=== PATIENT | female | born 1945 | race Caucasian/White ===

== ENCOUNTER 2017-01-09 23:42 | Inpatient (IN) | payer MEDICARE ==
[~2017-01-09] VITALS: Ht 162.6 cm; Wt 54.6 kg
[2017-01-10] MEDS ORDERED: RALO60TA PO (00:06)
[2017-01-10] MEDS ORDERED: ASPI-630 PO (00:06)
[2017-01-10] MEDS ORDERED: PYRI100T PO (00:06)
[2017-01-10] MEDS ORDERED: PSYL0.5215 PO (00:06)
[2017-01-10] MEDS ORDERED: COLE1TAB2 PO (00:06)
[2017-01-10] MEDS ORDERED: ALBU8.5H8 INH (00:06)
[2017-01-10] MEDS ORDERED: CHOL10003 PO (00:06)
[2017-01-10] MEDS ORDERED: MULT1TAB52 PO (00:06)
[2017-01-10] MEDS ORDERED: ALPR1TAB6 PO (00:06)
[2017-01-10] MEDS ORDERED: BUSP30TA PO (00:06)
[2017-01-10] MEDS ORDERED: MOME110A IH (00:06)
[2017-01-10] MEDS ORDERED: MIRT45TA3 PO (00:06)
[2017-01-10] MEDS ORDERED: FOLI0.8T2 PO (00:06)
[2017-01-10] MEDS ORDERED: DICY20TA3 PO (00:06)
[2017-01-10] MEDS ORDERED: DONE10TA7 PO (00:06)
[2017-01-10] MEDS ORDERED: CALC1TAB PO (00:06)
[2017-01-10] MEDS ORDERED: MEMA10TA PO (00:06)
[2017-01-10] MEDS ORDERED: FOLI1TAB16 PO (01:39)
[2017-01-10] MEDS ORDERED: ESCITALOPRAM OX10 MG PO (01:39)
[2017-01-10] MEDS ORDERED: MAGNESIUM HYDROXIDE 2,400 MG/30 ML ORAL.SUSP. PO PRN (01:45)
[2017-01-10] MEDS ORDERED: METHYL SALICYLATE/MENTHOL TOPICAL OINTMENT 29GM TUBE. TP PRN (01:45)
[2017-01-10] MEDS ORDERED: ACETAMINOPHEN 325 MG TABLET PO PRN (01:45)
[2017-01-10] MEDS ORDERED: MAG HYDROX/AL HYDROX/SIMETH 30 ML ORAL.SUSP PO PRN (01:45)
[2017-01-10 01:51] VITALS: BP 139/83
[2017-01-10] MEDS: ALPRAZolam 0.5 MG TABLET PO PRN ×2 (02:40→20:04)
--- NOTE | 2017-01-10 03:00 | NUR ---
Admission Note: Pt arrived to unit @0110 accompanied by EMS. Admitted to Dr. Renteria w/ Dx: MDD, OCD. Pt cooperative w/assessment, A/O x4 but forgetful. Slow to answer questions but answers appropriately. Assessment as charted. Pt anxious and agitated, attempting to grab at staff. PRN Xanax administered as ordered.
[2017-01-10] MEDS ORDERED: ALBUTEROL SULFATE 8GM INHALER. INH PRN (07:15)
[2017-01-10 07:23] LABS: BASO # 0.1 x10^3/uL (0.0-0.2); BASO % 1 % (0-3); EOS # 0.3 x10^3/uL (0.0-0.7); EOS % 4 % (0-3); HEMATOCRIT 36.6 % (36.0-47.0); HEMOGLOBIN 12.2 g/dL (12.0-15.5); LYMPH # 2.3 x10^3/uL (1.0-4.8); LYMPH % 28 % (24-48); MEAN CORPUSCULAR HEMOGLOBIN 31 pg (25-35); MEAN CORPUSCULAR HGB CONC 33 g/dL (31-37); MEAN CORPUSCULAR VOLUME 94 fL (79-100); MONO # 0.9 x10^3/uL (0.0-1.1); MONO % 10 % (0-9); NEUT # 4.7 x10^3uL (1.8-7.7); NEUT % 56 % (31-73); PLATELET COUNT 176 x10^3/uL (140-400); RED BLOOD COUNT 3.89 x10^6/uL (3.50-5.40); RED CELL DISTRIBUTION WIDTH 13.9 % (11.5-14.5); WHITE BLOOD COUNT 8.2 x10^3/uL (4.0-11.0)
[2017-01-10] MEDS ORDERED: ALBUTEROL SULFATE 2.5 MG/3 ML NEBU. NEB PRN (07:30)
[2017-01-10 07:32] LABS: ALBUMIN 3.4 g/dL (3.4-5.0); ALBUMIN/GLOBULIN RATIO 1.3 (1.0-1.7); CALCIUM 8.7 mg/dL (8.5-10.1); CREATININE 1.1 mg/dL (0.6-1.0); GFR 48.8; MAGNESIUM 1.8 mg/dL (1.8-2.4); POTASSIUM 3.5 mmol/L (3.5-5.1); TOTAL BILIRUBIN 0.5 mg/dL (0.2-1.0)
[2017-01-10] MEDS: CALCIUM CARB/VIT D3 500/200 TABLET PO SCH ×2 (08:00→16:50)
[2017-01-10] MEDS: NICOTINE 14MG PATCH. TD SCH (08:41)
[2017-01-10] MEDS: PSYLLIUM SEED (WITH SUGAR) PACKET. PO SCH ×2 (08:41→16:50)
[2017-01-10] MEDS: MULTIVITAMIN with MINERAL TABLET. PO SCH (08:42)
[2017-01-10] MEDS: FOLIC ACID 1 MG TABLET PO SCH (08:42)
[2017-01-10] MEDS: RALOXIFENE 60 MG TABLET. PO SCH (08:42)
[2017-01-10] MEDS: DONEPEZIL HCL 10 MG TABLET PO SCH (08:42)
[2017-01-10] MEDS: CHOLECALCIFEROL (VITAMIN D3) 1,000 UNIT TABLET PO SCH (08:45)
[2017-01-10] MEDS: busPIRone 15 MG TABLET. PO SCH ×2 (08:45→19:33)
[2017-01-10] MEDS: MEMANTINE 10 MG TABLET. PO SCH ×2 (08:45→19:33)
[2017-01-10] MEDS: CITALOPRAM 20 MG TABLET. PO SCH (08:45)
[2017-01-10] MEDS: ASPIRIN 81 MG TAB.CHEW PO SCH (08:45)
[2017-01-10] MEDS: PYRIDOXINE 100 MG TABLET. PO SCH (08:48)
[2017-01-10] MEDS: DICYCLOMINE HCL 20 MG TABLET PO SCH ×4 (08:48→19:33)
[2017-01-10] MEDS ORDERED: NON FORMULARY ITEM (Mometasone Furoate (Asmanex) 2 PUFF) IH SCH (09:00)
--- NOTE | 2017-01-10 09:30 | NUR ---
Behavior Intervention Response and Plan: BIRP Note: Behavior: Assumed Care of patient, patient located in Day Room at shift change. Patient exhibited the following behavior Disorganized, Withdrawn, Interactive. Brief assessment on rounds of vital signs, medication needs, lab studies, and pain. Treatment plan problems 1 & 2. Intervention: Patient assessed and the following interventions initiated safety checks 15 Minute Checks Cognitive Assessment , Head to toe Assessment , Medications. Response: After interactions and interventions patient responded in the following manner, Calm , Appropriate ,Compliant. Continue to assess behaviors and condition will continue to monitor throughout the shift as needed. Patient educated on ADL's, and hand hygiene. Plan: Continue to monitor Master Treatment Plan for patient's progress toward short term goals of Decreased Agitation, No harm To self/ others, [facility] goals to return to previous living setting vs placement. Continue to assess patient for changes in above assessment. Monitor for medication needs, pain, and safety concerns. Hourly rounding performed to ensure safe environment.
--- NOTE | 2017-01-10 10:53 | NUR ---
reported that patient has had recent AMS and increased confusion. CT of head W/O contrast and neuro consult with Dr. Bolivar ordered per Dr. Renteria treatment team instructions. Paged Dr. Bolivar and informed patients nurse of orders.
[2017-01-10] MEDS: BUDESONIDE 0.5 MG/2 ML NEBU NEB SCH ×2 (11:20→20:26)
--- NOTE | 2017-01-10 11:28 | NUR ---
Patient has been provided with Practical Counseling for tobacco cessation. It included a face to face interaction and the following was discussed: Recognizing danger situations, Developing coping skills,Basic cessation information. Will follow for discharge needs and discharge planning.
--- NOTE | 2017-01-10 11:30 | NUR ---
THERAPEUTIC RECREATION GROUP NOTE TITLE :Movement to Music: Strength ACTIVITY : Movement/ Exercise GOAL : Increase morale, attention, flexibility. Decrease stress/anxiety. DURATION : 30 Minutes RESPONSE : Full participation. Pt. joined the group about half way through. She acted confused at first but picked up the noodle and followed along with most of the rest of the moves. She made dramatic moves at times but was quiet and pleasant.
--- NOTE | 2017-01-10 12:03 | EKG ---
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
--- NOTE | 2017-01-10 14:15 | NUR ---
THERAPEUTIC RECREATION GROUP NOTE TITLE :Music Bingo ACTIVITY : Music, Cognitive Stimulation GOAL : Increase socialization, elevate mood, stimulate memory, Maintain or improve cognitive functioning DURATION : 60 minutes RESPONSE : Moderate participation. Pt. joined the group towards the end and needed was disorganized. She had difficulty understanding the concept and was stuck wondering how to keep the chips from moving. She needed one on one assistance.
[2017-01-10 14:53] LABS: THYROID STIM HORMONE (TSH) 0.986 uIU/mL (0.358-3.740)
--- NOTE | 2017-01-10 15:00 | NUR ---
Patient's left a duffel bag with clothes and denture cups in it. Clothes added to patient's inventory by [employer]ER[employer], denture cups were empty. As she still does not have dentures, will keep her on a mechanical soft diet. Will inform when he next visisits that the dentures were not in the bag.
--- NOTE | 2017-01-10 15:02 | RAD ---
Indication change in mental status. Noncontrast images of the head were obtained. No prior imaging is available. The calvarium appears unremarkable. The visualized paranasal sinuses appear normal. There is no subdural or epidural hematoma. There is no mass or midline shift. No hemorrhage is seen. IMPRESSION: No acute finding seen in the head PQRS Compliance Statement: One or more of the following individualized dose reduction techniques were utilized for this examination: 1. Automated exposure control 2. Adjustment of the mA and/or kV according to patient size 3. Use of iterative reconstruction technique
[2017-01-10 16:03] VITALS: BP 124/65
[2017-01-10 18:11] LABS: T3 TOTAL 83 ng/dL (71-180); THYROXINE 6.8 ug/dL (4.5-12.0)
--- NOTE | 2017-01-10 19:43 | PDOC ---
Exam Lencho Demential Exam: Lencho Note: Please also refer to the separate dictated note~for this date of service dictated separately.~Patient seen individually. Discussed the patient with Nursing staff reviewed the chart.~Reviewed interim history and current functioning. Reviewed vital signs,~Labs/ Radiology~and current medications noted below. Continue current treatment with the changes noted in the dictated addendum note Assessment: Vital Signs: Vital Signs Date Time Temp Pulse Resp B/P (MAP) Pulse Ox O2 Delivery O2 Flow Rate FiO2 01/10/17 16:03 97.7 77 18 124/65 (84) 95 01/10/17 11:21 Room Air I&O Intake and Output 01/11/17 07:00 Intake Total 660 ml Balance 660 ml Intake Oral 660 ml Labs: Laboratory Tests Test 01/10/17 07:08 White Blood Count 8.2 x10^3/uL (4.0-11.0) Red Blood Count 3.89 x10^6/uL (3.50-5.40) Hemoglobin 12.2 g/dL (12.0-15.5) Hematocrit 36.6 % (36.0-47.0) Mean Corpuscular Volume 94 fL (79-100) Mean Corpuscular Hemoglobin 31 pg (25-35) Mean Corpuscular Hemoglobin Concent 33 g/dL (31-37) Red Cell Distribution Width 13.9 % (11.5-14.5) Platelet Count 176 x10^3/uL (140-400) Neutrophils (%) (Auto) 56 % (31-73) Lymphocytes (%) (Auto) 28 % (24-48) Monocytes (%) (Auto) 10 % (0-9) H Eosinophils (%) (Auto) 4 % (0-3) H Basophils (%) (Auto) 1 % (0-3) Neutrophils # (Auto) 4.7 x10^3uL (1.8-7.7) Lymphocytes # (Auto) 2.3 x10^3/uL (1.0-4.8) Monocytes # (Auto) 0.9 x10^3/uL (0.0-1.1) Eosinophils # (Auto) 0.3 x10^3/uL (0.0-0.7) Basophils # (Auto) 0.1 x10^3/uL (0.0-0.2) Sodium Level 143 mmol/L (136-145) Potassium Level 3.5 mmol/L (3.5-5.1) Chloride Level 107 mmol/L (98-107) Carbon Dioxide Level 29 mmol/L (21-32) Anion Gap 7 (6-14) Blood Urea Nitrogen 15 mg/dL (7-20) Creatinine 1.1 mg/dL (0.6-1.0) H Estimated GFR (Cockcroft-Gault) 48.8 BUN/Creatinine Ratio 14 (6-20) Glucose Level 85 mg/dL (70-99) Calcium Level 8.7 mg/dL (8.5-10.1) Magnesium Level 1.8 mg/dL (1.8-2.4) Iron Level 75 ug/dL (50-170) Total Iron Binding Capacity 263 ug/dL (250-450) Iron Saturation 29 % (15-34) Total Bilirubin 0.5 mg/dL (0.2-1.0) Aspartate Amino Transferase (AST) 44 U/L (15-37) H Alanine Aminotransferase (ALT) 39 U/L (14-59) Alkaline Phosphatase 58 U/L (46-116) Total Protein 6.0 g/dL (6.4-8.2) L Albumin 3.4 g/dL (3.4-5.0) Albumin/Globulin Ratio 1.3 (1.0-1.7) Triglycerides Level 78 mg/dL (0-150) Cholesterol Level 156 mg/dL (0-200) LDL Cholesterol, Calculated 73 mg/dL (0-100) VLDL Cholesterol, Calculated 15 mg/dL (0-40) Non-HDL Cholesterol Calculated 88 mg/dL (0-129) HDL Cholesterol 68 mg/dL (40-60) H Cholesterol/HDL Ratio 2.0 Vitamin B12 Level 316 pg/mL (247-911) 25-Hydroxy Vitamin D Total Pending Thyroid Stimulating Hormone (TSH) 0.986 uIU/mL (0.358-3.740) Thyroxine (T4) 6.8 ug/dL (4.5-12.0) Total Triiodothyronine (TT3) 83 ng/dL (71-180) RPR Titer Additional Testing Pending Current Medications: Meds: Current Medications Donepezil HCl (Aricept) 10 mg DAILY PO Last administered on 01/10/17 08:42; Start 01/10/17 at 09:00 Memantine (Namenda) 10 mg BID PO Last administered on 01/10/17 19:33; Start 01/10/17 at 09:00 Alprazolam (Xanax) 1 mg PRN QID PRN PO ANXIETY / AGITATION Last administered on 01/10/17 02:40; Start 01/10/17 at 01:30 Buspirone HCl (Buspar) 30 mg BID PO Last administered on 01/10/17 19:33; Start 01/10/17 at 09:00 Citalopram Hydrobromide (CeleXA) 20 mg DAILY PO Last administered on 01/10/17 08:45; Start 01/10/17 at 09:00 Mirtazapine (Remeron) 45 mg HS PO Last administered on 01/10/17 19:36; Start at 21:00 Acetaminophen (Tylenol) 650 mg PRN Q6HRS PRN PO PAIN / TEMP Last administered on 01/10/17 02:40; Start 01/10/17 at 01:45 Multi-Ingredient Ointment (Analgesic Galien) 1 [place] PRN QID PRN TP MUSCLE PAIN; Start 01/10/17 at 01:45 Al Hydroxide/Mg Hydroxide (Mylanta Plus Xs) 15 ml PRN AFTMEALHC PRN PO DYSPEPSIA; Start 01/10/17 at 01:45 Magnesium Hydroxide (Milk Of Magnesia) 2,400 mg PRN QHS PRN PO CONSTIPATION; Start 01/10/17 at 01:45 Nicotine (Nicoderm Cq 14mg) 1 patch DAILY TD Last administered on 01/10/17 08: 41; Start 01/10/17 at 09:00 Albuterol Sulfate (Ventolin Hfa) 1 puff PRN Q6HRS PRN INH SHORTNESS OF BREATH; Start 01/10/17 at 07:15; Stop 01/10/17 at 07:23; Status DC Aspirin (Children'S Aspirin) 81 mg DAILY PO Last administered on 01/10/17 08:45 ; Start 01/10/17 at 09:00 Vitamin D (Vitamin D3) 2,000 unit DAILY PO Last administered on 01/10/17 08:45 ; Start 01/10/17 at 09:00 Colestipol HCl (Colestid) 1 gm HS PO ; Start 01/10/17 at 21:00 Dicyclomine HCl (Bentyl) 20 mg QID PO Last administered on 01/10/17 19:33; Start 01/10/17 at 09:00 Folic Acid (Folic Acid) 1 mg DAILY PO Last administered on 01/10/17 08:42; Start 01/10/17 at 09:00 Pyridoxine HCl (Vitamin B-6) 100 mg DAILY PO ; Start 01/10/17 at 09:00 Raloxifene HCl (Evista) 60 mg DAILY PO Last administered on 01/10/17 08:42; Start 01/10/17 at 09:00 Calcium/Vitamin D (Oscal D 500mg/ 200uts) 1 tab BIDWMEALS PO Last administered on 01/10/17 16:50; Start 01/10/17 at 08:00 Non-Formulary Medication 2 puff DAILY IH ; Start 01/10/17 at 09:00; Stop 01/10/17 at 09:00; Status DC Multivitamins/ Calcium (Thera-M Plus) 1 tab DAILY PO Last administered on 08:42; Start 01/10/17 at 09:00 Psyllium Hydrophilic Mucilloid (Metamucil) 1 pkt BID94 PO Last administered on 01/10/17 16:50; Start 01/10/17 at 09:00 Albuterol Sulfate (Ventolin) 2.5 mg PRN Q6HRS PRN NEB SHORTNESS OF BREATH; Start 01/10/17 at 07:30 Budesonide (Pulmicort) 0.25 mg RTBID NEB Last administered on 01/10/17 11:20; Start 01/10/17 at 08:00 Active Scripts Active Reported Escitalopram Oxalate 10 Mg Tablet 10 Mg PO DAILY Folic Acid 1 Mg Tablet 1 Mg PO DAILY Proair Hfa Inhaler (Albuterol Sulfate) 8.5 Gm Hfa.aer.ad 1 Puff INH PRN Q6HRS PRN Asmanex (Mometasone Furoate) 110 Mcg Aer.pow.ba 2 Puff IH DAILY Colestipol Hcl 1 Gm Tablet 1 Gm PO HS Metamucil (Psyllium Husk) 0.52 Gm Capsule 2 Cap PO BID94 Multivitamins (Multivitamin) 1 Each Tablet 1 Tab PO DAILY Aspirin 81 Mg Tab.chew 81 Mg PO DAILY Vitamin D3 (Cholecalciferol (Vitamin D3)) 1,000 Unit Tablet 2,000 Unit PO DAILY Vitamin B-6 (Pyridoxine Hcl) 100 Mg Tablet 100 Mg PO DAILY Caltrate 600 + D Tablet (Calcium Carbonate/Vitamin D3) 1 Each Tablet 1 Tab PO BID Evista (Raloxifene Hcl) 60 Mg Tablet 60 Mg PO DAILY Donepezil Hcl 10 Mg Tablet 10 Mg PO DAILY Namenda (Memantine Hcl) 10 Mg Tablet 10 Mg PO BID Alprazolam 1 Mg Tablet 1 Mg PO QID PRN Dicyclomine Hcl 20 Mg Tablet 20 Mg PO QID Buspirone Hcl 30 Mg Tablet 30 Mg PO BID Mirtazapine 45 Mg Tablet 45 Mg PO KAYLAN RAGLAND MD Jan 10, 2017 19:43
--- NOTE | 2017-01-10 19:45 | NUR ---
Behavior Intervention Response and Plan: BIRP Note: Behavior: Assumed Care of patient, patient located in Hallway at shift change. Patient exhibited the following behavior Disorganized, Anxious, Agitated, Intrusive. Brief assessment on rounds of vital signs, medication needs, lab studies, and pain. Treatment plan problems 1 & 2. Intervention: Patient assessed and the following interventions initiated safety checks 15 Minute Checks Cognitive Assessment , Head to toe Assessment , Medications. Response: After interactions and interventions patient responded in the following manner, Calm , Appropriate ,Compliant. Continue to assess behaviors and condition will continue to monitor throughout the shift as needed. Patient educated on ADL's, and hand hygiene. Plan: Continue to monitor Master Treatment Plan for patient's progress toward short term goals of Decreased Agitation, No harm To self/ others, [facility] goals to return to previous living setting vs placement. Continue to assess patient for changes in above assessment. Monitor for medication needs, pain, and safety concerns. Hourly rounding performed to ensure safe environment.
[2017-01-10] MEDS ORDERED: COLESTIPOL HCL 1 GM TABLET PO SCH (21:00)
[2017-01-10] MEDS ORDERED: MIRTAZAPINE 15 MG TABLET PO SCH (21:00)
--- NOTE | 2017-01-10 22:12 | HP ---
ADMIT DATE: 01/10/2017 This note covers element not covered in my initial note of 01/10/2017. IDENTIFYING DATA: The patient is a 71-year-old female referred to us from the Emergency Room [facility] on [facility] after she presented there from home with her on account of increased confusion, acute mental status changes, marked obsessive, and thought processes appearing almost "catatonic" and she would "zone out." Reportedly, she has mild memory deficits and increasingly agitated. She was recently taken off Prozac and started on Lexapro by Dr. Leblanc, her psychiatrist. was unable to manage her at home. She was unable to take care of her ADLs. She was taking markedly extended periods of time to complete simple tasks. Appeared psychotic and obsessive and presented to the ER. I was called around midnight or so to determine whether the patient could be hospitalized for psychiatric stabilization. In the meantime, decided he wanted her in a psychiatric facility closer to him in the [place] area. I called back an hour or so later to check with the nursing staff and had not been able to find any other facility and we did agree to bring her in to us for psychiatric stabilization. CHIEF COMPLAINT: "I don't know." The patient responded after I asked her when she came here. In fact, she knew very well when she came and was trying to assess her memory. She was evasive and looking away. Appeared paranoid, psychotic, and quite confused, but nursing staff state she has been cognitively reasonably intact at times in between her marked confusion. HISTORY OF PRESENT ILLNESS: ____, but it appears the patient has a history of obsessive-compulsive disorder, mild cognitive impairment, major depressive disorder and has been treated outpatient by Dr. Leblanc. More recently, Prozac was changed to Lexapro and she has had a change in her mental status significantly as noted above. No clear history of suicidal or homicidal ideation. No clear history of bipolar disorder, but past records will be requested to reevaluate this. Following admission, the patient has been anxious, agitated, and grabbing at [facility]. She is quite forgetful, confused, and attempts to grab tube of blood from the lab aid. Unable to formulate sentences since the morning of 01/10/2017. PAST PSYCHIATRIC HISTORY: As above. MEDICAL HISTORY: Mitral valve prolapse and irritable bowel syndrome. ALLERGIES: MINOCYCLINE, SULFA, PENICILLIN, AND AMELIA. ACCU-CHEKS: None. DIET: Regular. MEDICATIONS: Takes at home. REVIEW OF SYSTEMS: No CV, , pulmonary, eye, or ENT system symptoms on review. Reliability is poor. UA was negative in [facility]. CT head of the not completed. We will have it done here in our unit. Code status is full code. CURRENT PSYCHOTROPICS: Lexapro 10 mg a day, Remeron 45 mg at bedtime, Xanax 1 mg 4 times a day p.r.n., BuSpar 30 mg b.i.d., Namenda 10 b.i.d., and Aricept 10 mg a day. REACTION TO HOSPITALIZATION: The patient oblivious of this asset. The patient has supportive . MENTAL STATUS EXAM: The patient was seen individually evening of 01/10/2017. She is oriented to herself, quite paranoid, evasive, and not answering questions. However, nursing staff report she has been better oriented other times during the day. Speech moderate latency of that, abstraction fair, computation impaired, attention span short, and language function intact. Mood and affect remains somewhat withdrawn and labile. No active suicidal or homicidal ideation. This note covers elements not covered in my initial note. Readers refer to that note for details of vital signs. IMPRESSION: Major depressive disorder with psychotic features, psychotic disorder, unspecified; mild cognitive impairment versus major neurocognitive disorder, Alzheimer, vascular with delusion, depression; and anxiety disorder, unspecified. Rest as above. PLAN: Admit to the geropsychiatry unit at [facility]. I will see the patient daily individually from a psychiatric standpoint and medical follow up with Dr. Langford/Dr. Schwarz. Check CT head. Neurology consult with Dr. Bolivar to assess any neurological causes for acute mental status changes. Continue current psychotropics and observe baseline. The patient probably needs the addition of an atypical antipsychotic, but I would not like to wait day or so before deciding those baseline assessments. Reaction to hospitalization, the patient oblivious of this. KAYLAN RAGLAND MD DR: NABIL/sasha JOB#: [id number] / [id number]
[2017-01-11 06:03] VITALS: BP 130/82
[2017-01-11] MEDS: DICYCLOMINE HCL 20 MG TABLET PO SCH (07:55)
[2017-01-11] MEDS: busPIRone 15 MG TABLET. PO SCH (07:55)
[2017-01-11] MEDS: CALCIUM CARB/VIT D3 500/200 TABLET PO SCH (07:55)
[2017-01-11] MEDS: FOLIC ACID 1 MG TABLET PO SCH (07:55)
[2017-01-11] MEDS: CHOLECALCIFEROL (VITAMIN D3) 1,000 UNIT TABLET PO SCH (07:55)
[2017-01-11] MEDS: DONEPEZIL HCL 10 MG TABLET PO SCH (07:56)
[2017-01-11] MEDS: ASPIRIN 81 MG TAB.CHEW PO SCH (07:56)
[2017-01-11] MEDS: RALOXIFENE 60 MG TABLET. PO SCH (07:56)
[2017-01-11] MEDS: MULTIVITAMIN with MINERAL TABLET. PO SCH (07:56)
[2017-01-11] MEDS: PSYLLIUM SEED (WITH SUGAR) PACKET. PO SCH (07:56)
[2017-01-11] MEDS: MEMANTINE 10 MG TABLET. PO SCH (07:56)
[2017-01-11] MEDS: CITALOPRAM 20 MG TABLET. PO SCH (07:56)
[2017-01-11] MEDS: PYRIDOXINE 100 MG TABLET. PO SCH (07:56)
[2017-01-11] MEDS: NICOTINE 14MG PATCH. TD SCH (07:56)
--- NOTE | 2017-01-11 08:50 | NUR ---
Behavior Intervention Response and Plan: BIRP Note: Behavior: Assumed Care of patient, patient located in Dining Room at shift change. Patient exhibited the following behavior Withdrawn, Disorganized, Interactive. Brief assessment on rounds of vital signs, medication needs, lab studies, and pain. Treatment plan problems 1 & 2. Intervention: Patient assessed and the following interventions initiated safety checks 15 Minute Checks Cognitive Assessment , Head to toe Assessment , Medications. Response: After interactions and interventions patient responded in the following manner, Calm , Appropriate ,Compliant. Continue to assess behaviors and condition will continue to monitor throughout the shift as needed. Patient educated on ADL's, and hand hygiene. Plan: Continue to monitor Master Treatment Plan for patient's progress toward short term goals of Decreased Agitation, Decreased Aggression, [facility] goals to return to previous living setting vs placement. Continue to assess patient for changes in above assessment. Monitor for medication needs, pain, and safety concerns. Hourly rounding performed to ensure safe environment.
--- NOTE | 2017-01-11 09:00 | NUR ---
THERAPEUTIC RECREATION GROUP NOTE TITLE :Group Counting ACTIVITY : Activities and Games GOAL : Increase social interaction, communication. Maintain or improve mental functioning. Decrease restlessness DURATION : 60 minutes RESPONSE : Full participation. Pt. was alert and engaged the entire time. She needed prompting, explanations to stay on task and understand the rules. At times, she raised her arms and stared at her hands, needing redirection back on task. She was calm and sat with the group the entire time.
[2017-01-11] MEDS: BUDESONIDE 0.5 MG/2 ML NEBU NEB SCH (10:14)
--- NOTE | 2017-01-11 11:20 | NUR ---
Patient had a seizure while sitting on a bench on the patio. Patient was carried inside to the day room and rapid response called. She was unresponsive and drooling afterwards. VS obtained, EKG obtained, PIV initiated in left hand, labs obtained. MD was on scene, assessed patient, new orders received. Will continue to monitor patient.
--- NOTE | 2017-01-11 11:30 | NUR ---
THERAPEUTIC RECREATION GROUP NOTE TITLE :Movement to Music: Flexibility- In the Dining Room! ACTIVITY : Movement/ Exercise GOAL : Increase morale, attention, flexibility. Decrease stress/anxiety. DURATION : 30 Minutes RESPONSE : Full participation. Pt. joined the group late but followed along with all of the moves. She used her arms instead of her legs to copy a few stretches but others times followed along as desired.
--- NOTE | 2017-01-11 12:54 | NUR ---
Patient had second seizure activity. VS obtained, patient remained free from injury. MD notified, patient to be transferred to ICU.
[2017-01-11] MEDS ORDERED: ALPRAZolam 0.5 MG TABLET PO SCH (13:00)
--- NOTE | 2017-01-11 13:09 | EKG ---
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
--- NOTE | 2017-01-11 13:18 | NUR ---
Tobacco Discharge Note [facility] Tobacco Hotline called with patient prior to discharge, NO, patient transferred to ICU, will continue tobacco cessation on unit Tobacco cessation medication listed with current medications for discharge. YES Transition Record was faxed to follow-up provider with the following elements: Reason for admission, procedures, tests, principal diagnosis, pending studies, patient instructions, 26/11 contact information for unit, phone number to obtain pending test results, plan for follow-up care, physician follow-up, advanced directive information, and medication list with dose, duration and instructions. This information was included in the following documents: History and physical, lab results, study results, progress notes, social work planning form, DC instruction form, patient visit summary, and medication reconciliation form. Date & time record faxed: Record faxed to: ICU Record discussed with/ report given to: Nica Addendum: 01/15/17 at 0916 by IDA BHATIA RN Date & time record faxed: 01-11-2017 @ 1913
[2017-01-11] MEDS ORDERED: ALPR0.5T PO (13:25)
[2017-01-11] MEDS ORDERED: NICO1PAT25 TP (14:17)
[2017-01-11] MEDS ORDERED: BUDE0.25 NEB (14:17)
[2017-01-11] MEDS ORDERED: METH29OI TP (14:17)
[2017-01-11] MEDS ORDERED: CITA20TA9 PO (14:17)
[2017-01-11] MEDS ORDERED: ACET325T9 PO (14:17)
--- NOTE | 2017-01-11 20:23 | PDOC ---
Exam Lencho Demential Exam: Lencho Note: Please also refer to the separate dictated note~for this date of service dictated separately.~Patient seen individually. Discussed the patient with Nursing staff reviewed the chart.~Reviewed interim history and current functioning. Reviewed vital signs,~Labs/ Radiology~and current medications noted below. Continue current treatment with the changes noted in the dictated addendum note Assessment: Vital Signs: Vital Signs Date Time Temp Pulse Resp B/P (MAP) Pulse Ox O2 Delivery O2 Flow Rate FiO2 01/11/17 10:16 97 Room Air 01/11/17 06:03 97.9 73 18 130/82 (98) I&O Intake and Output 01/12/17 07:00 Intake Total 240 ml Balance 240 ml Intake Oral 240 ml Labs: Laboratory Tests Test 01/11/17 11:32 Glucose (Fingerstick) 112 mg/dL (70-99) H Current Medications: Meds: Current Medications Donepezil HCl (Aricept) 10 mg DAILY PO Last administered on 01/11/17 07:56; Start 01/10/17 at 09:00; Stop 01/11/17 at 13:18; Status DC Memantine (Namenda) 10 mg BID PO Last administered on 01/11/17 07:56; Start 01/10/17 at 09:00; Stop 01/11/17 at 13:18; Status DC Alprazolam (Xanax) 1 mg PRN QID PRN PO ANXIETY / AGITATION Last administered on 01/10/17 20:04; Start 01/10/17 at 01:30; Stop 01/11/17 at 13:18; Status DC Buspirone HCl (Buspar) 30 mg BID PO Last administered on 01/11/17 07:55; Start 01/10/17 at 09:00; Stop 01/11/17 at 13:18; Status DC Citalopram Hydrobromide (CeleXA) 20 mg DAILY PO Last administered on 01/11/17 07:56; Start 01/10/17 at 09:00; Stop 01/11/17 at 13:18; Status DC Mirtazapine (Remeron) 45 mg HS PO Last administered on 01/10/17 19:36; Start at 21:00; Stop 01/11/17 at 13:18; Status DC Acetaminophen (Tylenol) 650 mg PRN Q6HRS PRN PO PAIN / TEMP Last administered on 01/10/17 02:40; Start 01/10/17 at 01:45; Stop 01/11/17 at 13:18; Status DC Multi-Ingredient Ointment (Analgesic Austin) 1 winston PRN QID PRN TP MUSCLE PAIN; Start 01/10/17 at 01:45; Stop 01/11/17 at 13:18; Status DC Al Hydroxide/Mg Hydroxide (Mylanta Plus Xs) 15 ml PRN AFTMEALHC PRN PO DYSPEPSIA; Start 01/10/17 at 01:45; Stop 01/11/17 at 13:18; Status DC Magnesium Hydroxide (Milk Of Magnesia) 2,400 mg PRN QHS PRN PO CONSTIPATION; Start 01/10/17 at 01:45; Stop 01/11/17 at 13:18; Status DC Nicotine (Nicoderm Cq 14mg) 1 patch DAILY TD Last administered on 01/11/17 07: 56; Start 01/10/17 at 09:00; Stop 01/11/17 at 13:18; Status DC Albuterol Sulfate (Ventolin Hfa) 1 puff PRN Q6HRS PRN INH SHORTNESS OF BREATH; Start 01/10/17 at 07:15; Stop 01/10/17 at 07:23; Status DC Aspirin (Children'S Aspirin) 81 mg DAILY PO Last administered on 01/11/17 07:56 ; Start 01/10/17 at 09:00; Stop 01/11/17 at 13:18; Status DC Vitamin D (Vitamin D3) 2,000 unit DAILY PO Last administered on 01/11/17 07:55 ; Start 01/10/17 at 09:00; Stop 01/11/17 at 13:18; Status DC Colestipol HCl (Colestid) 1 gm HS PO ; Start 01/10/17 at 21:00; Stop 01/11/17 at 13:18; Status DC Dicyclomine HCl (Bentyl) 20 mg QID PO Last administered on 01/11/17 07:55; Start 01/10/17 at 09:00; Stop 01/11/17 at 13:18; Status DC Folic Acid (Folic Acid) 1 mg DAILY PO Last administered on 01/11/17 07:55; Start 01/10/17 at 09:00; Stop 01/11/17 at 13:18; Status DC Pyridoxine HCl (Vitamin B-6) 100 mg DAILY PO Last administered on 01/11/17 07: 56; Start 01/10/17 at 09:00; Stop 01/11/17 at 13:18; Status DC Raloxifene HCl (Evista) 60 mg DAILY PO Last administered on 01/11/17 07:56; Start 01/10/17 at 09:00; Stop 01/11/17 at 13:18; Status DC Calcium/Vitamin D (Oscal D 500mg/ 200uts) 1 tab BIDWMEALS PO Last administered on 01/11/17 07:55; Start 01/10/17 at 08:00; Stop 01/11/17 at 13:18; Status DC Non-Formulary Medication 2 puff DAILY IH ; Start 01/10/17 at 09:00; Stop 01/10/17 at 09:00; Status DC Multivitamins/ Calcium (Thera-M Plus) 1 tab DAILY PO Last administered on 07:56; Start 01/10/17 at 09:00; Stop 01/11/17 at 13:18; Status DC Psyllium Hydrophilic Mucilloid (Metamucil) 1 pkt BID94 PO Last administered on 01/11/17 07:56; Start 01/10/17 at 09:00; Stop 01/11/17 at 13:18; Status DC Albuterol Sulfate (Ventolin) 2.5 mg PRN Q6HRS PRN NEB SHORTNESS OF BREATH; Start 01/10/17 at 07:30; Stop 01/11/17 at 13:18; Status DC Budesonide (Pulmicort) 0.25 mg RTBID NEB Last administered on 01/11/17 10:14; Start 01/10/17 at 08:00; Stop 01/11/17 at 13:18; Status DC Alprazolam (Xanax) 0.5 mg QID PO Last administered on 01/11/17 11:51; Start 01/11/17 at 13:00; Stop 01/11/17 at 13:18; Status DC Active Scripts Active Reported NICODERM CQ 14mg (Nicotine) 1 Each Patch.td24 0.5 Patch TP DAILY Analgesic Austin (Methyl Salicylate/Menthol) 28 Gm Oint...g. 1 Gm TP PRN QID Celexa (Citalopram Hydrobromide) 20 Mg Tablet 1 Tab PO DAILY Budesonide 0.25 Mg/2 Ml Ampul.neb 1 Vial NEB BID Tylenol (Acetaminophen) 325 Mg Tablet 650 Mg PO PRN Q6HRS PRN Xanax (Alprazolam) 0.5 Mg Tablet 0.5 Mg PO QID Folic Acid 1 Mg Tablet 1 Mg PO DAILY Proair Hfa Inhaler (Albuterol Sulfate) 8.5 Gm Hfa.aer.ad 1 Puff INH PRN Q6HRS PRN Colestipol Hcl 1 Gm Tablet 1 Gm PO HS Metamucil (Psyllium Husk) 0.52 Gm Capsule 2 Cap PO BID94 Multivitamins (Multivitamin) 1 Each Tablet 1 Tab PO DAILY Aspirin 81 Mg Tab.chew 81 Mg PO DAILY Vitamin D3 (Cholecalciferol (Vitamin D3)) 1,000 Unit Tablet 2,000 Unit PO DAILY Vitamin B-6 (Pyridoxine Hcl) 100 Mg Tablet 100 Mg PO DAILY Caltrate 600 + D Tablet (Calcium Carbonate/Vitamin D3) 1 Each Tablet 1 Tab PO BID Evista (Raloxifene Hcl) 60 Mg Tablet 60 Mg PO DAILY Donepezil Hcl 10 Mg Tablet 10 Mg PO DAILY Namenda (Memantine Hcl) 10 Mg Tablet 10 Mg PO BID Alprazolam 1 Mg Tablet 1 Mg PO QID Dicyclomine Hcl 20 Mg Tablet 20 Mg PO QID Buspirone Hcl 30 Mg Tablet 30 Mg PO BID Mirtazapine 45 Mg Tablet 45 Mg PO HS KAYLAN RAGLAND MD Jan 11, 2017 20:22
--- NOTE | 2017-01-12 00:45 | EEG ---
DATE OF SERVICE: 01/10/2017 HISTORY: This is a 71-year-old female who was referred for an EEG to rule central nervous system pathology or seizure. The patient has had two new seizure-like activities today, described as generalized tonic-clonic seizure EEG DESCRIPTION: A digital 18-channel EEG was performed using the standard international 10-20 electrode placement system. Photic stimulation was used as an activation procedure and hyperventilation was not performed. The patient was not sleep deprived and the patient was not sedated. The EEG obtained with the patient in the drowsy state characterized by slowing of the posterior dominant rhythm at 6-7 cycles per second with amplitude of 35-50 microvolts. It was bilaterally symmetric and attenuated with eye opening. The background prolonged drowsy records presented with stage 2 sleep characterized by slowing of the posterior dominant rhythm and attenuation of the amplitudes. Vertex sharp waves, K-complexes, and symmetric sleep spindles at frequency of 13-15 cycles per second were also seen during the . Photic stimulation produced no driving responses and hyperventilation indicated no changes in the background. Hypoventilation was not performed. IMPRESSION: Normal prolonged drowsy and brief waking record presented with slowing of the posterior dominant rhythm due to drowsiness; however, no epileptiform activities were seen. The lack of epileptiform discharges does not always rule out seizure. Therefore, clinical correlation is advised. M Marko GASCA MD DR: STEPHANIE/sasha JOB#: [id number] / [id number]
--- NOTE | 2017-01-12 05:27 | CONS ---
DATE OF CONSULTATION: 01/10/2017 NEURO CONSULT REFERRING PHYSICIAN: Dr. Renteria. REASON FOR CONSULTATION: Acute mental status changes. HISTORY OF PRESENT ILLNESS: This is a 71-year-old female who was [facility] the [facility] on account of symptoms of increased confusion, agitations and behavior disturbances. On occasions, the patient would have "catatonic spells" according to her son who is a physician. She has been having marked symptoms of obsessive compulsive disorder and she was seen by a psychiatrist, Dr. Leblanc, who started her on Prozac; however, she was recently taken off Prozac and started her on Lexapro. According to the , her behavior has been worsened recently and he is unable to manage her situation and take care of her. Currently, the patient denies headaches, visual disturbances, nausea, vomiting, chest pain, shortness of breath or palpitation. She has had intermittent memory loss. She denies any recent fall or head injuries. The patient has been taking alprazolam 1 mg 4 times daily; however, it was reduced on admission to 1 mg daily; therefore, she did receive 2 mg over the last 2 days only. PAST MEDICAL HISTORY: Significant for confusion, anxiety, depressions, behavior disturbances, progressive memory loss, history of mitral valve prolapse and irritable bowel syndrome. FAMILY HISTORY: Noncontributory. SOCIAL HISTORY: The patient lives with her at home. She denies smoking, alcohol drinking, or illicit drug use. CURRENT MEDICATIONS: Alprazolam 1 mg was taken yesterday, multivitamins, folic acid, vitamin B6, dicyclomine, vitamin D, aspirin, Celexa, buspirone, Namenda, Aricept, and calcium. ALLERGIES: PENICILLIN, SULFA DRUGS, FEXOFENADINE, and MINOCYCLINE. REVIEW OF SYSTEMS: A 10-point review of system was performed as mentioned above in history of present illness. PHYSICAL EXAMINATION GENERAL: Well-developed, well-nourished white female, not in acute distress. She weighs 120 pounds, height 64 inches. VITAL SIGNS: Blood pressure 124/65, respiratory rate 18, pulse 77, temperature 97.7, oxygen saturation 95% on room air. HEENT: Normocephalic, atraumatic; otherwise, unremarkable. NECK: Supple. Negative for carotid bruit, lymphadenopathy or thyromegaly. LUNGS: Clear to A and P. CARDIOVASCULAR: Regular rate and rhythm, normal S1, S2. There is no S3, S4 or murmur. ABDOMEN: Soft. Bowel sounds are positive. EXTREMITIES: Negative for cyanosis, clubbing or pitting edema. NEUROLOGICAL EXAM: 1. Mental Status: The patient is alert and oriented to herself. The speech is fluent. There is no language dysfunction. The patient recalls 1/3 immediately and after 1 and 3 minutes. Judgment and abstract thinking are fair. The patient denies hallucination or delusion. 2. CRANIAL NERVES: Visual dwyer are full. The pupils are reactive to light and accommodation. Extraocular movements are intact. There is no nystagmus. There is no facial motor or sensory deficit. Hearing is intact bilaterally. The palate is elevated symmetrically. Sternocleidomastoid muscles are powerful bilaterally. The patient shrugs her shoulders symmetrically and protrudes her tongue in the midline without fasciculation or atrophy. 3. MOTOR EXAMINATION: No focal muscle bulk was seen. The tone is normal. The strength is 4/5 throughout. 4. SENSORY EXAMINATION: Normal pinprick, light touch, vibratory and position senses. 5. Deep tendon reflexes are symmetric and hypoactive with absent Achilles responses. 6. Gait and coordination are normal. LABORATORY DATA: CBC revealed white blood cells of 8.2 thousand, hemoglobin 12.2, hematocrit 36.6, and platelet count 176,000. Her chemistry revealed normal lipid profile with HDL of 68. Vitamin B12 is 316, vitamin D is normal at 57.4 with normal thyroid profile and RPR nonreactive. IMPRESSION: 1. Acute mental status changes more prominent in the last few weeks with long history of depression, anxiety, obsessive compulsive disorder with psychotic features. 2. Mitral valve prolapse. RECOMMENDATIONS: Continue with current psychiatric care and medical management and resume her Xanax to previous daily doses. M Marko GASCA MD DR: STEPHANIE/sasha JOB#: [id number] / [id number]
--- NOTE | 2017-01-12 05:30 | PN ---
DATE: 01/11/2017 SUBJECTIVE: The patient was transferred from [facility] ICU bed 5 because she did have a seizure-like activities 2 times this morning. According to the nursing staff, the patient was sitting outside, all of a sudden she stiffened up and she has chronic with loss of consciousness lasted few minutes. The patient was postictally disoriented and unresponsive for a few minutes. She had similar seizure-like activities later on. The patient did not recall the event. She did not have any tongue biting, bowel or bladder incontinence. Non-enhanced head CT scan revealed no evidence of acute intracranial process. Electroencephalogram was performed today and revealed no evidence of seizure activities. OBJECTIVE: GENERAL: Well-developed, well-nourished white female, not in acute distress. VITAL SIGNS: Blood pressure 130/82, respiratory rate 18, pulse 73, temperature 97.7, oxygen saturation 96% on room air. HEENT: Normocephalic, atraumatic, otherwise, unremarkable. NECK: Supple. Negative for carotid bruit, lymphadenopathy or thyromegaly. LUNGS: Clear to A and P. CARDIOVASCULAR: Regular rate and rhythm, normal S1, S2. There is no S3, S4 or murmur. ABDOMEN: Soft. Bowel sounds positive. EXTREMITIES: Negative for cyanosis, clubbing or pitting edema. NEUROLOGIC: The patient is alert, but disoriented to time and place. Speech is fluent. No language dysfunction. Memory, judgment, and abstract thinking are impaired. The patient denies hallucination or delusion. Cranial nerves are grossly intact. Motor Examination: No focal muscle bulk was seen. The tone is normal. The strength is 4/5 throughout. Sensory examination revealed normal pinprick and light touch senses throughout. Deep tendon reflexes were hypoactive with absent Achilles responses. Gait not tested. LABORATORY DATA: CBC revealed white blood cells of 11.9 thousand, hemoglobin 13.6, hematocrit 41.2, platelet count 245,000. Chemistry revealed sodium of 142, potassium 3.9, chloride 107, CO2 of 20, BUN 12, creatinine 1.3, glucose 116, calcium 9.5 and magnesium 2.2. Iron is normal. Liver enzymes with increased AST of 38. IMPRESSION: 1. New onset of a seizure, etiology uncertain, probably due to benzodiazepine withdrawal - alprazolam. 2. Multiple psychiatric problems including depressions, obsessive compulsive disorder, anxiety disorder with psychotic disorders. 3. Possible early dementia. 4. Early dementia. 5. Negative electroencephalogram for active seizure. RECOMMENDATIONS: 1. Resume the previous dose of alprazolam. 2. Continue with current medical and psychiatric care. M Marko GASCA MD DR: STEPHANIE/sasha JOB#: [id number] / [id number]
--- NOTE | 2017-01-12 07:42 | PDOC1 ---
History and Physicial KEI FOR ADMISSION: This is a 71-year-old female who was admitted to the Senior Behavioral Unit on yesterday in the early hours of 01/10/2017. There appears to have been a mixed up in her medication and that she was taking Xanax 1 mg 4 times a day scheduled, and she had been taken to the Emergency Room at [facility], and when she was discharged to the Senior Behavioral Unit, she was discharged on Xanax 1 mg q.i.d. p.r.n. So yesterday, she received 2 mg, but then had not received anything for over 12 hours and was called to the unit to see her because of tonic-clonic seizure activity. I did go up and see her, and she did seem to be postictal and did give her 0.5 mg of Ativan, and then about an hour later about 1:00 p.m.-1:30, she had another tonic-clonic seizure, which was witnessed by several individuals including her son. So she was transferred down to the ICU for further evaluation. PAST MEDICAL HISTORY: She has obsessive compulsive disorder, early cognitive impairment, anxiety and evidently history of psychosis. She actually was again on the senior behavior unit for at confusion, agitation and a change in her mental status. She had also recently started on Lexapro at the insistence of her family because of persistent depression. Other medical history includes 7 days a psychiatric admission at [facility]. On Saturday evening, she was almost in a catatonic state and so was taken to the hospital that time. ALLERGIES: PENICILLIN, SULFA, FEXOFENADINE AND MINOCYCLINE. MEDICATIONS: Handwritten list by her , is supposed to be mirtazapine 45 mg at night, which she has been on for a long time, BuSpar 30 mg twice a day in the morning and in the evening, ___ 20 mg q.i.d., alprazolam 1 mg noon, midday, evening and bedtime scheduled, memantine 10 mg twice a day, benazepril 10 mg daily, Evista 60 mg a day, Caltrate 600 with vitamin D twice a day, vitamin B6 100 mg a day, folic acid 800 mcg a day, vitamin D3 2000 mg a day, baby aspirin 81 mg a day, multivitamin, Metamucil, colestipol 1 g at bedtime, Asmanex inhaler 2 puffs 100 mcg daily. Other past medical history, she has a vitamin B6 deficiency and folic acid deficiency. SOCIAL HISTORY: She smokes 3 cigarettes a day. She lives at home with her . She has a son who is nurse, another son is physician. No alcohol to speak out. IMMUNIZATIONS: She had a pneumococcal vaccine and DTap vaccine on 01/02/2017. REVIEW OF SYSTEMS: Unable to obtain due to the patient's postictal state. PHYSICAL EXAMINATION: VITAL SIGNS: Blood pressure 140/57, temperature 97.8, pulse 78, respirations 17, O2 sat 94% on room air. GENERAL: Reviewed the video; she did appear to have some tonic clonic stiffness, but the video was very short in duration only 3-4 seconds. HEENT: Her pupils are equal, round, react to light. Extraocular muscles are intact. Her nose is patent. Her throat was clear. Her tongue was midline. NECK: Supple. LUNGS: Clear to auscultation. CARDIOVASCULAR: Regular rhythm and rate. ABDOMEN: Soft, nontender. EXTREMITIES: Without edema. NEUROLOGIC: She is postictal and is not able to follow directions to do cranial nerves. LABORATORY DATA: CBC is normal. Chemistry: Creatinine is 1.1. TSH is normal. Vitamin D 57.4. B12 was 316. ASSESSMENT: 1. Apparent seizure activity, questionable etiology, possibly withdrawal from Xanax, which was supposed to be scheduled, but actually was sent from the hospital as p.r.n. 2. Early neurocognitive impairment 3. Tobacco use disorder. 4. Folic acid deficiency. 5. B6 deficiency by history. 6. Chronic diarrhea according to her . 7. Mitral valve prolapse, per her . 8. Anxiety. 9. Obsessive compulsive disorder. PLAN: Transfer to the ICU. Dr. Bolivar has been consulted and Dr. Renteria will be consulted. Family very involvedand informed of transfer. GENO AYALA DO Problems: GENO AYALA DO Jan 12, 2017 07:42
--- NOTE | 2017-01-12 12:25 | DS ---
DATE OF DISCHARGE: 01/11/2017 DISCHARGE SUMMARY AND PSYCHIATRIC PROGRESS NOTE This is a late entry for date of service 01/11/2017 and covers elements not covered in my initial note of 01/11/2017. REASON FOR ADMISSION: Please refer to the admission history for details. Briefly, the patient is a 71-year-old female, referred to us from [facility] Emergency Room where she presented from home on account of increased confusion, acute mental status changes, symptoms of OCD, catatonia," zones out." Reportedly, she has mild dementia, increased agitation. She was recently taken off Prozac and started on Lexapro per her outpatient psychiatrist, Dr. Leblanc. Symptoms have worsened to a point she is unmanageable, unsafe in the home, not able to take care of her. She was felt to need inpatient psychiatric stabilization. SIGNIFICANT FINDINGS AND CLINICAL COURSE: Following admission, the patient was seen daily individually by myself, followed medically per Dr. Langford/Dr. Schwarz. She appeared extremely confused, but per nursing report at times, she would be reasonably well oriented. She was very obsessive, ruminative, psychotic, paranoid, forgetful, agitated at times. She was being observed baseline, continued on the psychotropics and rest of her medication regimen list that we received from [facility] Emergency Room. On 01/11/2017, the patient had 2 episodes of seizure-like presentation and was transferred to the ICU per Dr. Langford for further medical management after consultation with Dr. Bolivar, Neurology who had previously seen her at the prior evening as well. No further changes were made in her psychotropics, but we will be happy to reassess her and readmit her on the Psychiatry Service if clinically indicated once she is medically stable in the ICU. MENTAL STATUS EXAM: Prior to discharge on 01/11/2017, she was oriented to herself. Insight, judgment, recent and remote memory, attention, concentration, fund of knowledge poor, consistent with her diagnosis. FINAL DIAGNOSES: Major depressive disorder, recurrent with psychotic features; major neurocognitive disorder, Alzheimer, vascular with depression, delusions, seizure like episode. Rest diagnoses unchanged. Irritable bowel syndrome, mitral valve prolapse, history of OCD. DISCHARGE MEDICATIONS: Please refer to the MRAD. Further psychiatric followup at the ICU if requested for me to see her; otherwise, we will reassess her for admission back on our unit if clinically indicated once she is medically stable. MAN Dane RAGLAND MD DR: NABIL/sasha JOB#: [id number] / [id number]
== END 2017-01-11 13:17 | disposition short-term general hospital (02) | DRG 57 ==
LOC: EEVIPCON → GEROPSY 01-10 01:09
PROVIDERS: ADMIT Psychiatry & Neurology Psychiatry; ATTEND Psychiatry & Neurology Psychiatry
DX: G30.9 Alzheimer's disease, unspecified (principal); F33.3 Major depressive disorder, recurrent, severe with psychotic symptoms; F01.51 Vascular dementia, unspecified severity, with behavioral disturbance; G40.89 Other seizures; F02.81 Dementia in other diseases classified elsewhere, unspecified severity, with behavioral disturbance; I34.1 Nonrheumatic mitral (valve) prolapse; E53.8 Deficiency of other specified B group vitamins; F17.210 Nicotine dependence, cigarettes, uncomplicated; F41.9 Anxiety disorder, unspecified; F42.9 Obsessive-compulsive disorder, unspecified; K58.9 Irritable bowel syndrome, unspecified; Z88.8 Allergy status to other drugs, medicaments and biological substances; Z88.0 Allergy status to penicillin; Z88.2 Allergy status to sulfonamides
CPT/HCPCS: 36415; 70450; 80053; 80061; 82306; 82607; 82947; 83036; 83540; 83550; 83735; 84436; 84443; 84480; 85025; 86592; 86593; 93005; 94640; 99407; J7626; 97110; 97530; 97535

== ENCOUNTER 2017-01-11 13:25 | Inpatient (IN) | payer MEDICARE ==
[2017-01-11] VITALS (8 sets, daily range): BP systolic 140–162; BP diastolic 57–76
[~2017-01-11] VITALS: Ht 157.5 cm; Wt 59.0 kg
[~2017-01-11 13:25] MED LIST: ALBU8.5H8 INH; ALPR0.5T PO; ALPR1TAB6 PO; ASPI-630 PO; BUSP30TA PO; CALC1TAB PO; CHOL10003 PO; COLE1TAB2 PO; DICY20TA3 PO; DONE10TA7 PO; ESCITALOPRAM OX10 MG PO; FOLI0.8T2 PO; FOLI1TAB16 PO; MEMA10TA PO; MIRT45TA3 PO; MOME110A IH; MULT1TAB52 PO; PSYL0.5215 PO; PYRI100T PO; RALO60TA PO
[2017-01-11] MEDS ORDERED: ACETAMINOPHEN 325 MG TABLET PO PRN (14:15)
[2017-01-11] MEDS ORDERED: METHYL SALICYLATE/MENTHOL TOPICAL OINTMENT 29GM TUBE. TP PRN (14:15)
[2017-01-11] MEDS ORDERED: ALBUTEROL SULFATE 8GM INHALER. INH PRN (14:15)
[2017-01-11] MEDS ORDERED: BUDE0.25 NEB (14:17)
[2017-01-11] MEDS ORDERED: NICO1PAT25 TP (14:17)
[2017-01-11] MEDS ORDERED: METH29OI TP (14:17)
[2017-01-11] MEDS ORDERED: ACET325T9 PO (14:17)
[2017-01-11] MEDS ORDERED: CITA20TA9 PO (14:17)
[2017-01-11] MEDS ORDERED: ALBUTEROL SULFATE 2.5 MG/3 ML NEBU. NEB PRN (15:00)
--- NOTE | 2017-01-11 15:00 | NUR ---
The patient, MAOS CASTRO, 71 y/o, F admitted by GENO AYALA DO, was given written information regarding hospital policies, unit procedures and contact persons. Valuables were checked and left in room. Dr. Bolivar and Dexter consulted for r/o seizure activity. EEG to be completed. Labs obtained. Pt in bed at this time in ICU 5, alert to self and to family; confused. States she feels a little achy and does appear out of her norm. Pt able to follow commands and transfer to bedside with minimal assist. Will continue to monitor and follow seizure precautions.
[2017-01-11 16:56] LABS: BASO # 0.1 x10^3/uL (0.0-0.2); BASO % 1 % (0-3); EOS # 0.3 x10^3/uL (0.0-0.7); EOS % 3 % (0-3); HEMATOCRIT 41.2 % (36.0-47.0); HEMOGLOBIN 13.6 g/dL (12.0-15.5); LYMPH # 2.9 x10^3/uL (1.0-4.8); LYMPH % 25 % (24-48); MEAN CORPUSCULAR HEMOGLOBIN 32 pg (25-35); MEAN CORPUSCULAR HGB CONC 33 g/dL (31-37); MEAN CORPUSCULAR VOLUME 97 fL (79-100); MONO # 1.2 x10^3/uL (0.0-1.1); MONO % 11 % (0-9); NEUT # 7.3 x10^3uL (1.8-7.7); NEUT % 61 % (31-73); PLATELET COUNT 245 x10^3/uL (140-400); RED BLOOD COUNT 4.26 x10^6/uL (3.50-5.40); RED CELL DISTRIBUTION WIDTH 14.1 % (11.5-14.5); WHITE BLOOD COUNT 11.9 x10^3/uL (4.0-11.0)
[2017-01-11 17:04] LABS: ALBUMIN 3.8 g/dL (3.4-5.0); ALBUMIN/GLOBULIN RATIO 1.2 (1.0-1.7); CALCIUM 9.5 mg/dL (8.5-10.1); CREATININE 1.3 mg/dL (0.6-1.0); GFR 40.3; MAGNESIUM 2.2 mg/dL (1.8-2.4); POTASSIUM 3.9 mmol/L (3.5-5.1); TOTAL BILIRUBIN 0.3 mg/dL (0.2-1.0); TOTAL PROTEIN 6.9 g/dL (6.4-8.2)
--- NOTE | 2017-01-11 17:37 | NUR ---
EEG completed, awaiting results. Dr. Bolivar will be here tonight to see patient. Pt calm and cooperative, resting in bed at this time.
[2017-01-11] MEDS: CALCIUM CARB/VIT D3 500/200 TABLET PO SCH (17:53)
[2017-01-11] MEDS: IV NORMAL SALINE 1,000ML 1,000 ML IV SCH (17:54)
[2017-01-11] MEDS: DICYCLOMINE HCL 20 MG TABLET PO SCH ×2 (18:34→20:28)
[2017-01-11] MEDS: BUDESONIDE 0.25 MG/2 ML NEBU NEB SCH (20:00)
--- NOTE | 2017-01-11 20:19 | HP ---
ADMIT DATE: 01/11/2017 REASON FOR ADMISSION: This is a 71-year-old female who was admitted to the [facility] on yesterday in the early hours of 01/10/2017. There appears to have been a mixed up in her medication and that she was taking Xanax 1 mg 4 times a day scheduled, and [facility], and when she was discharged to the [facility], she was discharged on Xanax 1 mg q.i.d. p.r.n. So yesterday, she received 2 mg, but then had not received anything for over 12 hours and was called to the unit to see her because of tonic-clonic seizure activity. I did go up and see her, and she did seem to be postictal and did give her 0.5 mg of Ativan, and then about an hour later about 1:00 p.m.-1:30, she had another tonic-clonic seizure, which was witnessed by several individuals including her son. So she was transferred down to the ICU for further evaluation. PAST MEDICAL HISTORY: She has obsessive compulsive disorder, early cognitive impairment, anxiety and evidently history of psychosis. She actually was again on the senior behavior unit for at confusion, agitation and a change in her mental status. She had also recently started on Lexapro at the insistence of her family because of persistent depression. Other medical history includes 7 days a psychiatric admission at [facility]. On Saturday evening, she was almost in a catatonic state and so was taken to the hospital that time. ALLERGIES: PENICILLIN, SULFA, FEXOFENADINE AND MINOCYCLINE. MEDICATIONS: Handwritten list by her , is supposed to be mirtazapine 45 mg at night, which she has been on for a long time, BuSpar 30 mg twice a day in the morning and in the evening, ___ 20 mg q.i.d., alprazolam 1 mg noon, midday, evening and bedtime scheduled, memantine 10 mg twice a day, benazepril 10 mg daily, Evista 60 mg a day, Caltrate 600 with vitamin D twice a day, vitamin B6 100 mg a day, folic acid 800 mcg a day, vitamin D3 2000 mg a day, baby aspirin 81 mg a day, multivitamin, Metamucil, colestipol 1 g at bedtime, Asmanex inhaler 2 puffs 100 mcg daily. Other past medical history, she has a vitamin B6 deficiency and folic acid deficiency. SOCIAL HISTORY: She smokes 3 cigarettes a day. She lives at home with her . She has a son who is nurse, another son is physician. No alcohol to speak out. IMMUNIZATIONS: She had a pneumococcal vaccine and DTap vaccine on 01/02/2017. REVIEW OF SYSTEMS: Unable to obtain due to the patient's postictal state. PHYSICAL EXAMINATION: VITAL SIGNS: Blood pressure 140/57, temperature 97.8, pulse 78, respirations 17, O2 sat 94% on room air. GENERAL: Reviewed the video; she did appear to have some tonic clonic stiffness, but the video was very short in duration only 3-4 seconds. HEENT: Her pupils are equal, round, react to light. Extraocular muscles are intact. Her nose is patent. Her throat was clear. Her tongue was midline. NECK: Supple. LUNGS: Clear to auscultation. CARDIOVASCULAR: Regular rhythm and rate. ABDOMEN: Soft, nontender. EXTREMITIES: Without edema. NEUROLOGIC: She is postictal and is not able to follow directions to do cranial nerves. LABORATORY DATA: CBC is normal. Chemistry: Creatinine is 1.1. TSH is normal. Vitamin D 57.4. B12 was 316. ASSESSMENT: 1. Apparent seizure activity, questionable etiology, possibly withdrawal from Xanax, which was supposed to be scheduled, but actually was sent from the hospital as p.r.n. 2. Early neurocognitive impairment 3. Tobacco use disorder. 4. Folic acid deficiency. 5. B6 deficiency by history. 6. Chronic diarrhea according to her . 7. Mitral valve prolapse, per her . 8. Anxiety. 9. Obsessive compulsive disorder. PLAN: Admit to the ICU. Dr. Bolivar has been consulted and Dr. Renteria will be consulted. Family very involved. GENO AYALA DO DR: ANT/sasha JOB#: [id number] / [id number]
--- NOTE | 2017-01-11 20:27 | PDOC ---
Exam Lencho Demential Exam: Lencho Note: Please also refer to the separate dictated note~for this date of service dictated separately.~Patient seen individually. Discussed the patient with Nursing staff reviewed the chart.~Reviewed interim history and current functioning. Reviewed vital signs,~Labs/ Radiology~and current medications noted below. Continue current treatment with the changes noted in the dictated addendum note Assessment: Vital Signs: Vital Signs Date Time Temp Pulse Resp B/P (MAP) Pulse Ox O2 Delivery O2 Flow Rate FiO2 01/11/17 20:10 97 Room Air 01/11/17 19:33 66 20 161/67 (98) 01/11/17 18:30 97.9 I&O Intake and Output 01/12/17 07:00 Intake Total 240 ml Balance 240 ml Intake Oral 240 ml # Bowel Movements 1 Labs: Laboratory Tests Test 01/11/17 11:34 White Blood Count 11.9 x10^3/uL (4.0-11.0) H Red Blood Count 4.26 x10^6/uL (3.50-5.40) Hemoglobin 13.6 g/dL (12.0-15.5) Hematocrit 41.2 % (36.0-47.0) Mean Corpuscular Volume 97 fL (79-100) Mean Corpuscular Hemoglobin 32 pg (25-35) Mean Corpuscular Hemoglobin Concent 33 g/dL (31-37) Red Cell Distribution Width 14.1 % (11.5-14.5) Platelet Count 245 x10^3/uL (140-400) Neutrophils (%) (Auto) 61 % (31-73) Lymphocytes (%) (Auto) 25 % (24-48) Monocytes (%) (Auto) 11 % (0-9) H Eosinophils (%) (Auto) 3 % (0-3) Basophils (%) (Auto) 1 % (0-3) Neutrophils # (Auto) 7.3 x10^3uL (1.8-7.7) Lymphocytes # (Auto) 2.9 x10^3/uL (1.0-4.8) Monocytes # (Auto) 1.2 x10^3/uL (0.0-1.1) H Eosinophils # (Auto) 0.3 x10^3/uL (0.0-0.7) Basophils # (Auto) 0.1 x10^3/uL (0.0-0.2) Sodium Level 142 mmol/L (136-145) Potassium Level 3.9 mmol/L (3.5-5.1) Chloride Level 107 mmol/L (98-107) Carbon Dioxide Level 20 mmol/L (21-32) L Anion Gap 15 (6-14) H Blood Urea Nitrogen 12 mg/dL (7-20) Creatinine 1.3 mg/dL (0.6-1.0) H Estimated GFR (Cockcroft-Gault) 40.3 BUN/Creatinine Ratio 9 (6-20) Glucose Level 116 mg/dL (70-99) H Calcium Level 9.5 mg/dL (8.5-10.1) Magnesium Level 2.2 mg/dL (1.8-2.4) Total Bilirubin 0.3 mg/dL (0.2-1.0) Aspartate Amino Transferase (AST) 38 U/L (15-37) H Alanine Aminotransferase (ALT) 45 U/L (14-59) Alkaline Phosphatase 64 U/L (46-116) Total Protein 6.9 g/dL (6.4-8.2) Albumin 3.8 g/dL (3.4-5.0) Albumin/Globulin Ratio 1.2 (1.0-1.7) Current Medications: Meds: Current Medications Albuterol Sulfate (Ventolin Hfa) 1 puff PRN Q6HRS PRN INH SHORTNESS OF BREATH; Start 01/11/17 at 14:15; Stop 01/11/17 at 15:06; Status DC Aspirin (Children'S Aspirin) 81 mg DAILY PO ; Start 01/12/17 at 09:00 Vitamin D (Vitamin D3) 2,000 unit DAILY PO ; Start 01/12/17 at 09:00 Colestipol HCl (Colestid) 1 gm HS PO ; Start 01/11/17 at 21:00 Dicyclomine HCl (Bentyl) 20 mg QID PO Last administered on 01/11/17t 18:34; Start 01/11/17 at 17:00 Donepezil HCl (Aricept) 10 mg DAILY PO ; Start 01/12/17 at 09:00 Folic Acid (Folic Acid) 1 mg DAILY PO ; Start 01/12/17 at 09:00 Memantine (Namenda) 10 mg BID PO ; Start 01/11/17 at 21:00 Pyridoxine HCl (Vitamin B-6) 100 mg DAILY PO ; Start 01/12/17 at 09:00 Raloxifene HCl (Evista) 60 mg DAILY PO ; Start 01/12/17 at 09:00 Buspirone HCl (Buspar) 30 mg BID PO ; Start 01/11/17 at 21:00 Calcium/Vitamin D (Oscal D 500mg/ 200uts) 1 tab BIDWMEALS PO Last administered on 01/11/17 17:53; Start 01/11/17 at 17:00 Mirtazapine (Remeron) 45 mg QHS PO ; Start 01/11/17 at 21:00 Multivitamins/ Calcium (Thera-M Plus) 1 tab DAILY PO ; Start 01/12/17 at 09:00 Psyllium Hydrophilic Mucilloid (Metamucil) 1 pkt BID94 PO ; Start 01/12/17 at 09: 00 Acetaminophen (Tylenol) 650 mg PRN Q6HRS PRN PO PAIN; Start 01/11/17 at 14:15 Budesonide (Pulmicort) 2.5 mg BID NEB ; Start 01/11/17 at 21:00; Stop 01/11/17 at 21:00; Status DC Citalopram Hydrobromide (CeleXA) 20 mg DAILY PO ; Start 01/12/17 at 09:00 Multi-Ingredient Ointment (Analgesic Fletcher) 1 winston PRN QID PRN TP PAIN; Start 01/11/17 at 14:15 Nicotine (Nicoderm Cq 7mg) 1 patch DAILY TD ; Start 01/12/17 at 09:00 Budesonide (Pulmicort) 0.25 mg RTBID NEB Last administered on 01/11/17 20:00; Start 01/11/17 at 20:00 Albuterol Sulfate (Ventolin) 2.5 mg PRN Q6HRS PRN NEB SHORTNESS OF BREATH; Start 01/11/17 at 15:00 Cyanocobalamin (Vitamin B-12) 1,000 mcg DAILY PO ; Start 01/12/17 at 09:00 Sodium Chloride 1,000 ml @ 100 mls/hr Q10H IV Last administered on 01/11/17 17 :54; Start 01/11/17 at 17:20 Alprazolam (Xanax) 1 mg QID PO ; Start 01/11/17 at 21:00 Active Scripts Active Reported NICODERM CQ 14mg (Nicotine) 1 Each Patch.td24 0.5 Patch TP DAILY Analgesic Fletcher (Methyl Salicylate/Menthol) 28 Gm Oint...g. 1 Gm TP PRN QID Celexa (Citalopram Hydrobromide) 20 Mg Tablet 1 Tab PO DAILY Budesonide 0.25 Mg/2 Ml Ampul.neb 1 Vial NEB BID Tylenol (Acetaminophen) 325 Mg Tablet 650 Mg PO PRN Q6HRS PRN Xanax (Alprazolam) 0.5 Mg Tablet 0.5 Mg PO QID Folic Acid 1 Mg Tablet 1 Mg PO DAILY Proair Hfa Inhaler (Albuterol Sulfate) 8.5 Gm Hfa.aer.ad 1 Puff INH PRN Q6HRS PRN Colestipol Hcl 1 Gm Tablet 1 Gm PO HS Metamucil (Psyllium Husk) 0.52 Gm Capsule 2 Cap PO BID94 Multivitamins (Multivitamin) 1 Each Tablet 1 Tab PO DAILY Aspirin 81 Mg Tab.chew 81 Mg PO DAILY Vitamin D3 (Cholecalciferol (Vitamin D3)) 1,000 Unit Tablet 2,000 Unit PO DAILY Vitamin B-6 (Pyridoxine Hcl) 100 Mg Tablet 100 Mg PO DAILY Caltrate 600 + D Tablet (Calcium Carbonate/Vitamin D3) 1 Each Tablet 1 Tab PO BID Evista (Raloxifene Hcl) 60 Mg Tablet 60 Mg PO DAILY Donepezil Hcl 10 Mg Tablet 10 Mg PO DAILY Namenda (Memantine Hcl) 10 Mg Tablet 10 Mg PO BID Alprazolam 1 Mg Tablet 1 Mg PO QID Dicyclomine Hcl 20 Mg Tablet 20 Mg PO QID Buspirone Hcl 30 Mg Tablet 30 Mg PO BID Mirtazapine 45 Mg Tablet 45 Mg PO HS KAYLAN RAGLAND MD Jan 11, 2017 20:27
[2017-01-11] MEDS: MEMANTINE 10 MG TABLET. PO SCH (20:28)
[2017-01-11] MEDS: COLESTIPOL HCL 1 GM TABLET PO SCH (20:28)
[2017-01-11] MEDS: busPIRone 15 MG TABLET. PO SCH (20:28)
[2017-01-11] MEDS: MIRTAZAPINE 15 MG TABLET PO SCH (20:28)
[2017-01-11] MEDS: ALPRAZolam 0.5 MG TABLET PO SCH (20:28)
[2017-01-11] MEDS ORDERED: BUDESONIDE 0.25 MG/2 ML NEBU NEB SCH (21:00)
[2017-01-12] VITALS (21 sets, daily range): BP systolic 106–162; BP diastolic 47–85
[2017-01-12] MEDS: IV NORMAL SALINE 1,000ML 1,000 ML IV SCH (03:20)
--- NOTE | 2017-01-12 05:22 | NUR ---
Nursing Pt up throughout the entire shift sitting in bed. Restless and incontinent x2 of bowel and bladder. Pt incoherent and unable to voice wants/needs. Pt making incomplete statements, very choppy. Will CTM.
[2017-01-12 06:10] LABS: BASO # 0.1 x10^3/uL (0.0-0.2); BASO % 1 % (0-3); EOS # 0.3 x10^3/uL (0.0-0.7); EOS % 3 % (0-3); HEMATOCRIT 31.9 % (36.0-47.0); LYMPH # 1.5 x10^3/uL (1.0-4.8); LYMPH % 17 % (24-48); MEAN CORPUSCULAR HEMOGLOBIN 32 pg (25-35); MEAN CORPUSCULAR HGB CONC 34 g/dL (31-37); MEAN CORPUSCULAR VOLUME 94 fL (79-100); MONO # 0.8 x10^3/uL (0.0-1.1); MONO % 9 % (0-9); NEUT % 70 % (31-73); PLATELET COUNT 153 x10^3/uL (140-400); RED CELL DISTRIBUTION WIDTH 13.8 % (11.5-14.5); WHITE BLOOD COUNT 8.6 x10^3/uL (4.0-11.0)
[2017-01-12 06:17] LABS: ALBUMIN 2.7 g/dL (3.4-5.0); ALBUMIN/GLOBULIN RATIO 1.2 (1.0-1.7); CALCIUM 6.8 mg/dL (8.5-10.1); CREATININE 0.7 mg/dL (0.6-1.0); GFR 82.3; MAGNESIUM 1.5 mg/dL (1.8-2.4); TOTAL BILIRUBIN 0.3 mg/dL (0.2-1.0); TOTAL PROTEIN 4.9 g/dL (6.4-8.2)
[2017-01-12 06:22] LABS: POTASSIUM 2.5 mmol/L (3.5-5.1)
[2017-01-12] MEDS ORDERED: POTASSIUM CHLORIDE 20 MEQ TABLET.ER. PO ONE (06:45)
[2017-01-12] MEDS ORDERED: MAGNESIUM SULFATE 2GM 50 ML IV ONE (06:45)
[2017-01-12] MEDS: POTASSIUM CHLORIDE 10MEQ 100 ML IV SCH ×8 (06:46→14:00)
--- NOTE | 2017-01-12 06:59 | NUR ---
Critical Result Received critical result of potassium 2.5. Called Dr. Langford at 0630, orders received to give PO Potassium 20meq now, start potassium protocol which is 12 bags of potassium 10meq IV over 12 hours. Also orders to give 2gm of Magnesium IV now for magnesium level of 1.5. Will recheck potassium levels in four hours. No complaints from pt at this time. Pt continues to be restless and awake. Will CTM.
[2017-01-12] MEDS: BUDESONIDE 0.25 MG/2 ML NEBU NEB SCH ×2 (08:00→20:11)
[2017-01-12] MEDS: IV RINGERS SOLUTION,LACTATED 1,000 ML IV SCH ×2 (08:37→21:50)
[2017-01-12] MEDS: PSYLLIUM SEED (WITH SUGAR) PACKET. PO SCH ×2 (09:00→16:00)
[2017-01-12] MEDS: DONEPEZIL HCL 10 MG TABLET PO SCH (10:09)
[2017-01-12] MEDS: MEMANTINE 10 MG TABLET. PO SCH ×2 (10:09→20:26)
[2017-01-12] MEDS: ASPIRIN 81 MG TAB.CHEW PO SCH (10:09)
[2017-01-12] MEDS: busPIRone 15 MG TABLET. PO SCH ×2 (10:09→20:22)
[2017-01-12] MEDS: CITALOPRAM 20 MG TABLET. PO SCH (10:09)
[2017-01-12] MEDS: DICYCLOMINE HCL 20 MG TABLET PO SCH ×4 (10:10→20:21)
[2017-01-12] MEDS: ALPRAZolam 0.5 MG TABLET PO SCH ×4 (10:10→20:21)
[2017-01-12] MEDS: NICOTINE 7MG PATCH. TD SCH (13:19)
[2017-01-12] MEDS: CYANOCOBALAMIN (VITAMIN B-12) 1,000 MCG TABLET. PO SCH (13:20)
[2017-01-12] MEDS: FOLIC ACID 1 MG TABLET PO SCH (13:20)
[2017-01-12] MEDS: CHOLECALCIFEROL (VITAMIN D3) 1,000 UNIT TABLET PO SCH (13:20)
[2017-01-12 14:08] LABS: HEMOGLOBIN ISTAT 12.6 gm/dL; POTASSIUM ISTAT 4.3 mmol/L (3.5-5.0)
[2017-01-12] MEDS: CALCIUM CARB/VIT D3 500/200 TABLET PO SCH ×2 (17:00→17:48)
[2017-01-12] MEDS: PYRIDOXINE 100 MG TABLET. PO SCH (17:48)
[2017-01-12] MEDS: MULTIVITAMIN with MINERAL TABLET. PO SCH (17:48)
[2017-01-12] MEDS: RALOXIFENE 60 MG TABLET. PO SCH (17:48)
[2017-01-12] MEDS: COLESTIPOL HCL 1 GM TABLET PO SCH (20:25)
[2017-01-12] MEDS: MIRTAZAPINE 15 MG TABLET PO SCH (20:26)
--- NOTE | 2017-01-12 21:18 | PDOC ---
Exam Lencho Demential Exam: Lencho Note: Please also refer to the separate dictated note~for this date of service dictated separately.~Patient seen individually. Discussed the patient with Nursing staff reviewed the chart.~Reviewed interim history and current functioning. Reviewed vital signs,~Labs/ Radiology~and current medications noted below. Continue current treatment with the changes noted in the dictated addendum note Assessment: Vital Signs: Vital Signs Date Time Temp Pulse Resp B/P (MAP) Pulse Ox O2 Delivery O2 Flow Rate FiO2 01/12/17 20:10 97 Room Air 01/12/17 18:00 98.1 65 20 106/56 (73) I&O Intake and Output 01/13/17 07:00 Output Total 225 ml Balance -225 ml Output Urine Total 225 ml # Voids 1 # Bowel Movements 1 Labs: Laboratory Tests Test 01/12/17 05:30 01/12/17 05:35 01/12/17 06:35 01/12/17 13:54 Creatine Kinase 120 U/L (26-192) White Blood Count 8.6 x10^3/uL (4.0-11.0) Red Blood Count 3.40 x10^6/uL (3.50-5.40) L Hemoglobin 11.0 g/dL (12.0-15.5) L Hematocrit 31.9 % (36.0-47.0) L Mean Corpuscular Volume 94 fL (79-100) Mean Corpuscular Hemoglobin 32 pg (25-35) Mean Corpuscular Hemoglobin Concent 34 g/dL (31-37) Red Cell Distribution Width 13.8 % (11.5-14.5) Platelet Count 153 x10^3/uL (140-400) Neutrophils (%) (Auto) 70 % (31-73) Lymphocytes (%) (Auto) 17 % (24-48) L Monocytes (%) (Auto) 9 % (0-9) Eosinophils (%) (Auto) 3 % (0-3) Basophils (%) (Auto) 1 % (0-3) Neutrophils # (Auto) 6.0 x10^3uL (1.8-7.7) Lymphocytes # (Auto) 1.5 x10^3/uL (1.0-4.8) Monocytes # (Auto) 0.8 x10^3/uL (0.0-1.1) Eosinophils # (Auto) 0.3 x10^3/uL (0.0-0.7) Basophils # (Auto) 0.1 x10^3/uL (0.0-0.2) Sodium Level 146 mmol/L (136-145) H Potassium Level 2.5 mmol/L (3.5-5.1) *L Chloride Level 116 mmol/L (98-107) H Carbon Dioxide Level 22 mmol/L (21-32) Anion Gap 8 (6-14) 16 mmol/L (6-14) H Blood Urea Nitrogen 5 mg/dL (7-20) #L Creatinine 0.7 mg/dL (0.6-1.0) Estimated GFR (Cockcroft-Gault) 82.3 BUN/Creatinine Ratio 7 (6-20) Glucose Level 76 mg/dL (70-99) 96 mg/dL (60-99) Calcium Level 6.8 mg/dL (8.5-10.1) #L Magnesium Level 1.5 mg/dL (1.8-2.4) L 2.4 mg/dL (1.8-2.4) Total Bilirubin 0.3 mg/dL (0.2-1.0) Aspartate Amino Transferase (AST) 26 U/L (15-37) Alanine Aminotransferase (ALT) 26 U/L (14-59) Alkaline Phosphatase 45 U/L (46-116) L Total Protein 4.9 g/dL (6.4-8.2) L Albumin 2.7 g/dL (3.4-5.0) L Albumin/Globulin Ratio 1.2 (1.0-1.7) Nasal Screen MRSA (PCR) Negative (Negative) POC Hemoglobin 12.6 gm/dL POC Hematocrit 37 % POC Sodium 141 mmol/L (135-145) POC Potassium 4.3 mmol/L (3.5-5.0) POC Chloride 108 mmol/L (98-110) POC Total CO2 22 mmol/L (23-32) L POC Blood Urea Nitrogen 6 mg/dL (8-26) L POC Creatinine 0.8 mg/dL (0.5-1.4) POC Ionized Calcium (Penelope) 1.20 mmol/L (1.13-1.32) Current Medications: Meds: Current Medications Albuterol Sulfate (Ventolin Hfa) 1 puff PRN Q6HRS PRN INH SHORTNESS OF BREATH; Start 01/11/17 at 14:15; Stop 01/11/17 at 15:06; Status DC Aspirin (Children'S Aspirin) 81 mg DAILY PO Last administered on 01/12/17 10:09 ; Start 01/12/17 at 09:00 Vitamin D (Vitamin D3) 2,000 unit DAILY PO Last administered on 01/12/17 13:20 ; Start 01/12/17 at 09:00 Colestipol HCl (Colestid) 1 gm HS PO Last administered on 01/12/17 20:25; Start 01/11/17 at 21:00 Dicyclomine HCl (Bentyl) 20 mg QID PO Last administered on 01/12/17 20:21; Start 01/11/17 at 17:00 Donepezil HCl (Aricept) 10 mg DAILY PO Last administered on 01/12/17 10:09; Start 01/12/17 at 09:00 Folic Acid (Folic Acid) 1 mg DAILY PO Last administered on 01/12/17 13:20; Start 01/12/17 at 09:00 Memantine (Namenda) 10 mg BID PO Last administered on 01/12/17 20:26; Start 01/11/17 at 21:00 Pyridoxine HCl (Vitamin B-6) 100 mg DAILY PO Last administered on 01/12/17 17: 48; Start 01/12/17 at 09:00 Raloxifene HCl (Evista) 60 mg DAILY PO Last administered on 01/12/17 17:48; Start 01/12/17 at 09:00 Buspirone HCl (Buspar) 30 mg BID PO Last administered on 01/12/17 20:22; Start 01/11/17 at 21:00 Calcium/Vitamin D (Oscal D 500mg/ 200uts) 1 tab BIDWMEALS PO Last administered on 01/12/17 17:48; Start 01/11/17 at 17:00 Mirtazapine (Remeron) 45 mg QHS PO Last administered on 01/12/17 20:26; Start 01/11/17 at 21:00 Multivitamins/ Calcium (Thera-M Plus) 1 tab DAILY PO Last administered on 17:48; Start 01/12/17 at 09:00 Psyllium Hydrophilic Mucilloid (Metamucil) 1 pkt BID94 PO ; Start 01/12/17 at 09: 00 Acetaminophen (Tylenol) 650 mg PRN Q6HRS PRN PO PAIN; Start 01/11/17 at 14:15 Budesonide (Pulmicort) 2.5 mg BID NEB ; Start 01/11/17 at 21:00; Stop 01/11/17 at 21:00; Status DC Citalopram Hydrobromide (CeleXA) 20 mg DAILY PO Last administered on 01/12/17 10:09; Start 01/12/17 at 09:00 Multi-Ingredient Ointment (Analgesic [place]) 1 winston PRN QID PRN TP PAIN; Start 01/11/17 at 14:15 Nicotine (Nicoderm Cq 7mg) 1 patch DAILY TD Last administered on 01/12/17 13:19 ; Start 01/12/17 at 09:00 Budesonide (Pulmicort) 0.25 mg RTBID NEB Last administered on 01/12/17 20:11; Start 01/11/17 at 20:00 Albuterol Sulfate (Ventolin) 2.5 mg PRN Q6HRS PRN NEB SHORTNESS OF BREATH; Start 01/11/17 at 15:00 Cyanocobalamin (Vitamin B-12) 1,000 mcg DAILY PO Last administered on 01/12/17 13:20; Start 01/12/17 at 09:00 Sodium Chloride 1,000 ml @ 100 mls/hr Q10H IV Last administered on 01/12/17 03 :20; Start 01/11/17 at 17:20; Stop 01/12/17 at 07:59; Status DC Alprazolam (Xanax) 1 mg QID PO Last administered on 01/12/17 20:21; Start at 21:00 Potassium Chloride 100 ml @ 100 mls/hr Q1H IV Last administered on 01/12/17 12 :16; Start 01/12/17 at 07:00; Stop 01/12/17 at 14:15; Status DC Potassium Chloride (Klor-Con) 20 meq 1X ONCE PO Last administered on 9/9/17at 06:46; Start 01/12/17 at 06:45; Stop 01/12/17 at 06:46; Status DC Magnesium Sulfate 50 ml @ 25 mls/hr 1X ONCE IV Last administered on 01/12/17 10:43; Start 01/12/17 at 06:45; Stop 01/12/17 at 08:44; Status DC Lactated Ringer's 1,000 ml @ 75 mls/hr [id number] IV Last administered on 08:37; Start 01/12/17 at 08:30 Active Scripts Active Reported NICODERM CQ 14mg (Nicotine) 1 Each Patch.td24 0.5 Patch TP DAILY Analgesic [place] (Methyl Salicylate/Menthol) 28 Gm Oint...g. 1 Gm TP PRN QID Celexa (Citalopram Hydrobromide) 20 Mg Tablet 1 Tab PO DAILY Budesonide 0.25 Mg/2 Ml Ampul.neb 1 Vial NEB BID Tylenol (Acetaminophen) 325 Mg Tablet 650 Mg PO PRN Q6HRS PRN Xanax (Alprazolam) 0.5 Mg Tablet 0.5 Mg PO QID Folic Acid 1 Mg Tablet 1 Mg PO DAILY Proair Hfa Inhaler (Albuterol Sulfate) 8.5 Gm Hfa.aer.ad 1 Puff INH PRN Q6HRS PRN Colestipol Hcl 1 Gm Tablet 1 Gm PO HS Metamucil (Psyllium Husk) 0.52 Gm Capsule 2 Cap PO BID94 Multivitamins (Multivitamin) 1 Each Tablet 1 Tab PO DAILY Aspirin 81 Mg Tab.chew 81 Mg PO DAILY Vitamin D3 (Cholecalciferol (Vitamin D3)) 1,000 Unit Tablet 2,000 Unit PO DAILY Vitamin B-6 (Pyridoxine Hcl) 100 Mg Tablet 100 Mg PO DAILY Caltrate 600 + D Tablet (Calcium Carbonate/Vitamin D3) 1 Each Tablet 1 Tab PO BID Evista (Raloxifene Hcl) 60 Mg Tablet 60 Mg PO DAILY Donepezil Hcl 10 Mg Tablet 10 Mg PO DAILY Namenda (Memantine Hcl) 10 Mg Tablet 10 Mg PO BID Alprazolam 1 Mg Tablet 1 Mg PO QID Dicyclomine Hcl 20 Mg Tablet 20 Mg PO QID Buspirone Hcl 30 Mg Tablet 30 Mg PO BID Mirtazapine 45 Mg Tablet 45 Mg PO HS Diagnosis: Problems: (1) Anxiety disorder (2) Major depressive disorder, recurrent episode (3) Obsessive compulsive disorder (4) Psychosis, atypical KAYLAN RAGLAND MD Jan 12, 2017 21:18
--- NOTE | 2017-01-12 22:47 | PN ---
DATE: 01/12/2017 PROBLEMS: 1. Benzodiazepine withdrawal seizures. 2. Early neurocognitive impairment. 3. Tobacco use disorder. 4. Folic acid deficiency. 5. B6 deficiency. 6. History of chronic diarrhea. 7. Anxiety. 8. OCD. 9. Hypokalemia. 10. Hypomagnesemia. SUBJECTIVE: This is a 71-year-old female who was transferred down from [facility] where she had been only for a day. Her Xanax, which she took 1 mg 4 times a day scheduled was sent back from the Emergency Room at [facility] as 1 mg q.i.d. p.r.n. and she did not receive that and she had a withdrawal seizure from not getting the doses she used to. Seen by Dr. Bolivar as well as ___ and an EEG was done, although she was not terribly cooperative. Results are not listed. She was up all night and was very restless, but not combative. OBJECTIVE: VITAL SIGNS: Blood pressure 134/85, pulse ox 97% on room air, temperature 98, pulse 86, respirations 17. GENERAL: The patient was seen twice that she was sleeping first, then she has been awake. She is alert and calm. Her pupils were equal, round, and reactive to light. Extraocular muscles were intact. Her nose is patent. Her throat was clear. NECK: Supple. LUNGS: Clear. CARDIOVASCULAR: Regular rhythm and rate. ABDOMEN: Soft, nontender. EXTREMITIES: Without edema. She is able to feed herself this morning. She is moving all extremities. LABORATORY DATA: Potassium, however, is 2.5 and her magnesium was 1.5. Calcium is 6.8 and her sodium is 146, likely due to normal saline. PLAN: Replace potassium, replace magnesium, replace calcium, this is most possibly due to seizure activity. I would order a CPK. I do not see the results. Appreciate help from Dr. Bolivar and will replace her electrolytes and see how she does. She is now on Xanax 1 mg b.i.d. GENO AYALA DO DR: ANT/sasha JOB#: [id number] / [id number]
--- NOTE | 2017-01-12 23:00 | NUR ---
Patient assessed, care plan reviewed, continue to monitor.
[2017-01-13] VITALS (8 sets, daily range): BP systolic 111–162; BP diastolic 53–81
--- NOTE | 2017-01-13 04:46 | PN ---
DATE: 01/12/2017 PSYCHIATRIC PROGRESS NOTE This note covers elements not covered in my initial note of 01/12/2017. SUBJECTIVE: The patient is a 71-year-old female seen for psychiatric consult/psychiatric followup in ICU bed 5, requested by Dr. Langford. The patient was transferred to the ICU from [facility] . She had a seizure-like episode while being stabilized for her psychotic disorder/OCD. Per nursing report, the patient is doing better today. Cognitively clear, her potassium has corrected. She is less obsessive. Obtained further historical information from the patient. 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 No alcohol or drug abuse history is noted. She remembers she was being treated outpatient by her psychiatrist, Dr. Leblanc, for OCD and depression, Prozac had been changed to Lexapro recently and she deteriorated significantly. MENTAL STATUS EXAM: The patient knew it was January 2017, knew she was at [facility], but stated she did not know what kind of a place [facility] was till I corrected her that it was a hospital. Speech has some latency. She has some thought blocking, somewhat obsessive and ruminative, no history of alcohol, drug abuse. Abstraction fair, computation impaired, attention span short, language function intact. Mood and affect somewhat withdrawn. LABORATORY DATA: Reviewed. IMPRESSION: Major depressive disorder with psychotic features, obsessive compulsive disorder, psychotic disorder, unspecified, mild cognitive impairment. PLAN: From a psychiatric standpoint, we will not make any changes for now. Maintain her current psychotropics mentioned in my initial note. When she is medically stable, we may have her back on the [facility] and then make further adjustments in her psychotropics. KAYLAN RAGLAND MD DR: NABIL/sasha JOB#: [id number] / [id number]
--- NOTE | 2017-01-13 07:41 | PN ---
DATE: SUBJECTIVE: The patient denies any recurrent seizure or any recurrent medical or neurological complaints. She sleeps, drinks and eats well. OBJECTIVE: GENERAL: Well-developed, well-nourished white female, not in acute distress. VITAL SIGNS: Blood pressure 126/56, respiratory rate is 20, pulse is 74 and regular, temperature 98.1, oxygen saturation 96% on room air. HEENT: Normocephalic, atraumatic, otherwise unremarkable. NECK: Supple. Negative for carotid bruit, lymphadenopathy or thyromegaly. LUNGS: Clear to A and P. CARDIOVASCULAR: Regular rate and rhythm, normal S1, S2. ABDOMEN: Soft. Bowel sounds positive. EXTREMITIES: Negative for cyanosis, clubbing or pitting edema. NEUROLOGICAL EXAM: Mental Status: The patient is alert and oriented x 2. Speech is fluent. There is no language dysfunction. Memory, judgment, and abstract thinking are fair. The patient denies hallucination or delusion. Cranial nerves are intact. Motor: No focal muscle bulk was seen. The tone is normal. The strength is 4/5 throughout. Sensory examination revealed normal pinprick and light touch senses throughout. Deep tendon reflexes are symmetric and hypoactive with absent Achilles responses. Gait not tested. LABORATORY DATA: CBC revealed white blood cells of 8.6 thousand, hemoglobin 11, hematocrit 31.9, platelet count 153,000. Chemistry revealed sodium is 148, potassium 4.3, chloride 108, CO2 of 22, Glucose is 96, BUN 5, creatinine 0.7. Liver enzymes are normal. IMPRESSION: 1. New onset of a seizure, likely due to benzodiazepine withdrawal or changed doses. 2. Mitral valve prolapse. 3. Multiple psychiatric disorders include OCD, anxiety, depressions, and mild dementia. RECOMMENDATIONS: Continue with current medical and psychiatric care. The patient is neurologically intact. M Marko GASCA MD DR: STEPHANIE/sasha JOB#: [id number] / [id number]
[2017-01-13 08:10] LABS: ALBUMIN 2.9 g/dL (3.4-5.0); ALBUMIN/GLOBULIN RATIO 1.1 (1.0-1.7); CALCIUM 8.5 mg/dL (8.5-10.1); CREATININE 0.9 mg/dL (0.6-1.0); GFR 61.5; POTASSIUM 4.2 mmol/L (3.5-5.1); TOTAL BILIRUBIN 0.2 mg/dL (0.2-1.0); TOTAL PROTEIN 5.5 g/dL (6.4-8.2)
[2017-01-13] MEDS: DICYCLOMINE HCL 20 MG TABLET PO SCH ×3 (08:34→16:15)
[2017-01-13] MEDS: NICOTINE 7MG PATCH. TD SCH (08:34)
[2017-01-13] MEDS: busPIRone 15 MG TABLET. PO SCH (08:34)
[2017-01-13] MEDS: ALPRAZolam 0.5 MG TABLET PO SCH ×3 (08:34→16:14)
[2017-01-13] MEDS: CHOLECALCIFEROL (VITAMIN D3) 1,000 UNIT TABLET PO SCH (08:34)
[2017-01-13] MEDS: PSYLLIUM SEED (WITH SUGAR) PACKET. PO SCH ×2 (08:34→16:17)
[2017-01-13] MEDS: DONEPEZIL HCL 10 MG TABLET PO SCH (08:35)
[2017-01-13] MEDS: PYRIDOXINE 100 MG TABLET. PO SCH (08:35)
[2017-01-13] MEDS: CITALOPRAM 20 MG TABLET. PO SCH (08:35)
[2017-01-13] MEDS: CYANOCOBALAMIN (VITAMIN B-12) 1,000 MCG TABLET. PO SCH (08:35)
[2017-01-13] MEDS: MULTIVITAMIN with MINERAL TABLET. PO SCH (08:35)
[2017-01-13] MEDS: FOLIC ACID 1 MG TABLET PO SCH (08:35)
[2017-01-13] MEDS: CALCIUM CARB/VIT D3 500/200 TABLET PO SCH ×2 (08:35→16:17)
[2017-01-13] MEDS: RALOXIFENE 60 MG TABLET. PO SCH (08:35)
[2017-01-13] MEDS: ASPIRIN 81 MG TAB.CHEW PO SCH (08:35)
[2017-01-13] MEDS: MEMANTINE 10 MG TABLET. PO SCH (08:35)
[2017-01-13] MEDS: BUDESONIDE 0.25 MG/2 ML NEBU NEB SCH (10:40)
[2017-01-13] MEDS: IV RINGERS SOLUTION,LACTATED 1,000 ML IV SCH (16:10)
--- NOTE | 2017-01-13 16:33 | NUR ---
1700 med administration of xanax and dicyclomine non-administered d/t late administration of xanax and dicyclomine 1300 med time.
--- NOTE | 2017-01-13 16:37 | NUR ---
Patient discharged to senior behavioral unit. IV discontinued and pressure dressing applied. All patient belongings sent with patient. Patient left unit via wheelchair accompanied by gatito
[2017-01-13] MEDS ORDERED: CYAN10005 PO (17:49)
[2017-01-13] MEDS ORDERED: PSYL1PAC7 PO (17:49)
[2017-01-13] MEDS ORDERED: NICO1PAT27 TD (17:49)
[2017-01-13] MEDS ORDERED: FLUV25TA PO (17:52)
[2017-01-13] MEDS ORDERED: ALBU2.5V5 NEB (18:17)
--- NOTE | 2017-01-13 22:22 | DS ---
DATE OF DISCHARGE: 01/13/2017 DISPOSITION: Readmit to [facility]. DISCHARGE DIAGNOSES: 1. Benzodiazepines withdrawal seizures, now resolved. 2. Early neurocognitive impairment. 3. Tobacco use disorder. 4. Folic acid deficiency. 5. B6 deficiency. 6. History of chronic diarrhea. 7. Anxiety. 8. Obsessive compulsive disorder . 9. Hypokalemia, resolved. 10. Hypomagnesemia. HOSPITAL COURSE: This is a 71-year-old female who was transferred from the [facility] where she has only been for 1 day. Her Xanax prescription was sent from the hospital as p.r.n. rather than scheduled and she normally took 1 mg 4 times a day. Off 12 hours without Xanax, she had a withdrawal seizure and then had another an hour later and was transferred down to the medical floor. She had EEG, but I do not see the results, but it is felt that from benzos. She was seen also by doctor, non-psychiatrist. Her hypokalemia and hypomagnesemia, which were not present at the time of her seizures was treated and she improved significantly, particularly on 01/13/2017, was sitting up in bed having her breakfast, visiting with her and joking around with him. OBJECTIVE: VITAL SIGNS: Blood pressure 142/81, temperature 95, pulse 82, pulse ox 96% on room air. GENERAL: She is alert, mildly confused. HEENT: Eyes are also clear LUNGS: Clear. CARDIOVASCULAR: Regular rhythm and rate. EXTREMITIES: Without edema. NEUROLOGIC: Moving all extremities, mild tremor in the left hand. PLAN: Discussed with her , going home versus going back upstairs and he feels that since she only spent a day on the [facility], that she has not been evaluated adequately. I did give him Dr. Sanders from [facility] who will do extensive cognitive testing should he decide to do that. Her medications have been reconciled for the [facility]. GENO AYALA DO DR: ANT/sasha JOB#: [id number] / [id number]
--- NOTE | 2017-01-14 00:37 | PN ---
DATE: 01/13/2017 SUBJECTIVE: The patient denies any new medical or neurological complaints. She has not had any seizures. She drinks, eats and sleeps well. OBJECTIVE: GENERAL: A well-developed, well-nourished white female, not in acute distress. VITAL SIGNS: Blood pressure 145/63, respiratory rate is 16, pulse is 66 and regular, temperature is 98.5, oxygen saturation is 97% on room air. HEENT: Normocephalic, atraumatic, otherwise unremarkable. NECK: Supple. Negative for carotid bruit, lymphadenopathy or thyromegaly. LUNGS: Clear to A and P. CARDIOVASCULAR: Regular rate and rhythm, normal S1, S2. ABDOMEN: Soft. Bowel sounds positive. EXTREMITIES: Negative for cyanosis, clubbing or pitting edema. NEUROLOGICAL EXAM: Mental Status: The patient is alert, oriented to time and place. Speech is fluid with some latency. Memory abstraction thinking and judgment are fair. The patient denies hallucination or delusion. Cranial nerves are intact. Motor Examination: No focal muscle bulk was seen. The tone is normal. The strength is 4/5 throughout. Sensory examination revealed normal pinprick and light touch senses throughout. Deep tendon reflexes were symmetric and hypoactive with absent Achilles responses. Gait not tested. IMPRESSION: 1. Possible new onset of seizure. Etiology likely due to benzodiazepine withdrawal. 2. Mitral valve prolapse, stable. 3. Multiple psychiatric disorders include obsessive compulsive disorder, anxiety, depressions, and mild dementia. RECOMMENDATIONS: Continue with current medical management initiated by Dr. Langford and psychiatric care initiated by Dr. Renteria. The patient is neurologically stable. M Marko GASCA MD DR: STEPHANIE/sasha JOB#: [id number] / [id number]
== END 2017-01-13 16:28 | disposition home or self-care (01) | DRG 897 ==
LOC: ICU 13:25
PROVIDERS: ADMIT Family Medicine; ATTEND Family Medicine
DX: F13.239 Sedative, hypnotic or anxiolytic dependence with withdrawal, unspecified (principal); F32.3 Major depressive disorder, single episode, severe with psychotic features; F03.90 Unspecified dementia, unspecified severity, without behavioral disturbance, psychotic disturbance, mood disturbance, and anxiety; I34.1 Nonrheumatic mitral (valve) prolapse; T42.4X5A Adverse effect of benzodiazepines, initial encounter; E53.8 Deficiency of other specified B group vitamins; E83.42 Hypomagnesemia; E87.6 Hypokalemia; F17.210 Nicotine dependence, cigarettes, uncomplicated; F41.9 Anxiety disorder, unspecified; F42.9 Obsessive-compulsive disorder, unspecified; E53.1 Pyridoxine deficiency; Z88.0 Allergy status to penicillin; Z88.2 Allergy status to sulfonamides; Z88.8 Allergy status to other drugs, medicaments and biological substances
CPT/HCPCS: 36415; 80047; 80053; 82550; 83735; 85025; 87641; 94640; 95816; J3475; J3480; J7120; J7626; J7030

== ENCOUNTER 2017-01-13 16:00 | Inpatient (IN) | payer MEDICARE ==
[~2017-01-13] VITALS: Ht 162.6 cm; Wt 59.6 kg
[~2017-01-13 16:00] MED LIST changes: +ACET325T9 PO; +BUDE0.25 NEB; +CITA20TA9 PO; +METH29OI TP; +NICO1PAT25 TP
[2017-01-13 16:40] VITALS: BP 137/56
[2017-01-13] MEDS ORDERED: PSYL1PAC7 PO (17:49)
[2017-01-13] MEDS ORDERED: CYAN10005 PO (17:49)
[2017-01-13] MEDS ORDERED: NICO1PAT27 TD (17:49)
[2017-01-13] MEDS ORDERED: FLUV25TA PO (17:52)
[2017-01-13] MEDS ORDERED: METHYL SALICYLATE/MENTHOL TOPICAL OINTMENT 29GM TUBE. TP SCH (18:15)
[2017-01-13] MEDS ORDERED: ACETAMINOPHEN 325 MG TABLET PO PRN (18:15)
[2017-01-13] MEDS ORDERED: ALBU2.5V5 NEB (18:17)
[2017-01-13] MEDS: DICYCLOMINE HCL 20 MG TABLET PO SCH (19:56)
[2017-01-13] MEDS: ALBUTEROL SULFATE 2.5 MG/3 ML NEBU. NEB SCH (19:56)
[2017-01-13] MEDS: MIRTAZAPINE 15 MG TABLET PO SCH (19:56)
[2017-01-13] MEDS: busPIRone 15 MG TABLET. PO SCH (19:56)
[2017-01-13] MEDS: MEMANTINE 10 MG TABLET. PO SCH (19:56)
[2017-01-13] MEDS: BUDESONIDE 0.5 MG/2 ML NEBU NEB SCH (19:56)
[2017-01-13] MEDS: COLESTIPOL HCL 1 GM TABLET PO SCH (19:56)
[2017-01-13] MEDS: ALPRAZolam 0.5 MG TABLET PO SCH (19:57)
--- NOTE | 2017-01-13 19:57 | PDOC ---
Exam Lencho Demential Exam: [place] Note: Please also refer to the separate dictated note~for this date of service dictated separately.~Patient seen individually. Discussed the patient with Nursing staff reviewed the chart.~Reviewed interim history and current functioning. Reviewed vital signs,~Labs/ Radiology~and current medications noted below. Continue current treatment with the changes noted in the dictated addendum note Assessment: Vital Signs: Vital Signs Date Time Temp Pulse Resp B/P (MAP) Pulse Ox O2 Delivery O2 Flow Rate FiO2 01/13/17 16:40 97.8 68 20 137/56 (83) 98 I&O Intake and Output 01/14/17 07:00 Intake Total 360 ml Balance 360 ml Intake Oral 360 ml Current Medications: Meds: Current Medications Acetaminophen (Tylenol) 650 mg PRN Q6HRS PRN PO PAIN; Start 01/13/17 at 18:15 Albuterol Sulfate (Ventolin) 2.5 mg QID NEB Last administered on 01/13/17t 19: 56; Start 01/13/17 at 21:00 Aspirin (Children'S Aspirin) 81 mg DAILY PO ; Start 01/14/17 at 09:00 Budesonide (Pulmicort) 0.25 mg BID NEB Last administered on 01/13/17 19:56; Start 01/13/17 at 21:00 Vitamin D (Vitamin D3) 2,000 unit DAILY PO ; Start 01/14/17 at 09:00 Colestipol HCl (Colestid) 1 gm HS PO ; Start 01/13/17 at 21:00 Cyanocobalamin (Vitamin B-12) 1,000 mcg DAILY PO ; Start 01/14/17 at 09:00 Dicyclomine HCl (Bentyl) 20 mg QID PO ; Start 01/13/17 at 21:00 Donepezil HCl (Aricept) 10 mg DAILY PO ; Start 01/14/17 at 09:00 Fluvoxamine Maleate (Luvox) 25 mg HS PO ; Start 01/13/17 at 21:00 Folic Acid (Folic Acid) 1 mg DAILY PO ; Start 01/14/17 at 09:00 Memantine (Namenda) 10 mg BID PO ; Start 01/13/17 at 21:00 Multi-Ingredient Ointment (Analgesic Walling) 1 winston PRN QID TP ; Start 01/13/17 at 18:15 Nicotine (Nicoderm Cq 7mg) 1 patch DAILY TD ; Start 01/14/17 at 09:00 Psyllium Hydrophilic Mucilloid (Metamucil) 1 pkt BID94 PO ; Start 01/14/17 at 09 :00 Pyridoxine HCl (Vitamin B-6) 100 mg DAILY PO ; Start 01/14/17 at 09:00 Raloxifene HCl (Evista) 60 mg DAILY PO ; Start 01/14/17 at 09:00 Alprazolam (Xanax) 1 mg QID PO ; Start 01/13/17 at 21:00 Buspirone HCl (Buspar) 30 mg BID PO ; Start 01/13/17 at 21:00 Calcium/Vitamin D (Oscal D 500mg/ 200uts) 1 tab BIDWMEALS PO ; Start 01/14/17 at 08:00 Mirtazapine (Remeron) 45 mg HS PO ; Start 01/13/17 at 21:00 Multivitamins/ Calcium (Thera-M Plus) 1 tab DAILY PO ; Start 01/14/17 at 09:00 Active Scripts Active Reported Albuterol Sulfate Neb Soln (Albuterol Sulfate) 2.5 Mg/3 Ml Vial.neb 2.5 Mg NEB QID Fluvoxamine Maleate 25 Mg Tablet 25 Mg PO HS Metamucil Packet (Psyllium Husk (with Sugar)) 3.4 Gm Powd.pack 1 Packet PO BID94 NICODERM CQ 7mg (Nicotine) 1 Each Patch.td24 1 Patch TD DAILY Vitamin B-12 (Cyanocobalamin (Vitamin B-12)) 1,000 Mcg Tablet 1 Tab PO DAILY Analgesic Walling (Methyl Salicylate/Menthol) 28 Gm Oint...g. 1 Gm TP PRN QID Budesonide 0.25 Mg/2 Ml Ampul.neb 1 Vial NEB BID Tylenol (Acetaminophen) 325 Mg Tablet 650 Mg PO PRN Q6HRS PRN Folic Acid 1 Mg Tablet 1 Mg PO DAILY Colestipol Hcl 1 Gm Tablet 1 Gm PO HS Multivitamins (Multivitamin) 1 Each Tablet 1 Tab PO DAILY Aspirin 81 Mg Tab.chew 81 Mg PO DAILY Vitamin D3 (Cholecalciferol (Vitamin D3)) 1,000 Unit Tablet 2,000 Unit PO DAILY Vitamin B-6 (Pyridoxine Hcl) 100 Mg Tablet 100 Mg PO DAILY Caltrate 600 + D Tablet (Calcium Carbonate/Vitamin D3) 1 Each Tablet 1 Tab PO BIDWMEALS Evista (Raloxifene Hcl) 60 Mg Tablet 60 Mg PO DAILY Donepezil Hcl 10 Mg Tablet 10 Mg PO DAILY Namenda (Memantine Hcl) 10 Mg Tablet 10 Mg PO BID Alprazolam 1 Mg Tablet 1 Mg PO QID Dicyclomine Hcl 20 Mg Tablet 20 Mg PO QID Buspirone Hcl 30 Mg Tablet 30 Mg PO BID Mirtazapine 45 Mg Tablet 45 Mg PO HS Diagnosis: Problems: (1) Anxiety disorder (2) Obsessive compulsive disorder (3) Psychosis, atypical (4) Major depressive disorder, recurrent episode KAYLAN RAGLAND MD Jan 13, 2017 19:57
[2017-01-13] MEDS ORDERED: busPIRone 15 MG TABLET. ONE (21:00)
--- NOTE | 2017-01-13 21:35 | HP ---
ADMIT DATE: 01/13/2017 This note covers elements not covered in my initial note of 01/13/217. IDENTIFYING DATA: The patient is a 71-year-old female who returns back to us from ICU bed 5, [facility] after she was stabilized there for her hypokalemia and a seizure-like episode. The patient remains extremely obsessive, almost psychotic, intermittently catatonic, depressed and needs readmission for psychiatric stabilization. She was transferred to the ICU while she was being stabilized from a psychiatric standpoint on the [facility]. CHIEF COMPLAINT: "Yes, I have obsessive-compulsive disorder. I was on Prozac. It was stopped and was changed to Lexapro, but things got worse. I do get forgetful." HISTORY OF PRESENT ILLNESS: The patient has a long history of obsessive-compulsive disorder, depression, anxiety. She has been treated by Dr. Leblanc as an outpatient in [place]. Recently, she had failed treatment on Prozac and was changed to Lexapro, but the symptoms of obsessive-compulsive disorder, psychosis only got worse. She presented to the Emergency Room at [facility], was screened by the psychiatric screeners, felt to need inpatient psychiatric hospitalization and then transferred to us. She was having episodes of catatonia, "zoning out." She also has some mild cognitive impairment, was increasingly agitated and said he was unable to take care of her since she was unable to do her ADLs due to the marked OCD/psychosis. He is the one brought her to the ER. No clear suicidal or homicidal ideation. PAST PSYCHIATRIC HISTORY: As above. MEDICAL HISTORY: Status post hypokalemia, stabilized; seizure episode, stabilized; mitral valve prolapse, and irritable bowel syndrome. CODE STATUS: Full. ALLERGIES: MINOCYCLINE, SULFA, PENICILLIN, AMELIA. CURRENT PSYCHOTROPICS: Lexapro 10 mg a day, Remeron 45 mg at bedtime, Xanax 1 mg q.i.d. p.r.n., BuSpar 30 mg b.i.d., Namenda 10 b.i.d., Aricept 10 mg a day. FAMILY HISTORY: Noncontributory. 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 No alcohol or drug abuse history is noted. No physical, sexual or elder abuse history is noted. She lives at home with her . MENTAL STATUS EXAM: The patient was seen individually evening of 01/13/2017. She is oriented to herself, situations, does know she came here today from the ICU. Speech is coherent, has some latency, often responses monosyllabic. Abstraction fair, computation impaired, language function intact. Attention span short. Short term memory is impaired. She appears somewhat paranoid at times, still has some thought blocking. No suicidal or homicidal ideation. LABORATORY DATA: Reviewed. This note covers elements not covered in my initial note of 01/13/2017. IMPRESSION: Obsessive-compulsive disorder, major depressive disorder with psychotic features; anxiety disorder, unspecified; mild cognitive impairment. Rest diagnoses as above. PLAN: Admit to the geropsychiatry unit at [facility]. I will see the patient daily individually from a psychiatric standpoint, medical followup per Dr. Langford/Dr. Schwarz. Continue current psychotropics, change the Lexapro to Luvox 25 mg p.o. at bedtime. Consider adding Abilify and/or Risperdal depending on her progress and we will adjust the Luvox. KAYLAN RAGLAND MD DR: NABIL/sasha JOB#: [id number] / [id number]
[2017-01-14] MEDS: ALBUTEROL SULFATE 2.5 MG/3 ML NEBU. NEB SCH ×4 (05:43→21:00)
[2017-01-14 06:06] VITALS: BP 108/68
[2017-01-14] MEDS: CALCIUM CARB/VIT D3 500/200 TABLET PO SCH ×2 (08:49→17:04)
[2017-01-14] MEDS: DONEPEZIL HCL 10 MG TABLET PO SCH (08:50)
[2017-01-14] MEDS: DICYCLOMINE HCL 20 MG TABLET PO SCH ×4 (08:51→20:11)
[2017-01-14] MEDS: ASPIRIN 81 MG TAB.CHEW PO SCH (08:51)
[2017-01-14] MEDS: busPIRone 15 MG TABLET. PO SCH ×2 (08:51→20:11)
[2017-01-14] MEDS: PSYLLIUM SEED (WITH SUGAR) PACKET. PO SCH ×2 (08:52→17:04)
[2017-01-14] MEDS: PYRIDOXINE 100 MG TABLET. PO SCH (08:52)
[2017-01-14] MEDS: MEMANTINE 10 MG TABLET. PO SCH ×2 (08:52→20:10)
[2017-01-14] MEDS: MULTIVITAMIN with MINERAL TABLET. PO SCH (08:52)
[2017-01-14] MEDS: RALOXIFENE 60 MG TABLET. PO SCH (08:52)
[2017-01-14] MEDS: CYANOCOBALAMIN (VITAMIN B-12) 1,000 MCG TABLET. PO SCH (08:52)
[2017-01-14] MEDS: FOLIC ACID 1 MG TABLET PO SCH (08:52)
[2017-01-14] MEDS: ALPRAZolam 0.5 MG TABLET PO SCH ×4 (08:53→20:20)
[2017-01-14] MEDS: NICOTINE 7MG PATCH. TD SCH (08:53)
[2017-01-14] MEDS: CHOLECALCIFEROL (VITAMIN D3) 1,000 UNIT TABLET PO SCH (08:53)
[2017-01-14] MEDS: BUDESONIDE 0.5 MG/2 ML NEBU NEB SCH ×2 (08:54→21:00)
[2017-01-14] MEDS ORDERED: busPIRone 15 MG TABLET. ONE (09:00)
[2017-01-14 15:58] VITALS: BP 109/64
--- NOTE | 2017-01-14 19:40 | PDOC ---
Exam Lencho Demential Exam: Lencho Note: Please also refer to the separate dictated note~for this date of service dictated separately.~Patient seen individually. Discussed the patient with Nursing staff reviewed the chart.~Reviewed interim history and current functioning. Reviewed vital signs,~Labs/ Radiology~and current medications noted below. Continue current treatment with the changes noted in the dictated addendum note Assessment: Vital Signs: Vital Signs Date Time Temp Pulse Resp B/P (MAP) Pulse Ox O2 Delivery O2 Flow Rate FiO2 01/14/17 15:58 98.9 100 16 109/64 (79) 96 01/14/17 15:42 Room Air I&O Intake and Output 01/15/17 07:00 Intake Total 1560 ml Balance 1560 ml Intake Oral 1560 ml # Bowel Movements 1 Current Medications: Meds: Current Medications Acetaminophen (Tylenol) 650 mg PRN Q6HRS PRN PO PAIN; Start 01/13/17 at 18:15 Albuterol Sulfate (Ventolin) 2.5 mg QID NEB Last administered on 01/14/17 15: 42; Start 01/13/17 at 21:00 Aspirin (Children'S Aspirin) 81 mg DAILY PO Last administered on 01/14/17 08: 51; Start 01/14/17 at 09:00 Budesonide (Pulmicort) 0.25 mg BID NEB Last administered on 01/14/17 08:54; Start 01/13/17 at 21:00 Vitamin D (Vitamin D3) 2,000 unit DAILY PO Last administered on 01/14/17 08:53 ; Start 01/14/17 at 09:00 Colestipol HCl (Colestid) 1 gm HS PO ; Start 01/13/17 at 21:00 Cyanocobalamin (Vitamin B-12) 1,000 mcg DAILY PO Last administered on 08:52; Start 01/14/17 at 09:00 Dicyclomine HCl (Bentyl) 20 mg QID PO Last administered on 01/14/17 17:04; Start 01/13/17 at 21:00 Donepezil HCl (Aricept) 10 mg DAILY PO Last administered on 01/14/17 08:50; Start 01/14/17 at 09:00 Fluvoxamine Maleate (Luvox) 25 mg HS PO Last administered on 01/13/17 19:56; Start 01/13/17 at 21:00 Folic Acid (Folic Acid) 1 mg DAILY PO Last administered on 01/14/17 08:52; Start 01/14/17 at 09:00 Memantine (Namenda) 10 mg BID PO Last administered on 01/14/17 08:52; Start at 21:00 Multi-Ingredient Ointment (Analgesic [place]) 1 winston PRN QID TP ; Start 01/13/17 at 18:15 Nicotine (Nicoderm Cq 7mg) 1 patch DAILY TD Last administered on 01/14/17 08: 53; Start 01/14/17 at 09:00 Psyllium Hydrophilic Mucilloid (Metamucil) 1 pkt BID94 PO Last administered on 01/14/17 17:04; Start 01/14/17 at 09:00 Pyridoxine HCl (Vitamin B-6) 100 mg DAILY PO Last administered on 01/14/17 08: 52; Start 01/14/17 at 09:00 Raloxifene HCl (Evista) 60 mg DAILY PO Last administered on 01/14/17 08:52; Start 01/14/17 at 09:00 Alprazolam (Xanax) 1 mg QID PO Last administered on 01/14/17 17:04; Start 02/19 at 21:00 Buspirone HCl (Buspar) 30 mg BID PO Last administered on 01/14/17 08:51; Start 01/13/17 at 21:00 Calcium/Vitamin D (Oscal D 500mg/ 200uts) 1 tab BIDWMEALS PO Last administered on 01/14/17 17:04; Start 01/14/17 at 08:00 Mirtazapine (Remeron) 45 mg HS PO Last administered on 01/13/17 19:56; Start 01/13/17 at 21:00 Multivitamins/ Calcium (Thera-M Plus) 1 tab DAILY PO Last administered on 08:52; Start 01/14/17 at 09:00 Buspirone HCl (Buspar) 30 mg STK-MED ONCE .ROUTE ; Start 01/13/17 at 21:00; Stop 01/14/17 at 15:55; Status DC Buspirone HCl (Buspar) 30 mg STK-MED ONCE .ROUTE ; Start 01/14/17 at 09:00; Stop 01/14/17 at 15:55; Status DC Active Scripts Active Reported Albuterol Sulfate Neb Soln (Albuterol Sulfate) 2.5 Mg/3 Ml Vial.neb 2.5 Mg NEB QID Fluvoxamine Maleate 25 Mg Tablet 25 Mg PO HS Metamucil Packet (Psyllium Husk (with Sugar)) 3.4 Gm Powd.pack 1 Packet PO BID94 NICODERM CQ 7mg (Nicotine) 1 Each Patch.td24 1 Patch TD DAILY Vitamin B-12 (Cyanocobalamin (Vitamin B-12)) 1,000 Mcg Tablet 1 Tab PO DAILY Analgesic [place] (Methyl Salicylate/Menthol) 28 Gm Oint...g. 1 Gm TP PRN QID Budesonide 0.25 Mg/2 Ml Ampul.neb 1 Vial NEB BID Tylenol (Acetaminophen) 325 Mg Tablet 650 Mg PO PRN Q6HRS PRN Folic Acid 1 Mg Tablet 1 Mg PO DAILY Colestipol Hcl 1 Gm Tablet 1 Gm PO HS Multivitamins (Multivitamin) 1 Each Tablet 1 Tab PO DAILY Aspirin 81 Mg Tab.chew 81 Mg PO DAILY Vitamin D3 (Cholecalciferol (Vitamin D3)) 1,000 Unit Tablet 2,000 Unit PO DAILY Vitamin B-6 (Pyridoxine Hcl) 100 Mg Tablet 100 Mg PO DAILY Caltrate 600 + D Tablet (Calcium Carbonate/Vitamin D3) 1 Each Tablet 1 Tab PO BIDWMEALS Evista (Raloxifene Hcl) 60 Mg Tablet 60 Mg PO DAILY Donepezil Hcl 10 Mg Tablet 10 Mg PO DAILY Namenda (Memantine Hcl) 10 Mg Tablet 10 Mg PO BID Alprazolam 1 Mg Tablet 1 Mg PO QID Dicyclomine Hcl 20 Mg Tablet 20 Mg PO QID Buspirone Hcl 30 Mg Tablet 30 Mg PO BID Mirtazapine 45 Mg Tablet 45 Mg PO HS Diagnosis: Problems: (1) Seizure (2) Anxiety disorder (3) Obsessive compulsive disorder (4) Psychosis, atypical (5) Major depressive disorder, recurrent episode KAYLAN RAGLAND MD Jan 14, 2017 19:40
[2017-01-14] MEDS: MIRTAZAPINE 15 MG TABLET PO SCH (20:10)
[2017-01-14] MEDS: COLESTIPOL HCL 1 GM TABLET PO SCH (20:20)
--- NOTE | 2017-01-15 03:33 | CONS ---
DATE OF CONSULTATION: 01/14/2017 CONSULT FOR MEDICAL MANAGEMENT HISTORY OF PRESENT ILLNESS: The patient is a 71-year-old female patient, who was transferred from [facility] ICU, where she was admitted with hypokalemia and seizure-like episode. She was seen in consultation there by Dr. Bolivar and apparently she was on alprazolam scheduled and was switched to p.r.n., and that might have caused breakthrough seizure. However, the patient remained extremely obsessive, almost psychotic, intermittently catatonic, depressed and needs readmission for psychiatric stabilization. When I saw her this afternoon, she was very calm, quiet and answered all my questions and did not really offer any complaints. PAST MEDICAL HISTORY: Significant for hypokalemia, seizure disorder, mitral valve prolapse, and irritable bowel syndrome. PAST SURGICAL HISTORY: Unremarkable. CODE STATUS: Full. ALLERGIES: She is allergic to PENICILLIN, SULFA DRUGS, FEXOFENADINE and MINOCYCLINE. MEDICATIONS: She is currently on the following medications: She is on acetaminophen 650 mg every 4 hours, albuterol sulfate by nebulizer 4 times a day, alprazolam 1 mg 4 times a day, aspirin 81 mg once a day, Pulmicort by nebulizer twice a day, buspirone 30 mg twice a day, calcium carbonate with vitamin D3 one tablet twice a day with meals, cholecalciferol, vitamin D3 2000 international units once a day, colestipol 1 g at bedtime, cyanocobalamin 1000 mcg tablet once a day, dicyclomine 20 mg 4 times a day, Aricept 10 mg once a day, fluvoxamine 25 mg at bedtime, folic acid 1 mg once a day, Namenda 10 mg twice a day, mirtazapine 45 mg at bedtime, and multivitamin 1 tablet once a day. She is on Nicoderm patch 7 mg daily, psyllium husk for Metamucil 1 packet twice a day and pyridoxine 100 mg once a day, raloxifene for Evista 60 mg once a day. FAMILY HISTORY: Noncontributory. SOCIAL HISTORY: She is a jail resident. 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 She used to smoke about a pack a day recently, stated that she smokes only 3-4 cigarettes, she does not use any drugs. She lives with her . She has 2 sons. REVIEW OF SYSTEMS: As per history of present illness. PHYSICAL EXAMINATION GENERAL: When I examined her, she was sitting comfortably in her chair, in no apparent respiratory distress, slightly pale, but no jaundice or cyanosis. No lymphadenopathy, no thyromegaly. No jugular venous distension. No limb edema. VITAL SIGNS: Her heart rate was 78, blood pressure was 108/68, temperature was 98.4, respiratory rate was 18 and oxygen saturation was 96% on room air. HEAD, EYES, EARS, NOSE AND THROAT: Showed normocephalic, atraumatic. NECK: Supple. HEART: Showed normal first and second heart sounds with no gallop, rub or murmur. CHEST: Clear to auscultation. No crepitation or rhonchi. ABDOMEN: Scaphoid, soft, and nontender. NEUROLOGIC: She was awake, alert, responding appropriately. Her cranial nerves are intact. EXTREMITIES: She moves extremities without difficulty. LABORATORY DATA: Showed a serum sodium 141, potassium 4.3, chloride 108, bicarbonate 30, anion gap of 3, BUN 6, creatinine 0.9. Her glucose was 86. Hemoglobin A1c was 5%. Calcium was 8.5, magnesium 2. Her serum iron 75, TIBC was 263, percent saturation of 29%. Total bilirubin, AST, ALT, alkaline phosphatase were normal. Total protein was 5.5, albumin 2.9, triglycerides 78, cholesterol 156, LDL cholesterol was 73, and HDL cholesterol was 68, the ratio was 2. Her vitamin B12 was 316 picogram per mL. A 25-hydroxy vitamin D was 57. TSH was 0.998, total T4 was 6.8 and total T3 was 83. IMPRESSION: In summary, this is a 71-year-old female patient, who basically remains extremely obsessive, almost psychotic, intermittently catatonic, depressed and needs admission for psychiatric stabilization. She has multiple medical problems including irritable bowel syndrome, mitral valve prolapse, hypokalemia, seizure like disorder. She has also osteoarthritis and osteoporosis. From the medical point of view, she seemed to be stable. Her serum potassium is 4.3. I reviewed her vital signs, which is stable. All her lab works are within acceptable range. I will definitely continue with all her current medication. I will review all her lab works, which are pending and make a necessary recommendation. Thank you, Dr. Renteria for allowing me to participate in the care of this patient. BRANDI HARDIN MD DR: IMELDA/sasha JOB#: [id number] / [id number]
[2017-01-15 05:42] VITALS: BP 105/55
[2017-01-15] MEDS: ALBUTEROL SULFATE 2.5 MG/3 ML NEBU. NEB SCH ×4 (06:03→21:00)
[2017-01-15] MEDS: CALCIUM CARB/VIT D3 500/200 TABLET PO SCH ×2 (09:46→17:04)
[2017-01-15] MEDS: FOLIC ACID 1 MG TABLET PO SCH (09:46)
[2017-01-15] MEDS: DICYCLOMINE HCL 20 MG TABLET PO SCH ×4 (09:47→20:17)
[2017-01-15] MEDS: DONEPEZIL HCL 10 MG TABLET PO SCH (09:47)
[2017-01-15] MEDS: busPIRone 15 MG TABLET. PO SCH (09:47)
[2017-01-15] MEDS: ASPIRIN 81 MG TAB.CHEW PO SCH (09:47)
[2017-01-15] MEDS: MEMANTINE 10 MG TABLET. PO SCH ×2 (09:47→20:16)
[2017-01-15] MEDS: CYANOCOBALAMIN (VITAMIN B-12) 1,000 MCG TABLET. PO SCH (09:47)
[2017-01-15] MEDS: CHOLECALCIFEROL (VITAMIN D3) 1,000 UNIT TABLET PO SCH (09:47)
[2017-01-15] MEDS: MULTIVITAMIN with MINERAL TABLET. PO SCH (09:47)
[2017-01-15] MEDS: ALPRAZolam 0.5 MG TABLET PO SCH ×4 (09:51→20:21)
[2017-01-15] MEDS: RALOXIFENE 60 MG TABLET. PO SCH (09:51)
[2017-01-15] MEDS: PSYLLIUM SEED (WITH SUGAR) PACKET. PO SCH ×2 (09:52→16:00)
[2017-01-15] MEDS: NICOTINE 7MG PATCH. TD SCH (09:52)
[2017-01-15] MEDS: PYRIDOXINE 100 MG TABLET. PO SCH (09:53)
[2017-01-15] MEDS: BUDESONIDE 0.5 MG/2 ML NEBU NEB SCH ×2 (10:14→21:00)
[2017-01-15 15:59] VITALS: BP 116/50
--- NOTE | 2017-01-15 19:37 | PDOC ---
Exam Lencho Demential Exam: Lencho Note: Please also refer to the separate dictated note~for this date of service dictated separately.~Patient seen individually. Discussed the patient with Nursing staff reviewed the chart.~Reviewed interim history and current functioning. Reviewed vital signs,~Labs/ Radiology~and current medications noted below. Continue current treatment with the changes noted in the dictated addendum note Assessment: Vital Signs: Vital Signs Date Time Temp Pulse Resp B/P (MAP) Pulse Ox O2 Delivery O2 Flow Rate FiO2 01/15/17 18:01 100 Room Air 01/15/17 15:59 98.1 82 18 116/50 (72) I&O Intake and Output 01/16/17 06:59 Intake Total 1200 ml Balance 1200 ml Intake Oral 1200 ml # Bowel Movements 2 Current Medications: Meds: Current Medications Acetaminophen (Tylenol) 650 mg PRN Q6HRS PRN PO PAIN; Start 01/13/17 at 18:15 Albuterol Sulfate (Ventolin) 2.5 mg QID NEB Last administered on 01/15/17 18: 00; Start 01/13/17 at 21:00 Aspirin (Children'S Aspirin) 81 mg DAILY PO Last administered on 01/15/17 09: 47; Start 01/14/17 at 09:00 Budesonide (Pulmicort) 0.25 mg BID NEB Last administered on 01/15/17 10:14; Start 01/13/17 at 21:00 Vitamin D (Vitamin D3) 2,000 unit DAILY PO Last administered on 01/15/17 09:47 ; Start 01/14/17 at 09:00 Colestipol HCl (Colestid) 1 gm HS PO Last administered on 01/14/17 20:20; Start 01/13/17 at 21:00 Cyanocobalamin (Vitamin B-12) 1,000 mcg DAILY PO Last administered on 09:47; Start 01/14/17 at 09:00 Dicyclomine HCl (Bentyl) 20 mg QID PO Last administered on 01/15/17 17:04; Start 01/13/17 at 21:00 Donepezil HCl (Aricept) 10 mg DAILY PO Last administered on 01/15/17 09:47; Start 01/14/17 at 09:00 Fluvoxamine Maleate (Luvox) 25 mg HS PO Last administered on 01/14/17 20:11; Start 01/13/17 at 21:00 Folic Acid (Folic Acid) 1 mg DAILY PO Last administered on 01/15/17 09:46; Start 01/14/17 at 09:00 Memantine (Namenda) 10 mg BID PO Last administered on 01/15/17 09:47; Start at 21:00 Multi-Ingredient Ointment (Analgesic [place]) 1 winston PRN QID TP ; Start 01/13/17 at 18:15 Nicotine (Nicoderm Cq 7mg) 1 patch DAILY TD Last administered on 01/15/17 09: 52; Start 01/14/17 at 09:00 Psyllium Hydrophilic Mucilloid (Metamucil) 1 pkt BID94 PO Last administered on 01/15/17 09:52; Start 01/14/17 at 09:00 Pyridoxine HCl (Vitamin B-6) 100 mg DAILY PO Last administered on 01/15/17 09: 53; Start 01/14/17 at 09:00 Raloxifene HCl (Evista) 60 mg DAILY PO Last administered on 01/15/17 09:51; Start 01/14/17 at 09:00 Alprazolam (Xanax) 1 mg QID PO Last administered on 01/15/17 17:03; Start 02/19 at 21:00 Buspirone HCl (Buspar) 30 mg BID PO Last administered on 01/15/17 09:47; Start 01/13/17 at 21:00; Stop 01/15/17 at 17:02; Status DC Calcium/Vitamin D (Oscal D 500mg/ 200uts) 1 tab BIDWMEALS PO Last administered on 01/15/17 17:04; Start 01/14/17 at 08:00 Mirtazapine (Remeron) 45 mg HS PO Last administered on 01/14/17 20:10; Start 01/13/17 at 21:00 Multivitamins/ Calcium (Thera-M Plus) 1 tab DAILY PO Last administered on 09:47; Start 01/14/17 at 09:00 Buspirone HCl (Buspar) 30 mg STK-MED ONCE .ROUTE ; Start 01/13/17 at 21:00; Stop 01/14/17 at 15:55; Status DC Buspirone HCl (Buspar) 30 mg STK-MED ONCE .ROUTE ; Start 01/14/17 at 09:00; Stop 01/14/17 at 15:55; Status DC Buspirone HCl (Buspar) 20 mg BID PO ; Start 01/15/17 at 21:00 Active Scripts Active Reported Albuterol Sulfate Neb Soln (Albuterol Sulfate) 2.5 Mg/3 Ml Vial.neb 2.5 Mg NEB QID Fluvoxamine Maleate 25 Mg Tablet 25 Mg PO HS Metamucil Packet (Psyllium Husk (with Sugar)) 3.4 Gm Powd.pack 1 Packet PO BID94 NICODERM CQ 7mg (Nicotine) 1 Each Patch.td24 1 Patch TD DAILY Vitamin B-12 (Cyanocobalamin (Vitamin B-12)) 1,000 Mcg Tablet 1 Tab PO DAILY Analgesic [place] (Methyl Salicylate/Menthol) 28 Gm Oint...g. 1 Gm TP PRN QID Budesonide 0.25 Mg/2 Ml Ampul.neb 1 Vial NEB BID Tylenol (Acetaminophen) 325 Mg Tablet 650 Mg PO PRN Q6HRS PRN Folic Acid 1 Mg Tablet 1 Mg PO DAILY Colestipol Hcl 1 Gm Tablet 1 Gm PO HS Multivitamins (Multivitamin) 1 Each Tablet 1 Tab PO DAILY Aspirin 81 Mg Tab.chew 81 Mg PO DAILY Vitamin D3 (Cholecalciferol (Vitamin D3)) 1,000 Unit Tablet 2,000 Unit PO DAILY Vitamin B-6 (Pyridoxine Hcl) 100 Mg Tablet 100 Mg PO DAILY Caltrate 600 + D Tablet (Calcium Carbonate/Vitamin D3) 1 Each Tablet 1 Tab PO BIDWMEALS Evista (Raloxifene Hcl) 60 Mg Tablet 60 Mg PO DAILY Donepezil Hcl 10 Mg Tablet 10 Mg PO DAILY Namenda (Memantine Hcl) 10 Mg Tablet 10 Mg PO BID Alprazolam 1 Mg Tablet 1 Mg PO QID Dicyclomine Hcl 20 Mg Tablet 20 Mg PO QID Buspirone Hcl 30 Mg Tablet 30 Mg PO BID Mirtazapine 45 Mg Tablet 45 Mg PO HS Diagnosis: Problems: (1) Anxiety disorder (2) Obsessive compulsive disorder (3) Psychosis, atypical (4) Major depressive disorder, recurrent episode OBIE,MAN M MD Jan 15, 2017 19:37
[2017-01-15] MEDS: MIRTAZAPINE 15 MG TABLET PO SCH (20:17)
[2017-01-15] MEDS: COLESTIPOL HCL 1 GM TABLET PO SCH (20:18)
[2017-01-15] MEDS: busPIRone 10 MG TABLET. PO SCH (20:20)
--- NOTE | 2017-01-16 01:48 | PN ---
DATE: 01/14/2017 This late entry 01/14/2017 covers elements not covered in my initial note of 01/14/2017, met with the patient evening of 01/14/2017. Overall, the patient is reasonably oriented. She has done better during the day, still anxious, obsessive and met with her at some length individually. REVIEW OF SYSTEMS: No CV, , pulmonary, eye, ENT system symptoms on review. Reliability poor. MENTAL STATUS EXAM: Oriented to herself and situation. Speech is coherent, has some latency, repetitive at times. Abstraction fair, computation impaired, language function intact. Attention span short. She has difficulty chewing meat and requested to be ground. Nursing staff will address this. LABORATORY DATA: Reviewed. IMPRESSION: Obsessive-compulsive disorder; anxiety disorder, unspecified; psychotic disorder, unspecified; cognitive disorder, unspecified. PLAN: From the psychiatric standpoint, continue Xanax 1 mg 4 times a day and we will gradually attempt to taper it once the Luvox is therapeutic. Luvox is 25 mg at bedtime, we will increase gradually, maintain Namenda, Aricept, Remeron at current dosage. Starting 01/15/2017, we will reduce the BuSpar down from 30 mg twice a day to 20 mg twice a day. Make further adjustments as clinically indicated. May use low dose Abilify to augment the Luvox at some point if needed, but for now I would like to focus on gradually adjusting the Luvox to reach a therapeutic dosage. KAYLAN RAGLAND MD DR: NABIL/sasha JOB#: [id number] / [id number]
[2017-01-16] MEDS: ALBUTEROL SULFATE 2.5 MG/3 ML NEBU. NEB SCH ×4 (05:18→21:00)
[2017-01-16 06:03] VITALS: BP 125/64
[2017-01-16 07:40] LABS: BASO # 0.1 x10^3/uL (0.0-0.2); BASO % 1 % (0-3); EOS # 0.2 x10^3/uL (0.0-0.7); EOS % 3 % (0-3); HEMATOCRIT 38.2 % (36.0-47.0); LYMPH # 1.9 x10^3/uL (1.0-4.8); LYMPH % 20 % (24-48); MEAN CORPUSCULAR HEMOGLOBIN 32 pg (25-35); MEAN CORPUSCULAR HGB CONC 34 g/dL (31-37); MEAN CORPUSCULAR VOLUME 94 fL (79-100); MONO % 10 % (0-9); NEUT # 6.5 x10^3uL (1.8-7.7); NEUT % 66 % (31-73); PLATELET COUNT 197 x10^3/uL (140-400); RED BLOOD COUNT 4.06 x10^6/uL (3.50-5.40); RED CELL DISTRIBUTION WIDTH 14.3 % (11.5-14.5); WHITE BLOOD COUNT 9.8 x10^3/uL (4.0-11.0)
[2017-01-16 08:10] LABS: ALBUMIN 3.6 g/dL (3.4-5.0); ALBUMIN/GLOBULIN RATIO 1.2 (1.0-1.7); CALCIUM 9.3 mg/dL (8.5-10.1); CREATININE 1.2 mg/dL (0.6-1.0); GFR 44.2; POTASSIUM 4.6 mmol/L (3.5-5.1); TOTAL BILIRUBIN 0.3 mg/dL (0.2-1.0); TOTAL PROTEIN 6.7 g/dL (6.4-8.2)
[2017-01-16] MEDS: CHOLECALCIFEROL (VITAMIN D3) 1,000 UNIT TABLET PO SCH (09:09)
[2017-01-16] MEDS: DICYCLOMINE HCL 20 MG TABLET PO SCH ×4 (09:09→19:54)
[2017-01-16] MEDS: RALOXIFENE 60 MG TABLET. PO SCH (09:09)
[2017-01-16] MEDS: NICOTINE 7MG PATCH. TD SCH (09:09)
[2017-01-16] MEDS: PSYLLIUM SEED (WITH SUGAR) PACKET. PO SCH ×2 (09:10→16:45)
[2017-01-16] MEDS: CALCIUM CARB/VIT D3 500/200 TABLET PO SCH ×2 (09:10→16:45)
[2017-01-16] MEDS: CYANOCOBALAMIN (VITAMIN B-12) 1,000 MCG TABLET. PO SCH (09:10)
[2017-01-16] MEDS: ASPIRIN 81 MG TAB.CHEW PO SCH (09:10)
[2017-01-16] MEDS: MEMANTINE 10 MG TABLET. PO SCH ×2 (09:10→19:54)
[2017-01-16] MEDS: busPIRone 10 MG TABLET. PO SCH ×2 (09:10→19:54)
[2017-01-16] MEDS: MULTIVITAMIN with MINERAL TABLET. PO SCH (09:10)
[2017-01-16] MEDS: DONEPEZIL HCL 10 MG TABLET PO SCH (09:10)
[2017-01-16] MEDS: FOLIC ACID 1 MG TABLET PO SCH (09:10)
[2017-01-16] MEDS: ALPRAZolam 0.5 MG TABLET PO SCH ×4 (09:10→19:53)
[2017-01-16] MEDS: PYRIDOXINE 100 MG TABLET. PO SCH (09:11)
[2017-01-16 11:12] LABS: BILIRUBIN,URINE NEG (NEG); CLARITY,URINE HAZY; COLOR,URINE YELLOW; GLUCOSE,URINE NEG (NEG); NITRITE,URINE NEG (NEG); RBC,URINE RARE /HPF (0-2); UROBILINOGEN,URINE 0.2 mg/dL (0.2 mg/dL)
[2017-01-16 11:13] LABS: BACTERIA,URINE MOD /HPF (0-FEW); SQUAMOUS EPITHELIAL CELL,UR FEW /LPF
[2017-01-16] MEDS: BUDESONIDE 0.5 MG/2 ML NEBU NEB SCH ×2 (11:22→22:00)
[2017-01-16 16:11] VITALS: BP 116/74
--- NOTE | 2017-01-16 19:46 | PDOC ---
Exam Lencho Demential Exam: Lencho Note: Please also refer to the separate dictated note~for this date of service dictated separately.~Patient seen individually. Discussed the patient with Nursing staff reviewed the chart.~Reviewed interim history and current functioning. Reviewed vital signs,~Labs/ Radiology~and current medications noted below. Continue current treatment with the changes noted in the dictated addendum note Assessment: Vital Signs: Vital Signs Date Time Temp Pulse Resp B/P (MAP) Pulse Ox O2 Delivery O2 Flow Rate FiO2 01/16/17 16:47 97 Room Air 01/16/17 16:11 98.3 80 16 116/74 (88) I&O Intake and Output 01/17/17 07:00 Intake Total 1080 ml Balance 1080 ml Intake Oral 1080 ml Labs: Laboratory Tests Test 01/16/17 07:26 01/16/17 10:45 White Blood Count 9.8 x10^3/uL (4.0-11.0) Red Blood Count 4.06 x10^6/uL (3.50-5.40) Hemoglobin 13.0 g/dL (12.0-15.5) Hematocrit 38.2 % (36.0-47.0) Mean Corpuscular Volume 94 fL (79-100) Mean Corpuscular Hemoglobin 32 pg (25-35) Mean Corpuscular Hemoglobin Concent 34 g/dL (31-37) Red Cell Distribution Width 14.3 % (11.5-14.5) Platelet Count 197 x10^3/uL (140-400) Neutrophils (%) (Auto) 66 % (31-73) Lymphocytes (%) (Auto) 20 % (24-48) L Monocytes (%) (Auto) 10 % (0-9) H Eosinophils (%) (Auto) 3 % (0-3) Basophils (%) (Auto) 1 % (0-3) Neutrophils # (Auto) 6.5 x10^3uL (1.8-7.7) Lymphocytes # (Auto) 1.9 x10^3/uL (1.0-4.8) Monocytes # (Auto) 1.0 x10^3/uL (0.0-1.1) Eosinophils # (Auto) 0.2 x10^3/uL (0.0-0.7) Basophils # (Auto) 0.1 x10^3/uL (0.0-0.2) Sodium Level 140 mmol/L (136-145) Potassium Level 4.6 mmol/L (3.5-5.1) Chloride Level 106 mmol/L (98-107) Carbon Dioxide Level 27 mmol/L (21-32) Anion Gap 7 (6-14) Blood Urea Nitrogen 12 mg/dL (7-20) Creatinine 1.2 mg/dL (0.6-1.0) H Estimated GFR (Cockcroft-Gault) 44.2 BUN/Creatinine Ratio 10 (6-20) Glucose Level 99 mg/dL (70-99) Calcium Level 9.3 mg/dL (8.5-10.1) Magnesium Level 1.9 mg/dL (1.8-2.4) Total Bilirubin 0.3 mg/dL (0.2-1.0) Aspartate Amino Transferase (AST) 25 U/L (15-37) Alanine Aminotransferase (ALT) 33 U/L (14-59) Alkaline Phosphatase 57 U/L (46-116) Total Protein 6.7 g/dL (6.4-8.2) Albumin 3.6 g/dL (3.4-5.0) Albumin/Globulin Ratio 1.2 (1.0-1.7) Urine Collection Type Unknown Urine Color Yellow Urine Clarity Hazy Urine pH 6.5 Urine Specific [place] 1.010 Urine Protein Neg (NEG-TRACE) Urine Glucose (UA) Neg mg/dL (NEG) Urine Ketones (Stick) Neg mg/dL (NEG) Urine Blood Neg (NEG) Urine Nitrite Neg (NEG) Urine Bilirubin Neg (NEG) Urine Urobilinogen Dipstick 0.2 mg/dL (0.2 mg/dL) Urine Leukocyte Esterase Small (NEG) Urine RBC Rare /HPF (0-2) Urine WBC 1-4 /HPF (0-4) Urine Squamous Epithelial Cells Few /LPF Urine Bacteria Mod /HPF (0-FEW) Current Medications: Meds: Current Medications Acetaminophen (Tylenol) 650 mg PRN Q6HRS PRN PO PAIN; Start 01/13/17 at 18:15 Albuterol Sulfate (Ventolin) 2.5 mg QID NEB Last administered on 01/16/17t 16: 47; Start 01/13/17 at 21:00 Aspirin (Children'S Aspirin) 81 mg DAILY PO Last administered on 01/16/17 09: 10; Start 01/14/17 at 09:00 Budesonide (Pulmicort) 0.25 mg BID NEB Last administered on 01/16/17 11:22; Start 01/13/17 at 21:00 Vitamin D (Vitamin D3) 2,000 unit DAILY PO Last administered on 01/16/17 09:09 ; Start 01/14/17 at 09:00 Colestipol HCl (Colestid) 1 gm HS PO Last administered on 01/15/17 20:18; Start 01/13/17 at 21:00 Cyanocobalamin (Vitamin B-12) 1,000 mcg DAILY PO Last administered on 09:10; Start 01/14/17 at 09:00 Dicyclomine HCl (Bentyl) 20 mg QID PO Last administered on 01/16/17 16:45; Start 01/13/17 at 21:00 Donepezil HCl (Aricept) 10 mg DAILY PO Last administered on 01/16/17 09:10; Start 01/14/17 at 09:00 Fluvoxamine Maleate (Luvox) 25 mg HS PO Last administered on 01/15/17 20:16; Start 01/13/17 at 21:00; Stop 01/16/17 at 18:04; Status DC Folic Acid (Folic Acid) 1 mg DAILY PO Last administered on 01/16/17 09:10; Start 01/14/17 at 09:00 Memantine (Namenda) 10 mg BID PO Last administered on 01/16/17 09:10; Start at 21:00 Multi-Ingredient Ointment (Analgesic [place]) 1 [place] PRN QID TP ; Start 01/13/17 at 18:15 Nicotine (Nicoderm Cq 7mg) 1 patch DAILY TD Last administered on 01/16/17 09: 09; Start 01/14/17 at 09:00 Psyllium Hydrophilic Mucilloid (Metamucil) 1 pkt BID94 PO Last administered on 01/16/17 16:45; Start 01/14/17 at 09:00 Pyridoxine HCl (Vitamin B-6) 100 mg DAILY PO Last administered on 01/16/17 09: 11; Start 01/14/17 at 09:00 Raloxifene HCl (Evista) 60 mg DAILY PO Last administered on 01/16/17 09:09; Start 01/14/17 at 09:00 Alprazolam (Xanax) 1 mg QID PO Last administered on 01/16/17 16:45; Start 02/19 at 21:00 Buspirone HCl (Buspar) 30 mg BID PO Last administered on 01/15/17 09:47; Start 01/13/17 at 21:00; Stop 01/15/17 at 17:02; Status DC Calcium/Vitamin D (Oscal D 500mg/ 200uts) 1 tab BIDWMEALS PO Last administered on 01/16/17 16:45; Start 01/14/17 at 08:00 Mirtazapine (Remeron) 45 mg HS PO Last administered on 01/15/17 20:17; Start 01/13/17 at 21:00 Multivitamins/ Calcium (Thera-M Plus) 1 tab DAILY PO Last administered on 09:10; Start 01/14/17 at 09:00 Buspirone HCl (Buspar) 30 mg STK-MED ONCE .ROUTE ; Start 01/13/17 at 21:00; Stop 01/14/17 at 15:55; Status DC Buspirone HCl (Buspar) 30 mg STK-MED ONCE .ROUTE ; Start 01/14/17 at 09:00; Stop 01/14/17 at 15:55; Status DC Buspirone HCl (Buspar) 20 mg BID PO Last administered on 01/16/17 09:10; Start 01/15/17 at 21:00 Fluvoxamine Maleate (Luvox) 50 mg HS PO ; Start 01/16/17 at 21:00 Active Scripts Active Reported Albuterol Sulfate Neb Soln (Albuterol Sulfate) 2.5 Mg/3 Ml Vial.neb 2.5 Mg NEB QID Fluvoxamine Maleate 25 Mg Tablet 25 Mg PO HS Metamucil Packet (Psyllium Husk (with Sugar)) 3.4 Gm Powd.pack 1 Packet PO BID94 NICODERM CQ 7mg (Nicotine) 1 Each Patch.td24 1 Patch TD DAILY Vitamin B-12 (Cyanocobalamin (Vitamin B-12)) 1,000 Mcg Tablet 1 Tab PO DAILY Analgesic [place] (Methyl Salicylate/Menthol) 28 Gm Oint...g. 1 Gm TP PRN QID Budesonide 0.25 Mg/2 Ml Ampul.neb 1 Vial NEB BID Tylenol (Acetaminophen) 325 Mg Tablet 650 Mg PO PRN Q6HRS PRN Folic Acid 1 Mg Tablet 1 Mg PO DAILY Colestipol Hcl 1 Gm Tablet 1 Gm PO HS Multivitamins (Multivitamin) 1 Each Tablet 1 Tab PO DAILY Aspirin 81 Mg Tab.chew 81 Mg PO DAILY Vitamin D3 (Cholecalciferol (Vitamin D3)) 1,000 Unit Tablet 2,000 Unit PO DAILY Vitamin B-6 (Pyridoxine Hcl) 100 Mg Tablet 100 Mg PO DAILY Caltrate 600 + D Tablet (Calcium Carbonate/Vitamin D3) 1 Each Tablet 1 Tab PO BIDWMEALS Evista (Raloxifene Hcl) 60 Mg Tablet 60 Mg PO DAILY Donepezil Hcl 10 Mg Tablet 10 Mg PO DAILY Namenda (Memantine Hcl) 10 Mg Tablet 10 Mg PO BID Alprazolam 1 Mg Tablet 1 Mg PO QID Dicyclomine Hcl 20 Mg Tablet 20 Mg PO QID Buspirone Hcl 30 Mg Tablet 30 Mg PO BID Mirtazapine 45 Mg Tablet 45 Mg PO HS Diagnosis: Problems: (1) Anxiety disorder (2) Obsessive compulsive disorder (3) Psychosis, atypical (4) Major depressive disorder, recurrent episode KAYLAN RAGLAND MD Jan 16, 2017 19:46
[2017-01-16] MEDS: COLESTIPOL HCL 1 GM TABLET PO SCH (19:51)
[2017-01-16] MEDS: MIRTAZAPINE 15 MG TABLET PO SCH (19:54)
--- NOTE | 2017-01-17 03:23 | PN ---
DATE: 01/15/2017 PSYCHIATRIC PROGRESS NOTE This is a late entry for 01/15/2017, covers elements not covered in my initial note of 01/15/2017. SUBJECTIVE: I met with the patient the evening of 01/15/2017 at some length. Per nursing report, the patient has been somewhat obsessive, fixated on having dropped water on her jeans, want to put in the dryer and I processed this with her. Otherwise, she is compliant with her medications and assessments. REVIEW OF SYSTEMS: No CV, , pulmonary, eye, ENT system symptoms on review. Has some difficulty with chewing hard food and we are giving her chopped meat. MENTAL STATUS EXAM: Reasonably oriented. Speech is coherent, abstraction fair, computation impaired, language function intact, attention span short. Mood and affect showing improvement. LABORATORY DATA: Reviewed. IMPRESSION: Unchanged from initial note. PLAN: Continue current psychotropics mentioned in my initial note. We will continue to gradually increase the Luvox perhaps and reduce the Remeron. We have reduced the BuSpar from 30 mg b.i.d. to 20 mg b.i.d., and we will gradually try and reduce the Xanax at some point as well. Maintain Aricept and Namenda. Reviewed drug interactions. Risk/benefit ratio favors no further change. KAYLAN RAGLAND MD DR: NABIL/sasha JOB#: [id number] / [id number]
[2017-01-17] MEDS: ALBUTEROL SULFATE 2.5 MG/3 ML NEBU. NEB SCH ×4 (05:03→21:00)
[2017-01-17 05:45] VITALS: BP 127/83
[2017-01-17] MEDS: CALCIUM CARB/VIT D3 500/200 TABLET PO SCH ×2 (07:48→17:08)
[2017-01-17] MEDS: ASPIRIN 81 MG TAB.CHEW PO SCH (07:49)
[2017-01-17] MEDS: RALOXIFENE 60 MG TABLET. PO SCH (07:49)
[2017-01-17] MEDS: CHOLECALCIFEROL (VITAMIN D3) 1,000 UNIT TABLET PO SCH (07:49)
[2017-01-17] MEDS: FOLIC ACID 1 MG TABLET PO SCH (07:49)
[2017-01-17] MEDS: busPIRone 10 MG TABLET. PO SCH ×2 (07:49→19:40)
[2017-01-17] MEDS: DONEPEZIL HCL 10 MG TABLET PO SCH (07:49)
[2017-01-17] MEDS: CYANOCOBALAMIN (VITAMIN B-12) 1,000 MCG TABLET. PO SCH (07:50)
[2017-01-17] MEDS: MEMANTINE 10 MG TABLET. PO SCH ×2 (07:50→19:40)
[2017-01-17] MEDS: NICOTINE 7MG PATCH. TD SCH (07:50)
[2017-01-17] MEDS: DICYCLOMINE HCL 20 MG TABLET PO SCH ×4 (07:50→19:40)
[2017-01-17] MEDS: MULTIVITAMIN with MINERAL TABLET. PO SCH (07:50)
[2017-01-17] MEDS: PSYLLIUM SEED (WITH SUGAR) PACKET. PO SCH ×2 (07:50→17:08)
[2017-01-17] MEDS: PYRIDOXINE 100 MG TABLET. PO SCH (07:52)
[2017-01-17] MEDS: ALPRAZolam 0.5 MG TABLET PO SCH ×4 (07:52→19:43)
[2017-01-17] MEDS: BUDESONIDE 0.5 MG/2 ML NEBU NEB SCH ×2 (13:07→21:00)
[2017-01-17 16:17] VITALS: BP 153/81
[2017-01-17] MEDS: MIRTAZAPINE 15 MG TABLET PO SCH (19:40)
[2017-01-17] MEDS: COLESTIPOL HCL 1 GM TABLET PO SCH (19:41)
--- NOTE | 2017-01-17 19:44 | PDOC ---
Exam Lencho Demential Exam: Lencho Note: Please also refer to the separate dictated note~for this date of service dictated separately.~Patient seen individually. Discussed the patient with Nursing staff reviewed the chart.~Reviewed interim history and current functioning. Reviewed vital signs,~Labs/ Radiology~and current medications noted below. Continue current treatment with the changes noted in the dictated addendum note Assessment: Vital Signs: Vital Signs Date Time Temp Pulse Resp B/P (MAP) Pulse Ox O2 Delivery O2 Flow Rate FiO2 01/17/17 16:23 96 Room Air 01/17/17 16:17 97.9 82 18 153/81 (105) I&O Intake and Output 01/18/17 06:59 Intake Total 720 ml Balance 720 ml Intake Oral 720 ml Current Medications: Meds: Current Medications Acetaminophen (Tylenol) 650 mg PRN Q6HRS PRN PO PAIN; Start 01/13/17 at 18:15 Albuterol Sulfate (Ventolin) 2.5 mg QID NEB Last administered on 01/17/17 16: 23; Start 01/13/17 at 21:00 Aspirin (Children'S Aspirin) 81 mg DAILY PO Last administered on 01/17/17 07: 49; Start 01/14/17 at 09:00 Budesonide (Pulmicort) 0.25 mg BID NEB Last administered on 01/17/17 13:07; Start 01/13/17 at 21:00 Vitamin D (Vitamin D3) 2,000 unit DAILY PO Last administered on 01/17/17 07:49 ; Start 01/14/17 at 09:00 Colestipol HCl (Colestid) 1 gm HS PO Last administered on 01/16/17 19:51; Start 01/13/17 at 21:00 Cyanocobalamin (Vitamin B-12) 1,000 mcg DAILY PO Last administered on 07:50; Start 01/14/17 at 09:00 Dicyclomine HCl (Bentyl) 20 mg QID PO Last administered on 01/17/17 17:08; Start 01/13/17 at 21:00 Donepezil HCl (Aricept) 10 mg DAILY PO Last administered on 01/17/17 07:49; Start 01/14/17 at 09:00 Fluvoxamine Maleate (Luvox) 25 mg HS PO Last administered on 01/15/17 20:16; Start 01/13/17 at 21:00; Stop 01/16/17 at 18:04; Status DC Folic Acid (Folic Acid) 1 mg DAILY PO Last administered on 01/17/17 07:49; Start 01/14/17 at 09:00 Memantine (Namenda) 10 mg BID PO Last administered on 01/17/17 07:50; Start at 21:00 Multi-Ingredient Ointment (Analgesic [place]) 1 [place] PRN QID TP ; Start 01/13/17 at 18:15 Nicotine (Nicoderm Cq 7mg) 1 patch DAILY TD Last administered on 01/17/17 07: 50; Start 01/14/17 at 09:00 Psyllium Hydrophilic Mucilloid (Metamucil) 1 pkt BID94 PO Last administered on 01/17/17 17:08; Start 01/14/17 at 09:00 Pyridoxine HCl (Vitamin B-6) 100 mg DAILY PO Last administered on 01/17/17 07: 52; Start 01/14/17 at 09:00 Raloxifene HCl (Evista) 60 mg DAILY PO Last administered on 01/17/17 07:49; Start 01/14/17 at 09:00 Alprazolam (Xanax) 1 mg QID PO Last administered on 01/17/17 17:08; Start 02/19 at 21:00 Buspirone HCl (Buspar) 30 mg BID PO Last administered on 01/15/17 09:47; Start 01/13/17 at 21:00; Stop 01/15/17 at 17:02; Status DC Calcium/Vitamin D (Oscal D 500mg/ 200uts) 1 tab BIDWMEALS PO Last administered on 01/17/17 17:08; Start 01/14/17 at 08:00 Mirtazapine (Remeron) 45 mg HS PO Last administered on 01/16/17 19:54; Start 01/13/17 at 21:00 Multivitamins/ Calcium (Thera-M Plus) 1 tab DAILY PO Last administered on 07:50; Start 01/14/17 at 09:00 Buspirone HCl (Buspar) 30 mg STK-MED ONCE .ROUTE ; Start 01/13/17 at 21:00; Stop 01/14/17 at 15:55; Status DC Buspirone HCl (Buspar) 30 mg STK-MED ONCE .ROUTE ; Start 01/14/17 at 09:00; Stop 01/14/17 at 15:55; Status DC Buspirone HCl (Buspar) 20 mg BID PO Last administered on 01/17/17 07:49; Start 01/15/17 at 21:00 Fluvoxamine Maleate (Luvox) 50 mg HS PO Last administered on 01/16/17t 19:54; Start 01/16/17 at 21:00 Active Scripts Active Reported Albuterol Sulfate Neb Soln (Albuterol Sulfate) 2.5 Mg/3 Ml Vial.neb 2.5 Mg NEB QID Fluvoxamine Maleate 25 Mg Tablet 25 Mg PO HS Metamucil Packet (Psyllium Husk (with Sugar)) 3.4 Gm Powd.pack 1 Packet PO BID94 NICODERM CQ 7mg (Nicotine) 1 Each Patch.td24 1 Patch TD DAILY Vitamin B-12 (Cyanocobalamin (Vitamin B-12)) 1,000 Mcg Tablet 1 Tab PO DAILY Analgesic [place] (Methyl Salicylate/Menthol) 28 Gm Oint...g. 1 Gm TP PRN QID Budesonide 0.25 Mg/2 Ml Ampul.neb 1 Vial NEB BID Tylenol (Acetaminophen) 325 Mg Tablet 650 Mg PO PRN Q6HRS PRN Folic Acid 1 Mg Tablet 1 Mg PO DAILY Colestipol Hcl 1 Gm Tablet 1 Gm PO HS Multivitamins (Multivitamin) 1 Each Tablet 1 Tab PO DAILY Aspirin 81 Mg Tab.chew 81 Mg PO DAILY Vitamin D3 (Cholecalciferol (Vitamin D3)) 1,000 Unit Tablet 2,000 Unit PO DAILY Vitamin B-6 (Pyridoxine Hcl) 100 Mg Tablet 100 Mg PO DAILY Caltrate 600 + D Tablet (Calcium Carbonate/Vitamin D3) 1 Each Tablet 1 Tab PO BIDWMEALS Evista (Raloxifene Hcl) 60 Mg Tablet 60 Mg PO DAILY Donepezil Hcl 10 Mg Tablet 10 Mg PO DAILY Namenda (Memantine Hcl) 10 Mg Tablet 10 Mg PO BID Alprazolam 1 Mg Tablet 1 Mg PO QID Dicyclomine Hcl 20 Mg Tablet 20 Mg PO QID Buspirone Hcl 30 Mg Tablet 30 Mg PO BID Mirtazapine 45 Mg Tablet 45 Mg PO HS Diagnosis: Problems: (1) Anxiety disorder (2) Obsessive compulsive disorder (3) Psychosis, atypical (4) Major depressive disorder, recurrent episode (5) Seizure KAYLAN RAGLAND MD Jan 17, 2017 19:44
[2017-01-18] MEDS: ALBUTEROL SULFATE 2.5 MG/3 ML NEBU. NEB SCH ×4 (05:13→20:27)
[2017-01-18] MEDS: PSYLLIUM SEED (WITH SUGAR) PACKET. PO SCH ×2 (08:53→17:07)
[2017-01-18] MEDS: NICOTINE 7MG PATCH. TD SCH (08:53)
[2017-01-18] MEDS: FOLIC ACID 1 MG TABLET PO SCH (08:54)
[2017-01-18] MEDS: CHOLECALCIFEROL (VITAMIN D3) 1,000 UNIT TABLET PO SCH (08:54)
[2017-01-18] MEDS: RALOXIFENE 60 MG TABLET. PO SCH (08:54)
[2017-01-18] MEDS: PYRIDOXINE 100 MG TABLET. PO SCH (08:54)
[2017-01-18] MEDS: DONEPEZIL HCL 10 MG TABLET PO SCH (08:54)
[2017-01-18] MEDS: MEMANTINE 10 MG TABLET. PO SCH ×2 (08:54→20:18)
[2017-01-18] MEDS: busPIRone 10 MG TABLET. PO SCH ×2 (08:54→20:18)
[2017-01-18] MEDS: CYANOCOBALAMIN (VITAMIN B-12) 1,000 MCG TABLET. PO SCH (08:54)
[2017-01-18] MEDS: DICYCLOMINE HCL 20 MG TABLET PO SCH ×4 (08:55→20:18)
[2017-01-18] MEDS: ASPIRIN 81 MG TAB.CHEW PO SCH (08:55)
[2017-01-18] MEDS: CALCIUM CARB/VIT D3 500/200 TABLET PO SCH ×2 (08:55→17:07)
[2017-01-18] MEDS: MULTIVITAMIN with MINERAL TABLET. PO SCH (08:55)
[2017-01-18] MEDS: ALPRAZolam 0.5 MG TABLET PO SCH ×4 (08:57→20:26)
[2017-01-18] MEDS: BUDESONIDE 0.5 MG/2 ML NEBU NEB SCH ×2 (10:01→20:27)
--- NOTE | 2017-01-18 10:10 | PN ---
DATE: 01/16/2017 This late entry 01/16/2017 covers the elements not covered in my initial note of 01/16/2017. SUBJECTIVE: The patient remains somewhat obsessive, anxious, was very obsessed about the bedsheet, not touching the floor the previous evening. She continues to be very needy per nursing report. We will repeat an EKG on the for her QTc interval given the psychotropics she is on. REVIEW OF SYSTEMS: No CV, , pulmonary, eye, ENT system symptoms on review. MENTAL STATUS EXAM: Reasonably oriented. Speech is coherent, has some latency, somewhat obsessive, ruminative, preoccupied with her thoughts, but better than before. She remains anxious. Abstraction fair, computation impaired, language function intact. Mood and affect remained somewhat anxious, obsessive. LABORATORY DATA: Reviewed. IMPRESSION: Unchanged from initial note. PLAN: Continue current psychotropics, Luvox may need to be increased further in due course. Continue Xanax, we will try and taper it Aricept, Namenda, Remeron and the BuSpar was reduced to 20 b.i.d. Make further adjustments as clinically indicated. KAYLAN RAGLAND MD DR: NABIL/sasha JOB#: [id number] / [id number]
[2017-01-18 16:30] VITALS: BP 122/87
--- NOTE | 2017-01-18 19:51 | EKG ---
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
[2017-01-18] MEDS: MIRTAZAPINE 15 MG TABLET PO SCH (20:18)
--- NOTE | 2017-01-18 20:18 | PDOC ---
Exam Lencho Demential Exam: Lencho Note: Please also refer to the separate dictated note~for this date of service dictated separately.~Patient seen individually. Discussed the patient with Nursing staff reviewed the chart.~Reviewed interim history and current functioning. Reviewed vital signs,~Labs/ Radiology~and current medications noted below. Continue current treatment with the changes noted in the dictated addendum note Assessment: Vital Signs: Vital Signs Date Time Temp Pulse Resp B/P (MAP) Pulse Ox O2 Delivery O2 Flow Rate FiO2 01/18/17 17:58 98 Room Air 01/18/17 16:30 97.2 84 18 122/87 (99) I&O Intake and Output 01/19/17 07:00 Intake Total 1200 ml Balance 1200 ml Intake Oral 1200 ml Current Medications: Meds: Current Medications Acetaminophen (Tylenol) 650 mg PRN Q6HRS PRN PO PAIN; Start 01/13/17 at 18:15 Albuterol Sulfate (Ventolin) 2.5 mg QID NEB Last administered on 01/18/17 17: 56; Start 01/13/17 at 21:00 Aspirin (Children'S Aspirin) 81 mg DAILY PO Last administered on 01/18/17 08: 55; Start 01/14/17 at 09:00 Budesonide (Pulmicort) 0.25 mg BID NEB Last administered on 01/18/17 10:01; Start 01/13/17 at 21:00 Vitamin D (Vitamin D3) 2,000 unit DAILY PO Last administered on 01/18/17 08:54 ; Start 01/14/17 at 09:00 Colestipol HCl (Colestid) 1 gm HS PO Last administered on 01/17/17 19:41; Start 01/13/17 at 21:00 Cyanocobalamin (Vitamin B-12) 1,000 mcg DAILY PO Last administered on 08:54; Start 01/14/17 at 09:00 Dicyclomine HCl (Bentyl) 20 mg QID PO Last administered on 01/18/17 17:07; Start 01/13/17 at 21:00 Donepezil HCl (Aricept) 10 mg DAILY PO Last administered on 01/18/17 08:54; Start 01/14/17 at 09:00 Fluvoxamine Maleate (Luvox) 25 mg HS PO Last administered on 01/15/17 20:16; Start 01/13/17 at 21:00; Stop 01/16/17 at 18:04; Status DC Folic Acid (Folic Acid) 1 mg DAILY PO Last administered on 01/18/17 08:54; Start 01/14/17 at 09:00 Memantine (Namenda) 10 mg BID PO Last administered on 01/18/17 08:54; Start at 21:00 Multi-Ingredient Ointment (Analgesic [place]) 1 winston PRN QID TP ; Start 01/13/17 at 18:15 Nicotine (Nicoderm Cq 7mg) 1 patch DAILY TD Last administered on 01/18/17 08: 53; Start 01/14/17 at 09:00 Psyllium Hydrophilic Mucilloid (Metamucil) 1 pkt BID94 PO Last administered on 01/18/17 17:07; Start 01/14/17 at 09:00 Pyridoxine HCl (Vitamin B-6) 100 mg DAILY PO Last administered on 01/18/17 08: 54; Start 01/14/17 at 09:00 Raloxifene HCl (Evista) 60 mg DAILY PO Last administered on 01/18/17 08:54; Start 01/14/17 at 09:00 Alprazolam (Xanax) 1 mg QID PO Last administered on 01/18/17 17:07; Start 02/19 at 21:00 Buspirone HCl (Buspar) 30 mg BID PO Last administered on 01/15/17 09:47; Start 01/13/17 at 21:00; Stop 01/15/17 at 17:02; Status DC Calcium/Vitamin D (Oscal D 500mg/ 200uts) 1 tab BIDWMEALS PO Last administered on 01/18/17 17:07; Start 01/14/17 at 08:00 Mirtazapine (Remeron) 45 mg HS PO Last administered on 01/17/17 19:40; Start 01/13/17 at 21:00 Multivitamins/ Calcium (Thera-M Plus) 1 tab DAILY PO Last administered on 08:55; Start 01/14/17 at 09:00 Buspirone HCl (Buspar) 30 mg STK-MED ONCE .ROUTE ; Start 01/13/17 at 21:00; Stop 01/14/17 at 15:55; Status DC Buspirone HCl (Buspar) 30 mg STK-MED ONCE .ROUTE ; Start 01/14/17 at 09:00; Stop 01/14/17 at 15:55; Status DC Buspirone HCl (Buspar) 20 mg BID PO Last administered on 01/18/17 08:54; Start 01/15/17 at 21:00 Fluvoxamine Maleate (Luvox) 50 mg HS PO Last administered on 01/17/17t 19:40; Start 01/16/17 at 21:00; Stop 01/18/17 at 20:03; Status DC Fluvoxamine Maleate (Luvox) 75 mg HS PO ; Start 01/18/17 at 21:00; Status UNV Active Scripts Active Reported Albuterol Sulfate Neb Soln (Albuterol Sulfate) 2.5 Mg/3 Ml Vial.neb 2.5 Mg NEB QID Fluvoxamine Maleate 25 Mg Tablet 25 Mg PO HS Metamucil Packet (Psyllium Husk (with Sugar)) 3.4 Gm Powd.pack 1 Packet PO BID94 NICODERM CQ 7mg (Nicotine) 1 Each Patch.td24 1 Patch TD DAILY Vitamin B-12 (Cyanocobalamin (Vitamin B-12)) 1,000 Mcg Tablet 1 Tab PO DAILY Analgesic [place] (Methyl Salicylate/Menthol) 28 Gm Oint...g. 1 Gm TP PRN QID Budesonide 0.25 Mg/2 Ml Ampul.neb 1 Vial NEB BID Tylenol (Acetaminophen) 325 Mg Tablet 650 Mg PO PRN Q6HRS PRN Folic Acid 1 Mg Tablet 1 Mg PO DAILY Colestipol Hcl 1 Gm Tablet 1 Gm PO HS Multivitamins (Multivitamin) 1 Each Tablet 1 Tab PO DAILY Aspirin 81 Mg Tab.chew 81 Mg PO DAILY Vitamin D3 (Cholecalciferol (Vitamin D3)) 1,000 Unit Tablet 2,000 Unit PO DAILY Vitamin B-6 (Pyridoxine Hcl) 100 Mg Tablet 100 Mg PO DAILY Caltrate 600 + D Tablet (Calcium Carbonate/Vitamin D3) 1 Each Tablet 1 Tab PO BIDWMEALS Evista (Raloxifene Hcl) 60 Mg Tablet 60 Mg PO DAILY Donepezil Hcl 10 Mg Tablet 10 Mg PO DAILY Namenda (Memantine Hcl) 10 Mg Tablet 10 Mg PO BID Alprazolam 1 Mg Tablet 1 Mg PO QID Dicyclomine Hcl 20 Mg Tablet 20 Mg PO QID Buspirone Hcl 30 Mg Tablet 30 Mg PO BID Mirtazapine 45 Mg Tablet 45 Mg PO HS Diagnosis: Problems: (1) Anxiety disorder (2) Obsessive compulsive disorder (3) Psychosis, atypical (4) Major depressive disorder, recurrent episode KAYLAN RAGLAND MD Jan 18, 2017 20:17
[2017-01-18] MEDS: COLESTIPOL HCL 1 GM TABLET PO SCH (20:26)
--- NOTE | 2017-01-19 03:00 | PN ---
DATE: 01/17/2017 SUBJECTIVE: This is a late entry 01/17/2017, covers elements not covered in my initial note of 01/17/2017. The patient was staffed at a treatment team meeting with the entire team morning of 01/17/2017; seen individually evening of 01/17/2017. Met with the patient at length in her room evening of 01/17/2017, and at the treatment team meeting morning of 01/17/2017, the patient's son, Dr. Chevy Jerome attended. Dr. Jerome is a cushion sewer and we discussed the patient's diagnosis ____ past treatment, current treatment, and response to treatment. Luvox 50 mg at bedtime. We will check EKG for QTC interval prolongation on 01/18/2017, and then increase Luvox further to 75 mg a day. Per nursing report, the patient has been somewhat [place], anxious, obsessive, and wants her nicotine patch removed at night, which is appropriate. REVIEW OF SYSTEMS: No CV, , pulmonary, eye, or ENT system symptoms on review. She is quite somewhat obsessive about her clothes, belongings, and her bed as I met with her in her room. MENTAL STATUS EXAM: Reasonably oriented. Speech is coherent, abstraction fair, computation impaired, language function intact, and attention span short. Mood and affect remain somewhat anxious and labile, but overall showing some improvement in anxiety. LABORATORY DATA: Reviewed. IMPRESSION: Unchanged from initial note. PLAN: Continue current psychotropic. Check EKG. May need to increase Luvox on 01/18/2017. Adjust further as clinically indicated. Reviewed drug contractions. Risk/benefit ratio favors no further change. MAN Dane RAGLAND MD DR: NABIL/sasha JOB#: [id number] / [id number]
[2017-01-19] MEDS: ALBUTEROL SULFATE 2.5 MG/3 ML NEBU. NEB SCH ×4 (05:22→20:18)
[2017-01-19 06:04] VITALS: BP 115/79
[2017-01-19] MEDS: NICOTINE 7MG PATCH. TD SCH (08:29)
[2017-01-19] MEDS: PSYLLIUM SEED (WITH SUGAR) PACKET. PO SCH ×2 (08:29→16:26)
[2017-01-19] MEDS: MULTIVITAMIN with MINERAL TABLET. PO SCH (08:30)
[2017-01-19] MEDS: CALCIUM CARB/VIT D3 500/200 TABLET PO SCH ×2 (08:30→16:26)
[2017-01-19] MEDS: RALOXIFENE 60 MG TABLET. PO SCH (08:31)
[2017-01-19] MEDS: CHOLECALCIFEROL (VITAMIN D3) 1,000 UNIT TABLET PO SCH (08:31)
[2017-01-19] MEDS: DICYCLOMINE HCL 20 MG TABLET PO SCH ×4 (08:31→19:29)
[2017-01-19] MEDS: FOLIC ACID 1 MG TABLET PO SCH (08:31)
[2017-01-19] MEDS: MEMANTINE 10 MG TABLET. PO SCH ×2 (08:31→19:29)
[2017-01-19] MEDS: busPIRone 10 MG TABLET. PO SCH ×2 (08:31→19:29)
[2017-01-19] MEDS: DONEPEZIL HCL 10 MG TABLET PO SCH (08:31)
[2017-01-19] MEDS: ASPIRIN 81 MG TAB.CHEW PO SCH (08:32)
[2017-01-19] MEDS: ALPRAZolam 0.5 MG TABLET PO SCH ×4 (08:32→19:30)
[2017-01-19] MEDS: CYANOCOBALAMIN (VITAMIN B-12) 1,000 MCG TABLET. PO SCH (08:32)
[2017-01-19] MEDS: PYRIDOXINE 100 MG TABLET. PO SCH (08:38)
[2017-01-19] MEDS: BUDESONIDE 0.5 MG/2 ML NEBU NEB SCH ×2 (10:51→20:17)
[2017-01-19 15:41] VITALS: BP 121/77
[2017-01-19] MEDS: COLESTIPOL HCL 1 GM TABLET PO SCH (19:30)
[2017-01-19] MEDS: MIRTAZAPINE 15 MG TABLET PO SCH (19:30)
--- NOTE | 2017-01-19 22:41 | PDOC ---
Exam Lencho Demential Exam: Lencho Note: Please also refer to the separate dictated note~for this date of service dictated separately.~Patient seen individually. Discussed the patient with Nursing staff reviewed the chart.~Reviewed interim history and current functioning. Reviewed vital signs,~Labs/ Radiology~and current medications noted below. Continue current treatment with the changes noted in the dictated addendum note Assessment: Vital Signs: Vital Signs Date Time Temp Pulse Resp B/P (MAP) Pulse Ox O2 Delivery O2 Flow Rate FiO2 01/19/17 20:24 Room Air 01/19/17 20:20 98 01/19/17 15:41 98.1 65 20 121/77 (92) I&O Intake and Output 01/20/17 07:00 Intake Total 1560 ml Balance 1560 ml Intake Oral 1560 ml # Bowel Movements 1 Current Medications: Meds: Current Medications Acetaminophen (Tylenol) 650 mg PRN Q6HRS PRN PO PAIN Last administered on 08:58; Start 01/13/17 at 18:15 Albuterol Sulfate (Ventolin) 2.5 mg QID NEB Last administered on 01/19/17 20: 18; Start 01/13/17 at 21:00 Aspirin (Children'S Aspirin) 81 mg DAILY PO Last administered on 01/19/17 08: 32; Start 01/14/17 at 09:00 Budesonide (Pulmicort) 0.25 mg BID NEB Last administered on 01/19/17 20:17; Start 01/13/17 at 21:00 Vitamin D (Vitamin D3) 2,000 unit DAILY PO Last administered on 01/19/17 08:31 ; Start 01/14/17 at 09:00 Colestipol HCl (Colestid) 1 gm HS PO Last administered on 01/19/17 19:30; Start 01/13/17 at 21:00 Cyanocobalamin (Vitamin B-12) 1,000 mcg DAILY PO Last administered on 08:32; Start 01/14/17 at 09:00 Dicyclomine HCl (Bentyl) 20 mg QID PO Last administered on 01/19/17 19:29; Start 01/13/17 at 21:00 Donepezil HCl (Aricept) 10 mg DAILY PO Last administered on 01/19/17 08:31; Start 01/14/17 at 09:00 Fluvoxamine Maleate (Luvox) 25 mg HS PO Last administered on 01/15/17 20:16; Start 01/13/17 at 21:00; Stop 01/16/17 at 18:04; Status DC Folic Acid (Folic Acid) 1 mg DAILY PO Last administered on 01/19/17 08:31; Start 01/14/17 at 09:00 Memantine (Namenda) 10 mg BID PO Last administered on 01/19/17 19:29; Start at 21:00 Multi-Ingredient Ointment (Analgesic [place]) 1 winston PRN QID TP ; Start 01/13/17 at 18:15 Nicotine (Nicoderm Cq 7mg) 1 patch DAILY TD Last administered on 01/19/17 08: 29; Start 01/14/17 at 09:00 Psyllium Hydrophilic Mucilloid (Metamucil) 1 pkt BID94 PO Last administered on 01/19/17 16:26; Start 01/14/17 at 09:00 Pyridoxine HCl (Vitamin B-6) 100 mg DAILY PO Last administered on 01/19/17 08: 38; Start 01/14/17 at 09:00 Raloxifene HCl (Evista) 60 mg DAILY PO Last administered on 01/19/17 08:31; Start 01/14/17 at 09:00 Alprazolam (Xanax) 1 mg QID PO Last administered on 01/19/17 19:30; Start 02/19 at 21:00 Buspirone HCl (Buspar) 30 mg BID PO Last administered on 01/15/17 09:47; Start 01/13/17 at 21:00; Stop 01/15/17 at 17:02; Status DC Calcium/Vitamin D (Oscal D 500mg/ 200uts) 1 tab BIDWMEALS PO Last administered on 01/19/17 16:26; Start 01/14/17 at 08:00 Mirtazapine (Remeron) 45 mg HS PO Last administered on 01/19/17 19:30; Start 01/13/17 at 21:00 Multivitamins/ Calcium (Thera-M Plus) 1 tab DAILY PO Last administered on 08:30; Start 01/14/17 at 09:00 Buspirone HCl (Buspar) 30 mg STK-MED ONCE .ROUTE ; Start 01/13/17 at 21:00; Stop 01/14/17 at 15:55; Status DC Buspirone HCl (Buspar) 30 mg STK-MED ONCE .ROUTE ; Start 01/14/17 at 09:00; Stop 01/14/17 at 15:55; Status DC Buspirone HCl (Buspar) 20 mg BID PO Last administered on 01/19/17 19:29; Start 01/15/17 at 21:00 Fluvoxamine Maleate (Luvox) 50 mg HS PO Last administered on 01/17/17 19:40; Start 01/16/17 at 21:00; Stop 01/18/17 at 20:03; Status DC Fluvoxamine Maleate (Luvox) 75 mg HS PO Last administered on 01/19/17 19:30; Start 01/18/17 at 21:00 Active Scripts Active Reported Albuterol Sulfate Neb Soln (Albuterol Sulfate) 2.5 Mg/3 Ml Vial.neb 2.5 Mg NEB QID Fluvoxamine Maleate 25 Mg Tablet 25 Mg PO HS Metamucil Packet (Psyllium Husk (with Sugar)) 3.4 Gm Powd.pack 1 Packet PO BID94 NICODERM CQ 7mg (Nicotine) 1 Each Patch.td24 1 Patch TD DAILY Vitamin B-12 (Cyanocobalamin (Vitamin B-12)) 1,000 Mcg Tablet 1 Tab PO DAILY Analgesic [place] (Methyl Salicylate/Menthol) 28 Gm Oint...g. 1 Gm TP PRN QID Budesonide 0.25 Mg/2 Ml Ampul.neb 1 Vial NEB BID Tylenol (Acetaminophen) 325 Mg Tablet 650 Mg PO PRN Q6HRS PRN Folic Acid 1 Mg Tablet 1 Mg PO DAILY Colestipol Hcl 1 Gm Tablet 1 Gm PO HS Multivitamins (Multivitamin) 1 Each Tablet 1 Tab PO DAILY Aspirin 81 Mg Tab.chew 81 Mg PO DAILY Vitamin D3 (Cholecalciferol (Vitamin D3)) 1,000 Unit Tablet 2,000 Unit PO DAILY Vitamin B-6 (Pyridoxine Hcl) 100 Mg Tablet 100 Mg PO DAILY Caltrate 600 + D Tablet (Calcium Carbonate/Vitamin D3) 1 Each Tablet 1 Tab PO BIDWMEALS Evista (Raloxifene Hcl) 60 Mg Tablet 60 Mg PO DAILY Donepezil Hcl 10 Mg Tablet 10 Mg PO DAILY Namenda (Memantine Hcl) 10 Mg Tablet 10 Mg PO BID Alprazolam 1 Mg Tablet 1 Mg PO QID Dicyclomine Hcl 20 Mg Tablet 20 Mg PO QID Buspirone Hcl 30 Mg Tablet 30 Mg PO BID Mirtazapine 45 Mg Tablet 45 Mg PO HS Diagnosis: Problems: (1) Major depressive disorder, recurrent episode (2) Psychosis, atypical (3) Obsessive compulsive disorder (4) Anxiety disorder KAYLAN RAGLAND MD Jan 19, 2017 22:41
--- NOTE | 2017-01-20 00:54 | PN ---
DATE: 01/18/2017 PSYCHIATRIC PROGRESS NOTE This is a late entry for 01/18/2017, covers elements not covered in my initial note of 01/18/2017. SUBJECTIVE: The patient was seen the evening of 01/18/2017. The patient gets confused to situation at times. Previous evening, she was withdrawn, somewhat anxious, and needy early in the morning of 01/18/2017, per nursing report, but much better as I met with her the evening of 01/18/2017. She is still somewhat obsessive, somewhat somatically preoccupied. REVIEW OF SYSTEMS: No CV, , pulmonary, eye system symptoms on review. MENTAL STATUS EXAM: Oriented to herself and situation. Speech has some latency, at times hesitant due to her obsessiveness, abstraction fair, computation impaired, language function intact. Mood and affect still somewhat withdrawn, anxious, but better than before. LABORATORY DATA: Reviewed. IMPRESSION: Unchanged from initial note. PLAN: EKG is being repeated and if QTC is unremarkable, Luvox will be increased to 75 mg at bedtime. The patient will continue Xanax 1 mg 4 times a day, Aricept, Namenda, BuSpar, and Remeron at the current dosage. We reviewed drug interactions. Risk/benefit ratio favors no further change at this time. KAYLAN RAGLAND MD DR: NABIL/sasha JOB#: [id number] / [id number]
[2017-01-20 05:43] VITALS: BP 114/56
[2017-01-20] MEDS: ALBUTEROL SULFATE 2.5 MG/3 ML NEBU. NEB SCH ×4 (05:57→20:43)
[2017-01-20] MEDS: DICYCLOMINE HCL 20 MG TABLET PO SCH ×4 (07:33→19:21)
[2017-01-20] MEDS: RALOXIFENE 60 MG TABLET. PO SCH (07:33)
[2017-01-20] MEDS: MEMANTINE 10 MG TABLET. PO SCH ×2 (07:34→19:22)
[2017-01-20] MEDS: DONEPEZIL HCL 10 MG TABLET PO SCH (07:34)
[2017-01-20] MEDS: busPIRone 10 MG TABLET. PO SCH ×2 (07:34→19:22)
[2017-01-20] MEDS: FOLIC ACID 1 MG TABLET PO SCH (07:34)
[2017-01-20] MEDS: CYANOCOBALAMIN (VITAMIN B-12) 1,000 MCG TABLET. PO SCH (07:34)
[2017-01-20] MEDS: MULTIVITAMIN with MINERAL TABLET. PO SCH (07:35)
[2017-01-20] MEDS: CHOLECALCIFEROL (VITAMIN D3) 1,000 UNIT TABLET PO SCH (07:35)
[2017-01-20] MEDS: CALCIUM CARB/VIT D3 500/200 TABLET PO SCH ×2 (07:35→16:10)
[2017-01-20] MEDS: ASPIRIN 81 MG TAB.CHEW PO SCH (07:35)
[2017-01-20] MEDS: NICOTINE 7MG PATCH. TD SCH (07:36)
[2017-01-20] MEDS: PSYLLIUM SEED (WITH SUGAR) PACKET. PO SCH ×2 (07:37→16:10)
[2017-01-20] MEDS: ALPRAZolam 0.5 MG TABLET PO SCH ×4 (07:39→19:23)
[2017-01-20] MEDS: PYRIDOXINE 100 MG TABLET. PO SCH (07:39)
[2017-01-20] MEDS: BUDESONIDE 0.5 MG/2 ML NEBU NEB SCH ×2 (09:26→20:43)
[2017-01-20 15:59] VITALS: BP 106/73
[2017-01-20] MEDS: COLESTIPOL HCL 1 GM TABLET PO SCH (19:22)
[2017-01-20] MEDS: MIRTAZAPINE 15 MG TABLET PO SCH (19:23)
--- NOTE | 2017-01-20 19:48 | PDOC ---
Exam Lencho Demential Exam: Lencho Note: Please also refer to the separate dictated note~for this date of service dictated separately.~Patient seen individually. Discussed the patient with Nursing staff reviewed the chart.~Reviewed interim history and current functioning. Reviewed vital signs,~Labs/ Radiology~and current medications noted below. Continue current treatment with the changes noted in the dictated addendum note Assessment: Vital Signs: Vital Signs Date Time Temp Pulse Resp B/P (MAP) Pulse Ox O2 Delivery O2 Flow Rate FiO2 01/20/17 16:46 98 Room Air 01/20/17 15:59 97.5 90 16 106/73 (84) I&O Intake and Output 01/21/17 07:00 Intake Total 1140 ml Balance 1140 ml Intake Oral 1140 ml Current Medications: Meds: Current Medications Acetaminophen (Tylenol) 650 mg PRN Q6HRS PRN PO PAIN Last administered on 08:58; Start 01/13/17 at 18:15 Albuterol Sulfate (Ventolin) 2.5 mg QID NEB Last administered on 01/20/17 16: 45; Start 01/13/17 at 21:00 Aspirin (Children'S Aspirin) 81 mg DAILY PO Last administered on 01/20/17 07: 35; Start 01/14/17 at 09:00 Budesonide (Pulmicort) 0.25 mg BID NEB Last administered on 01/20/17 09:26; Start 01/13/17 at 21:00 Vitamin D (Vitamin D3) 2,000 unit DAILY PO Last administered on 01/20/17 07:35 ; Start 01/14/17 at 09:00 Colestipol HCl (Colestid) 1 gm HS PO Last administered on 01/20/17 19:22; Start 01/13/17 at 21:00 Cyanocobalamin (Vitamin B-12) 1,000 mcg DAILY PO Last administered on 07:34; Start 01/14/17 at 09:00 Dicyclomine HCl (Bentyl) 20 mg QID PO Last administered on 01/20/17 19:21; Start 01/13/17 at 21:00 Donepezil HCl (Aricept) 10 mg DAILY PO Last administered on 01/20/17 07:34; Start 01/14/17 at 09:00 Fluvoxamine Maleate (Luvox) 25 mg HS PO Last administered on 01/15/17 20:16; Start 01/13/17 at 21:00; Stop 01/16/17 at 18:04; Status DC Folic Acid (Folic Acid) 1 mg DAILY PO Last administered on 01/20/17 07:34; Start 01/14/17 at 09:00 Memantine (Namenda) 10 mg BID PO Last administered on 01/20/17 19:22; Start at 21:00 Multi-Ingredient Ointment (Analgesic [place]) 1 [place]ston PRN QID TP ; Start 01/13/17 at 18:15 Nicotine (Nicoderm Cq 7mg) 1 patch DAILY TD Last administered on 01/20/17 07: 36; Start 01/14/17 at 09:00 Psyllium Hydrophilic Mucilloid (Metamucil) 1 pkt BID94 PO Last administered on 01/20/17 16:10; Start 01/14/17 at 09:00 Pyridoxine HCl (Vitamin B-6) 100 mg DAILY PO Last administered on 01/20/17 07: 39; Start 01/14/17 at 09:00 Raloxifene HCl (Evista) 60 mg DAILY PO Last administered on 01/20/17 07:33; Start 01/14/17 at 09:00 Alprazolam (Xanax) 1 mg QID PO Last administered on 01/20/17 19:23; Start 02/19 at 21:00 Buspirone HCl (Buspar) 30 mg BID PO Last administered on 01/15/17 09:47; Start 01/13/17 at 21:00; Stop 01/15/17 at 17:02; Status DC Calcium/Vitamin D (Oscal D 500mg/ 200uts) 1 tab BIDWMEALS PO Last administered on 01/20/17 16:10; Start 01/14/17 at 08:00 Mirtazapine (Remeron) 45 mg HS PO Last administered on 01/20/17 19:23; Start 01/13/17 at 21:00 Multivitamins/ Calcium (Thera-M Plus) 1 tab DAILY PO Last administered on 07:35; Start 01/14/17 at 09:00 Buspirone HCl (Buspar) 30 mg STK-MED ONCE .ROUTE ; Start 01/13/17 at 21:00; Stop 01/14/17 at 15:55; Status DC Buspirone HCl (Buspar) 30 mg STK-MED ONCE .ROUTE ; Start 01/14/17 at 09:00; Stop 01/14/17 at 15:55; Status DC Buspirone HCl (Buspar) 20 mg BID PO Last administered on 01/20/17 19:22; Start 01/15/17 at 21:00 Fluvoxamine Maleate (Luvox) 50 mg HS PO Last administered on 01/17/17 19:40; Start 01/16/17 at 21:00; Stop 01/18/17 at 20:03; Status DC Fluvoxamine Maleate (Luvox) 75 mg HS PO Last administered on 01/20/17 19:22; Start 01/18/17 at 21:00 Active Scripts Active Reported Albuterol Sulfate Neb Soln (Albuterol Sulfate) 2.5 Mg/3 Ml Vial.neb 2.5 Mg NEB QID Fluvoxamine Maleate 25 Mg Tablet 25 Mg PO HS Metamucil Packet (Psyllium Husk (with Sugar)) 3.4 Gm Powd.pack 1 Packet PO BID94 NICODERM CQ 7mg (Nicotine) 1 Each Patch.td24 1 Patch TD DAILY Vitamin B-12 (Cyanocobalamin (Vitamin B-12)) 1,000 Mcg Tablet 1 Tab PO DAILY Analgesic [place] (Methyl Salicylate/Menthol) 28 Gm Oint...g. 1 Gm TP PRN QID Budesonide 0.25 Mg/2 Ml Ampul.neb 1 Vial NEB BID Tylenol (Acetaminophen) 325 Mg Tablet 650 Mg PO PRN Q6HRS PRN Folic Acid 1 Mg Tablet 1 Mg PO DAILY Colestipol Hcl 1 Gm Tablet 1 Gm PO HS Multivitamins (Multivitamin) 1 Each Tablet 1 Tab PO DAILY Aspirin 81 Mg Tab.chew 81 Mg PO DAILY Vitamin D3 (Cholecalciferol (Vitamin D3)) 1,000 Unit Tablet 2,000 Unit PO DAILY Vitamin B-6 (Pyridoxine Hcl) 100 Mg Tablet 100 Mg PO DAILY Caltrate 600 + D Tablet (Calcium Carbonate/Vitamin D3) 1 Each Tablet 1 Tab PO BIDWMEALS Evista (Raloxifene Hcl) 60 Mg Tablet 60 Mg PO DAILY Donepezil Hcl 10 Mg Tablet 10 Mg PO DAILY Namenda (Memantine Hcl) 10 Mg Tablet 10 Mg PO BID Alprazolam 1 Mg Tablet 1 Mg PO QID Dicyclomine Hcl 20 Mg Tablet 20 Mg PO QID Buspirone Hcl 30 Mg Tablet 30 Mg PO BID Mirtazapine 45 Mg Tablet 45 Mg PO HS Diagnosis: Problems: (1) Anxiety disorder (2) Obsessive compulsive disorder (3) Psychosis, atypical (4) Major depressive disorder, recurrent episode (5) Seizure KAYLAN RAGLAND MD Jan 20, 2017 19:48
--- NOTE | 2017-01-21 00:29 | PN ---
DATE: 01/19/2017 This is a late entry for 01/19/2017, covers the elements not covered in my initial note of 01/19/2017. Met with the patient in the evening of 01/19/2017. EKG, QTC is unremarkable and Luvox was increased to 75 mg at bedtime. She per nursing report is somewhat attention seeking, but cooperative, compliant with meds and assessment. I met with her individually. REVIEW OF SYSTEMS: No CV, , pulmonary, eye, ENT system symptoms on review. Somewhat anxious. MENTAL STATUS EXAM: Reasonably oriented. Speech is coherent, abstraction fair, computation somewhat impaired. Language function intact. Attention span short. She is somewhat obsessive, anxious, but showing improvement. No suicidal or homicidal ideation. IMPRESSION: Unchanged from initial note. PLAN: Continue current psychotropics with the increase Luvox and we will gradually taper the Xanax, maintain Aricept, Namenda, Remeron. BuSpar was reduced, reviewed drug interactions, risk/benefit ratio favors no further change. KAYLAN RAGLAND MD DR: NABIL/sasha JOB#: [id number] / [id number]
[2017-01-21] MEDS: ALBUTEROL SULFATE 2.5 MG/3 ML NEBU. NEB SCH ×2 (05:29→21:01)
[2017-01-21 06:13] VITALS: BP 129/81
[2017-01-21] MEDS: CHOLECALCIFEROL (VITAMIN D3) 1,000 UNIT TABLET PO SCH (08:01)
[2017-01-21] MEDS: PSYLLIUM SEED (WITH SUGAR) PACKET. PO SCH ×2 (08:01→16:00)
[2017-01-21] MEDS: PYRIDOXINE 100 MG TABLET. PO SCH (08:01)
[2017-01-21] MEDS: ALPRAZolam 0.5 MG TABLET PO SCH ×4 (08:01→20:48)
[2017-01-21] MEDS: busPIRone 10 MG TABLET. PO SCH ×2 (08:01→20:47)
[2017-01-21] MEDS: MEMANTINE 10 MG TABLET. PO SCH ×2 (08:02→20:48)
[2017-01-21] MEDS: RALOXIFENE 60 MG TABLET. PO SCH (08:02)
[2017-01-21] MEDS: CALCIUM CARB/VIT D3 500/200 TABLET PO SCH ×2 (08:02→16:23)
[2017-01-21] MEDS: CYANOCOBALAMIN (VITAMIN B-12) 1,000 MCG TABLET. PO SCH (08:02)
[2017-01-21] MEDS: ASPIRIN 81 MG TAB.CHEW PO SCH (08:02)
[2017-01-21] MEDS: DONEPEZIL HCL 10 MG TABLET PO SCH (08:02)
[2017-01-21] MEDS: MULTIVITAMIN with MINERAL TABLET. PO SCH (08:02)
[2017-01-21] MEDS: NICOTINE 7MG PATCH. TD SCH (08:02)
[2017-01-21] MEDS: DICYCLOMINE HCL 20 MG TABLET PO SCH ×4 (08:02→20:48)
[2017-01-21] MEDS: FOLIC ACID 1 MG TABLET PO SCH (08:02)
[2017-01-21 08:11] LABS: BASO # 0.1 x10^3/uL (0.0-0.2); BASO % 1 % (0-3); EOS # 0.3 x10^3/uL (0.0-0.7); EOS % 3 % (0-3); HEMATOCRIT 36.7 % (36.0-47.0); HEMOGLOBIN 12.7 g/dL (12.0-15.5); LYMPH # 1.9 x10^3/uL (1.0-4.8); LYMPH % 22 % (24-48); MEAN CORPUSCULAR HEMOGLOBIN 33 pg (25-35); MEAN CORPUSCULAR HGB CONC 35 g/dL (31-37); MEAN CORPUSCULAR VOLUME 94 fL (79-100); MONO # 0.9 x10^3/uL (0.0-1.1); MONO % 10 % (0-9); NEUT # 5.5 x10^3uL (1.8-7.7); NEUT % 64 % (31-73); PLATELET COUNT 232 x10^3/uL (140-400); RED CELL DISTRIBUTION WIDTH 14.3 % (11.5-14.5); WHITE BLOOD COUNT 8.6 x10^3/uL (4.0-11.0)
[2017-01-21 08:40] LABS: ALBUMIN 3.4 g/dL (3.4-5.0); ALBUMIN/GLOBULIN RATIO 1.1 (1.0-1.7); CALCIUM 9.3 mg/dL (8.5-10.1); CREATININE 1.1 mg/dL (0.6-1.0); GFR 48.8; POTASSIUM 4.5 mmol/L (3.5-5.1); TOTAL BILIRUBIN 0.2 mg/dL (0.2-1.0); TOTAL PROTEIN 6.5 g/dL (6.4-8.2)
[2017-01-21 16:15] VITALS: BP 119/62
--- NOTE | 2017-01-21 19:45 | PDOC ---
Exam Lencho Demential Exam: Lencho Note: Please also refer to the separate dictated note~for this date of service dictated separately.~Patient seen individually. Discussed the patient with Nursing staff reviewed the chart.~Reviewed interim history and current functioning. Reviewed vital signs,~Labs/ Radiology~and current medications noted below. Continue current treatment with the changes noted in the dictated addendum note Assessment: Vital Signs: Vital Signs Date Time Temp Pulse Resp B/P (MAP) Pulse Ox O2 Delivery O2 Flow Rate FiO2 01/21/17 17:06 97 Room Air 01/21/17 16:15 97.6 69 16 119/62 (81) I&O Intake and Output 01/22/17 07:00 Intake Total 1320 ml Balance 1320 ml Intake Oral 1320 ml Labs: Laboratory Tests Test 01/21/17 07:28 White Blood Count 8.6 x10^3/uL (4.0-11.0) Red Blood Count 3.90 x10^6/uL (3.50-5.40) Hemoglobin 12.7 g/dL (12.0-15.5) Hematocrit 36.7 % (36.0-47.0) Mean Corpuscular Volume 94 fL (79-100) Mean Corpuscular Hemoglobin 33 pg (25-35) Mean Corpuscular Hemoglobin Concent 35 g/dL (31-37) Red Cell Distribution Width 14.3 % (11.5-14.5) Platelet Count 232 x10^3/uL (140-400) Neutrophils (%) (Auto) 64 % (31-73) Lymphocytes (%) (Auto) 22 % (24-48) L Monocytes (%) (Auto) 10 % (0-9) H Eosinophils (%) (Auto) 3 % (0-3) Basophils (%) (Auto) 1 % (0-3) Neutrophils # (Auto) 5.5 x10^3uL (1.8-7.7) Lymphocytes # (Auto) 1.9 x10^3/uL (1.0-4.8) Monocytes # (Auto) 0.9 x10^3/uL (0.0-1.1) Eosinophils # (Auto) 0.3 x10^3/uL (0.0-0.7) Basophils # (Auto) 0.1 x10^3/uL (0.0-0.2) Sodium Level 146 mmol/L (136-145) H Potassium Level 4.5 mmol/L (3.5-5.1) Chloride Level 109 mmol/L (98-107) H Carbon Dioxide Level 29 mmol/L (21-32) Anion Gap 8 (6-14) Blood Urea Nitrogen 11 mg/dL (7-20) Creatinine 1.1 mg/dL (0.6-1.0) H Estimated GFR (Cockcroft-Gault) 48.8 BUN/Creatinine Ratio 10 (6-20) Glucose Level 94 mg/dL (70-99) Calcium Level 9.3 mg/dL (8.5-10.1) Total Bilirubin 0.2 mg/dL (0.2-1.0) Aspartate Amino Transferase (AST) 27 U/L (15-37) Alanine Aminotransferase (ALT) 33 U/L (14-59) Alkaline Phosphatase 55 U/L (46-116) Total Protein 6.5 g/dL (6.4-8.2) Albumin 3.4 g/dL (3.4-5.0) Albumin/Globulin Ratio 1.1 (1.0-1.7) Current Medications: Meds: Current Medications Acetaminophen (Tylenol) 650 mg PRN Q6HRS PRN PO PAIN Last administered on 08:58; Start 01/13/17 at 18:15 Albuterol Sulfate (Ventolin) 2.5 mg QID NEB Last administered on 01/21/17 05: 29; Start 01/13/17 at 21:00 Aspirin (Children'S Aspirin) 81 mg DAILY PO Last administered on 01/21/17 08: 02; Start 01/14/17 at 09:00 Budesonide (Pulmicort) 0.25 mg BID NEB Last administered on 01/20/17 20:43; Start 01/13/17 at 21:00 Vitamin D (Vitamin D3) 2,000 unit DAILY PO Last administered on 01/21/17 08:01 ; Start 01/14/17 at 09:00 Colestipol HCl (Colestid) 1 gm HS PO Last administered on 01/20/17 19:22; Start 01/13/17 at 21:00 Cyanocobalamin (Vitamin B-12) 1,000 mcg DAILY PO Last administered on 08:02; Start 01/14/17 at 09:00 Dicyclomine HCl (Bentyl) 20 mg QID PO Last administered on 01/21/17 16:23; Start 01/13/17 at 21:00 Donepezil HCl (Aricept) 10 mg DAILY PO Last administered on 01/21/17 08:02; Start 01/14/17 at 09:00 Fluvoxamine Maleate (Luvox) 25 mg HS PO Last administered on 01/15/17 20:16; Start 01/13/17 at 21:00; Stop 01/16/17 at 18:04; Status DC Folic Acid (Folic Acid) 1 mg DAILY PO Last administered on 01/21/17 08:02; Start 01/14/17 at 09:00 Memantine (Namenda) 10 mg BID PO Last administered on 01/21/17 08:02; Start at 21:00 Multi-Ingredient Ointment (Analgesic [place]) 1 [place]ston PRN QID TP ; Start 01/13/17 at 18:15 Nicotine (Nicoderm Cq 7mg) 1 patch DAILY TD Last administered on 01/21/17 08: 02; Start 01/14/17 at 09:00 Psyllium Hydrophilic Mucilloid (Metamucil) 1 pkt BID94 PO Last administered on 01/21/17 16:00; Start 01/14/17 at 09:00 Pyridoxine HCl (Vitamin B-6) 100 mg DAILY PO Last administered on 01/21/17 08: 01; Start 01/14/17 at 09:00 Raloxifene HCl (Evista) 60 mg DAILY PO Last administered on 01/21/17 08:02; Start 01/14/17 at 09:00 Alprazolam (Xanax) 1 mg QID PO Last administered on 01/21/17 16:23; Start 02/19 at 21:00 Buspirone HCl (Buspar) 30 mg BID PO Last administered on 01/15/17 09:47; Start 01/13/17 at 21:00; Stop 01/15/17 at 17:02; Status DC Calcium/Vitamin D (Oscal D 500mg/ 200uts) 1 tab BIDWMEALS PO Last administered on 01/21/17 16:23; Start 01/14/17 at 08:00 Mirtazapine (Remeron) 45 mg HS PO Last administered on 01/20/17 19:23; Start 01/13/17 at 21:00 Multivitamins/ Calcium (Thera-M Plus) 1 tab DAILY PO Last administered on 08:02; Start 01/14/17 at 09:00 Buspirone HCl (Buspar) 30 mg STK-MED ONCE .ROUTE ; Start 01/13/17 at 21:00; Stop 01/14/17 at 15:55; Status DC Buspirone HCl (Buspar) 30 mg STK-MED ONCE .ROUTE ; Start 01/14/17 at 09:00; Stop 01/14/17 at 15:55; Status DC Buspirone HCl (Buspar) 20 mg BID PO Last administered on 01/21/17 08:01; Start 01/15/17 at 21:00 Fluvoxamine Maleate (Luvox) 50 mg HS PO Last administered on 01/17/17 19:40; Start 01/16/17 at 21:00; Stop 01/18/17 at 20:03; Status DC Fluvoxamine Maleate (Luvox) 75 mg HS PO Last administered on 01/20/17 19:22; Start 01/18/17 at 21:00 Active Scripts Active Reported Albuterol Sulfate Neb Soln (Albuterol Sulfate) 2.5 Mg/3 Ml Vial.neb 2.5 Mg NEB QID Fluvoxamine Maleate 25 Mg Tablet 25 Mg PO HS Metamucil Packet (Psyllium Husk (with Sugar)) 3.4 Gm Powd.pack 1 Packet PO BID94 NICODERM CQ 7mg (Nicotine) 1 Each Patch.td24 1 Patch TD DAILY Vitamin B-12 (Cyanocobalamin (Vitamin B-12)) 1,000 Mcg Tablet 1 Tab PO DAILY Analgesic [place] (Methyl Salicylate/Menthol) 28 Gm Oint...g. 1 Gm TP PRN QID Budesonide 0.25 Mg/2 Ml Ampul.neb 1 Vial NEB BID Tylenol (Acetaminophen) 325 Mg Tablet 650 Mg PO PRN Q6HRS PRN Folic Acid 1 Mg Tablet 1 Mg PO DAILY Colestipol Hcl 1 Gm Tablet 1 Gm PO HS Multivitamins (Multivitamin) 1 Each Tablet 1 Tab PO DAILY Aspirin 81 Mg Tab.chew 81 Mg PO DAILY Vitamin D3 (Cholecalciferol (Vitamin D3)) 1,000 Unit Tablet 2,000 Unit PO DAILY Vitamin B-6 (Pyridoxine Hcl) 100 Mg Tablet 100 Mg PO DAILY Caltrate 600 + D Tablet (Calcium Carbonate/Vitamin D3) 1 Each Tablet 1 Tab PO BIDWMEALS Evista (Raloxifene Hcl) 60 Mg Tablet 60 Mg PO DAILY Donepezil Hcl 10 Mg Tablet 10 Mg PO DAILY Namenda (Memantine Hcl) 10 Mg Tablet 10 Mg PO BID Alprazolam 1 Mg Tablet 1 Mg PO QID Dicyclomine Hcl 20 Mg Tablet 20 Mg PO QID Buspirone Hcl 30 Mg Tablet 30 Mg PO BID Mirtazapine 45 Mg Tablet 45 Mg PO HS Diagnosis: Problems: (1) Anxiety disorder (2) Obsessive compulsive disorder (3) Psychosis, atypical (4) Major depressive disorder, recurrent episode KAYLAN RAGLAND MD Jan 21, 2017 19:45
[2017-01-21] MEDS: MIRTAZAPINE 15 MG TABLET PO SCH (20:48)
[2017-01-21] MEDS: COLESTIPOL HCL 1 GM TABLET PO SCH (20:49)
[2017-01-21] MEDS: BUDESONIDE 0.5 MG/2 ML NEBU NEB SCH (21:02)
--- NOTE | 2017-01-22 05:37 | PN ---
DATE: 01/20/2017 PSYCHIATRIC PROGRESS NOTE This is late entry for 01/20/2017 and covers the elements not covered in my initial note of 01/20/2017. SUBJECTIVE: I met with the patient in the evening of 01/20/2017. She is spending much time in the day room, had a good day. came to visit her, she is still obsessive and was upset that one of the other demented patients on the unit and was touching her things in her room. We will be repeating an EKG on the to check on the QTc since she is on Luvox. REVIEW OF SYSTEMS: No CV, , pulmonary, eye, ENT system symptoms on review. Reliability fair. MENTAL STATUS EXAM: Reasonably oriented. Speech is coherent, abstraction fair, computation impaired, language function intact. Attention span improved, mood and affect showing improvement, still anxious, obsessive. LABORATORY DATA: Reviewed. IMPRESSION: Unchanged from initial note. PLAN: Continue current psychotropics. We will continue to gradually increase the Luvox depending on her progress. I have reviewed records from Dr. Leblanc at length regarding outpatient psychiatric care. KAYLAN RAGLAND MD DR: NABIL/sasha JOB#: [id number] / [id number]
[2017-01-22] MEDS: ALBUTEROL SULFATE 2.5 MG/3 ML NEBU. NEB SCH ×4 (05:50→21:28)
[2017-01-22] MEDS: NICOTINE 7MG PATCH. TD SCH (08:32)
[2017-01-22] MEDS: RALOXIFENE 60 MG TABLET. PO SCH (08:33)
[2017-01-22] MEDS: PSYLLIUM SEED (WITH SUGAR) PACKET. PO SCH ×2 (08:33→17:26)
[2017-01-22] MEDS: CALCIUM CARB/VIT D3 500/200 TABLET PO SCH ×2 (08:33→17:26)
[2017-01-22] MEDS: CYANOCOBALAMIN (VITAMIN B-12) 1,000 MCG TABLET. PO SCH (08:33)
[2017-01-22] MEDS: busPIRone 10 MG TABLET. PO SCH ×2 (08:33→19:43)
[2017-01-22] MEDS: DICYCLOMINE HCL 20 MG TABLET PO SCH ×4 (08:34→19:42)
[2017-01-22] MEDS: DONEPEZIL HCL 10 MG TABLET PO SCH (08:34)
[2017-01-22] MEDS: PYRIDOXINE 100 MG TABLET. PO SCH (08:34)
[2017-01-22] MEDS: ASPIRIN 81 MG TAB.CHEW PO SCH ×2 (08:34→19:42)
[2017-01-22] MEDS: MEMANTINE 10 MG TABLET. PO SCH ×2 (08:34→19:42)
[2017-01-22] MEDS: CHOLECALCIFEROL (VITAMIN D3) 1,000 UNIT TABLET PO SCH (08:34)
[2017-01-22] MEDS: MULTIVITAMIN with MINERAL TABLET. PO SCH (08:34)
[2017-01-22] MEDS: ALPRAZolam 0.5 MG TABLET PO SCH ×4 (08:34→19:42)
[2017-01-22] MEDS: FOLIC ACID 1 MG TABLET PO SCH (08:34)
[2017-01-22] MEDS: BUDESONIDE 0.5 MG/2 ML NEBU NEB SCH ×2 (10:49→21:28)
--- NOTE | 2017-01-22 14:28 | EKG ---
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
[2017-01-22 15:47] VITALS: BP 123/96
--- NOTE | 2017-01-22 19:41 | PDOC ---
Exam Lencho Demential Exam: Lencho Note: Please also refer to the separate dictated note~for this date of service dictated separately.~Patient seen individually. Discussed the patient with Nursing staff reviewed the chart.~Reviewed interim history and current functioning. Reviewed vital signs,~Labs/ Radiology~and current medications noted below. Continue current treatment with the changes noted in the dictated addendum note Assessment: Vital Signs: Vital Signs Date Time Temp Pulse Resp B/P (MAP) Pulse Ox O2 Delivery O2 Flow Rate FiO2 01/22/17 15:47 97.7 87 20 123/96 (105) 97 01/22/17 10:50 Room Air I&O Intake and Output 01/23/17 07:00 Intake Total 1080 ml Balance 1080 ml Intake Oral 1080 ml Current Medications: Meds: Current Medications Acetaminophen (Tylenol) 650 mg PRN Q6HRS PRN PO PAIN Last administered on 08:58; Start 01/13/17 at 18:15 Albuterol Sulfate (Ventolin) 2.5 mg QID NEB Last administered on 01/22/17 10: 45; Start 01/13/17 at 21:00 Aspirin (Children'S Aspirin) 81 mg DAILY PO Last administered on 01/22/17 08: 34; Start 01/14/17 at 09:00 Budesonide (Pulmicort) 0.25 mg BID NEB Last administered on 01/22/17 10:49; Start 01/13/17 at 21:00 Vitamin D (Vitamin D3) 2,000 unit DAILY PO Last administered on 01/22/17 08:34 ; Start 01/14/17 at 09:00 Colestipol HCl (Colestid) 1 gm HS PO Last administered on 01/21/17 20:49; Start 01/13/17 at 21:00 Cyanocobalamin (Vitamin B-12) 1,000 mcg DAILY PO Last administered on 08:33; Start 01/14/17 at 09:00 Dicyclomine HCl (Bentyl) 20 mg QID PO Last administered on 01/22/17 17:25; Start 01/13/17 at 21:00 Donepezil HCl (Aricept) 10 mg DAILY PO Last administered on 01/22/17 08:34; Start 01/14/17 at 09:00 Fluvoxamine Maleate (Luvox) 25 mg HS PO Last administered on 01/15/17 20:16; Start 01/13/17 at 21:00; Stop 01/16/17 at 18:04; Status DC Folic Acid (Folic Acid) 1 mg DAILY PO Last administered on 01/22/17 08:34; Start 01/14/17 at 09:00 Memantine (Namenda) 10 mg BID PO Last administered on 01/22/17 08:34; Start at 21:00 Multi-Ingredient Ointment (Analgesic [place]) 1 [place]ston PRN QID TP ; Start 01/13/17 at 18:15 Nicotine (Nicoderm Cq 7mg) 1 patch DAILY TD Last administered on 01/22/17 08: 32; Start 01/14/17 at 09:00 Psyllium Hydrophilic Mucilloid (Metamucil) 1 pkt BID94 PO Last administered on 01/22/17 17:26; Start 01/14/17 at 09:00 Pyridoxine HCl (Vitamin B-6) 100 mg DAILY PO Last administered on 01/22/17 08: 34; Start 01/14/17 at 09:00 Raloxifene HCl (Evista) 60 mg DAILY PO Last administered on 01/22/17 08:33; Start 01/14/17 at 09:00 Alprazolam (Xanax) 1 mg QID PO Last administered on 01/22/17 17:25; Start 02/19 at 21:00 Buspirone HCl (Buspar) 30 mg BID PO Last administered on 01/15/17 09:47; Start 01/13/17 at 21:00; Stop 01/15/17 at 17:02; Status DC Calcium/Vitamin D (Oscal D 500mg/ 200uts) 1 tab BIDWMEALS PO Last administered on 01/22/17 17:26; Start 01/14/17 at 08:00 Mirtazapine (Remeron) 45 mg HS PO Last administered on 01/21/17 20:48; Start 01/13/17 at 21:00 Multivitamins/ Calcium (Thera-M Plus) 1 tab DAILY PO Last administered on 08:34; Start 01/14/17 at 09:00 Buspirone HCl (Buspar) 30 mg STK-MED ONCE .ROUTE ; Start 01/13/17 at 21:00; Stop 01/14/17 at 15:55; Status DC Buspirone HCl (Buspar) 30 mg STK-MED ONCE .ROUTE ; Start 01/14/17 at 09:00; Stop 01/14/17 at 15:55; Status DC Buspirone HCl (Buspar) 20 mg BID PO Last administered on 01/22/17 08:33; Start 01/15/17 at 21:00 Fluvoxamine Maleate (Luvox) 50 mg HS PO Last administered on 01/17/17 19:40; Start 01/16/17 at 21:00; Stop 01/18/17 at 20:03; Status DC Fluvoxamine Maleate (Luvox) 75 mg HS PO Last administered on 01/21/17 20:48; Start 01/18/17 at 21:00 Olanzapine (ZyPREXA ZYDIS) 1.25 mg PRN Q2HR PRN PO anxiety; Start 01/22/17 at 18:45 Active Scripts Active Reported Albuterol Sulfate Neb Soln (Albuterol Sulfate) 2.5 Mg/3 Ml Vial.neb 2.5 Mg NEB QID Fluvoxamine Maleate 25 Mg Tablet 25 Mg PO HS Metamucil Packet (Psyllium Husk (with Sugar)) 3.4 Gm Powd.pack 1 Packet PO BID94 NICODERM CQ 7mg (Nicotine) 1 Each Patch.td24 1 Patch TD DAILY Vitamin B-12 (Cyanocobalamin (Vitamin B-12)) 1,000 Mcg Tablet 1 Tab PO DAILY Analgesic [place] (Methyl Salicylate/Menthol) 28 Gm Oint...g. 1 Gm TP PRN QID Budesonide 0.25 Mg/2 Ml Ampul.neb 1 Vial NEB BID Tylenol (Acetaminophen) 325 Mg Tablet 650 Mg PO PRN Q6HRS PRN Folic Acid 1 Mg Tablet 1 Mg PO DAILY Colestipol Hcl 1 Gm Tablet 1 Gm PO HS Multivitamins (Multivitamin) 1 Each Tablet 1 Tab PO DAILY Aspirin 81 Mg Tab.chew 81 Mg PO DAILY Vitamin D3 (Cholecalciferol (Vitamin D3)) 1,000 Unit Tablet 2,000 Unit PO DAILY Vitamin B-6 (Pyridoxine Hcl) 100 Mg Tablet 100 Mg PO DAILY Caltrate 600 + D Tablet (Calcium Carbonate/Vitamin D3) 1 Each Tablet 1 Tab PO BIDWMEALS Evista (Raloxifene Hcl) 60 Mg Tablet 60 Mg PO DAILY Donepezil Hcl 10 Mg Tablet 10 Mg PO DAILY Namenda (Memantine Hcl) 10 Mg Tablet 10 Mg PO BID Alprazolam 1 Mg Tablet 1 Mg PO QID Dicyclomine Hcl 20 Mg Tablet 20 Mg PO QID Buspirone Hcl 30 Mg Tablet 30 Mg PO BID Mirtazapine 45 Mg Tablet 45 Mg PO HS Diagnosis: Problems: (1) Anxiety disorder (2) Obsessive compulsive disorder (3) Psychosis, atypical (4) Major depressive disorder, recurrent episode KAYLAN RAGLAND MD Jan 22, 2017 19:41
[2017-01-22] MEDS: MIRTAZAPINE 15 MG TABLET PO SCH (19:42)
[2017-01-22] MEDS: COLESTIPOL HCL 1 GM TABLET PO SCH (19:43)
--- NOTE | 2017-01-23 04:35 | PN ---
DATE: 01/21/2017 This late entry 01/21/2017 covers elements not covered in my initial note of 01/21/2017. SUBJECTIVE: The patient slept 6-3/4 previous evening. She has done better since her roommate was removed from her room as she was being quite disruptive. REVIEW OF SYSTEMS: No CV, , pulmonary, eye system symptoms on review. MENTAL STATUS EXAM: Oriented reasonably. Speech is coherent, still somewhat anxious, obsessive, abstraction fair, computation impaired, language function intact, attention span short. Mood and affect, somewhat anxious, obsessive as noted. No suicidal or homicidal ideation. LABORATORY DATA: Reviewed. IMPRESSION: Unchanged from initial note. PLAN: Continue current psychotropics. Check EKG morning of 01/22/2017. If the QTC is unremarkable, we will increase Luvox to 100 mg at bedtime. Maintain the rest of the psychotropics as mentioned in my initial note. Consider reducing Xanax in due course. KAYLAN RAGLAND MD DR: NABIL/sasha JOB#: [id number] / [id number]
[2017-01-23] MEDS: ALBUTEROL SULFATE 2.5 MG/3 ML NEBU. NEB SCH ×4 (05:28→23:00)
[2017-01-23 05:40] VITALS: BP 107/71
[2017-01-23] MEDS: CALCIUM CARB/VIT D3 500/200 TABLET PO SCH ×2 (09:05→17:36)
[2017-01-23] MEDS: DICYCLOMINE HCL 20 MG TABLET PO SCH ×4 (09:05→19:34)
[2017-01-23] MEDS: CYANOCOBALAMIN (VITAMIN B-12) 1,000 MCG TABLET. PO SCH (09:05)
[2017-01-23] MEDS: ASPIRIN 81 MG TAB.CHEW PO SCH (09:05)
[2017-01-23] MEDS: FOLIC ACID 1 MG TABLET PO SCH (09:05)
[2017-01-23] MEDS: PSYLLIUM SEED (WITH SUGAR) PACKET. PO SCH ×2 (09:05→16:00)
[2017-01-23] MEDS: MULTIVITAMIN with MINERAL TABLET. PO SCH (09:05)
[2017-01-23] MEDS: RALOXIFENE 60 MG TABLET. PO SCH (09:05)
[2017-01-23] MEDS: NICOTINE 7MG PATCH. TD SCH (09:05)
[2017-01-23] MEDS: PYRIDOXINE 100 MG TABLET. PO SCH (09:05)
[2017-01-23] MEDS: CHOLECALCIFEROL (VITAMIN D3) 1,000 UNIT TABLET PO SCH (09:06)
[2017-01-23] MEDS: busPIRone 10 MG TABLET. PO SCH ×2 (09:06→19:34)
[2017-01-23] MEDS: ALPRAZolam 0.5 MG TABLET PO SCH ×4 (09:07→19:35)
[2017-01-23] MEDS: BUDESONIDE 0.5 MG/2 ML NEBU NEB SCH ×2 (10:40→23:00)
--- NOTE | 2017-01-23 13:00 | PDOC2 ---
AIDAN WILLAMS APRN 01/23/17 1300: CONSULT Date of Admission DATE: 01/23/17 TIME: 12:27 Reason for Consult: prolonged QTC on Luvox History of Present Illness Ms Jerome is a 71-year-old female with history of OCD, psychosis, seizures from acute Xanax withdrawal and hypokalemia. She is admitted to [facility] for medical mgmt and stabilization of her psychiatric disorders. She has been on multiple medications and has a history of prior prolongation of her QTC. Consult was called for recommendations related to this. She is fairly poor historian but denies any symptoms of coronary artery disease to include chest pain, dyspnea, palpitations. She denies congestive symptoms, lightheadedness or syncope and denies problems with functional capacity. She did have an admission to [facility] in Dec for fall vs presyncope. Psychiatric medications were changed at that time due to prolonged QT. She underwent echocardiogram which revealed normal LV function and wall motion with no significant valvular abnormalities and minimally elevated PAS. QTC by EKG yesterday was reported at 520. Today reported at 458. The majority of medical history is obtained from the patient records. Past Medical History Significant for hypokalemia, recent seizure, mitral valve prolapse, and irritable bowel syndrome, B6 and folic acid deficiencies. Social History + tobaccoism, no ETOH, no illicit drugs. Has been living at home with . Current Medications Current Medications Acetaminophen (Tylenol) 650 mg PRN Q6HRS PRN PO PAIN Last administered on 08:58; Start 01/13/17 at 18:15 Albuterol Sulfate (Ventolin) 2.5 mg QID NEB Last administered on 01/23/17 10: 40; Start 01/13/17 at 21:00 Aspirin (Children'S Aspirin) 81 mg DAILY PO Last administered on 01/23/17 09: 05; Start 01/14/17 at 09:00 Budesonide (Pulmicort) 0.25 mg BID NEB Last administered on 01/23/17 10:40; Start 01/13/17 at 21:00 Vitamin D (Vitamin D3) 2,000 unit DAILY PO Last administered on 01/23/17 09:06 ; Start 01/14/17 at 09:00 Colestipol HCl (Colestid) 1 gm HS PO Last administered on 01/22/17 19:43; Start 01/13/17 at 21:00 Cyanocobalamin (Vitamin B-12) 1,000 mcg DAILY PO Last administered on 09:05; Start 01/14/17 at 09:00 Dicyclomine HCl (Bentyl) 20 mg QID PO Last administered on 01/23/17 09:05; Start 01/13/17 at 21:00 Donepezil HCl (Aricept) 10 mg DAILY PO Last administered on 01/22/17 08:34; Start 01/14/17 at 09:00; Stop 01/23/17 at 08:58; Status DC Fluvoxamine Maleate (Luvox) 25 mg HS PO Last administered on 01/15/17 20:16; Start 01/13/17 at 21:00; Stop 01/16/17 at 18:04; Status DC Folic Acid (Folic Acid) 1 mg DAILY PO Last administered on 01/23/17 09:05; Start 01/14/17 at 09:00 Memantine (Namenda) 10 mg BID PO Last administered on 01/22/17 19:42; Start at 21:00; Stop 01/23/17 at 08:58; Status DC Multi-Ingredient Ointment (Analgesic [place]) 1 [place] PRN QID TP ; Start 01/13/17 at 18:15 Nicotine (Nicoderm Cq 7mg) 1 patch DAILY TD Last administered on 01/23/17 09: 05; Start 01/14/17 at 09:00 Psyllium Hydrophilic Mucilloid (Metamucil) 1 pkt BID94 PO Last administered on 01/23/17 09:05; Start 01/14/17 at 09:00 Pyridoxine HCl (Vitamin B-6) 100 mg DAILY PO Last administered on 01/23/17 09: 05; Start 01/14/17 at 09:00 Raloxifene HCl (Evista) 60 mg DAILY PO Last administered on 01/23/17 09:05; Start 01/14/17 at 09:00 Alprazolam (Xanax) 1 mg QID PO Last administered on 01/23/17 09:07; Start 02/19 at 21:00 Buspirone HCl (Buspar) 30 mg BID PO Last administered on 01/15/17 09:47; Start 01/13/17 at 21:00; Stop 01/15/17 at 17:02; Status DC Calcium/Vitamin D (Oscal D 500mg/ 200uts) 1 tab BIDWMEALS PO Last administered on 01/23/17 09:05; Start 01/14/17 at 08:00 Mirtazapine (Remeron) 45 mg HS PO Last administered on 01/22/17 19:42; Start 01/13/17 at 21:00; Stop 01/23/17 at 08:58; Status DC Multivitamins/ Calcium (Thera-M Plus) 1 tab DAILY PO Last administered on 09:05; Start 01/14/17 at 09:00 Buspirone HCl (Buspar) 30 mg STK-MED ONCE .ROUTE ; Start 01/13/17 at 21:00; Stop 01/14/17 at 15:55; Status DC Buspirone HCl (Buspar) 30 mg STK-MED ONCE .ROUTE ; Start 01/14/17 at 09:00; Stop 01/14/17 at 15:55; Status DC Buspirone HCl (Buspar) 20 mg BID PO Last administered on 01/23/17 09:06; Start 01/15/17 at 21:00 Fluvoxamine Maleate (Luvox) 50 mg HS PO Last administered on 01/17/17 19:40; Start 01/16/17 at 21:00; Stop 01/18/17 at 20:03; Status DC Fluvoxamine Maleate (Luvox) 75 mg HS PO Last administered on 01/22/17 19:42; Start 01/18/17 at 21:00 Olanzapine (ZyPREXA ZYDIS) 1.25 mg PRN Q2HR PRN PO anxiety; Start 01/22/17 at 18:45; Stop 01/23/17 at 08:58; Status DC Active Scripts Active Reported Albuterol Sulfate Neb Soln (Albuterol Sulfate) 2.5 Mg/3 Ml Vial.neb 2.5 Mg NEB QID Fluvoxamine Maleate 25 Mg Tablet 25 Mg PO HS Metamucil Packet (Psyllium Husk (with Sugar)) 3.4 Gm Powd.pack 1 Packet PO BID94 NICODERM CQ 7mg (Nicotine) 1 Each Patch.td24 1 Patch TD DAILY Vitamin B-12 (Cyanocobalamin (Vitamin B-12)) 1,000 Mcg Tablet 1 Tab PO DAILY Analgesic [place] (Methyl Salicylate/Menthol) 28 Gm Oint...g. 1 Gm TP PRN QID Budesonide 0.25 Mg/2 Ml Ampul.neb 1 Vial NEB BID Tylenol (Acetaminophen) 325 Mg Tablet 650 Mg PO PRN Q6HRS PRN Folic Acid 1 Mg Tablet 1 Mg PO DAILY Colestipol Hcl 1 Gm Tablet 1 Gm PO HS Multivitamins (Multivitamin) 1 Each Tablet 1 Tab PO DAILY Aspirin 81 Mg Tab.chew 81 Mg PO DAILY Vitamin D3 (Cholecalciferol (Vitamin D3)) 1,000 Unit Tablet 2,000 Unit PO DAILY Vitamin B-6 (Pyridoxine Hcl) 100 Mg Tablet 100 Mg PO DAILY Caltrate 600 + D Tablet (Calcium Carbonate/Vitamin D3) 1 Each Tablet 1 Tab PO BIDWMEALS Evista (Raloxifene Hcl) 60 Mg Tablet 60 Mg PO DAILY Donepezil Hcl 10 Mg Tablet 10 Mg PO DAILY Namenda (Memantine Hcl) 10 Mg Tablet 10 Mg PO BID Alprazolam 1 Mg Tablet 1 Mg PO QID Dicyclomine Hcl 20 Mg Tablet 20 Mg PO QID Buspirone Hcl 30 Mg Tablet 30 Mg PO BID Mirtazapine 45 Mg Tablet 45 Mg PO HS Allergies: Coded Allergies: Penicillins (Verified Allergy, Intermediate, Unknown, 01/14/17) Sulfa (Sulfonamide Antibiotics) (Verified Allergy, Intermediate, Unknown, 01/14/17) fexofenadine (Verified Allergy, Intermediate, Unknown, 01/14/17) minocycline (Verified Allergy, Intermediate, Unknown, 01/14/17) Review of System as scheduled General: Alert, Cooperative, No acute distress HEENT: Atraumatic, EOMI Lungs: Clear to auscultation Heart: Regular rate, Normal S1, Normal S2, No murmurs Abdomen: Normal bowel sounds, Soft, No tenderness Extremities: No cyanosis, Normal pulses Neuro: Normal speech Psych/Mental Status: Mood NL VITALS Vital Signs Date Time Temp Pulse Resp B/P (MAP) Pulse Ox O2 Delivery O2 Flow Rate FiO2 01/23/17 10:43 98 Room Air 01/23/17 05:40 98.0 80 14 107/71 (83) Labs k+4.5, mg+1.9 Images EKG sinus rhythm with non specific abnormalities and QTc 458. Assessment/Plan 1. prolonged QTC - Multiple medications that contribute to prolonged Qt were discontinued this am. She remains on Luvox. Risk of torsades is increased in women with QTC >460. Recommend continue monitoring EKGs for QTC and discontinue medication if QTC up to 500. Problems: MARIOLA SAMPSON MD 01/23/17 1829: CONSULT Allergies: Coded Allergies: Penicillins (Verified Allergy, Intermediate, Unknown, 01/14/17) Sulfa (Sulfonamide Antibiotics) (Verified Allergy, Intermediate, Unknown, 01/14/17) fexofenadine (Verified Allergy, Intermediate, Unknown, 01/14/17) minocycline (Verified Allergy, Intermediate, Unknown, 01/14/17) Assessment/Plan EKG reviewed. QT corrected in the range of 500-520ms Would follow EKG's closely. If QT corrected interval reaches greater than 550 ms, would consider other agents or close monitoring on telemetry while being treated. If QT corrected interval stays in current range, then consider close outpt f/u when discharged with repeat EKG. Thanks for consultation. Problems: AIDAN WILLAMS APRN Jan 23, 2017 13:00 MARIOLA SAMPSON MD Jan 23, 2017 18:29
[2017-01-23 16:44] VITALS: BP 117/79
--- NOTE | 2017-01-23 19:14 | EKG ---
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
[2017-01-23] MEDS: COLESTIPOL HCL 1 GM TABLET PO SCH (19:35)
--- NOTE | 2017-01-23 21:07 | PDOC ---
Exam Lencho Demential Exam: Lencho Note: Please also refer to the separate dictated note~for this date of service dictated separately.~Patient seen individually. Discussed the patient with Nursing staff reviewed the chart.~Reviewed interim history and current functioning. Reviewed vital signs,~Labs/ Radiology~and current medications noted below. Continue current treatment with the changes noted in the dictated addendum note Assessment: Vital Signs: Vital Signs Date Time Temp Pulse Resp B/P (MAP) Pulse Ox O2 Delivery O2 Flow Rate FiO2 01/23/17 16:44 97.8 72 18 117/79 (92) 96 01/23/17 16:20 Room Air I&O Intake and Output 01/24/17 07:00 Intake Total 1420 ml Balance 1420 ml Intake Oral 1420 ml Current Medications: Meds: Current Medications Acetaminophen (Tylenol) 650 mg PRN Q6HRS PRN PO PAIN Last administered on 08:58; Start 01/13/17 at 18:15 Albuterol Sulfate (Ventolin) 2.5 mg QID NEB Last administered on 01/23/17 16: 18; Start 01/13/17 at 21:00 Aspirin (Children'S Aspirin) 81 mg DAILY PO Last administered on 01/23/17 09: 05; Start 01/14/17 at 09:00 Budesonide (Pulmicort) 0.25 mg BID NEB Last administered on 01/23/17 10:40; Start 01/13/17 at 21:00 Vitamin D (Vitamin D3) 2,000 unit DAILY PO Last administered on 01/23/17 09:06 ; Start 01/14/17 at 09:00 Colestipol HCl (Colestid) 1 gm HS PO Last administered on 01/23/17 19:35; Start 01/13/17 at 21:00 Cyanocobalamin (Vitamin B-12) 1,000 mcg DAILY PO Last administered on 09:05; Start 01/14/17 at 09:00 Dicyclomine HCl (Bentyl) 20 mg QID PO Last administered on 01/23/17 19:34; Start 01/13/17 at 21:00 Donepezil HCl (Aricept) 10 mg DAILY PO Last administered on 01/22/17 08:34; Start 01/14/17 at 09:00; Stop 01/23/17 at 08:58; Status DC Fluvoxamine Maleate (Luvox) 25 mg HS PO Last administered on 01/15/17 20:16; Start 01/13/17 at 21:00; Stop 01/16/17 at 18:04; Status DC Folic Acid (Folic Acid) 1 mg DAILY PO Last administered on 01/23/17 09:05; Start 01/14/17 at 09:00 Memantine (Namenda) 10 mg BID PO Last administered on 01/22/17 19:42; Start at 21:00; Stop 01/23/17 at 08:58; Status DC Multi-Ingredient Ointment (Analgesic [place]) 1 winston PRN QID TP ; Start 01/13/17 at 18:15 Nicotine (Nicoderm Cq 7mg) 1 patch DAILY TD Last administered on 01/23/17 09: 05; Start 01/14/17 at 09:00 Psyllium Hydrophilic Mucilloid (Metamucil) 1 pkt BID94 PO Last administered on 01/23/17 09:05; Start 01/14/17 at 09:00 Pyridoxine HCl (Vitamin B-6) 100 mg DAILY PO Last administered on 01/23/17 09: 05; Start 01/14/17 at 09:00 Raloxifene HCl (Evista) 60 mg DAILY PO Last administered on 01/23/17 09:05; Start 01/14/17 at 09:00 Alprazolam (Xanax) 1 mg QID PO Last administered on 01/23/17 19:35; Start 02/19 at 21:00 Buspirone HCl (Buspar) 30 mg BID PO Last administered on 01/15/17 09:47; Start 01/13/17 at 21:00; Stop 01/15/17 at 17:02; Status DC Calcium/Vitamin D (Oscal D 500mg/ 200uts) 1 tab BIDWMEALS PO Last administered on 01/23/17 17:36; Start 01/14/17 at 08:00 Mirtazapine (Remeron) 45 mg HS PO Last administered on 01/22/17 19:42; Start 01/13/17 at 21:00; Stop 01/23/17 at 08:58; Status DC Multivitamins/ Calcium (Thera-M Plus) 1 tab DAILY PO Last administered on 09:05; Start 01/14/17 at 09:00 Buspirone HCl (Buspar) 30 mg STK-MED ONCE .ROUTE ; Start 01/13/17 at 21:00; Stop 01/14/17 at 15:55; Status DC Buspirone HCl (Buspar) 30 mg STK-MED ONCE .ROUTE ; Start 01/14/17 at 09:00; Stop 01/14/17 at 15:55; Status DC Buspirone HCl (Buspar) 20 mg BID PO Last administered on 01/23/17 19:34; Start 01/15/17 at 21:00 Fluvoxamine Maleate (Luvox) 50 mg HS PO Last administered on 01/17/17 19:40; Start 01/16/17 at 21:00; Stop 01/18/17 at 20:03; Status DC Fluvoxamine Maleate (Luvox) 75 mg HS PO Last administered on 01/23/17 19:34; Start 01/18/17 at 21:00 Olanzapine (ZyPREXA ZYDIS) 1.25 mg PRN Q2HR PRN PO anxiety; Start 01/22/17 at 18:45; Stop 01/23/17 at 08:58; Status DC Active Scripts Active Reported Albuterol Sulfate Neb Soln (Albuterol Sulfate) 2.5 Mg/3 Ml Vial.neb 2.5 Mg NEB QID Fluvoxamine Maleate 25 Mg Tablet 25 Mg PO HS Metamucil Packet (Psyllium Husk (with Sugar)) 3.4 Gm Powd.pack 1 Packet PO BID94 NICODERM CQ 7mg (Nicotine) 1 Each Patch.td24 1 Patch TD DAILY Vitamin B-12 (Cyanocobalamin (Vitamin B-12)) 1,000 Mcg Tablet 1 Tab PO DAILY Analgesic [place] (Methyl Salicylate/Menthol) 28 Gm Oint...g. 1 Gm TP PRN QID Budesonide 0.25 Mg/2 Ml Ampul.neb 1 Vial NEB BID Tylenol (Acetaminophen) 325 Mg Tablet 650 Mg PO PRN Q6HRS PRN Folic Acid 1 Mg Tablet 1 Mg PO DAILY Colestipol Hcl 1 Gm Tablet 1 Gm PO HS Multivitamins (Multivitamin) 1 Each Tablet 1 Tab PO DAILY Aspirin 81 Mg Tab.chew 81 Mg PO DAILY Vitamin D3 (Cholecalciferol (Vitamin D3)) 1,000 Unit Tablet 2,000 Unit PO DAILY Vitamin B-6 (Pyridoxine Hcl) 100 Mg Tablet 100 Mg PO DAILY Caltrate 600 + D Tablet (Calcium Carbonate/Vitamin D3) 1 Each Tablet 1 Tab PO BIDWMEALS Evista (Raloxifene Hcl) 60 Mg Tablet 60 Mg PO DAILY Donepezil Hcl 10 Mg Tablet 10 Mg PO DAILY Namenda (Memantine Hcl) 10 Mg Tablet 10 Mg PO BID Alprazolam 1 Mg Tablet 1 Mg PO QID Dicyclomine Hcl 20 Mg Tablet 20 Mg PO QID Buspirone Hcl 30 Mg Tablet 30 Mg PO BID Mirtazapine 45 Mg Tablet 45 Mg PO HS Diagnosis: Problems: (1) Anxiety disorder (2) Obsessive compulsive disorder (3) Psychosis, atypical (4) Major depressive disorder, recurrent episode KAYLAN RAGLAND MD Jan 23, 2017 21:07
--- NOTE | 2017-01-24 03:58 | PN ---
DATE: 01/22/2017 PSYCHIATRIC PROGRESS NOTE This late entry of 01/22/2017 covers the elements not covered in my initial note of 01/22/2017. I met with the patient in the evening of 01/22/2017. The patient's and son visited her earlier in the day, and she did well during the visit. She is still somewhat obsessive, anxious. Repeat EKG shows a QT corrected interval of 520 milliseconds, which is an increase from her prior in the mid 400s. We will have Cardiology consult and pharmacy consult to see which of her medications could be contributing to this and make adjustments accordingly. At the time of this dictation morning of 01/23, I have had results of the pharmacy consult suggesting Aricept, Namenda, Remeron, Luvox and Zyprexa could all contribute, especially other medications in combination with Zyprexa. I will redictated the note 01/23/2017, but I am stopping the Remeron, Aricept, Namenda, and Zyprexa p.r.n., even though she has not used the latter. Luvox seems to be an integrative part of her treatment for her marked OCD, which prompted the admission and for now, we will continue until we have a Cardiology consult and then decide further after that. REVIEW OF SYSTEMS: No CV, , pulmonary, eye system symptoms on review. MENTAL STATUS EXAMINATION: Reasonably oriented. Speech is coherent, abstraction fair, computation impaired, quite anxious, somewhat obsessive, repetitive. No suicidal or homicidal ideation. Attention span short. Language function intact. LABORATORY DATA: Reviewed. IMPRESSION: Obsessive-compulsive disorder; anxiety disorder, unspecified; mild cognitive impairment. Rest diagnoses unchanged. Increased QTC interval as noted. PLAN: Plan is as noted above with the changes, deletions as noted above. Reviewed drug interactions. Risk/benefit ratio favors no further change. I have discussed with the nursing staff several times about this and additionally on the morning of 01/23/2017. MAN Dane RAGLAND MD DR: NABIL/sasha JOB#: [id number] / [id number]
[2017-01-24 05:51] VITALS: BP 111/71
[2017-01-24] MEDS: ALBUTEROL SULFATE 2.5 MG/3 ML NEBU. NEB SCH ×4 (05:52→21:37)
[2017-01-24] MEDS: NICOTINE 7MG PATCH. TD SCH (09:13)
[2017-01-24] MEDS: CYANOCOBALAMIN (VITAMIN B-12) 1,000 MCG TABLET. PO SCH (09:14)
[2017-01-24] MEDS: ASPIRIN 81 MG TAB.CHEW PO SCH (09:14)
[2017-01-24] MEDS: DICYCLOMINE HCL 20 MG TABLET PO SCH ×4 (09:14→19:41)
[2017-01-24] MEDS: CHOLECALCIFEROL (VITAMIN D3) 1,000 UNIT TABLET PO SCH (09:14)
[2017-01-24] MEDS: busPIRone 10 MG TABLET. PO SCH ×2 (09:14→19:41)
[2017-01-24] MEDS: CALCIUM CARB/VIT D3 500/200 TABLET PO SCH ×2 (09:14→17:30)
[2017-01-24] MEDS: FOLIC ACID 1 MG TABLET PO SCH (09:14)
[2017-01-24] MEDS: MULTIVITAMIN with MINERAL TABLET. PO SCH (09:14)
[2017-01-24] MEDS: PYRIDOXINE 100 MG TABLET. PO SCH (09:14)
[2017-01-24] MEDS: ALPRAZolam 0.5 MG TABLET PO SCH ×4 (09:15→19:43)
[2017-01-24] MEDS: RALOXIFENE 60 MG TABLET. PO SCH (09:15)
[2017-01-24] MEDS: PSYLLIUM SEED (WITH SUGAR) PACKET. PO SCH ×2 (09:15→17:30)
[2017-01-24 10:18] LABS: CALCIUM 9.5 mg/dL (8.5-10.1); CREATININE 1.2 mg/dL (0.6-1.0); GFR 44.2
[2017-01-24] MEDS: BUDESONIDE 0.5 MG/2 ML NEBU NEB SCH ×2 (11:22→21:37)
--- NOTE | 2017-01-24 13:54 | EKG ---
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
[2017-01-24 16:23] VITALS: BP 109/56
[2017-01-24] MEDS: COLESTIPOL HCL 1 GM TABLET PO SCH (19:43)
--- NOTE | 2017-01-24 21:05 | PDOC ---
Exam Lencho Demential Exam: Lencho Note: Please also refer to the separate dictated note~for this date of service dictated separately.~Patient seen individually. Discussed the patient with Nursing staff reviewed the chart.~Reviewed interim history and current functioning. Reviewed vital signs,~Labs/ Radiology~and current medications noted below. Continue current treatment with the changes noted in the dictated addendum note Assessment: Vital Signs: Vital Signs Date Time Temp Pulse Resp B/P (MAP) Pulse Ox O2 Delivery O2 Flow Rate FiO2 01/24/17 16:41 97 Room Air 01/24/17 16:23 97.2 77 16 109/56 (73) I&O Intake and Output 01/25/17 07:00 Intake Total 1760 ml Balance 1760 ml Intake Oral 1760 ml # Bowel Movements 1 Labs: Laboratory Tests Test 01/24/17 09:55 Sodium Level 142 mmol/L (136-145) Potassium Level 4.0 mmol/L (3.5-5.1) Chloride Level 107 mmol/L (98-107) Carbon Dioxide Level 27 mmol/L (21-32) Anion Gap 8 (6-14) Blood Urea Nitrogen 28 mg/dL (7-20) H Creatinine 1.2 mg/dL (0.6-1.0) H Estimated GFR (Cockcroft-Gault) 44.2 Glucose Level 112 mg/dL (70-99) H Calcium Level 9.5 mg/dL (8.5-10.1) Magnesium Level 2.0 mg/dL (1.8-2.4) Current Medications: Meds: Current Medications Acetaminophen (Tylenol) 650 mg PRN Q6HRS PRN PO PAIN Last administered on 08:58; Start 01/13/17 at 18:15 Albuterol Sulfate (Ventolin) 2.5 mg QID NEB Last administered on 01/24/17 16: 40; Start 01/13/17 at 21:00 Aspirin (Children'S Aspirin) 81 mg DAILY PO Last administered on 01/24/17 09: 14; Start 01/14/17 at 09:00 Budesonide (Pulmicort) 0.25 mg BID NEB Last administered on 01/24/17 11:22; Start 01/13/17 at 21:00 Vitamin D (Vitamin D3) 2,000 unit DAILY PO Last administered on 01/24/17 09:14 ; Start 01/14/17 at 09:00 Colestipol HCl (Colestid) 1 gm HS PO Last administered on 01/24/17 19:43; Start 01/13/17 at 21:00 Cyanocobalamin (Vitamin B-12) 1,000 mcg DAILY PO Last administered on 09:14; Start 01/14/17 at 09:00 Dicyclomine HCl (Bentyl) 20 mg QID PO Last administered on 01/24/17 19:41; Start 01/13/17 at 21:00 Donepezil HCl (Aricept) 10 mg DAILY PO Last administered on 01/22/17 08:34; Start 01/14/17 at 09:00; Stop 01/23/17 at 08:58; Status DC Fluvoxamine Maleate (Luvox) 25 mg HS PO Last administered on 01/15/17 20:16; Start 01/13/17 at 21:00; Stop 01/16/17 at 18:04; Status DC Folic Acid (Folic Acid) 1 mg DAILY PO Last administered on 01/24/17 09:14; Start 01/14/17 at 09:00 Memantine (Namenda) 10 mg BID PO Last administered on 01/22/17 19:42; Start at 21:00; Stop 01/23/17 at 08:58; Status DC Multi-Ingredient Ointment (Analgesic [place]) 1 [place] PRN QID TP ; Start 01/13/17 at 18:15 Nicotine (Nicoderm Cq 7mg) 1 patch DAILY TD Last administered on 01/24/17 09: 13; Start 01/14/17 at 09:00 Psyllium Hydrophilic Mucilloid (Metamucil) 1 pkt BID94 PO Last administered on 01/24/17 17:30; Start 01/14/17 at 09:00 Pyridoxine HCl (Vitamin B-6) 100 mg DAILY PO Last administered on 01/24/17 09: 14; Start 01/14/17 at 09:00 Raloxifene HCl (Evista) 60 mg DAILY PO Last administered on 01/24/17 09:15; Start 01/14/17 at 09:00 Alprazolam (Xanax) 1 mg QID PO Last administered on 01/24/17 19:43; Start 02/19 at 21:00 Buspirone HCl (Buspar) 30 mg BID PO Last administered on 01/15/17 09:47; Start 01/13/17 at 21:00; Stop 01/15/17 at 17:02; Status DC Calcium/Vitamin D (Oscal D 500mg/ 200uts) 1 tab BIDWMEALS PO Last administered on 01/24/17 17:30; Start 01/14/17 at 08:00 Mirtazapine (Remeron) 45 mg HS PO Last administered on 01/22/17 19:42; Start 01/13/17 at 21:00; Stop 01/23/17 at 08:58; Status DC Multivitamins/ Calcium (Thera-M Plus) 1 tab DAILY PO Last administered on 09:14; Start 01/14/17 at 09:00 Buspirone HCl (Buspar) 30 mg STK-MED ONCE .ROUTE ; Start 01/13/17 at 21:00; Stop 01/14/17 at 15:55; Status DC Buspirone HCl (Buspar) 30 mg STK-MED ONCE .ROUTE ; Start 01/14/17 at 09:00; Stop 01/14/17 at 15:55; Status DC Buspirone HCl (Buspar) 20 mg BID PO Last administered on 01/24/17 19:41; Start 01/15/17 at 21:00 Fluvoxamine Maleate (Luvox) 50 mg HS PO Last administered on 01/17/17 19:40; Start 01/16/17 at 21:00; Stop 01/18/17 at 20:03; Status DC Fluvoxamine Maleate (Luvox) 75 mg HS PO Last administered on 01/24/17 19:40; Start 01/18/17 at 21:00 Olanzapine (ZyPREXA ZYDIS) 1.25 mg PRN Q2HR PRN PO anxiety; Start 01/22/17 at 18:45; Stop 01/23/17 at 08:58; Status DC Active Scripts Active Reported Albuterol Sulfate Neb Soln (Albuterol Sulfate) 2.5 Mg/3 Ml Vial.neb 2.5 Mg NEB QID Fluvoxamine Maleate 25 Mg Tablet 25 Mg PO HS Metamucil Packet (Psyllium Husk (with Sugar)) 3.4 Gm Powd.pack 1 Packet PO BID94 NICODERM CQ 7mg (Nicotine) 1 Each Patch.td24 1 Patch TD DAILY Vitamin B-12 (Cyanocobalamin (Vitamin B-12)) 1,000 Mcg Tablet 1 Tab PO DAILY Analgesic [place] (Methyl Salicylate/Menthol) 28 Gm Oint...g. 1 Gm TP PRN QID Budesonide 0.25 Mg/2 Ml Ampul.neb 1 Vial NEB BID Tylenol (Acetaminophen) 325 Mg Tablet 650 Mg PO PRN Q6HRS PRN Folic Acid 1 Mg Tablet 1 Mg PO DAILY Colestipol Hcl 1 Gm Tablet 1 Gm PO HS Multivitamins (Multivitamin) 1 Each Tablet 1 Tab PO DAILY Aspirin 81 Mg Tab.chew 81 Mg PO DAILY Vitamin D3 (Cholecalciferol (Vitamin D3)) 1,000 Unit Tablet 2,000 Unit PO DAILY Vitamin B-6 (Pyridoxine Hcl) 100 Mg Tablet 100 Mg PO DAILY Caltrate 600 + D Tablet (Calcium Carbonate/Vitamin D3) 1 Each Tablet 1 Tab PO BIDWMEALS Evista (Raloxifene Hcl) 60 Mg Tablet 60 Mg PO DAILY Donepezil Hcl 10 Mg Tablet 10 Mg PO DAILY Namenda (Memantine Hcl) 10 Mg Tablet 10 Mg PO BID Alprazolam 1 Mg Tablet 1 Mg PO QID Dicyclomine Hcl 20 Mg Tablet 20 Mg PO QID Buspirone Hcl 30 Mg Tablet 30 Mg PO BID Mirtazapine 45 Mg Tablet 45 Mg PO HS Diagnosis: Problems: (1) Anxiety disorder (2) Obsessive compulsive disorder (3) Psychosis, atypical (4) Major depressive disorder, recurrent episode KAYLAN RAGLAND MD Jan 24, 2017 21:05
--- NOTE | 2017-01-24 23:01 | PN ---
DATE: 01/23/2017 This is a late entry for 01/23/2017 and covers the elements not covered in my initial note of 01/23/2017. SUBJECTIVE: I met with the patient in the evening of 01/23/2017. The patient has been compliant with her medications. I had discussed with nursing staff on two separate occasions earlier in the day on 01/23/2017. Pharmacy consult suggested that Aricept, Namenda, Remeron and Zyprexa could interfere with her QTc and be partly responsible for the prolongation and I went ahead and discontinued it. Luvox was another factor, but she needs that from a psychiatric standpoint. Cardiology consult completed with Dr. Gore and I talked with Dr. Gore evening of 01/23/2017 with the recommendation to monitor EKGs QTc interval every day and to certainly stop the Luvox if it rises above 550 milliseconds. We will not increase the Luvox just yet and see how it goes. She remains somewhat obsessive, some short term memory deficits. REVIEW OF SYSTEMS: No CV, , pulmonary, eye, ENT system symptoms on review. MENTAL STATUS EXAM: Oriented to herself and situation. Speech has some latency, coherent. Abstraction fair, computation impaired, language function intact, attention span short, mood and affect somewhat withdrawn, but improved. LABORATORY DATA: Reviewed. IMPRESSION: Unchanged from initial note. PLAN: Continue Luvox 75 mg at bedtime, BuSpar 20 b.i.d. She is also on Xanax, check daily EKGs for QTc. Reviewed drug interactions. Risk/benefit ratio favors no further change. KAYLAN RAGLAND MD DR: NABIL/sasha JOB#: [id number] / [id number]
[2017-01-25 05:55] VITALS: BP 119/76
[2017-01-25] MEDS: ALBUTEROL SULFATE 2.5 MG/3 ML NEBU. NEB SCH ×4 (06:03→20:23)
[2017-01-25] MEDS: DICYCLOMINE HCL 20 MG TABLET PO SCH ×4 (07:30→19:16)
[2017-01-25] MEDS: CYANOCOBALAMIN (VITAMIN B-12) 1,000 MCG TABLET. PO SCH (07:30)
[2017-01-25] MEDS: MULTIVITAMIN with MINERAL TABLET. PO SCH (07:30)
[2017-01-25] MEDS: CALCIUM CARB/VIT D3 500/200 TABLET PO SCH ×2 (07:30→16:25)
[2017-01-25] MEDS: busPIRone 10 MG TABLET. PO SCH ×2 (07:30→19:16)
[2017-01-25] MEDS: ASPIRIN 81 MG TAB.CHEW PO SCH (07:30)
[2017-01-25] MEDS: FOLIC ACID 1 MG TABLET PO SCH (07:30)
[2017-01-25] MEDS: PYRIDOXINE 100 MG TABLET. PO SCH (07:30)
[2017-01-25] MEDS: RALOXIFENE 60 MG TABLET. PO SCH (07:30)
[2017-01-25] MEDS: PSYLLIUM SEED (WITH SUGAR) PACKET. PO SCH ×2 (07:31→16:25)
[2017-01-25] MEDS: NICOTINE 7MG PATCH. TD SCH (07:31)
[2017-01-25] MEDS: CHOLECALCIFEROL (VITAMIN D3) 1,000 UNIT TABLET PO SCH (07:31)
[2017-01-25] MEDS: ALPRAZolam 0.5 MG TABLET PO SCH ×4 (07:33→19:17)
[2017-01-25] MEDS: BUDESONIDE 0.5 MG/2 ML NEBU NEB SCH ×2 (10:59→20:23)
--- NOTE | 2017-01-25 12:54 | EKG ---
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
[2017-01-25 16:09] VITALS: BP 111/53
[2017-01-25] MEDS: COLESTIPOL HCL 1 GM TABLET PO SCH (19:17)
--- NOTE | 2017-01-25 20:57 | PDOC ---
Exam Lencho Demential Exam: Lencho Note: Please also refer to the separate dictated note~for this date of service dictated separately.~Patient seen individually. Discussed the patient with Nursing staff reviewed the chart.~Reviewed interim history and current functioning. Reviewed vital signs,~Labs/ Radiology~and current medications noted below. Continue current treatment with the changes noted in the dictated addendum note Assessment: Vital Signs: Vital Signs Date Time Temp Pulse Resp B/P (MAP) Pulse Ox O2 Delivery O2 Flow Rate FiO2 01/25/17 20:28 Room Air 01/25/17 20:25 98 01/25/17 16:09 97.0 79 18 111/53 (72) I&O Intake and Output 01/26/17 07:00 Intake Total 1760 ml Balance 1760 ml Intake Oral 1760 ml Current Medications: Meds: Current Medications Acetaminophen (Tylenol) 650 mg PRN Q6HRS PRN PO PAIN Last administered on 08:58; Start 01/13/17 at 18:15 Albuterol Sulfate (Ventolin) 2.5 mg QID NEB Last administered on 01/25/17 20: 23; Start 01/13/17 at 21:00 Aspirin (Children'S Aspirin) 81 mg DAILY PO Last administered on 01/25/17 07: 30; Start 01/14/17 at 09:00 Budesonide (Pulmicort) 0.25 mg BID NEB Last administered on 01/25/17 20:23; Start 01/13/17 at 21:00 Vitamin D (Vitamin D3) 2,000 unit DAILY PO Last administered on 01/25/17 07:31 ; Start 01/14/17 at 09:00 Colestipol HCl (Colestid) 1 gm HS PO Last administered on 01/25/17 19:17; Start 01/13/17 at 21:00 Cyanocobalamin (Vitamin B-12) 1,000 mcg DAILY PO Last administered on 07:30; Start 01/14/17 at 09:00 Dicyclomine HCl (Bentyl) 20 mg QID PO Last administered on 01/25/17 19:16; Start 01/13/17 at 21:00 Donepezil HCl (Aricept) 10 mg DAILY PO Last administered on 01/22/17 08:34; Start 01/14/17 at 09:00; Stop 01/23/17 at 08:58; Status DC Fluvoxamine Maleate (Luvox) 25 mg HS PO Last administered on 01/15/17 20:16; Start 01/13/17 at 21:00; Stop 01/16/17 at 18:04; Status DC Folic Acid (Folic Acid) 1 mg DAILY PO Last administered on 01/25/17 07:30; Start 01/14/17 at 09:00 Memantine (Namenda) 10 mg BID PO Last administered on 01/22/17 19:42; Start at 21:00; Stop 01/23/17 at 08:58; Status DC Multi-Ingredient Ointment (Analgesic [place]) 1 [place] PRN QID TP ; Start 01/13/17 at 18:15 Nicotine (Nicoderm Cq 7mg) 1 patch DAILY TD Last administered on 01/25/17 07: 31; Start 01/14/17 at 09:00 Psyllium Hydrophilic Mucilloid (Metamucil) 1 pkt BID94 PO Last administered on 01/25/17 16:25; Start 01/14/17 at 09:00 Pyridoxine HCl (Vitamin B-6) 100 mg DAILY PO Last administered on 01/25/17 07: 30; Start 01/14/17 at 09:00 Raloxifene HCl (Evista) 60 mg DAILY PO Last administered on 01/25/17 07:30; Start 01/14/17 at 09:00 Alprazolam (Xanax) 1 mg QID PO Last administered on 01/25/17 19:17; Start 02/19 at 21:00 Buspirone HCl (Buspar) 30 mg BID PO Last administered on 01/15/17 09:47; Start 01/13/17 at 21:00; Stop 01/15/17 at 17:02; Status DC Calcium/Vitamin D (Oscal D 500mg/ 200uts) 1 tab BIDWMEALS PO Last administered on 01/25/17 16:25; Start 01/14/17 at 08:00 Mirtazapine (Remeron) 45 mg HS PO Last administered on 01/22/17 19:42; Start 01/13/17 at 21:00; Stop 01/23/17 at 08:58; Status DC Multivitamins/ Calcium (Thera-M Plus) 1 tab DAILY PO Last administered on 07:30; Start 01/14/17 at 09:00 Buspirone HCl (Buspar) 30 mg STK-MED ONCE .ROUTE ; Start 01/13/17 at 21:00; Stop 01/14/17 at 15:55; Status DC Buspirone HCl (Buspar) 30 mg STK-MED ONCE .ROUTE ; Start 01/14/17 at 09:00; Stop 01/14/17 at 15:55; Status DC Buspirone HCl (Buspar) 20 mg BID PO Last administered on 01/25/17 19:16; Start 01/15/17 at 21:00 Fluvoxamine Maleate (Luvox) 50 mg HS PO Last administered on 01/17/17 19:40; Start 01/16/17 at 21:00; Stop 01/18/17 at 20:03; Status DC Fluvoxamine Maleate (Luvox) 75 mg HS PO Last administered on 01/24/17 19:40; Start 01/18/17 at 21:00; Stop 01/25/17 at 18:58; Status DC Olanzapine (ZyPREXA ZYDIS) 1.25 mg PRN Q2HR PRN PO anxiety; Start 01/22/17 at 18:45; Stop 01/23/17 at 08:58; Status DC Fluvoxamine Maleate (Luvox) 100 mg HS PO Last administered on 01/25/17 19:59; Start 01/25/17 at 21:00 Active Scripts Active Reported Albuterol Sulfate Neb Soln (Albuterol Sulfate) 2.5 Mg/3 Ml Vial.neb 2.5 Mg NEB QID Fluvoxamine Maleate 25 Mg Tablet 25 Mg PO HS Metamucil Packet (Psyllium Husk (with Sugar)) 3.4 Gm Powd.pack 1 Packet PO BID94 NICODERM CQ 7mg (Nicotine) 1 Each Patch.td24 1 Patch TD DAILY Vitamin B-12 (Cyanocobalamin (Vitamin B-12)) 1,000 Mcg Tablet 1 Tab PO DAILY Analgesic [place] (Methyl Salicylate/Menthol) 28 Gm Oint...g. 1 Gm TP PRN QID Budesonide 0.25 Mg/2 Ml Ampul.neb 1 Vial NEB BID Tylenol (Acetaminophen) 325 Mg Tablet 650 Mg PO PRN Q6HRS PRN Folic Acid 1 Mg Tablet 1 Mg PO DAILY Colestipol Hcl 1 Gm Tablet 1 Gm PO HS Multivitamins (Multivitamin) 1 Each Tablet 1 Tab PO DAILY Aspirin 81 Mg Tab.chew 81 Mg PO DAILY Vitamin D3 (Cholecalciferol (Vitamin D3)) 1,000 Unit Tablet 2,000 Unit PO DAILY Vitamin B-6 (Pyridoxine Hcl) 100 Mg Tablet 100 Mg PO DAILY Caltrate 600 + D Tablet (Calcium Carbonate/Vitamin D3) 1 Each Tablet 1 Tab PO BIDWMEALS [place]ista (Raloxifene Hcl) 60 Mg Tablet 60 Mg PO DAILY Donepezil Hcl 10 Mg Tablet 10 Mg PO DAILY Namenda (Memantine Hcl) 10 Mg Tablet 10 Mg PO BID Alprazolam 1 Mg Tablet 1 Mg PO QID Dicyclomine Hcl 20 Mg Tablet 20 Mg PO QID Buspirone Hcl 30 Mg Tablet 30 Mg PO BID Mirtazapine 45 Mg Tablet 45 Mg PO HS Diagnosis: Problems: (1) Anxiety disorder (2) Obsessive compulsive disorder (3) Psychosis, atypical (4) Major depressive disorder, recurrent episode KAYLAN RAGLAND MD Jan 25, 2017 20:56
--- NOTE | 2017-01-26 00:54 | PN ---
DATE: 01/24/2017 This is a late entry 01/24/2017, covers the elements not covered in my initial note of 01/24/2017. SUBJECTIVE: The patient was staffed at treatment team meeting with the entire team morning of 01/24/2017, seen individually evening of 01/24/2017. QTC on the EKG 01/24/2017, is 512 and we are checking daily EKGs. Aricept, Namenda, Remeron, and Zyprexa have been discontinued due to the interaction to increase QTC and we have maintained the Luvox, but not increased at so far due to the above. She slept reasonably well previous evening. No CV, , pulmonary, eye system symptoms on review. MENTAL STATUS EXAM: Oriented to herself and situation. Speech has some latency, coherent. Abstraction fair, computation impaired, language function intact. Attention span short, still somewhat obsessive, anxious. No suicidal or homicidal ideation. LABORATORY DATA: Reviewed. IMPRESSION: Unchanged from initial note. PLAN: Continue current psychotropics as mentioned in my initial, reviewed drug interactions, risk/benefit ratio favors no further change. MAN Dane RAGLAND MD DR: NABIL/sasha JOB#: [id number] / [id number]
[2017-01-26 06:15] VITALS: BP 108/52
[2017-01-26] MEDS: busPIRone 10 MG TABLET. PO SCH ×2 (07:18→19:41)
[2017-01-26] MEDS: MULTIVITAMIN with MINERAL TABLET. PO SCH (07:18)
[2017-01-26] MEDS: CYANOCOBALAMIN (VITAMIN B-12) 1,000 MCG TABLET. PO SCH (07:19)
[2017-01-26] MEDS: RALOXIFENE 60 MG TABLET. PO SCH (07:19)
[2017-01-26] MEDS: CALCIUM CARB/VIT D3 500/200 TABLET PO SCH ×2 (07:19→16:49)
[2017-01-26] MEDS: ALPRAZolam 0.5 MG TABLET PO SCH ×4 (07:19→19:42)
[2017-01-26] MEDS: CHOLECALCIFEROL (VITAMIN D3) 1,000 UNIT TABLET PO SCH (07:19)
[2017-01-26] MEDS: PSYLLIUM SEED (WITH SUGAR) PACKET. PO SCH ×2 (07:20→16:49)
[2017-01-26] MEDS: DICYCLOMINE HCL 20 MG TABLET PO SCH ×4 (07:20→19:41)
[2017-01-26] MEDS: NICOTINE 7MG PATCH. TD SCH (07:20)
[2017-01-26] MEDS: ASPIRIN 81 MG TAB.CHEW PO SCH (07:20)
[2017-01-26] MEDS: PYRIDOXINE 100 MG TABLET. PO SCH (07:20)
[2017-01-26] MEDS: FOLIC ACID 1 MG TABLET PO SCH (07:20)
[2017-01-26] MEDS: ALBUTEROL SULFATE 2.5 MG/3 ML NEBU. NEB SCH ×4 (10:26→20:13)
[2017-01-26] MEDS: BUDESONIDE 0.5 MG/2 ML NEBU NEB SCH ×2 (10:27→20:13)
--- NOTE | 2017-01-26 12:06 | EKG ---
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
[2017-01-26 16:55] VITALS: BP 116/54
[2017-01-26] MEDS: COLESTIPOL HCL 1 GM TABLET PO SCH (19:42)
--- NOTE | 2017-01-26 21:10 | PDOC ---
Exam Lencho Demential Exam: Lencho Note: Please also refer to the separate dictated note~for this date of service dictated separately.~Patient seen individually. Discussed the patient with Nursing staff reviewed the chart.~Reviewed interim history and current functioning. Reviewed vital signs,~Labs/ Radiology~and current medications noted below. Continue current treatment with the changes noted in the dictated addendum note Assessment: Vital Signs: Vital Signs Date Time Temp Pulse Resp B/P (MAP) Pulse Ox O2 Delivery O2 Flow Rate FiO2 01/26/17 20:18 Room Air 01/26/17 20:15 96 01/26/17 16:55 97.6 81 18 116/54 (74) I&O Intake and Output 01/27/17 07:00 Intake Total 980 ml Balance 980 ml Intake Oral 980 ml Current Medications: Meds: Current Medications Acetaminophen (Tylenol) 650 mg PRN Q6HRS PRN PO PAIN Last administered on 08:58; Start 01/13/17 at 18:15 Albuterol Sulfate (Ventolin) 2.5 mg QID NEB Last administered on 01/26/17 20: 13; Start 01/13/17 at 21:00 Aspirin (Children'S Aspirin) 81 mg DAILY PO Last administered on 01/26/17 07: 20; Start 01/14/17 at 09:00 Budesonide (Pulmicort) 0.25 mg BID NEB Last administered on 01/26/17 20:13; Start 01/13/17 at 21:00 Vitamin D (Vitamin D3) 2,000 unit DAILY PO Last administered on 01/26/17 07:19 ; Start 01/14/17 at 09:00 Colestipol HCl (Colestid) 1 gm HS PO Last administered on 01/26/17 19:42; Start 01/13/17 at 21:00 Cyanocobalamin (Vitamin B-12) 1,000 mcg DAILY PO Last administered on 07:19; Start 01/14/17 at 09:00 Dicyclomine HCl (Bentyl) 20 mg QID PO Last administered on 01/26/17 19:41; Start 01/13/17 at 21:00 Donepezil HCl (Aricept) 10 mg DAILY PO Last administered on 01/22/17 08:34; Start 01/14/17 at 09:00; Stop 01/23/17 at 08:58; Status DC Fluvoxamine Maleate (Luvox) 25 mg HS PO Last administered on 01/15/17 20:16; Start 01/13/17 at 21:00; Stop 01/16/17 at 18:04; Status DC Folic Acid (Folic Acid) 1 mg DAILY PO Last administered on 01/26/17 07:20; Start 01/14/17 at 09:00 Memantine (Namenda) 10 mg BID PO Last administered on 01/22/17 19:42; Start at 21:00; Stop 01/23/17 at 08:58; Status DC Multi-Ingredient Ointment (Analgesic [place]) 1 winston PRN QID TP ; Start 01/13/17 at 18:15 Nicotine (Nicoderm Cq 7mg) 1 patch DAILY TD Last administered on 01/26/17 07: 20; Start 01/14/17 at 09:00 Psyllium Hydrophilic Mucilloid (Metamucil) 1 pkt BID94 PO Last administered on 01/26/17 16:49; Start 01/14/17 at 09:00 Pyridoxine HCl (Vitamin B-6) 100 mg DAILY PO Last administered on 01/26/17 07: 20; Start 01/14/17 at 09:00 Raloxifene HCl (Evista) 60 mg DAILY PO Last administered on 01/26/17 07:19; Start 01/14/17 at 09:00 Alprazolam (Xanax) 1 mg QID PO Last administered on 01/26/17 19:42; Start 02/19 at 21:00 Buspirone HCl (Buspar) 30 mg BID PO Last administered on 01/15/17 09:47; Start 01/13/17 at 21:00; Stop 01/15/17 at 17:02; Status DC Calcium/Vitamin D (Oscal D 500mg/ 200uts) 1 tab BIDWMEALS PO Last administered on 01/26/17 16:49; Start 01/14/17 at 08:00 Mirtazapine (Remeron) 45 mg HS PO Last administered on 01/22/17 19:42; Start 01/13/17 at 21:00; Stop 01/23/17 at 08:58; Status DC Multivitamins/ Calcium (Thera-M Plus) 1 tab DAILY PO Last administered on 07:18; Start 01/14/17 at 09:00 Buspirone HCl (Buspar) 30 mg STK-MED ONCE .ROUTE ; Start 01/13/17 at 21:00; Stop 01/14/17 at 15:55; Status DC Buspirone HCl (Buspar) 30 mg STK-MED ONCE .ROUTE ; Start 01/14/17 at 09:00; Stop 01/14/17 at 15:55; Status DC Buspirone HCl (Buspar) 20 mg BID PO Last administered on 01/26/17 19:41; Start 01/15/17 at 21:00 Fluvoxamine Maleate (Luvox) 50 mg HS PO Last administered on 01/17/17 19:40; Start 01/16/17 at 21:00; Stop 01/18/17 at 20:03; Status DC Fluvoxamine Maleate (Luvox) 75 mg HS PO Last administered on 01/24/17 19:40; Start 01/18/17 at 21:00; Stop 01/25/17 at 18:58; Status DC Olanzapine (ZyPREXA ZYDIS) 1.25 mg PRN Q2HR PRN PO anxiety; Start 01/22/17 at 18:45; Stop 01/23/17 at 08:58; Status DC Fluvoxamine Maleate (Luvox) 100 mg HS PO Last administered on 01/26/17 19:41; Start 01/25/17 at 21:00 Active Scripts Active Reported Albuterol Sulfate Neb Soln (Albuterol Sulfate) 2.5 Mg/3 Ml Vial.neb 2.5 Mg NEB QID Fluvoxamine Maleate 25 Mg Tablet 25 Mg PO HS Metamucil Packet (Psyllium Husk (with Sugar)) 3.4 Gm Powd.pack 1 Packet PO BID94 NICODERM CQ 7mg (Nicotine) 1 Each Patch.td24 1 Patch TD DAILY Vitamin B-12 (Cyanocobalamin (Vitamin B-12)) 1,000 Mcg Tablet 1 Tab PO DAILY Analgesic [place] (Methyl Salicylate/Menthol) 28 Gm Oint...g. 1 Gm TP PRN QID Budesonide 0.25 Mg/2 Ml Ampul.neb 1 Vial NEB BID Tylenol (Acetaminophen) 325 Mg Tablet 650 Mg PO PRN Q6HRS PRN Folic Acid 1 Mg Tablet 1 Mg PO DAILY Colestipol Hcl 1 Gm Tablet 1 Gm PO HS Multivitamins (Multivitamin) 1 Each Tablet 1 Tab PO DAILY Aspirin 81 Mg Tab.chew 81 Mg PO DAILY Vitamin D3 (Cholecalciferol (Vitamin D3)) 1,000 Unit Tablet 2,000 Unit PO DAILY Vitamin B-6 (Pyridoxine Hcl) 100 Mg Tablet 100 Mg PO DAILY Caltrate 600 + D Tablet (Calcium Carbonate/Vitamin D3) 1 Each Tablet 1 Tab PO BIDWMEALS Evista (Raloxifene Hcl) 60 Mg Tablet 60 Mg PO DAILY Donepezil Hcl 10 Mg Tablet 10 Mg PO DAILY Namenda (Memantine Hcl) 10 Mg Tablet 10 Mg PO BID Alprazolam 1 Mg Tablet 1 Mg PO QID Dicyclomine Hcl 20 Mg Tablet 20 Mg PO QID Buspirone Hcl 30 Mg Tablet 30 Mg PO BID Mirtazapine 45 Mg Tablet 45 Mg PO HS Diagnosis: Problems: (1) Anxiety disorder (2) Obsessive compulsive disorder (3) Psychosis, atypical (4) Major depressive disorder, recurrent episode (5) Seizure KAYLAN RAGLAND MD Jan 26, 2017 21:10
--- NOTE | 2017-01-26 21:23 | PN ---
DATE: 01/25/2017 This is a late entry for 01/25/2017 and covers the elements not covered in my initial note. SUBJECTIVE: I met with the patient in the evening of 01/25/2017. The patient remains somewhat obsessive, anxious, very particular about how she wants things in her room especially since now she has a roommate. She is distressed about the hand towels not being mixed up with the other patients. QTc interval on the EKG is 499 and we will increase the Luvox 200 mg at bedtime for her OCD, monitor daily EKGs for QTc. REVIEW OF SYSTEMS: No CV, , pulmonary, eye system symptoms on review. MENTAL STATUS EXAM: Reasonably oriented. Speech is coherent, abstraction fair, computation impaired, language function intact. Mood and affect improved, anxious, obsessive. IMPRESSION: Unchanged from initial note. PLAN: Continue psychotropics, increase the Luvox as noted. Reviewed drug interactions. Risk/benefit ratio favors no further change. KAYLAN RAGLAND MD DR: NABIL/sasha JOB#: [id number] / [id number]
[2017-01-27] MEDS: ALBUTEROL SULFATE 2.5 MG/3 ML NEBU. NEB SCH ×4 (05:22→20:16)
[2017-01-27 06:29] VITALS: BP 133/88
[2017-01-27] MEDS: DICYCLOMINE HCL 20 MG TABLET PO SCH ×4 (08:25→19:51)
[2017-01-27] MEDS: PYRIDOXINE 100 MG TABLET. PO SCH (08:25)
[2017-01-27] MEDS: ALPRAZolam 0.5 MG TABLET PO SCH ×4 (08:26→19:53)
[2017-01-27] MEDS: ASPIRIN 81 MG TAB.CHEW PO SCH (08:26)
[2017-01-27] MEDS: MULTIVITAMIN with MINERAL TABLET. PO SCH (08:26)
[2017-01-27] MEDS: CYANOCOBALAMIN (VITAMIN B-12) 1,000 MCG TABLET. PO SCH (08:26)
[2017-01-27] MEDS: PSYLLIUM SEED (WITH SUGAR) PACKET. PO SCH ×2 (08:26→15:45)
[2017-01-27] MEDS: CALCIUM CARB/VIT D3 500/200 TABLET PO SCH ×2 (08:26→17:11)
[2017-01-27] MEDS: RALOXIFENE 60 MG TABLET. PO SCH (08:26)
[2017-01-27] MEDS: CHOLECALCIFEROL (VITAMIN D3) 1,000 UNIT TABLET PO SCH (08:26)
[2017-01-27] MEDS: FOLIC ACID 1 MG TABLET PO SCH (08:26)
[2017-01-27] MEDS: NICOTINE 7MG PATCH. TD SCH (08:27)
[2017-01-27] MEDS: busPIRone 10 MG TABLET. PO SCH ×2 (09:11→19:51)
[2017-01-27] MEDS: BUDESONIDE 0.5 MG/2 ML NEBU NEB SCH ×2 (09:31→20:16)
[2017-01-27] MEDS ORDERED: FLU VACC QS2017-18 (36MOS+)/PF 0.5 ML SYRINGE. VAX IM ONE (12:30)
[2017-01-27 16:18] VITALS: BP 110/76
--- NOTE | 2017-01-27 17:50 | EKG ---
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
[2017-01-27] MEDS: COLESTIPOL HCL 1 GM TABLET PO SCH (19:51)
--- NOTE | 2017-01-27 20:13 | PN ---
DATE: 01/26/2017 This late entry 01/26/2017 covers elements not covered in my initial note 01/26/2017. I met with the patient evening of 01/26/2017. Overall, the patient remains anxious, somewhat helpless, med compliant, still threatening over another demented patient coming into her room. She is quite anxious, repetitive about wanting to call her . I have connected her on the cordless telephone. She is very appreciative and then anxious, repetitive about wanting to write the home telephone number down because otherwise she might forget it. I did write it down her, hence she seemed quite relieved. REVIEW OF SYSTEMS: No CV, , pulmonary, eye, ENT system symptoms on review. MENTAL STATUS EXAM: Oriented to herself and situation. Speech is coherent, abstraction fair, computation impaired, language function intact, attention span short. Mood and affect still somewhat anxious, obsessive. LABORATORY DATA: Reviewed. IMPRESSION: Unchanged from initial note. PLAN: Continue Luvox, BuSpar and Xanax. Remeron, Aricept, Namenda, Zyprexa have been discontinued due to QTC prolongation. We are doing daily EKGs for QTC. We will order Luvox if QTC is greater than 550 milliseconds. Reviewed drug interactions. Risk/benefit ratio favors no further change. KAYLAN RAGLAND MD DR: NABIL/sasha JOB#: [id number] / [id number]
--- NOTE | 2017-01-27 22:41 | PDOC ---
Exam Lencho Demential Exam: Lencho Note: Please also refer to the separate dictated note~for this date of service dictated separately.~Patient seen individually. Discussed the patient with Nursing staff reviewed the chart.~Reviewed interim history and current functioning. Reviewed vital signs,~Labs/ Radiology~and current medications noted below. Continue current treatment with the changes noted in the dictated addendum note Assessment: Vital Signs: Vital Signs Date Time Temp Pulse Resp B/P (MAP) Pulse Ox O2 Delivery O2 Flow Rate FiO2 01/27/17 20:19 Room Air 01/27/17 20:15 98 01/27/17 16:18 98.0 77 18 110/76 (87) I&O Intake and Output 01/28/17 07:00 Intake Total 1420 ml Balance 1420 ml Intake Oral 1420 ml # Voids 1 Current Medications: Meds: Current Medications Acetaminophen (Tylenol) 650 mg PRN Q6HRS PRN PO PAIN Last administered on 08:58; Start 01/13/17 at 18:15 Albuterol Sulfate (Ventolin) 2.5 mg QID NEB Last administered on 01/27/17 20: 16; Start 01/13/17 at 21:00 Aspirin (Children'S Aspirin) 81 mg DAILY PO Last administered on 01/27/17 08: 26; Start 01/14/17 at 09:00 Budesonide (Pulmicort) 0.25 mg BID NEB Last administered on 01/27/17 20:16; Start 01/13/17 at 21:00 Vitamin D (Vitamin D3) 2,000 unit DAILY PO Last administered on 01/27/17 08:26 ; Start 01/14/17 at 09:00 Colestipol HCl (Colestid) 1 gm HS PO Last administered on 01/27/17 19:51; Start 01/13/17 at 21:00 Cyanocobalamin (Vitamin B-12) 1,000 mcg DAILY PO Last administered on 08:26; Start 01/14/17 at 09:00 Dicyclomine HCl (Bentyl) 20 mg QID PO Last administered on 01/27/17 19:51; Start 01/13/17 at 21:00 Donepezil HCl (Aricept) 10 mg DAILY PO Last administered on 01/22/17 08:34; Start 01/14/17 at 09:00; Stop 01/23/17 at 08:58; Status DC Fluvoxamine Maleate (Luvox) 25 mg HS PO Last administered on 01/15/17 20:16; Start 01/13/17 at 21:00; Stop 01/16/17 at 18:04; Status DC Folic Acid (Folic Acid) 1 mg DAILY PO Last administered on 01/27/17 08:26; Start 01/14/17 at 09:00 Memantine (Namenda) 10 mg BID PO Last administered on 01/22/17 19:42; Start at 21:00; Stop 01/23/17 at 08:58; Status DC Multi-Ingredient Ointment (Analgesic [place]) 1 winston PRN QID TP ; Start 01/13/17 at 18:15 Nicotine (Nicoderm Cq 7mg) 1 patch DAILY TD Last administered on 01/27/17 08: 27; Start 01/14/17 at 09:00 Psyllium Hydrophilic Mucilloid (Metamucil) 1 pkt BID94 PO Last administered on 01/27/17 15:45; Start 01/14/17 at 09:00 Pyridoxine HCl (Vitamin B-6) 100 mg DAILY PO Last administered on 01/27/17 08: 25; Start 01/14/17 at 09:00 Raloxifene HCl (Evista) 60 mg DAILY PO Last administered on 01/27/17 08:26; Start 01/14/17 at 09:00 Alprazolam (Xanax) 1 mg QID PO Last administered on 01/27/17 19:53; Start 02/19 at 21:00 Buspirone HCl (Buspar) 30 mg BID PO Last administered on 01/15/17 09:47; Start 01/13/17 at 21:00; Stop 01/15/17 at 17:02; Status DC Calcium/Vitamin D (Oscal D 500mg/ 200uts) 1 tab BIDWMEALS PO Last administered on 01/27/17 17:11; Start 01/14/17 at 08:00 Mirtazapine (Remeron) 45 mg HS PO Last administered on 01/22/17 19:42; Start 01/13/17 at 21:00; Stop 01/23/17 at 08:58; Status DC Multivitamins/ Calcium (Thera-M Plus) 1 tab DAILY PO Last administered on 08:26; Start 01/14/17 at 09:00 Buspirone HCl (Buspar) 30 mg STK-MED ONCE .ROUTE ; Start 01/13/17 at 21:00; Stop 01/14/17 at 15:55; Status DC Buspirone HCl (Buspar) 30 mg STK-MED ONCE .ROUTE ; Start 01/14/17 at 09:00; Stop 01/14/17 at 15:55; Status DC Buspirone HCl (Buspar) 20 mg BID PO Last administered on 01/27/17 19:51; Start 01/15/17 at 21:00 Fluvoxamine Maleate (Luvox) 50 mg HS PO Last administered on 01/17/17 19:40; Start 01/16/17 at 21:00; Stop 01/18/17 at 20:03; Status DC Fluvoxamine Maleate (Luvox) 75 mg HS PO Last administered on 01/24/17 19:40; Start 01/18/17 at 21:00; Stop 01/25/17 at 18:58; Status DC Olanzapine (ZyPREXA ZYDIS) 1.25 mg PRN Q2HR PRN PO anxiety; Start 01/22/17 at 18:45; Stop 01/23/17 at 08:58; Status DC Fluvoxamine Maleate (Luvox) 100 mg HS PO Last administered on 01/27/17 19:51; Start 01/25/17 at 21:00 Influenza Virus Vaccine Quadrival (Fluarix Quad [id number] Syringe) 0.5 ml ONCE ONCE VAX IM Last administered on 01/27/17 12:44; Start 01/27/17 at 12:30; Stop 01/27/17 at 12:31; Status DC Active Scripts Active Reported Albuterol Sulfate Neb Soln (Albuterol Sulfate) 2.5 Mg/3 Ml Vial.neb 2.5 Mg NEB QID Fluvoxamine Maleate 25 Mg Tablet 25 Mg PO HS Metamucil Packet (Psyllium Husk (with Sugar)) 3.4 Gm Powd.pack 1 Packet PO BID94 NICODERM CQ 7mg (Nicotine) 1 Each Patch.td24 1 Patch TD DAILY Vitamin B-12 (Cyanocobalamin (Vitamin B-12)) 1,000 Mcg Tablet 1 Tab PO DAILY Analgesic [place] (Methyl Salicylate/Menthol) 28 Gm Oint...g. 1 Gm TP PRN QID Budesonide 0.25 Mg/2 Ml Ampul.neb 1 Vial NEB BID Tylenol (Acetaminophen) 325 Mg Tablet 650 Mg PO PRN Q6HRS PRN Folic Acid 1 Mg Tablet 1 Mg PO DAILY Colestipol Hcl 1 Gm Tablet 1 Gm PO HS Multivitamins (Multivitamin) 1 Each Tablet 1 Tab PO DAILY Aspirin 81 Mg Tab.chew 81 Mg PO DAILY Vitamin D3 (Cholecalciferol (Vitamin D3)) 1,000 Unit Tablet 2,000 Unit PO DAILY Vitamin B-6 (Pyridoxine Hcl) 100 Mg Tablet 100 Mg PO DAILY Caltrate 600 + D Tablet (Calcium Carbonate/Vitamin D3) 1 Each Tablet 1 Tab PO BIDWMEALS Evista (Raloxifene Hcl) 60 Mg Tablet 60 Mg PO DAILY Donepezil Hcl 10 Mg Tablet 10 Mg PO DAILY Namenda (Memantine Hcl) 10 Mg Tablet 10 Mg PO BID Alprazolam 1 Mg Tablet 1 Mg PO QID Dicyclomine Hcl 20 Mg Tablet 20 Mg PO QID Buspirone Hcl 30 Mg Tablet 30 Mg PO BID Mirtazapine 45 Mg Tablet 45 Mg PO HS Diagnosis: Problems: (1) Anxiety disorder (2) Obsessive compulsive disorder (3) Psychosis, atypical (4) Major depressive disorder, recurrent episode KAYLAN RAGLAND MD Jan 27, 2017 22:41
[2017-01-28] MEDS: ALBUTEROL SULFATE 2.5 MG/3 ML NEBU. NEB SCH ×4 (05:36→20:16)
[2017-01-28 06:48] VITALS: BP 118/86
[2017-01-28] MEDS: CYANOCOBALAMIN (VITAMIN B-12) 1,000 MCG TABLET. PO SCH (08:11)
[2017-01-28] MEDS: MULTIVITAMIN with MINERAL TABLET. PO SCH (08:11)
[2017-01-28] MEDS: busPIRone 10 MG TABLET. PO SCH ×2 (08:11→19:35)
[2017-01-28] MEDS: ASPIRIN 81 MG TAB.CHEW PO SCH (08:11)
[2017-01-28] MEDS: FOLIC ACID 1 MG TABLET PO SCH (08:11)
[2017-01-28] MEDS: CHOLECALCIFEROL (VITAMIN D3) 1,000 UNIT TABLET PO SCH (08:11)
[2017-01-28] MEDS: RALOXIFENE 60 MG TABLET. PO SCH (08:11)
[2017-01-28] MEDS: CALCIUM CARB/VIT D3 500/200 TABLET PO SCH ×2 (08:11→16:39)
[2017-01-28] MEDS: NICOTINE 7MG PATCH. TD SCH (08:12)
[2017-01-28] MEDS: PSYLLIUM SEED (WITH SUGAR) PACKET. PO SCH ×2 (08:12→16:00)
[2017-01-28] MEDS: ALPRAZolam 0.5 MG TABLET PO SCH ×4 (08:12→19:36)
[2017-01-28] MEDS: DICYCLOMINE HCL 20 MG TABLET PO SCH ×4 (08:12→19:35)
[2017-01-28] MEDS: PYRIDOXINE 100 MG TABLET. PO SCH (08:14)
[2017-01-28] MEDS: BUDESONIDE 0.5 MG/2 ML NEBU NEB SCH ×2 (10:22→20:16)
[2017-01-28 16:23] VITALS: BP 117/55
--- NOTE | 2017-01-28 18:46 | EKG ---
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
[2017-01-28] MEDS: COLESTIPOL HCL 1 GM TABLET PO SCH (19:34)
--- NOTE | 2017-01-28 21:00 | PDOC ---
Exam Lencho Demential Exam: Lencho Note: Please also refer to the separate dictated note~for this date of service dictated separately.~Patient seen individually. Discussed the patient with Nursing staff reviewed the chart.~Reviewed interim history and current functioning. Reviewed vital signs,~Labs/ Radiology~and current medications noted below. Continue current treatment with the changes noted in the dictated addendum note Assessment: Vital Signs: Vital Signs Date Time Temp Pulse Resp B/P (MAP) Pulse Ox O2 Delivery O2 Flow Rate FiO2 01/28/17 20:17 97 Room Air 01/28/17 16:23 97.8 79 18 117/55 (75) I&O Intake and Output 01/29/17 07:00 Intake Total 1420 ml Balance 1420 ml Intake Oral 1420 ml # Bowel Movements 2 Current Medications: Meds: Current Medications Acetaminophen (Tylenol) 650 mg PRN Q6HRS PRN PO PAIN Last administered on 08:58; Start 01/13/17 at 18:15 Albuterol Sulfate (Ventolin) 2.5 mg QID NEB Last administered on 01/28/17 20: 16; Start 01/13/17 at 21:00 Aspirin (Children'S Aspirin) 81 mg DAILY PO Last administered on 01/28/17 08: 11; Start 01/14/17 at 09:00 Budesonide (Pulmicort) 0.25 mg BID NEB Last administered on 01/28/17 20:16; Start 01/13/17 at 21:00 Vitamin D (Vitamin D3) 2,000 unit DAILY PO Last administered on 01/28/17 08:11 ; Start 01/14/17 at 09:00 Colestipol HCl (Colestid) 1 gm HS PO Last administered on 01/28/17 19:34; Start 01/13/17 at 21:00 Cyanocobalamin (Vitamin B-12) 1,000 mcg DAILY PO Last administered on 08:11; Start 01/14/17 at 09:00 Dicyclomine HCl (Bentyl) 20 mg QID PO Last administered on 01/28/17 19:35; Start 01/13/17 at 21:00 Donepezil HCl (Aricept) 10 mg DAILY PO Last administered on 01/22/17 08:34; Start 01/14/17 at 09:00; Stop 01/23/17 at 08:58; Status DC Fluvoxamine Maleate (Luvox) 25 mg HS PO Last administered on 01/15/17 20:16; Start 01/13/17 at 21:00; Stop 01/16/17 at 18:04; Status DC Folic Acid (Folic Acid) 1 mg DAILY PO Last administered on 01/28/17 08:11; Start 01/14/17 at 09:00 Memantine (Namenda) 10 mg BID PO Last administered on 01/22/17 19:42; Start at 21:00; Stop 01/23/17 at 08:58; Status DC Multi-Ingredient Ointment (Analgesic [place]) 1 winston PRN QID TP ; Start 01/13/17 at 18:15 Nicotine (Nicoderm Cq 7mg) 1 patch DAILY TD Last administered on 01/28/17 08: 12; Start 01/14/17 at 09:00 Psyllium Hydrophilic Mucilloid (Metamucil) 1 pkt BID94 PO Last administered on 01/28/17 08:12; Start 01/14/17 at 09:00 Pyridoxine HCl (Vitamin B-6) 100 mg DAILY PO Last administered on 01/28/17 08: 14; Start 01/14/17 at 09:00 Raloxifene HCl (Evista) 60 mg DAILY PO Last administered on 01/28/17 08:11; Start 01/14/17 at 09:00 Alprazolam (Xanax) 1 mg QID PO Last administered on 01/28/17 19:36; Start 02/19 at 21:00 Buspirone HCl (Buspar) 30 mg BID PO Last administered on 01/15/17 09:47; Start 01/13/17 at 21:00; Stop 01/15/17 at 17:02; Status DC Calcium/Vitamin D (Oscal D 500mg/ 200uts) 1 tab BIDWMEALS PO Last administered on 01/28/17 16:39; Start 01/14/17 at 08:00 Mirtazapine (Remeron) 45 mg HS PO Last administered on 01/22/17 19:42; Start 01/13/17 at 21:00; Stop 01/23/17 at 08:58; Status DC Multivitamins/ Calcium (Thera-M Plus) 1 tab DAILY PO Last administered on 08:11; Start 01/14/17 at 09:00 Buspirone HCl (Buspar) 30 mg STK-MED ONCE .ROUTE ; Start 01/13/17 at 21:00; Stop 01/14/17 at 15:55; Status DC Buspirone HCl (Buspar) 30 mg STK-MED ONCE .ROUTE ; Start 01/14/17 at 09:00; Stop 01/14/17 at 15:55; Status DC Buspirone HCl (Buspar) 20 mg BID PO Last administered on 01/28/17 19:35; Start 01/15/17 at 21:00 Fluvoxamine Maleate (Luvox) 50 mg HS PO Last administered on 01/17/17 19:40; Start 01/16/17 at 21:00; Stop 01/18/17 at 20:03; Status DC Fluvoxamine Maleate (Luvox) 75 mg HS PO Last administered on 01/24/17 19:40; Start 01/18/17 at 21:00; Stop 01/25/17 at 18:58; Status DC Olanzapine (ZyPREXA ZYDIS) 1.25 mg PRN Q2HR PRN PO anxiety; Start 01/22/17 at 18:45; Stop 01/23/17 at 08:58; Status DC Fluvoxamine Maleate (Luvox) 100 mg HS PO Last administered on 01/28/17 19:35; Start 01/25/17 at 21:00 Influenza Virus Vaccine Quadrival (Fluarix Quad [id number] Syringe) 0.5 ml ONCE ONCE VAX IM Last administered on 01/27/17 12:44; Start 01/27/17 at 12:30; Stop 01/27/17 at 12:31; Status DC Active Scripts Active Reported Albuterol Sulfate Neb Soln (Albuterol Sulfate) 2.5 Mg/3 Ml Vial.neb 2.5 Mg NEB QID Fluvoxamine Maleate 25 Mg Tablet 25 Mg PO HS Metamucil Packet (Psyllium Husk (with Sugar)) 3.4 Gm Powd.pack 1 Packet PO BID94 NICODERM CQ 7mg (Nicotine) 1 Each Patch.td24 1 Patch TD DAILY Vitamin B-12 (Cyanocobalamin (Vitamin B-12)) 1,000 Mcg Tablet 1 Tab PO DAILY Analgesic [place] (Methyl Salicylate/Menthol) 28 Gm Oint...g. 1 Gm TP PRN QID Budesonide 0.25 Mg/2 Ml Ampul.neb 1 Vial NEB BID Tylenol (Acetaminophen) 325 Mg Tablet 650 Mg PO PRN Q6HRS PRN Folic Acid 1 Mg Tablet 1 Mg PO DAILY Colestipol Hcl 1 Gm Tablet 1 Gm PO HS Multivitamins (Multivitamin) 1 Each Tablet 1 Tab PO DAILY Aspirin 81 Mg Tab.chew 81 Mg PO DAILY Vitamin D3 (Cholecalciferol (Vitamin D3)) 1,000 Unit Tablet 2,000 Unit PO DAILY Vitamin B-6 (Pyridoxine Hcl) 100 Mg Tablet 100 Mg PO DAILY Caltrate 600 + D Tablet (Calcium Carbonate/Vitamin D3) 1 Each Tablet 1 Tab PO BIDWMEALS Evista (Raloxifene Hcl) 60 Mg Tablet 60 Mg PO DAILY Donepezil Hcl 10 Mg Tablet 10 Mg PO DAILY Namenda (Memantine Hcl) 10 Mg Tablet 10 Mg PO BID Alprazolam 1 Mg Tablet 1 Mg PO QID Dicyclomine Hcl 20 Mg Tablet 20 Mg PO QID Buspirone Hcl 30 Mg Tablet 30 Mg PO BID Mirtazapine 45 Mg Tablet 45 Mg PO HS Diagnosis: Problems: (1) Anxiety disorder (2) Obsessive compulsive disorder (3) Psychosis, atypical (4) Major depressive disorder, recurrent episode KAYLAN RAGLAND MD Jan 28, 2017 21:00
[2017-01-29] MEDS ORDERED: MULT1TAB90 PO (00:33)
[2017-01-29] MEDS ORDERED: BUSP10TA PO (00:34)
[2017-01-29] MEDS ORDERED: FLUV100T2 PO (00:35)
[2017-01-29] MEDS: ALBUTEROL SULFATE 2.5 MG/3 ML NEBU. NEB SCH ×2 (05:59→09:12)
[2017-01-29 06:18] VITALS: BP 115/58
[2017-01-29] MEDS: busPIRone 10 MG TABLET. PO SCH (08:29)
[2017-01-29] MEDS: DICYCLOMINE HCL 20 MG TABLET PO SCH (08:29)
[2017-01-29] MEDS: CALCIUM CARB/VIT D3 500/200 TABLET PO SCH (08:29)
[2017-01-29] MEDS: CYANOCOBALAMIN (VITAMIN B-12) 1,000 MCG TABLET. PO SCH (08:29)
[2017-01-29] MEDS: ALPRAZolam 0.5 MG TABLET PO SCH (08:30)
[2017-01-29] MEDS: PSYLLIUM SEED (WITH SUGAR) PACKET. PO SCH (08:30)
[2017-01-29] MEDS: RALOXIFENE 60 MG TABLET. PO SCH (08:30)
[2017-01-29] MEDS: CHOLECALCIFEROL (VITAMIN D3) 1,000 UNIT TABLET PO SCH (08:30)
[2017-01-29] MEDS: MULTIVITAMIN with MINERAL TABLET. PO SCH (08:30)
[2017-01-29] MEDS: ASPIRIN 81 MG TAB.CHEW PO SCH (08:30)
[2017-01-29] MEDS: FOLIC ACID 1 MG TABLET PO SCH (08:30)
[2017-01-29] MEDS: NICOTINE 7MG PATCH. TD SCH (08:31)
[2017-01-29] MEDS: PYRIDOXINE 100 MG TABLET. PO SCH (08:31)
--- NOTE | 2017-01-29 08:42 | PN ---
DATE: 01/27/2017 PSYCHIATRIC PROGRESS NOTE This late entry 01/27/2017 covers elements not covered in my initial note of 01/27/2017. I met with the patient the evening of 01/27/2017. QTC on the EKG is 447. She slept 7 hours, had a flu shot. She is still somewhat obsessive, fixated on having her water jug with her, tends to drink excessive amounts of water per nursing staff and they are restricting this. REVIEW OF SYSTEMS: No CV, , pulmonary, eye, ENT system symptoms on review. MENTAL STATUS EXAM: Oriented reasonably. Speech is coherent, anxious, repeatedly calling me after I had seen her on rounds wanting to make sure, I told the nursing staff to give her the jug of water. Abstraction fair, computation somewhat impaired. Language function intact. Attention span short. Mood and affect is somewhat anxious, labile at times, but showing some improvement. LABORATORY DATA: Reviewed. IMPRESSION: Unchanged from my initial note. PLAN: Continue psychotropics mentioned in my initial note including Luvox 100 mg at bedtime. I prefer not to increase it just yet depending on her progress. Reviewed drug contractions, risk/benefit ratio favors no further change. MAN Dane RAGLAND MD DR: NABIL/sasha JOB#: [id number] / [id number]
[2017-01-29] MEDS: BUDESONIDE 0.5 MG/2 ML NEBU NEB SCH (09:00)
--- NOTE | 2017-01-29 10:49 | EKG ---
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
--- NOTE | 2017-01-30 20:24 | PN ---
DATE: 01/28/2017 This is a late entry for 01/28/2017 and covers elements not covered in my initial note of 01/28/217. I met with the patient the evening of 01/28/2017. The patient is still somewhat obsessive but less so than before. She is fixated on her water jug and I processed this with her. QTC on the EKG is 482. REVIEW OF SYSTEMS: No CV, , pulmonary, eye, ENT system symptoms on review. MENTAL STATUS EXAM: Reasonably oriented. Speech is coherent, abstraction fair, computation impaired, language function intact. Mood and affect somewhat anxious, obsessive, but better than before. LABORATORY DATA: Reviewed. IMPRESSION: Unchanged from initial note. PLAN: Continue current psychotropics with a possible repeat EKG on 01/29/2017 and then transition home to outpatient treatment on 01/29/2017. Reviewed drug interactions, risk/benefit ratio favors no further change. KAYLAN RAGLAND MD DR: NABIL/sasha JOB#: [id number] / [id number]
--- NOTE | 2017-01-30 22:59 | DS ---
DATE OF DISCHARGE: 01/29/2017 This late entry for 01/30/2017 covers elements not covered in my initial note of 01/30/2017. REASON FOR ADMISSION: Please refer to the admission history for details. Briefly, the patient is a 71-year-old female who was referred by her primary care physician from home with marked symptoms of obsessive compulsive disorder, questionable psychotic symptoms, worsening depression, mild cognitive impairment. She was transferred for this admission post medical stabilization in the ICU. SIGNIFICANT FINDINGS AND CLINICAL COURSE: Following admission, the patient was seen daily individually by myself, followed medically by Dr. Langford/Dr Schwarz. The patient had been treated by Dr. Leblanc, Psychiatry, outpatient and we did review those records for OCD and past treatment failures. Given the marked symptoms of obsessive compulsive disorder, ruminative thinking, inflexibility, changes were made in her psychotropics and she seemed to be responding to a combination of Luvox 100 mg p.o. at bedtime., BuSpar was reduced from 60 mg a day to 20 mg b.i.d. and she is on Xanax 1 mg 4 times a day with the future plan to gradually taper this as the Luvox was more effective for OCD symptoms. Her corrected QT interval on the EKG was somewhat elevated and Aricept, Namenda, Remeron, amongst other psychotropics were discontinued as a consequence of this. Cardiology consult was completed. On their recommendations, daily EKGs for QTCs were done as we adjusted the Luvox, and she tolerated this well with the QTC at discharge date at 472. Prior to discharge, 01/29/2017, she was still somewhat obsessive about her jug of water and wanting to drink certain amount of fluids, which were best limited for her. REVIEW OF SYSTEMS: No CV, , pulmonary, eye, ENT system symptoms on review. MENTAL STATUS EXAMINATION: Reasonably oriented, speech coherent, abstraction fair, computation impaired, language function intact. Mood and affect was improved, less obsessive, but they may need to be adjustment of Luvox further as an outpatient. No suicidal or homicidal ideation at discharge. CONDITION AT DISCHARGE: Improved. FINAL DIAGNOSIS: Obsessive compulsive disorder, anxiety disorder, unspecified; cognitive disorder, unspecified. Rest diagnoses unchanged from admission. DISCHARGE MEDICATIONS: Please refer to the MRAD. Family was arranging outpatient psychiatric followup and medical followup with her primary care physician. Time for discharge day management greater than 30 minutes. MAN Dane RAGLAND MD DR: NABIL/sasha JOB#: [id number] / [id number]
== END 2017-01-29 10:00 | disposition home or self-care (01) | DRG 882 ==
LOC: GEROPSY 16:00
PROVIDERS: ADMIT Psychiatry & Neurology Psychiatry; ATTEND Psychiatry & Neurology Psychiatry
DX: F42.9 Obsessive-compulsive disorder, unspecified (principal); F33.3 Major depressive disorder, recurrent, severe with psychotic symptoms; N18.3 Chronic kidney disease, stage 3 (moderate); F06.1 Catatonic disorder due to known physiological condition; G40.909 Epilepsy, unspecified, not intractable, without status epilepticus; I45.81 Long QT syndrome; F33.9 Major depressive disorder, recurrent, unspecified; E87.6 Hypokalemia; F17.210 Nicotine dependence, cigarettes, uncomplicated; F41.9 Anxiety disorder, unspecified; I34.1 Nonrheumatic mitral (valve) prolapse; K58.9 Irritable bowel syndrome, unspecified; M19.90 Unspecified osteoarthritis, unspecified site; M81.0 Age-related osteoporosis without current pathological fracture; I44.0 Atrioventricular block, first degree; Z88.0 Allergy status to penicillin; Z88.2 Allergy status to sulfonamides; Z88.8 Allergy status to other drugs, medicaments and biological substances
CPT/HCPCS: 36415; 80048; 80053; 81001; 83735; 85025; 87086; 90686; 93005; 94640; 99407; J7613; J7626; 97110; 97530; 97535

== ENCOUNTER 2017-11-28 11:18 | Inpatient (IN) | payer MEDICARE ==
[~2017-11-28] VITALS: Ht 162.6 cm; Wt 55.1 kg
[~2017-11-28 11:18] MED LIST changes: +ALBU2.5V5 NEB; +BUSP10TA PO; +CYAN10005 PO; +FLUV100T2 PO; +FLUV25TA PO; +MULT1TAB90 PO; +NICO1PAT27 TD; +PSYL1PAC7 PO
[2017-11-28 12:16] LABS: BASO # 0.1 x10^3/uL (0.0-0.2); BASO % 1 % (0-3); EOS # 0.1 x10^3/uL (0.0-0.7); EOS % 1 % (0-3); HEMATOCRIT 41.1 % (36.0-47.0); LYMPH # 1.7 x10^3/uL (1.0-4.8); LYMPH % 21 % (24-48); MEAN CORPUSCULAR HEMOGLOBIN 32 pg (25-35); MEAN CORPUSCULAR HGB CONC 34 g/dL (31-37); MEAN CORPUSCULAR VOLUME 94 fL (79-100); MONO # 0.8 x10^3/uL (0.0-1.1); MONO % 10 % (0-9); NEUT # 5.4 x10^3uL (1.8-7.7); NEUT % 67 % (31-73); PLATELET COUNT 220 x10^3/uL (140-400); RED BLOOD COUNT 4.38 x10^6/uL (3.50-5.40); RED CELL DISTRIBUTION WIDTH 12.9 % (11.5-14.5)
[2017-11-28 12:26] LABS: BACTERIA,URINE MANY /HPF (0-FEW); BILIRUBIN,URINE NEG (NEG); CLARITY,URINE CLOUDY; COLOR,URINE YELLOW; GLUCOSE,URINE NEG (NEG); NITRITE,URINE NEG (NEG); SQUAMOUS EPITHELIAL CELL,UR FEW /LPF; UROBILINOGEN,URINE 0.2 mg/dL (0.2 mg/dL); WBC,URINE 20-40 /HPF (0-4)
[2017-11-28 12:31] LABS: ALBUMIN 3.4 g/dL (3.4-5.0); ALBUMIN/GLOBULIN RATIO 1.1 (1.0-1.7); CALCIUM 9.5 mg/dL (8.5-10.1); CREATININE 1.1 mg/dL (0.6-1.0); GFR 48.8; POTASSIUM 3.9 mmol/L (3.5-5.1); TOTAL BILIRUBIN 0.3 mg/dL (0.2-1.0); TOTAL PROTEIN 6.5 g/dL (6.4-8.2)
--- NOTE | 2017-11-28 12:48 | EKG ---
[address] [address] Test Date: 2017-11-28 Test Time: 11:45:43 Pat Name: AMOS CASTRO Department: Room: Gender: F Die Barber: GAIL : 1945 Requested By: KYM DELAROSA Order Number: [id number] Reading MD: Measurements Intervals [place] Rate: 76 P: 55 OR: 140 QRS: 45 QRSD: 82 T: 38 QT: 400 QTc: 455 Interpretive Statements SINUS RHYTHM LEFT ATRIAL ABNORMALITY INCOMPLETE RIGHT BUNDLE BRANCH BLOCK QRS(T) CONTOUR ABNORMALITY CONSIDER ANTEROLATERAL MYOCARDIAL DAMAGE ABNORMAL ECG RI6.01 No previous ECG available for comparison
[2017-11-28] MEDS ORDERED: CIPROFLOXACIN HCL 500 MG TABLET PO ONE (13:00)
--- NOTE | 2017-11-28 13:04 | PHYS DOC ---
Past History Past Medical History: IBS, Seizure, Other Past Surgical History: No Surgical History Alcohol Use: None Drug Use: None Adult General Chief Complaint Chief Complaint: PSYCH EVALUATION [facility] HPI 71-year-old female patient resident of senior home brought in by her because of increasing of her anxiety and agitation for medical clearance for psych assessment. Patient is alert and oriented and denied suicidal and homicidal ideation and other symptom. Review of Systems Review of Systems Constitutional: Denies fever or chills [] Eyes: Denies change in visual acuity, redness, or eye pain [] HENT: Denies nasal congestion or sore throat [] Respiratory: Denies cough or shortness of breath [] Cardiovascular: No additional information not addressed in HPI [] GI: Denies abdominal pain, nausea, vomiting, bloody stools or diarrhea [] : Denies dysuria or hematuria [] Musculoskeletal: Denies back pain or joint pain [] Integument: Denies rash or skin lesions [] Neurologic: Denies headache, focal weakness or sensory changes [] Endocrine: Denies polyuria or polydipsia [] All other systems were reviewed and found to be within normal limits, except as documented in this note. Allergies Allergies Allergies Coded Allergies Type Severity Reaction Last Updated Verified Penicillins Allergy Intermediate Unknown 01/14/17 Yes Sulfa (Sulfonamide Antibiotics) Allergy Intermediate Unknown 01/14/17 Yes fexofenadine Allergy Intermediate Unknown 01/14/17 Yes minocycline Allergy Intermediate Unknown 01/14/17 Yes Physical Exam Physical Exam Constitutional: Well nourished, no acute distress, non-toxic appearance. [] HENT: Normocephalic, atraumatic,oropharynx moist, no oral exudates, nose normal. [] Eyes: PERRLA, EOMI, conjunctiva normal, no discharge. [] Neck: Normal range of motion, no tenderness, supple, no stridor. [] Cardiovascular:Heart rate regular rhythm, no murmur [] Lungs & Thorax: Bilateral breath sounds clear to auscultation [] Abdomen: Bowel sounds normal, soft, no tenderness, no masses, no pulsatile masses. [] Skin: Warm, dry, no erythema, no rash. [] Back: No tenderness, no CVA tenderness. [] Extremities: No tenderness, no cyanosis, no clubbing, ROM intact, no edema. [] Neurologic: Alert and oriented X 3, normal motor function, normal sensory function, no focal deficits noted. [] Psychologic: Affect anxious, judgement normal, mood normal. [] Current Patient Data Vital Signs Vital Signs Date Time Temp Pulse Resp B/P (MAP) Pulse Ox O2 Delivery O2 Flow Rate FiO2 11/28/17 11:46 97.4 84 22 97 Room Air Lab Results Laboratory Tests Test 11/28/17 11:30 11/28/17 12:00 Urine Collection Type Unknown Urine Color Yellow Urine Clarity Cloudy Urine pH 7.0 Urine Specific [place] 1.020 Urine Protein Neg (NEG-TRACE) Urine Glucose (UA) Neg mg/dL (NEG) Urine Ketones (Stick) Neg mg/dL (NEG) Urine Blood Neg (NEG) Urine Nitrite Neg (NEG) Urine Bilirubin Neg (NEG) Urine Urobilinogen Dipstick 0.2 mg/dL (0.2 mg/dL) Urine Leukocyte Esterase Small (NEG) Urine RBC 3-5 /HPF (0-2) Urine WBC 20-40 /HPF (0-4) Urine Squamous Epithelial Cells Few /LPF Urine Bacteria Many /HPF (0-FEW) White Blood Count 8.0 x10^3/uL (4.0-11.0) Red Blood Count 4.38 x10^6/uL (3.50-5.40) Hemoglobin 14.0 g/dL (12.0-15.5) Hematocrit 41.1 % (36.0-47.0) Mean Corpuscular Volume 94 fL (79-100) Mean Corpuscular Hemoglobin 32 pg (25-35) Mean Corpuscular Hemoglobin Concent 34 g/dL (31-37) Red Cell Distribution Width 12.9 % (11.5-14.5) Platelet Count 220 x10^3/uL (140-400) Neutrophils (%) (Auto) 67 % (31-73) Lymphocytes (%) (Auto) 21 % (24-48) L Monocytes (%) (Auto) 10 % (0-9) H Eosinophils (%) (Auto) 1 % (0-3) Basophils (%) (Auto) 1 % (0-3) Neutrophils # (Auto) 5.4 x10^3uL (1.8-7.7) Lymphocytes # (Auto) 1.7 x10^3/uL (1.0-4.8) Monocytes # (Auto) 0.8 x10^3/uL (0.0-1.1) Eosinophils # (Auto) 0.1 x10^3/uL (0.0-0.7) Basophils # (Auto) 0.1 x10^3/uL (0.0-0.2) Sodium Level 139 mmol/L (136-145) Potassium Level 3.9 mmol/L (3.5-5.1) Chloride Level 105 mmol/L (98-107) Carbon Dioxide Level 27 mmol/L (21-32) Anion Gap 7 (6-14) Blood Urea Nitrogen 11 mg/dL (7-20) Creatinine 1.1 mg/dL (0.6-1.0) H Estimated GFR (Cockcroft-Gault) 48.8 BUN/Creatinine Ratio 10 (6-20) Glucose Level 95 mg/dL (70-99) Calcium Level 9.5 mg/dL (8.5-10.1) Magnesium Level 2.0 mg/dL (1.8-2.4) Total Bilirubin 0.3 mg/dL (0.2-1.0) Aspartate Amino Transferase (AST) 28 U/L (15-37) Alanine Aminotransferase (ALT) 35 U/L (14-59) Alkaline Phosphatase 73 U/L (46-116) Total Protein 6.5 g/dL (6.4-8.2) Albumin 3.4 g/dL (3.4-5.0) Albumin/Globulin Ratio 1.1 (1.0-1.7) EKG EKG EKG interpreted by me. EKG at the end 45 showed normal sinus rhythm at rate of 76, left atrial abnormalities, incomplete bundle branch block, poor R-wave progress in anterolateral lateral leads,no acute ST and T-wave abnormalities Radiology/Procedures Radiology/Procedures [] Course & Med Decision Making Course & Med Decision Making Pertinent Labs reviewed. (See chart for details) Patient presented to ER for medical clearance for psych placement. Patient had unremarkable physical exam and labs except for UTI and treated with Cipro and admitted to psych unit. Dragon Disclaimer Dragon Disclaimer This electronic medical record was generated, in whole or in part, using a voice recognition dictation system. Departure Departure: Impression: Primary Impression: Medical clearance for psychiatric admission Additional Impressions: Urinary tract infection Anxiety disorder Disposition: ADMITTED INPATIENT (at 1250) Admitting Physician: Other (Dr Renteria) Condition: STABLE Referrals: KHADIJAH VIDALES I (PCP) Problem Qualifiers KYM DELAROSA MD Nov 28, 2017 13:04
[2017-11-28] MEDS ORDERED: MAGNESIUM HYDROXIDE 2,400 MG/30 ML ORAL.SUSP. PO PRN (14:45)
[2017-11-28] MEDS ORDERED: MAG HYDROX/AL HYDROX/SIMETH 30 ML ORAL.SUSP PO PRN (14:45)
[2017-11-28] MEDS ORDERED: METHYL SALICYLATE/MENTHOL TOPICAL OINTMENT 29GM TUBE. TP PRN (14:45)
[2017-11-28] MEDS ORDERED: ACETAMINOPHEN 325 MG TABLET PO PRN (14:45)
[2017-11-28] MEDS ORDERED: MOME110A IH (14:58)
[2017-11-28] MEDS ORDERED: DONE10TA61 PO (14:58)
[2017-11-28] MEDS ORDERED: ALBU18HF IH (14:58)
[2017-11-28] MEDS ORDERED: MIRT15TA PO (14:58)
[2017-11-28] MEDS ORDERED: ALBUTEROL SULFATE 8GM INHALER. IH PRN (15:00)
[2017-11-28] MEDS ORDERED: ALBUTEROL SULFATE 2.5 MG/3 ML NEBU. NEB PRN (15:45)
[2017-11-28 16:00] VITALS: BP 146/60
[2017-11-28] MEDS: DICYCLOMINE HCL 20 MG TABLET PO SCH ×2 (17:50→19:56)
[2017-11-28] MEDS: ALPRAZolam 0.5 MG TABLET PO SCH ×2 (17:50→19:57)
--- NOTE | 2017-11-28 18:26 | HP ---
ADMIT DATE: 11/28/2017 This note covers the elements not covered in my initial note, 11/28/2017. IDENTIFYING DATA: The patient is a 71-year-old female who is referred back to us by her outpatient psychiatrist, Dr. Merritt Lopez from her home on account of increased anxiety, confusion, difficulty walking with marked obsessive compulsive behaviors. She has had increasing difficulty in walking, appeared more confused and behaviors have been to a point where she has been unmanageable at home and has failed outpatient psychiatric interventions. She was last here with us in 01/2017, with similar symptoms, was stabilized for her OCD, returned home, and has been following with Dr. Lopez since then and doing reasonably well until the recent worsening over the past 4 days. She presented to the Emergency Room at [facility], found to be medically stable and then referred to us for inpatient psychiatric stabilization. Her UA was positive for UTI in the ER and 1 dose of Cipro was given at that time. CHIEF COMPLAINT: "Yes, I have had more confusion. Things have been worse. No, I do not know what the stressors, but my family does not visit me that much." The patient then seemed to remember me from the last visit and perhaps has a little more confusion as compared to how she was in 01/2017. HISTORY OF PRESENT ILLNESS: The patient has a history of increasing symptoms of depression, confusion, marked obsessiveness, and anxiety. She has had some sleep and appetite changes, appeared somewhat paranoid as well and more confused, especially for short term events. No clear history of bipolar disorder, suicidal or homicidal ideation. PAST PSYCHIATRIC HISTORY: As above. MEDICAL HISTORY: Probable urinary tract infection, osteoarthritis, left hip fracture 3 months ago, hypokalemia, seizure disorder, mitral valve prolapse, irritable bowel syndrome, history of multiple falls, and insomnia. ALLERGIES: PENICILLIN, SULFA, FEXOFENADINE, MINOCYCLINE. CODE STATUS: Full code. CURRENT PSYCHOTROPICS: BuSpar 20 mg twice a day, Xanax 1 mg 4 times a day, Luvox 150 mg twice a day, Aricept 10 mg daily, and Remeron 15 mg at bedtime. FAMILY HISTORY: Noncontributory. SOCIAL HISTORY: No alcohol, drug abuse, physical, sexual or elder abuse history is noted. She is not known to be a perpetrator. 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 REACTION TO HOSPITALIZATION: The patient accepting of it. ASSETS: Supportive family, stable living at home. MENTAL STATUS EXAM: The patient was seen individually evening of 11/28/2017, in her room. She is lying in bed, initially told me the year was 1942. When I pointed this out to her, she corrected it and said it was 1999, and then after thinking a moment, she said 2017. She knew the month was November. She was unaware of the date. She knew she was admitted to the unit shortly earlier in the day from my visit. Speech has some latency, coherent, often responses monosyllabic. Abstraction fair, computation impaired, language function intact. Short-term memory has some impairment. She is quite obsessive, ruminative, and many of her responses were believed, were made after she had obsessed about the question thought about it and there was a fair amount of latency of response as a consequence of this. No active suicidal or homicidal ideation. IMPRESSION: Major depressive disorder with psychotic features; obsessive compulsive disorder; anxiety disorder, unspecified; cognitive disorder, unspecified; urinary tract infection. Rest diagnoses as above. PLAN: Admit to Geropsychiatry Unit at [facility]. I will see the patient daily individually from a psychiatric standpoint, medical followup per Dr. Schwarz/Dr. Riggins. Continue current psychotropics, treat her urinary tract infection. We will assess once the urinary tract infection resolves. If psychiatric obsessive anxiety, questionable psychotic symptoms persist, we may add low-dose Risperdal or Seroquel to augment the antidepressant and for obsessive compulsive disorder symptoms. MAN Dane RAGLAND MD DR: NABIL/sasha JOB#: [id number] / [id number]
[2017-11-28] MEDS: DONEPEZIL HCL 10 MG TABLET PO SCH (19:58)
[2017-11-28] MEDS: MIRTAZAPINE 15 MG TABLET PO SCH (19:58)
[2017-11-28] MEDS: busPIRone 10 MG TABLET. PO SCH (19:58)
[2017-11-28] MEDS: BUDESONIDE 0.5 MG/2 ML NEBU NEB SCH (20:00)
--- NOTE | 2017-11-28 20:51 | PDOC ---
Exam Note: Lencho Note: Please also refer to the separate dictated note~for this date of service dictated separately.~Patient seen individually. Discussed the patient with Nursing staff reviewed the chart.~Reviewed interim history and current functioning. Reviewed vital signs,~Labs/ Radiology~and current medications noted below. Continue current treatment with the changes noted in the dictated addendum note Assessment: Vital Signs: Vital Signs Date Time Temp Pulse Resp B/P (MAP) Pulse Ox O2 Delivery O2 Flow Rate FiO2 11/28/17 16:00 98.6 68 20 146/60 (88) 97 11/28/17 13:05 Room Air Labs: Laboratory Tests Test 11/28/17 11:30 11/28/17 12:00 Urine Collection Type Unknown Urine Color Yellow Urine Clarity Cloudy Urine pH 7.0 Urine Specific [place] 1.020 Urine Protein Neg (NEG-TRACE) Urine Glucose (UA) Neg mg/dL (NEG) Urine Ketones (Stick) Neg mg/dL (NEG) Urine Blood Neg (NEG) Urine Nitrite Neg (NEG) Urine Bilirubin Neg (NEG) Urine Urobilinogen Dipstick 0.2 mg/dL (0.2 mg/dL) Urine Leukocyte Esterase Small (NEG) Urine RBC 3-5 /HPF (0-2) Urine WBC 20-40 /HPF (0-4) Urine Squamous Epithelial Cells Few /LPF Urine Bacteria Many /HPF (0-FEW) White Blood Count 8.0 x10^3/uL (4.0-11.0) Red Blood Count 4.38 x10^6/uL (3.50-5.40) Hemoglobin 14.0 g/dL (12.0-15.5) Hematocrit 41.1 % (36.0-47.0) Mean Corpuscular Volume 94 fL (79-100) Mean Corpuscular Hemoglobin 32 pg (25-35) Mean Corpuscular Hemoglobin Concent 34 g/dL (31-37) Red Cell Distribution Width 12.9 % (11.5-14.5) Platelet Count 220 x10^3/uL (140-400) Neutrophils (%) (Auto) 67 % (31-73) Lymphocytes (%) (Auto) 21 % (24-48) L Monocytes (%) (Auto) 10 % (0-9) H Eosinophils (%) (Auto) 1 % (0-3) Basophils (%) (Auto) 1 % (0-3) Neutrophils # (Auto) 5.4 x10^3uL (1.8-7.7) Lymphocytes # (Auto) 1.7 x10^3/uL (1.0-4.8) Monocytes # (Auto) 0.8 x10^3/uL (0.0-1.1) Eosinophils # (Auto) 0.1 x10^3/uL (0.0-0.7) Basophils # (Auto) 0.1 x10^3/uL (0.0-0.2) Sodium Level 139 mmol/L (136-145) Potassium Level 3.9 mmol/L (3.5-5.1) Chloride Level 105 mmol/L (98-107) Carbon Dioxide Level 27 mmol/L (21-32) Anion Gap 7 (6-14) Blood Urea Nitrogen 11 mg/dL (7-20) Creatinine 1.1 mg/dL (0.6-1.0) H Estimated GFR (Cockcroft-Gault) 48.8 BUN/Creatinine Ratio 10 (6-20) Glucose Level 95 mg/dL (70-99) Calcium Level 9.5 mg/dL (8.5-10.1) Magnesium Level 2.0 mg/dL (1.8-2.4) Total Bilirubin 0.3 mg/dL (0.2-1.0) Aspartate Amino Transferase (AST) 28 U/L (15-37) Alanine Aminotransferase (ALT) 35 U/L (14-59) Alkaline Phosphatase 73 U/L (46-116) Total Protein 6.5 g/dL (6.4-8.2) Albumin 3.4 g/dL (3.4-5.0) Albumin/Globulin Ratio 1.1 (1.0-1.7) Current Medications: Meds: Current Medications Ciprofloxacin (Cipro) 500 mg 1X ONCE PO Last administered on 11/28/17at 13:11; Start 11/28/17 at 13:00; Stop 11/28/17 at 13:08; Status DC Acetaminophen (Tylenol) 650 mg PRN Q6HRS PRN PO PAIN / TEMP; Start 11/28/17 at 14:45 Multi-Ingredient Ointment (Analgesic [place]) 1 shawn PRN QID PRN TP MUSCLE PAIN; Start 11/28/17 at 14:45 Al Hydroxide/Mg Hydroxide (Mylanta Plus Xs) 15 ml PRN AFTMEALHC PRN PO DYSPEPSIA; Start 11/28/17 at 14:45 Magnesium Hydroxide (Milk Of Magnesia) 2,400 mg PRN QHS PRN PO CONSTIPATION; Start 11/28/17 at 14:45 Alprazolam (Xanax) 1 mg QID PO Last administered on 11/28/17 19:57; Start at 17:00 Buspirone HCl (Buspar) 20 mg BID PO Last administered on 11/28/17 19:58; Start 11/28/17 at 21:00 Donepezil HCl (Aricept) 10 mg QHS PO Last administered on 11/28/17 19:58; Start 11/28/17 at 21:00 Fluvoxamine Maleate (Luvox) 150 mg BID PO Last administered on 11/28/17at 19:58 ; Start 11/28/17 at 21:00 Mirtazapine (Remeron) 15 mg QHS PO Last administered on 11/28/17at 19:58; Start 11/28/17 at 21:00 Albuterol Sulfate (Ventolin Hfa) 1 puff PRN Q4HRS PRN IH SHORTNESS OF BREATH; Start 11/28/17 at 15:00; Stop 11/28/17 at 15:47; Status DC Vitamin D (Vitamin D3) 2,000 unit DAILY PO ; Start 11/29/17 at 09:00 Cyanocobalamin (Vitamin B-12) 1,000 mcg DAILY PO ; Start 11/29/17 at 09:00 Multivitamins/ Calcium (Thera-M Plus) 1 tab DAILY PO ; Start 11/29/17 at 09:00 Aspirin (Children'S Aspirin) 81 mg DAILYWBKFT PO ; Start 11/29/17 at 08:00 Calcium/Vitamin D (Oscal D 500mg/ 200uts) 2 tab DAILY PO ; Start 11/29/17 at 09: 00 Dicyclomine HCl (Bentyl) 20 mg QID PO Last administered on 11/28/17at 19:56; Start 11/28/17 at 17:00 Folic Acid (Folic Acid) 1 mg DAILY PO ; Start 11/29/17 at 09:00 Non-Formulary Medication (Mometasone Furoate (Asmanex)) 110 mcg BID IH ; Start 11/28/17 at 21:00; Stop 11/28/17 at 21:00; Status DC Pyridoxine HCl (Vitamin B-6) 100 mg DAILY PO ; Start 11/29/17 at 09:00 Raloxifene HCl (Evista) 60 mg DAILY PO ; Start 11/29/17 at 09:00 Albuterol Sulfate (Ventolin) 2.5 mg PRN Q4HRS PRN NEB SHORTNESS OF BREATH; Start 11/28/17 at 15:45 Budesonide (Pulmicort) 0.5 mg RTBID NEB ; Start 11/28/17 at 20:00 Active Scripts Active Reported Ventolin Hfa Inhaler (Albuterol Sulfate) 18 Gm Hfa.aer.ad 1 Puff IH PRN Q4HRS PRN Asmanex (Mometasone Furoate) 110 Mcg Aer.pow.ba 110 Mcg IH BID Remeron (Mirtazapine) 15 Mg Tablet 1 Tab PO QHS Aricept (Donepezil Hcl) 10 Mg Tablet 1 Tab PO QHS Fluvoxamine Maleate 100 Mg Tablet 150 Mg PO BID Buspirone Hcl 10 Mg Tablet 20 Mg PO BID Thera-M Tablet (Multivits,Ca,Minerals/Iron/Fa) 1 Each Tablet 1 Tab PO DAILY Vitamin B-12 (Cyanocobalamin (Vitamin B-12)) 1,000 Mcg Tablet 1,000 Mcg PO DAILY Analgesic [place] (Methyl Salicylate/Menthol) 28 Gm Oint...g. 1 Shawn TP PRN QID Tylenol (Acetaminophen) 325 Mg Tablet 650 Mg PO PRN Q6HRS PRN Folic Acid 1 Mg Tablet 1 Mg PO DAILY Aspirin 81 Mg Tab.chew 81 Mg PO DAILY Vitamin D3 (Cholecalciferol (Vitamin D3)) 1,000 Unit Tablet 2,000 Unit PO DAILY Vitamin B-6 (Pyridoxine Hcl) 100 Mg Tablet 100 Mg PO DAILY Caltrate 600 + D Tablet (Calcium Carbonate/Vitamin D3) 1 Each Tablet 2 Tab PO DAILY Evista (Raloxifene Hcl) 60 Mg Tablet 60 Mg PO DAILY Alprazolam 1 Mg Tablet 1 Mg PO QID Dicyclomine Hcl 20 Mg Tablet 20 Mg PO QID I have reviewed the current psychotropics carefully including drug interactions. Risk benefit ratio favors no change other than as noted in my dictated progress note. Diagnosis: Problems: (1) Anxiety disorder (2) Obsessive compulsive disorder (3) Psychosis, atypical (4) Major depressive disorder, recurrent episode (5) Seizure KAYLAN RAGLAND MD Nov 28, 2017 20:51
[2017-11-28] MEDS ORDERED: NON FORMULARY ITEM (Mometasone Furoate (Asmanex) 110 MCG) IH SCH (21:00)
[2017-11-29 02:08] LABS: THYROXINE 6.8 ug/dL (4.5-12.0)
[2017-11-29 05:14] LABS: HEMOGLOBIN A1C 5.4 % (4.8-5.6)
[2017-11-29 05:40] VITALS: BP 133/80
[2017-11-29] MEDS: busPIRone 10 MG TABLET. PO SCH ×2 (07:36→20:06)
[2017-11-29] MEDS: DICYCLOMINE HCL 20 MG TABLET PO SCH ×4 (07:36→20:05)
[2017-11-29] MEDS: RALOXIFENE 60 MG TABLET. PO SCH (07:59)
[2017-11-29] MEDS: FOLIC ACID 1 MG TABLET PO SCH (07:59)
[2017-11-29] MEDS: MULTIVITAMIN with MINERAL TABLET. PO SCH (07:59)
[2017-11-29] MEDS: CALCIUM CARB/VIT D3 500/200 TABLET PO SCH (07:59)
[2017-11-29] MEDS: CHOLECALCIFEROL (VITAMIN D3) 1,000 UNIT TABLET PO SCH (07:59)
[2017-11-29] MEDS: CYANOCOBALAMIN (VITAMIN B-12) 1,000 MCG TABLET. PO SCH (08:00)
[2017-11-29] MEDS: ASPIRIN 81 MG TAB.CHEW PO SCH (08:00)
[2017-11-29] MEDS: ALPRAZolam 0.5 MG TABLET PO SCH ×4 (08:01→20:09)
[2017-11-29] MEDS: PYRIDOXINE 50 MG TABLET. PO SCH (08:01)
[2017-11-29] MEDS: LOPERAMIDE 2 MG CAPSULE PO PRN (09:58)
[2017-11-29] MEDS: BUDESONIDE 0.5 MG/2 ML NEBU NEB SCH ×2 (10:17→20:17)
[2017-11-29 15:19] LABS: THYROID STIM HORMONE (TSH) 1.016 uIU/mL (0.358-3.740)
[2017-11-29 16:03] VITALS: BP 125/79
[2017-11-29] MEDS: MIRTAZAPINE 15 MG TABLET PO SCH (20:06)
[2017-11-29] MEDS: traZODone 50 MG TABLET. PO SCH (20:09)
[2017-11-29] MEDS: DONEPEZIL HCL 10 MG TABLET PO SCH (20:09)
--- NOTE | 2017-11-29 20:38 | PDOC ---
Exam Note: Lencho Note: Please also refer to the separate dictated note~for this date of service dictated separately.~Patient seen individually. Discussed the patient with Nursing staff reviewed the chart.~Reviewed interim history and current functioning. Reviewed vital signs,~Labs/ Radiology~and current medications noted below. Continue current treatment with the changes noted in the dictated addendum note Assessment: Vital Signs: Vital Signs Date Time Temp Pulse Resp B/P (MAP) Pulse Ox O2 Delivery O2 Flow Rate FiO2 11/29/17 20:18 98 Room Air 11/29/17 16:03 98.4 84 16 125/79 (94) I&O Intake and Output 11/29/17 06:59 Intake Total 440 ml Balance 440 ml Intake Oral 440 ml Current Medications: Meds: Current Medications Ciprofloxacin (Cipro) 500 mg 1X ONCE PO Last administered on 11/28/17at 13:11; Start 11/28/17 at 13:00; Stop 11/28/17 at 13:08; Status DC Acetaminophen (Tylenol) 650 mg PRN Q6HRS PRN PO PAIN / TEMP; Start 11/28/17 at 14:45 Multi-Ingredient Ointment (Analgesic [place]) 1 shawn PRN QID PRN TP MUSCLE PAIN; Start 11/28/17 at 14:45 Al Hydroxide/Mg Hydroxide (Mylanta Plus Xs) 15 ml PRN AFTMEALHC PRN PO DYSPEPSIA; Start 11/28/17 at 14:45 Magnesium Hydroxide (Milk Of Magnesia) 2,400 mg PRN QHS PRN PO CONSTIPATION; Start 11/28/17 at 14:45 Alprazolam (Xanax) 1 mg QID PO Last administered on 11/29/17at 20:09; Start at 17:00 Buspirone HCl (Buspar) 20 mg BID PO Last administered on 11/29/17at 20:06; Start 11/28/17 at 21:00 Donepezil HCl (Aricept) 10 mg QHS PO Last administered on 11/29/17at 20:09; Start 11/28/17 at 21:00 Fluvoxamine Maleate (Luvox) 150 mg BID PO Last administered on 11/29/17at 20:06 ; Start 11/28/17 at 21:00 Mirtazapine (Remeron) 15 mg QHS PO Last administered on 11/29/17 20:06; Start 11/28/17 at 21:00 Albuterol Sulfate (Ventolin Hfa) 1 puff PRN Q4HRS PRN IH SHORTNESS OF BREATH; Start 11/28/17 at 15:00; Stop 11/28/17 at 15:47; Status DC Vitamin D (Vitamin D3) 2,000 unit DAILY PO Last administered on 11/29/17 07:59 ; Start 11/29/17 at 09:00 Cyanocobalamin (Vitamin B-12) 1,000 mcg DAILY PO Last administered on 08:00; Start 11/29/17 at 09:00 Multivitamins/ Calcium (Thera-M Plus) 1 tab DAILY PO Last administered on 07:59; Start 11/29/17 at 09:00 Aspirin (Children'S Aspirin) 81 mg DAILYWBKFT PO Last administered on 08:00; Start 11/29/17 at 08:00 Calcium/Vitamin D (Oscal D 500mg/ 200uts) 2 tab DAILY PO Last administered on 07:59; Start 11/29/17 at 09:00 Dicyclomine HCl (Bentyl) 20 mg QID PO Last administered on 11/29/17at 20:05; Start 11/28/17 at 17:00 Folic Acid (Folic Acid) 1 mg DAILY PO Last administered on 11/29/17at 07:59; Start 11/29/17 at 09:00 Non-Formulary Medication (Mometasone Furoate (Asmanex)) 110 mcg BID IH ; Start 11/28/17 at 21:00; Stop 11/28/17 at 21:00; Status DC Pyridoxine HCl (Vitamin B-6) 100 mg DAILY PO Last administered on 11/29/17at 08: 01; Start 11/29/17 at 09:00 Raloxifene HCl (Evista) 60 mg DAILY PO Last administered on 11/29/17at 07:59; Start 11/29/17 at 09:00 Albuterol Sulfate (Ventolin) 2.5 mg PRN Q4HRS PRN NEB SHORTNESS OF BREATH; Start 11/28/17 at 15:45 Budesonide (Pulmicort) 0.5 mg RTBID NEB Last administered on 11/29/17at 20:17; Start 11/28/17 at 20:00 Loperamide HCl (Imodium) 2 mg PRN Q2HR PRN PO DIARRHEA Last administered on at 09:58; Start 11/29/17 at 09:30 Trazodone HCl (Desyrel) 50 mg QHS PO Last administered on 11/29/17at 20:09; Start 11/29/17 at 21:00 Active Scripts Active Reported Ventolin Hfa Inhaler (Albuterol Sulfate) 18 Gm Hfa.aer.ad 1 Puff IH PRN Q4HRS PRN Asmanex (Mometasone Furoate) 110 Mcg Aer.pow.ba 110 Mcg IH BID Remeron (Mirtazapine) 15 Mg Tablet 1 Tab PO QHS Aricept (Donepezil Hcl) 10 Mg Tablet 1 Tab PO QHS Fluvoxamine Maleate 100 Mg Tablet 150 Mg PO BID Buspirone Hcl 10 Mg Tablet 20 Mg PO BID Thera-M Tablet (Multivits,Ca,Minerals/Iron/Fa) 1 Each Tablet 1 Tab PO DAILY Vitamin B-12 (Cyanocobalamin (Vitamin B-12)) 1,000 Mcg Tablet 1,000 Mcg PO DAILY Analgesic [place] (Methyl Salicylate/Menthol) 28 Gm Oint...g. 1 Shawn TP PRN QID Tylenol (Acetaminophen) 325 Mg Tablet 650 Mg PO PRN Q6HRS PRN Folic Acid 1 Mg Tablet 1 Mg PO DAILY Aspirin 81 Mg Tab.chew 81 Mg PO DAILY Vitamin D3 (Cholecalciferol (Vitamin D3)) 1,000 Unit Tablet 2,000 Unit PO DAILY Vitamin B-6 (Pyridoxine Hcl) 100 Mg Tablet 100 Mg PO DAILY Caltrate 600 + D Tablet (Calcium Carbonate/Vitamin D3) 1 Each Tablet 2 Tab PO DAILY Evista (Raloxifene Hcl) 60 Mg Tablet 60 Mg PO DAILY Alprazolam 1 Mg Tablet 1 Mg PO QID Dicyclomine Hcl 20 Mg Tablet 20 Mg PO QID I have reviewed the current psychotropics carefully including drug interactions. Risk benefit ratio favors no change other than as noted in my dictated progress note. Diagnosis: Problems: (1) Anxiety disorder (2) Obsessive compulsive disorder (3) Psychosis, atypical (4) Major depressive disorder, recurrent episode (5) Seizure KAYLAN RAGLAND MD Nov 29, 2017 20:38
[2017-11-30] MEDS: BUDESONIDE 0.5 MG/2 ML NEBU NEB SCH ×2 (05:51→19:49)
[2017-11-30 05:58] VITALS: BP 120/62
[2017-11-30] MEDS: CYANOCOBALAMIN (VITAMIN B-12) 1,000 MCG TABLET. PO SCH (07:23)
[2017-11-30] MEDS: RALOXIFENE 60 MG TABLET. PO SCH (07:23)
[2017-11-30] MEDS: CHOLECALCIFEROL (VITAMIN D3) 1,000 UNIT TABLET PO SCH (07:23)
[2017-11-30] MEDS: busPIRone 10 MG TABLET. PO SCH ×2 (07:23→20:08)
[2017-11-30] MEDS: FOLIC ACID 1 MG TABLET PO SCH (07:23)
[2017-11-30] MEDS: CALCIUM CARB/VIT D3 500/200 TABLET PO SCH (07:23)
[2017-11-30] MEDS: MULTIVITAMIN with MINERAL TABLET. PO SCH (07:23)
[2017-11-30] MEDS: DICYCLOMINE HCL 20 MG TABLET PO SCH ×4 (07:23→20:08)
[2017-11-30] MEDS: ASPIRIN 81 MG TAB.CHEW PO SCH (07:23)
[2017-11-30] MEDS: ALPRAZolam 0.5 MG TABLET PO SCH ×4 (07:26→20:08)
[2017-11-30] MEDS: PYRIDOXINE 50 MG TABLET. PO SCH (07:31)
--- NOTE | 2017-11-30 11:28 | CONS ---
DATE OF CONSULTATION: 11/28/2017 REASON FOR CONSULTATION: Medical management. HISTORY OF PRESENT ILLNESS: The patient is a 71-year-old female patient, who was [facility] after she failed outpatient psychiatric intervention by Dr. Merritt Al from her home on account of increasing anxiety, confusion and difficulty walking with marked obsessive compulsive behavior. She has had increased difficulty walking, appeared more confused and behaviors have been to a point where she has been unmanageable at home. She was last here in this unit in 01/2017 with similar symptoms and was stabilized for her OCD. Returned home and did for a while reasonably well until recent worsening of her symptoms over the last 4 days. From a medical point of view, the patient is known to have left hip fracture 3 months ago, hypokalemia, seizure disorder, mitral valve prolapse, irritable bowel syndrome and history of multiple falls and insomnia. PAST SURGICAL HISTORY: Significant for open reduction and internal fixation of her left hip fracture. ALLERGIES: She is allergic to PENICILLIN, SULFA, FEXOFENADINE and MINOCYCLINE. CODE STATUS: Full code. FAMILY HISTORY: Noncontributory. SOCIAL HISTORY: She lives at home with her . She apparently does not smoke, drink alcohol or use recreational drugs. 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 MEDICATIONS: She is currently on following medications: She is on Aricept 10 mg at bedtime, dicyclomine 20 mg 4 times a day, albuterol sulfate for Ventolin inhaler 1 puff every 4 hours as needed, aspirin 81 mg once a day, acetaminophen 650 mg every 6 hours, fluvoxamine maleate 150 mg twice a day, mirtazapine mg at bedtime, alprazolam 1 mg 4 times a day, buspirone 20 mg twice a day, calcium carbonate with vitamin D3 for Caltrate 2 tablets daily and mometasone furoate for Asmanex twice a day for COPD, raloxifene 60 mg tablet daily, cyanocobalamin 1000 mcg tablet once a day, folic acid 1 mg once a day, pyridoxine 100 mg daily, cholecalciferol vitamin D 2000 international unit once a day, multivitamin with mineral one tablet once a day. PHYSICAL EXAMINATION: GENERAL: On examining her, she looked well and was clearly in no apparent respiratory distress, somewhat cachectic. No pallor, jaundice, cyanosis, or thyromegaly. No jugular venous distension. No lower limb edema. VITAL SIGNS: Her heart rate was 84, blood pressure 125/79, temperature was 98.4, respiratory rate was 16, and oxygen saturation was 97%. HEAD, EYES, EARS, NOSE AND THROAT: Showed normocephalic, atraumatic. NECK: Supple. HEART: Showed normal first and sounds. No gallop or murmur. CHEST: Clear to auscultation. No crepitation or rhonchi. ABDOMEN: Distended, soft, nontender. NEUROLOGIC: She is awake, alert. All her cranial nerves are intact. She moves extremities without difficulty. She ambulates with a walker. LABORATORY DATA: Showed a white cell count of 8000, hemoglobin 14, hematocrit 41, MCV 94 and platelet count 220,000. Her chemistry showed a serum sodium 139, potassium 3.9, chloride 105, bicarbonate 27, anion gap of 7, BUN 11, creatinine 1.1, estimated GFR was 48 mL per minute. Her glucose 95, calcium was 9.5, magnesium 2. Total bilirubin, AST, ALT, alkaline phosphatase were normal. Total protein was 6.5, albumin was 3.4. Her hemoglobin A1c was 5.4%. Her serum triglycerides were 106, total cholesterol 194, LDL was 69, VLDL was 21, and HDL cholesterol 104 . Her vitamin B12 was 1158 picogram. TSH was 1.016. Total T4 and total T3 were within normal range. Her serum iron was 154, TIBC was 309 and iron saturation was 50%. Urinalysis showed the urine was yellow, cloudy with a pH of 7, specific gravity of 1.020. The urine was negative for protein, glucose, ketones, blood, nitrite and bilirubin. There is small amount of leukocyte esterase, rbc's, 20-40 wbc's and too many bacteria. IMPRESSION: In summary, this is a 71-year-old female patient, who was admitted on account of increased anxiety, confusion, difficulty walking with marked obsessive compulsive behavior. Medically, the patient is known to have recurrent urinary tract infection, osteoarthritis, seizure disorder, mitral valve prolapse, irritable bowel syndrome, history of multiple falls and insomnia. Her vital signs and all her lab works seemed to be within normal range. She probably has UTI, although at least her white cell count is normal. Her temperature is normal. I would probably wait for the result of culture and sensitivity to treat her urinary tract infection. Thank you, Dr. Renteria for allowing me to participate in the care of this patient. BRANDI HARDIN MD DR: IMELDA/sasha JOB#: [id number] / [id number]
[2017-11-30 16:02] VITALS: BP 111/74
[2017-11-30] MEDS: MIRTAZAPINE 15 MG TABLET PO SCH (20:08)
[2017-11-30] MEDS: DONEPEZIL HCL 10 MG TABLET PO SCH (20:08)
[2017-11-30] MEDS: traZODone 50 MG TABLET. PO SCH (20:08)
--- NOTE | 2017-11-30 22:43 | PDOC ---
Exam Note: Lencho Note: Please also refer to the separate dictated note~for this date of service dictated separately.~Patient seen individually. Discussed the patient with Nursing staff reviewed the chart.~Reviewed interim history and current functioning. Reviewed vital signs,~Labs/ Radiology~and current medications noted below. Continue current treatment with the changes noted in the dictated addendum note Assessment: Vital Signs: Vital Signs Date Time Temp Pulse Resp B/P (MAP) Pulse Ox O2 Delivery O2 Flow Rate FiO2 11/30/17 19:50 97 Room Air 11/30/17 16:02 98.5 84 18 111/74 (86) I&O Intake and Output 11/30/17 07:00 Intake Total 1720 ml Balance 1720 ml Intake Oral 1720 ml # Bowel Movements 2 Current Medications: Meds: Current Medications Ciprofloxacin (Cipro) 500 mg 1X ONCE PO Last administered on 11/28/17at 13:11; Start 11/28/17 at 13:00; Stop 11/28/17 at 13:08; Status DC Acetaminophen (Tylenol) 650 mg PRN Q6HRS PRN PO PAIN / TEMP; Start 11/28/17 at 14:45 Multi-Ingredient Ointment (Analgesic [place]) 1 shawn PRN QID PRN TP MUSCLE PAIN; Start 11/28/17 at 14:45 Al Hydroxide/Mg Hydroxide (Mylanta Plus Xs) 15 ml PRN AFTMEALHC PRN PO DYSPEPSIA; Start 11/28/17 at 14:45 Magnesium Hydroxide (Milk Of Magnesia) 2,400 mg PRN QHS PRN PO CONSTIPATION; Start 11/28/17 at 14:45 Alprazolam (Xanax) 1 mg QID PO Last administered on 11/30/17at 20:08; Start at 17:00 Buspirone HCl (Buspar) 20 mg BID PO Last administered on 11/30/17at 20:08; Start 11/28/17 at 21:00 Donepezil HCl (Aricept) 10 mg QHS PO Last administered on 11/30/17at 20:08; Start 11/28/17 at 21:00 Fluvoxamine Maleate (Luvox) 150 mg BID PO Last administered on 11/30/17at 20:09 ; Start 11/28/17 at 21:00 Mirtazapine (Remeron) 15 mg QHS PO Last administered on 11/30/17 20:08; Start 11/28/17 at 21:00 Albuterol Sulfate (Ventolin Hfa) 1 puff PRN Q4HRS PRN IH SHORTNESS OF BREATH; Start 11/28/17 at 15:00; Stop 11/28/17 at 15:47; Status DC Vitamin D (Vitamin D3) 2,000 unit DAILY PO Last administered on 11/30/17 07:23 ; Start 11/29/17 at 09:00 Cyanocobalamin (Vitamin B-12) 1,000 mcg DAILY PO Last administered on 07:23; Start 11/29/17 at 09:00 Multivitamins/ Calcium (Thera-M Plus) 1 tab DAILY PO Last administered on 07:23; Start 11/29/17 at 09:00 Aspirin (Children'S Aspirin) 81 mg DAILYWBKFT PO Last administered on 07:23; Start 11/29/17 at 08:00 Calcium/Vitamin D (Oscal D 500mg/ 200uts) 2 tab DAILY PO Last administered on 07:23; Start 11/29/17 at 09:00 Dicyclomine HCl (Bentyl) 20 mg QID PO Last administered on 11/30/17 20:08; Start 11/28/17 at 17:00 Folic Acid (Folic Acid) 1 mg DAILY PO Last administered on 11/30/17 07:23; Start 11/29/17 at 09:00 Non-Formulary Medication (Mometasone Furoate (Asmanex)) 110 mcg BID IH ; Start 11/28/17 at 21:00; Stop 11/28/17 at 21:00; Status DC Pyridoxine HCl (Vitamin B-6) 100 mg DAILY PO Last administered on 11/30/17 07: 31; Start 11/29/17 at 09:00 Raloxifene HCl (Evista) 60 mg DAILY PO Last administered on 11/30/17 07:23; Start 11/29/17 at 09:00 Albuterol Sulfate (Ventolin) 2.5 mg PRN Q4HRS PRN NEB SHORTNESS OF BREATH; Start 7/26/18 at 15:45 Budesonide (Pulmicort) 0.5 mg RTBID NEB Last administered on 11/30/17at 19:49; Start 11/28/17 at 20:00 Loperamide HCl (Imodium) 2 mg PRN Q2HR PRN PO DIARRHEA Last administered on at 09:58; Start 11/29/17 at 09:30 Trazodone HCl (Desyrel) 50 mg QHS PO Last administered on 11/30/17at 20:08; Start 11/29/17 at 21:00 Quetiapine Fumarate (SEROquel) 25 mg HS PO ; Start 12/01/17 at 21:00 Active Scripts Active Reported Ventolin Hfa Inhaler (Albuterol Sulfate) 18 Gm Hfa.aer.ad 1 Puff IH PRN Q4HRS PRN Asmanex (Mometasone Furoate) 110 Mcg Aer.pow.ba 110 Mcg IH BID Remeron (Mirtazapine) 15 Mg Tablet 1 Tab PO QHS Aricept (Donepezil Hcl) 10 Mg Tablet 1 Tab PO QHS Fluvoxamine Maleate 100 Mg Tablet 150 Mg PO BID Buspirone Hcl 10 Mg Tablet 20 Mg PO BID Thera-M Tablet (Multivits,Ca,Minerals/Iron/Fa) 1 Each Tablet 1 Tab PO DAILY Vitamin B-12 (Cyanocobalamin (Vitamin B-12)) 1,000 Mcg Tablet 1,000 Mcg PO DAILY Analgesic [place] (Methyl Salicylate/Menthol) 28 Gm Oint...g. 1 Shawn TP PRN QID Tylenol (Acetaminophen) 325 Mg Tablet 650 Mg PO PRN Q6HRS PRN Folic Acid 1 Mg Tablet 1 Mg PO DAILY Aspirin 81 Mg Tab.chew 81 Mg PO DAILY Vitamin D3 (Cholecalciferol (Vitamin D3)) 1,000 Unit Tablet 2,000 Unit PO DAILY Vitamin B-6 (Pyridoxine Hcl) 100 Mg Tablet 100 Mg PO DAILY Caltrate 600 + D Tablet (Calcium Carbonate/Vitamin D3) 1 Each Tablet 2 Tab PO DAILY Evista (Raloxifene Hcl) 60 Mg Tablet 60 Mg PO DAILY Alprazolam 1 Mg Tablet 1 Mg PO QID Dicyclomine Hcl 20 Mg Tablet 20 Mg PO QID I have reviewed the current psychotropics carefully including drug interactions. Risk benefit ratio favors no change other than as noted in my dictated progress note. Diagnosis: Problems: (1) Anxiety disorder (2) Obsessive compulsive disorder (3) Psychosis, atypical (4) Major depressive disorder, recurrent episode (5) Seizure KAYLAN RAGLAND MD Nov 30, 2017 22:43
[2017-12-01 05:48] VITALS: BP 102/67
[2017-12-01] MEDS: DICYCLOMINE HCL 20 MG TABLET PO SCH ×4 (07:46→20:47)
[2017-12-01] MEDS: CALCIUM CARB/VIT D3 500/200 TABLET PO SCH (07:46)
[2017-12-01] MEDS: PYRIDOXINE 50 MG TABLET. PO SCH (07:46)
[2017-12-01] MEDS: CHOLECALCIFEROL (VITAMIN D3) 1,000 UNIT TABLET PO SCH (07:47)
[2017-12-01] MEDS: CYANOCOBALAMIN (VITAMIN B-12) 1,000 MCG TABLET. PO SCH (07:47)
[2017-12-01] MEDS: ASPIRIN 81 MG TAB.CHEW PO SCH (07:47)
[2017-12-01] MEDS: FOLIC ACID 1 MG TABLET PO SCH (07:47)
[2017-12-01] MEDS: RALOXIFENE 60 MG TABLET. PO SCH (07:47)
[2017-12-01] MEDS: busPIRone 10 MG TABLET. PO SCH ×2 (07:47→20:48)
[2017-12-01] MEDS: MULTIVITAMIN with MINERAL TABLET. PO SCH (07:47)
[2017-12-01] MEDS: ALPRAZolam 0.5 MG TABLET PO SCH ×4 (07:49→20:49)
[2017-12-01] MEDS: BUDESONIDE 0.5 MG/2 ML NEBU NEB SCH ×2 (09:37→19:56)
[2017-12-01 16:07] VITALS: BP 108/73
[2017-12-01] MEDS: MIRTAZAPINE 15 MG TABLET PO SCH (20:47)
[2017-12-01] MEDS: DONEPEZIL HCL 10 MG TABLET PO SCH (20:48)
[2017-12-01] MEDS: traZODone 50 MG TABLET. PO SCH (20:48)
[2017-12-01] MEDS: QUEtiapine 25 MG TABLET. PO SCH (20:49)
--- NOTE | 2017-12-01 20:51 | PDOC ---
Exam Note: Lencho Note: Please also refer to the separate dictated note~for this date of service dictated separately.~Patient seen individually. Discussed the patient with Nursing staff reviewed the chart.~Reviewed interim history and current functioning. Reviewed vital signs,~Labs/ Radiology~and current medications noted below. Continue current treatment with the changes noted in the dictated addendum note Assessment: Vital Signs: Vital Signs Date Time Temp Pulse Resp B/P (MAP) Pulse Ox O2 Delivery O2 Flow Rate FiO2 12/01/17 19:55 97 Room Air 12/01/17 16:07 97.8 88 18 108/73 (85) I&O Intake and Output 12/01/17 07:00 Intake Total 960 ml Balance 960 ml Intake Oral 960 ml Current Medications: Meds: Current Medications Ciprofloxacin (Cipro) 500 mg 1X ONCE PO Last administered on 11/28/17at 13:11; Start 11/28/17 at 13:00; Stop 11/28/17 at 13:08; Status DC Acetaminophen (Tylenol) 650 mg PRN Q6HRS PRN PO PAIN / TEMP; Start 11/28/17 at 14:45 Multi-Ingredient Ointment (Analgesic [place]) 1 shawn PRN QID PRN TP MUSCLE PAIN; Start 11/28/17 at 14:45 Al Hydroxide/Mg Hydroxide (Mylanta Plus Xs) 15 ml PRN AFTMEALHC PRN PO DYSPEPSIA; Start 11/28/17 at 14:45 Magnesium Hydroxide (Milk Of Magnesia) 2,400 mg PRN QHS PRN PO CONSTIPATION; Start 11/28/17 at 14:45 Alprazolam (Xanax) 1 mg QID PO Last administered on 12/01/17at 20:49; Start at 17:00 Buspirone HCl (Buspar) 20 mg BID PO Last administered on 12/01/17at 20:48; Start 11/28/17 at 21:00 Donepezil HCl (Aricept) 10 mg QHS PO Last administered on 12/01/17at 20:48; Start 11/28/17 at 21:00 Fluvoxamine Maleate (Luvox) 150 mg BID PO Last administered on 12/01/17at 20:48 ; Start 11/28/17 at 21:00 Mirtazapine (Remeron) 15 mg QHS PO Last administered on 12/01/17 20:47; Start 11/28/17 at 21:00 Albuterol Sulfate (Ventolin Hfa) 1 puff PRN Q4HRS PRN IH SHORTNESS OF BREATH; Start 11/28/17 at 15:00; Stop 11/28/17 at 15:47; Status DC Vitamin D (Vitamin D3) 2,000 unit DAILY PO Last administered on 12/01/17 07:47 ; Start 11/29/17 at 09:00 Cyanocobalamin (Vitamin B-12) 1,000 mcg DAILY PO Last administered on 07:47; Start 11/29/17 at 09:00 Multivitamins/ Calcium (Thera-M Plus) 1 tab DAILY PO Last administered on 07:47; Start 11/29/17 at 09:00 Aspirin (Children'S Aspirin) 81 mg DAILYWBKFT PO Last administered on 07:47; Start 11/29/17 at 08:00 Calcium/Vitamin D (Oscal D 500mg/ 200uts) 2 tab DAILY PO Last administered on 07:46; Start 11/29/17 at 09:00 Dicyclomine HCl (Bentyl) 20 mg QID PO Last administered on 12/01/17 20:47; Start 11/28/17 at 17:00 Folic Acid (Folic Acid) 1 mg DAILY PO Last administered on 12/01/17 07:47; Start 11/29/17 at 09:00 Non-Formulary Medication (Mometasone Furoate (Asmanex)) 110 mcg BID IH ; Start 11/28/17 at 21:00; Stop 11/28/17 at 21:00; Status DC Pyridoxine HCl (Vitamin B-6) 100 mg DAILY PO Last administered on 12/01/17 07: 46; Start 11/29/17 at 09:00 Raloxifene HCl (Evista) 60 mg DAILY PO Last administered on 12/01/17 07:47; Start 11/29/17 at 09:00 Albuterol Sulfate (Ventolin) 2.5 mg PRN Q4HRS PRN NEB SHORTNESS OF BREATH; Start 11/28/17 at 15:45 Budesonide (Pulmicort) 0.5 mg RTBID NEB Last administered on 12/01/17at 19:56; Start 11/28/17 at 20:00 Loperamide HCl (Imodium) 2 mg PRN Q2HR PRN PO DIARRHEA Last administered on at 09:58; Start 11/29/17 at 09:30 Trazodone HCl (Desyrel) 50 mg QHS PO Last administered on 12/01/17at 20:48; Start 11/29/17 at 21:00 Quetiapine Fumarate (SEROquel) 25 mg HS PO Last administered on 12/01/17at 20:49 ; Start 12/01/17 at 21:00 Active Scripts Active Reported Ventolin Hfa Inhaler (Albuterol Sulfate) 18 Gm Hfa.aer.ad 1 Puff IH PRN Q4HRS PRN Asmanex (Mometasone Furoate) 110 Mcg Aer.pow.ba 110 Mcg IH BID Remeron (Mirtazapine) 15 Mg Tablet 1 Tab PO QHS Aricept (Donepezil Hcl) 10 Mg Tablet 1 Tab PO QHS Fluvoxamine Maleate 100 Mg Tablet 150 Mg PO BID Buspirone Hcl 10 Mg Tablet 20 Mg PO BID Thera-M Tablet (Multivits,Ca,Minerals/Iron/Fa) 1 Each Tablet 1 Tab PO DAILY Vitamin B-12 (Cyanocobalamin (Vitamin B-12)) 1,000 Mcg Tablet 1,000 Mcg PO DAILY Analgesic [place] (Methyl Salicylate/Menthol) 28 Gm Oint...g. 1 Shawn TP PRN QID Tylenol (Acetaminophen) 325 Mg Tablet 650 Mg PO PRN Q6HRS PRN Folic Acid 1 Mg Tablet 1 Mg PO DAILY Aspirin 81 Mg Tab.chew 81 Mg PO DAILY Vitamin D3 (Cholecalciferol (Vitamin D3)) 1,000 Unit Tablet 2,000 Unit PO DAILY Vitamin B-6 (Pyridoxine Hcl) 100 Mg Tablet 100 Mg PO DAILY Caltrate 600 + D Tablet (Calcium Carbonate/Vitamin D3) 1 Each Tablet 2 Tab PO DAILY Evista (Raloxifene Hcl) 60 Mg Tablet 60 Mg PO DAILY Alprazolam 1 Mg Tablet 1 Mg PO QID Dicyclomine Hcl 20 Mg Tablet 20 Mg PO QID I have reviewed the current psychotropics carefully including drug interactions. Risk benefit ratio favors no change other than as noted in my dictated progress note. Diagnosis: Problems: (1) Anxiety disorder (2) Obsessive compulsive disorder (3) Psychosis, atypical (4) Major depressive disorder, recurrent episode (5) Seizure KAYLAN RAGLAND MD Dec 01, 2017 20:51
--- NOTE | 2017-12-02 03:17 | PN ---
DATE: 11/30/2017 PSYCHIATRIC PROGRESS NOTE This is a late entry of 11/30/2017 covers elements not covered in my initial note. SUBJECTIVE: I met with the patient in the evening. The patient slept 7 hours previous evening, less anxious per nursing report, redirectable. Obsessiveness is better. No CV, , Pulmonary, eye system symptoms on review. Complains of feeling cold. Nursing staff adjusting the room temperature to assist with this. MENTAL STATUS EXAM: Reasonably oriented. Speech coherent, somewhat pressured at times. Abstraction fair, computation impaired, language function intact, attention span short. Mood and affect remains withdrawn. LABORATORY DATA: Reviewed. IMPRESSION: Major depressive disorder, recurrent; OCD, anxiety disorder, unspecified. PLAN: Start Seroquel 25 mg at bedtime to augment the Luvox. Urine C and S is negative. Continue rest unchanged. MAN Dane RAGLAND MD DR: NABIL/sasha JOB#: [id number] / [id number]
--- NOTE | 2017-12-02 03:19 | PN ---
DATE: 11/29/2017 PSYCHIATRIC PROGRESS NOTE This late entry 11/29/2017 covers elements, not covered in my initial note. SUBJECTIVE: I met with the patient in her room at length evening of 11/29/2017. She slept 3-1/4 hours previous evening, somewhat upset about her roommate who is quite hard of hearing and confused. The patient remains obsessive. REVIEW OF SYSTEMS: No CV, , pulmonary, eye system symptoms on review. MENTAL STATUS EXAM: Oriented to herself and situation. Speech has some latency, often responses monosyllabic. Abstraction fair, computation impaired, language function intact. Mood and affect somewhat dysphoric. LABORATORY DATA: Reviewed. IMPRESSION: Major depressive disorder with psychotic features, obsessive-compulsive disorder. Rest unchanged. PLAN: Add trazodone 50 mg at bedtime, may repeat x 1 for insomnia. Continue Luvox 150 b.i.d., BuSpar 20 b.i.d., Xanax 1 mg 4 times a day, Aricept 10 mg at bedtime, Remeron 15 mg at bedtime. MAN Dane RAGLAND MD DR: NABIL/sasha JOB#: [id number] / [id number]
[2017-12-02 06:24] VITALS: BP 108/66
[2017-12-02] MEDS: CALCIUM CARB/VIT D3 500/200 TABLET PO SCH (07:28)
[2017-12-02] MEDS: DICYCLOMINE HCL 20 MG TABLET PO SCH ×4 (07:28→20:16)
[2017-12-02] MEDS: PYRIDOXINE 50 MG TABLET. PO SCH (07:28)
[2017-12-02] MEDS: FOLIC ACID 1 MG TABLET PO SCH (07:29)
[2017-12-02] MEDS: CYANOCOBALAMIN (VITAMIN B-12) 1,000 MCG TABLET. PO SCH (07:29)
[2017-12-02] MEDS: MULTIVITAMIN with MINERAL TABLET. PO SCH (07:29)
[2017-12-02] MEDS: busPIRone 10 MG TABLET. PO SCH ×2 (07:29→20:16)
[2017-12-02] MEDS: ASPIRIN 81 MG TAB.CHEW PO SCH (07:29)
[2017-12-02] MEDS: RALOXIFENE 60 MG TABLET. PO SCH (07:29)
[2017-12-02] MEDS: CHOLECALCIFEROL (VITAMIN D3) 1,000 UNIT TABLET PO SCH (07:29)
[2017-12-02] MEDS: ALPRAZolam 0.5 MG TABLET PO SCH ×4 (07:30→20:17)
[2017-12-02] MEDS: BUDESONIDE 0.5 MG/2 ML NEBU NEB SCH ×2 (09:42→20:10)
[2017-12-02 16:29] VITALS: BP 137/88
--- NOTE | 2017-12-02 19:54 | PDOC ---
Exam Note: Lencho Note: Please also refer to the separate dictated note~for this date of service dictated separately.~Patient seen individually. Discussed the patient with Nursing staff reviewed the chart.~Reviewed interim history and current functioning. Reviewed vital signs,~Labs/ Radiology~and current medications noted below. Continue current treatment with the changes noted in the dictated addendum note Assessment: Vital Signs: Vital Signs Date Time Temp Pulse Resp B/P (MAP) Pulse Ox O2 Delivery O2 Flow Rate FiO2 12/02/17 16:29 98.3 90 18 137/88 (104) 95 12/02/17 09:42 Room Air I&O Intake and Output 12/02/17 06:59 Intake Total 4370 ml Balance 4370 ml Intake Oral 4370 ml Current Medications: Meds: Current Medications Ciprofloxacin (Cipro) 500 mg 1X ONCE PO Last administered on 11/28/17at 13:11; Start 11/28/17 at 13:00; Stop 11/28/17 at 13:08; Status DC Acetaminophen (Tylenol) 650 mg PRN Q6HRS PRN PO PAIN / TEMP; Start 11/28/17 at 14:45 Multi-Ingredient Ointment (Analgesic [place]) 1 shawn PRN QID PRN TP MUSCLE PAIN; Start 11/28/17 at 14:45 Al Hydroxide/Mg Hydroxide (Mylanta Plus Xs) 15 ml PRN AFTMEALHC PRN PO DYSPEPSIA; Start 11/28/17 at 14:45 Magnesium Hydroxide (Milk Of Magnesia) 2,400 mg PRN QHS PRN PO CONSTIPATION; Start 11/28/17 at 14:45 Alprazolam (Xanax) 1 mg QID PO Last administered on 12/02/17at 17:00; Start at 17:00 Buspirone HCl (Buspar) 20 mg BID PO Last administered on 12/02/17at 07:29; Start 11/28/17 at 21:00 Donepezil HCl (Aricept) 10 mg QHS PO Last administered on 12/01/17at 20:48; Start 11/28/17 at 21:00 Fluvoxamine Maleate (Luvox) 150 mg BID PO Last administered on 12/02/17at 07:29 ; Start 11/28/17 at 21:00 Mirtazapine (Remeron) 15 mg QHS PO Last administered on 12/01/17 20:47; Start 11/28/17 at 21:00 Albuterol Sulfate (Ventolin Hfa) 1 puff PRN Q4HRS PRN IH SHORTNESS OF BREATH; Start 11/28/17 at 15:00; Stop 11/28/17 at 15:47; Status DC Vitamin D (Vitamin D3) 2,000 unit DAILY PO Last administered on 12/02/17 07:29 ; Start 11/29/17 at 09:00 Cyanocobalamin (Vitamin B-12) 1,000 mcg DAILY PO Last administered on 07:29; Start 11/29/17 at 09:00 Multivitamins/ Calcium (Thera-M Plus) 1 tab DAILY PO Last administered on 07:29; Start 11/29/17 at 09:00 Aspirin (Children'S Aspirin) 81 mg DAILYWBKFT PO Last administered on 07:29; Start 11/29/17 at 08:00 Calcium/Vitamin D (Oscal D 500mg/ 200uts) 2 tab DAILY PO Last administered on 07:28; Start 11/29/17 at 09:00 Dicyclomine HCl (Bentyl) 20 mg QID PO Last administered on 12/02/17 18:21; Start 11/28/17 at 17:00 Folic Acid (Folic Acid) 1 mg DAILY PO Last administered on 12/02/17 07:29; Start 11/29/17 at 09:00 Non-Formulary Medication (Mometasone Furoate (Asmanex)) 110 mcg BID IH ; Start 11/28/17 at 21:00; Stop 11/28/17 at 21:00; Status DC Pyridoxine HCl (Vitamin B-6) 100 mg DAILY PO Last administered on 12/02/17 07: 28; Start 11/29/17 at 09:00 Raloxifene HCl (Evista) 60 mg DAILY PO Last administered on 12/02/17 07:29; Start 11/29/17 at 09:00 Albuterol Sulfate (Ventolin) 2.5 mg PRN Q4HRS PRN NEB SHORTNESS OF BREATH; Start 11/28/17 at 15:45 Budesonide (Pulmicort) 0.5 mg RTBID NEB Last administered on 12/02/17at 09:42; Start 11/28/17 at 20:00 Loperamide HCl (Imodium) 2 mg PRN Q2HR PRN PO DIARRHEA Last administered on at 09:58; Start 11/29/17 at 09:30 Trazodone HCl (Desyrel) 50 mg QHS PO Last administered on 12/01/17at 20:48; Start 11/29/17 at 21:00 Quetiapine Fumarate (SEROquel) 25 mg HS PO Last administered on 12/01/17at 20:49 ; Start 12/01/17 at 21:00 Quetiapine Fumarate (SEROquel) 25 mg DAILY16 PO ; Start 12/03/17 at 16:00 Active Scripts Active Reported Ventolin Hfa Inhaler (Albuterol Sulfate) 18 Gm Hfa.aer.ad 1 Puff IH PRN Q4HRS PRN Asmanex (Mometasone Furoate) 110 Mcg Aer.pow.ba 110 Mcg IH BID Remeron (Mirtazapine) 15 Mg Tablet 1 Tab PO QHS Aricept (Donepezil Hcl) 10 Mg Tablet 1 Tab PO QHS Fluvoxamine Maleate 100 Mg Tablet 150 Mg PO BID Buspirone Hcl 10 Mg Tablet 20 Mg PO BID Thera-M Tablet (Multivits,Ca,Minerals/Iron/Fa) 1 Each Tablet 1 Tab PO DAILY Vitamin B-12 (Cyanocobalamin (Vitamin B-12)) 1,000 Mcg Tablet 1,000 Mcg PO DAILY Analgesic [place] (Methyl Salicylate/Menthol) 28 Gm Oint...g. 1 Shawn TP PRN QID Tylenol (Acetaminophen) 325 Mg Tablet 650 Mg PO PRN Q6HRS PRN Folic Acid 1 Mg Tablet 1 Mg PO DAILY Aspirin 81 Mg Tab.chew 81 Mg PO DAILY Vitamin D3 (Cholecalciferol (Vitamin D3)) 1,000 Unit Tablet 2,000 Unit PO DAILY Vitamin B-6 (Pyridoxine Hcl) 100 Mg Tablet 100 Mg PO DAILY Caltrate 600 + D Tablet (Calcium Carbonate/Vitamin D3) 1 Each Tablet 2 Tab PO DAILY Evista (Raloxifene Hcl) 60 Mg Tablet 60 Mg PO DAILY Alprazolam 1 Mg Tablet 1 Mg PO QID Dicyclomine Hcl 20 Mg Tablet 20 Mg PO QID I have reviewed the current psychotropics carefully including drug interactions. Risk benefit ratio favors no change other than as noted in my dictated progress note. Diagnosis: Problems: (1) Anxiety disorder (2) Obsessive compulsive disorder (3) Psychosis, atypical (4) Major depressive disorder, recurrent episode (5) Seizure KAYLAN RAGLAND MD Dec 02, 2017 19:54
[2017-12-02] MEDS: QUEtiapine 25 MG TABLET. PO SCH (20:16)
[2017-12-02] MEDS: traZODone 50 MG TABLET. PO SCH (20:16)
[2017-12-02] MEDS: DONEPEZIL HCL 10 MG TABLET PO SCH (20:16)
[2017-12-02] MEDS: MIRTAZAPINE 15 MG TABLET PO SCH (20:16)
[2017-12-03 05:57] VITALS: BP 117/53
[2017-12-03] MEDS: CALCIUM CARB/VIT D3 500/200 TABLET PO SCH (08:16)
[2017-12-03] MEDS: DICYCLOMINE HCL 20 MG TABLET PO SCH ×4 (08:16→19:39)
[2017-12-03] MEDS: RALOXIFENE 60 MG TABLET. PO SCH (08:16)
[2017-12-03] MEDS: CHOLECALCIFEROL (VITAMIN D3) 1,000 UNIT TABLET PO SCH (08:17)
[2017-12-03] MEDS: busPIRone 10 MG TABLET. PO SCH ×2 (08:17→19:39)
[2017-12-03] MEDS: ASPIRIN 81 MG TAB.CHEW PO SCH (08:17)
[2017-12-03] MEDS: FOLIC ACID 1 MG TABLET PO SCH (08:17)
[2017-12-03] MEDS: CYANOCOBALAMIN (VITAMIN B-12) 1,000 MCG TABLET. PO SCH (08:18)
[2017-12-03] MEDS: MULTIVITAMIN with MINERAL TABLET. PO SCH (08:18)
[2017-12-03] MEDS: PYRIDOXINE 50 MG TABLET. PO SCH (08:20)
[2017-12-03] MEDS: ALPRAZolam 0.5 MG TABLET PO SCH ×4 (09:00→19:40)
[2017-12-03] MEDS: BUDESONIDE 0.5 MG/2 ML NEBU NEB SCH ×2 (09:57→20:00)
--- NOTE | 2017-12-03 14:04 | PN ---
DATE: 12/01/2017 This is a late entry 12/01/2017 covers elements not covered in my initial note. SUBJECTIVE: I met with the patient in the evening on two separate occasions at length in her room. She slept 7 hours previous evening. Appears somewhat confused, still anxious. She complains of feeling cold and blames her roommate for keeping the room temperature is low. Nursing staffs have given her a jacket and have adjusted the temperature up on the thermostat to 76 per my request. REVIEW OF SYSTEMS: Ambulation impaired. No CV, , pulmonary, eye system symptoms on review. MENTAL STATUS EXAM: Reasonably oriented. Speech coherent, rapid at times. Abstraction fair, computation impaired, language function intact. Mood and affect remain somewhat anxious, obsessive. LABORATORY DATA: Reviewed. IMPRESSION: Unchanged from initial note, obsessive-compulsive disorder; anxiety disorder, unspecified; major depressive disorder, recurrent. PLAN: Continue psychotropics from initial note. Seroquel was added 25 mg at bedtime. KAYLAN RAGLAND MD DR: NABIL/sasha JOB#: [id number] / [id number]
[2017-12-03 15:58] VITALS: BP 119/62
[2017-12-03] MEDS: QUEtiapine 25 MG TABLET. PO SCH ×2 (17:08→19:40)
[2017-12-03] MEDS: DONEPEZIL HCL 10 MG TABLET PO SCH (19:39)
[2017-12-03] MEDS: traZODone 50 MG TABLET. PO SCH (19:39)
[2017-12-03] MEDS: MIRTAZAPINE 15 MG TABLET PO SCH (19:40)
--- NOTE | 2017-12-03 19:52 | PDOC ---
Exam Note: Lencho Note: Please also refer to the separate dictated note~for this date of service dictated separately.~Patient seen individually. Discussed the patient with Nursing staff reviewed the chart.~Reviewed interim history and current functioning. Reviewed vital signs,~Labs/ Radiology~and current medications noted below. Continue current treatment with the changes noted in the dictated addendum note Assessment: Vital Signs: Vital Signs Date Time Temp Pulse Resp B/P (MAP) Pulse Ox O2 Delivery O2 Flow Rate FiO2 12/03/17 15:58 98.1 74 16 119/62 (81) 98 12/03/17 09:58 Room Air I&O Intake and Output 12/03/17 07:00 Intake Total 840 ml Balance 840 ml Intake Oral 840 ml Current Medications: Meds: Current Medications Ciprofloxacin (Cipro) 500 mg 1X ONCE PO Last administered on 11/28/17at 13:11; Start 11/28/17 at 13:00; Stop 11/28/17 at 13:08; Status DC Acetaminophen (Tylenol) 650 mg PRN Q6HRS PRN PO PAIN / TEMP; Start 11/28/17 at 14:45 Multi-Ingredient Ointment (Analgesic [place]) 1 shawn PRN QID PRN TP MUSCLE PAIN; Start 11/28/17 at 14:45 Al Hydroxide/Mg Hydroxide (Mylanta Plus Xs) 15 ml PRN AFTMEALHC PRN PO DYSPEPSIA; Start 11/28/17 at 14:45 Magnesium Hydroxide (Milk Of Magnesia) 2,400 mg PRN QHS PRN PO CONSTIPATION; Start 11/28/17 at 14:45 Alprazolam (Xanax) 1 mg QID PO Last administered on 12/03/17at 19:40; Start at 17:00 Buspirone HCl (Buspar) 20 mg BID PO Last administered on 12/03/17at 19:39; Start 11/28/17 at 21:00 Donepezil HCl (Aricept) 10 mg QHS PO Last administered on 12/03/17at 19:39; Start 11/28/17 at 21:00 Fluvoxamine Maleate (Luvox) 150 mg BID PO Last administered on 12/03/17at 19:40 ; Start 11/28/17 at 21:00 Mirtazapine (Remeron) 15 mg QHS PO Last administered on 12/03/17 19:40; Start 11/28/17 at 21:00 Albuterol Sulfate (Ventolin Hfa) 1 puff PRN Q4HRS PRN IH SHORTNESS OF BREATH; Start 11/28/17 at 15:00; Stop 11/28/17 at 15:47; Status DC Vitamin D (Vitamin D3) 2,000 unit DAILY PO Last administered on 12/03/17 08:17 ; Start 11/29/17 at 09:00 Cyanocobalamin (Vitamin B-12) 1,000 mcg DAILY PO Last administered on 08:18; Start 11/29/17 at 09:00 Multivitamins/ Calcium (Thera-M Plus) 1 tab DAILY PO Last administered on 08:18; Start 11/29/17 at 09:00 Aspirin (Children'S Aspirin) 81 mg DAILYWBKFT PO Last administered on 08:17; Start 11/29/17 at 08:00 Calcium/Vitamin D (Oscal D 500mg/ 200uts) 2 tab DAILY PO Last administered on 08:16; Start 11/29/17 at 09:00 Dicyclomine HCl (Bentyl) 20 mg QID PO Last administered on 12/03/17 19:39; Start 11/28/17 at 17:00 Folic Acid (Folic Acid) 1 mg DAILY PO Last administered on 12/03/17 08:17; Start 11/29/17 at 09:00 Non-Formulary Medication (Mometasone Furoate (Asmanex)) 110 mcg BID IH ; Start 11/28/17 at 21:00; Stop 11/28/17 at 21:00; Status DC Pyridoxine HCl (Vitamin B-6) 100 mg DAILY PO Last administered on 12/03/17 08: 20; Start 11/29/17 at 09:00 Raloxifene HCl (Evista) 60 mg DAILY PO Last administered on 12/03/17 08:16; Start 11/29/17 at 09:00 Albuterol Sulfate (Ventolin) 2.5 mg PRN Q4HRS PRN NEB SHORTNESS OF BREATH; Start 11/28/17 at 15:45 Budesonide (Pulmicort) 0.5 mg RTBID NEB Last administered on 12/03/17 09:57; Start 11/28/17 at 20:00 Loperamide HCl (Imodium) 2 mg PRN Q2HR PRN PO DIARRHEA Last administered on at 09:58; Start 11/29/17 at 09:30 Trazodone HCl (Desyrel) 50 mg QHS PO Last administered on 12/03/17 19:39; Start 11/29/17 at 21:00 Quetiapine Fumarate (SEROquel) 25 mg HS PO Last administered on 12/03/17 19:40 ; Start 12/01/17 at 21:00 Quetiapine Fumarate (SEROquel) 25 mg DAILY16 PO Last administered on 12/03/17 17:08; Start 12/03/17 at 16:00 Quetiapine Fumarate (SEROquel) 12.5 mg DAILY PO ; Start 12/04/17 at 09:00 Active Scripts Active Reported Ventolin Hfa Inhaler (Albuterol Sulfate) 18 Gm Hfa.aer.ad 1 Puff IH PRN Q4HRS PRN Asmanex (Mometasone Furoate) 110 Mcg Aer.pow.ba 110 Mcg IH BID Remeron (Mirtazapine) 15 Mg Tablet 1 Tab PO QHS Aricept (Donepezil Hcl) 10 Mg Tablet 1 Tab PO QHS Fluvoxamine Maleate 100 Mg Tablet 150 Mg PO BID Buspirone Hcl 10 Mg Tablet 20 Mg PO BID Thera-M Tablet (Multivits,Ca,Minerals/Iron/Fa) 1 Each Tablet 1 Tab PO DAILY Vitamin B-12 (Cyanocobalamin (Vitamin B-12)) 1,000 Mcg Tablet 1,000 Mcg PO DAILY Analgesic [place] (Methyl Salicylate/Menthol) 28 Gm Oint...g. 1 Shawn TP PRN QID Tylenol (Acetaminophen) 325 Mg Tablet 650 Mg PO PRN Q6HRS PRN Folic Acid 1 Mg Tablet 1 Mg PO DAILY Aspirin 81 Mg Tab.chew 81 Mg PO DAILY Vitamin D3 (Cholecalciferol (Vitamin D3)) 1,000 Unit Tablet 2,000 Unit PO DAILY Vitamin B-6 (Pyridoxine Hcl) 100 Mg Tablet 100 Mg PO DAILY Caltrate 600 + D Tablet (Calcium Carbonate/Vitamin D3) 1 Each Tablet 2 Tab PO DAILY Evista (Raloxifene Hcl) 60 Mg Tablet 60 Mg PO DAILY Alprazolam 1 Mg Tablet 1 Mg PO QID Dicyclomine Hcl 20 Mg Tablet 20 Mg PO QID I have reviewed the current psychotropics carefully including drug interactions. Risk benefit ratio favors no change other than as noted in my dictated progress note. Diagnosis: Problems: (1) Anxiety disorder (2) Obsessive compulsive disorder (3) Psychosis, atypical (4) Major depressive disorder, recurrent episode (5) Seizure KAYLAN RAGLAND MD Dec 03, 2017 19:52
[2017-12-04 05:43] VITALS: BP 116/55
[2017-12-04 07:14] LABS: BASO # 0.1 x10^3/uL (0.0-0.2); BASO % 1 % (0-3); EOS # 0.2 x10^3/uL (0.0-0.7); EOS % 3 % (0-3); HEMATOCRIT 41.1 % (36.0-47.0); LYMPH # 1.7 x10^3/uL (1.0-4.8); LYMPH % 26 % (24-48); MEAN CORPUSCULAR HEMOGLOBIN 32 pg (25-35); MEAN CORPUSCULAR HGB CONC 34 g/dL (31-37); MEAN CORPUSCULAR VOLUME 94 fL (79-100); MONO # 0.7 x10^3/uL (0.0-1.1); MONO % 11 % (0-9); NEUT # 3.9 x10^3uL (1.8-7.7); NEUT % 60 % (31-73); PLATELET COUNT 200 x10^3/uL (140-400); RED BLOOD COUNT 4.37 x10^6/uL (3.50-5.40); RED CELL DISTRIBUTION WIDTH 13.4 % (11.5-14.5); WHITE BLOOD COUNT 6.6 x10^3/uL (4.0-11.0)
[2017-12-04 07:30] LABS: ALBUMIN 3.4 g/dL (3.4-5.0); ALBUMIN/GLOBULIN RATIO 1.1 (1.0-1.7); CALCIUM 9.7 mg/dL (8.5-10.1); CREATININE 1.2 mg/dL (0.6-1.0); GFR 44.2; POTASSIUM 4.2 mmol/L (3.5-5.1); TOTAL BILIRUBIN 0.3 mg/dL (0.2-1.0); TOTAL PROTEIN 6.5 g/dL (6.4-8.2)
[2017-12-04] MEDS: DICYCLOMINE HCL 20 MG TABLET PO SCH ×4 (08:22→20:54)
[2017-12-04] MEDS: CYANOCOBALAMIN (VITAMIN B-12) 1,000 MCG TABLET. PO SCH (08:22)
[2017-12-04] MEDS: CALCIUM CARB/VIT D3 500/200 TABLET PO SCH (08:23)
[2017-12-04] MEDS: FOLIC ACID 1 MG TABLET PO SCH (08:23)
[2017-12-04] MEDS: CHOLECALCIFEROL (VITAMIN D3) 1,000 UNIT TABLET PO SCH (08:23)
[2017-12-04] MEDS: RALOXIFENE 60 MG TABLET. PO SCH (08:23)
[2017-12-04] MEDS: busPIRone 10 MG TABLET. PO SCH ×2 (08:23→20:54)
[2017-12-04] MEDS: MULTIVITAMIN with MINERAL TABLET. PO SCH (08:23)
[2017-12-04] MEDS: ASPIRIN 81 MG TAB.CHEW PO SCH (08:26)
[2017-12-04] MEDS: PYRIDOXINE 50 MG TABLET. PO SCH (08:27)
[2017-12-04] MEDS: ALPRAZolam 0.5 MG TABLET PO SCH ×4 (08:27→20:54)
[2017-12-04] MEDS ORDERED: QUEtiapine 25 MG TABLET. PO SCH (09:00)
[2017-12-04] MEDS: BUDESONIDE 0.5 MG/2 ML NEBU NEB SCH ×2 (09:20→20:29)
--- NOTE | 2017-12-04 09:56 | PN ---
DATE: 12/02/2017 PSYCHIATRIC PROGRESS NOTE This is a late entry 12/02/2017, covers elements not covered in my initial note 12/02/2017. SUBJECTIVE: The patient slept 7 hours previous evening. She gets somewhat more anxious towards the evening and we will add Seroquel 25 mg at 4:00 p.m. REVIEW OF SYSTEMS: Ambulation impaired, with walker. No CV, , pulmonary, eye system symptoms on review. MENTAL STATUS EXAM: Reasonably oriented. Speech coherent, somewhat pressured at times typical for her. Abstraction fair. Computation impaired. She remains somewhat obsessive, anxious. No suicidal or homicidal ideation. LABORATORY DATA: Reviewed. IMPRESSION: Unchanged from initial note; obsessive-compulsive disorder, major depressive disorder, in partial remission; anxiety disorder, unspecified. PLAN: Continue current psychotropics and add the Seroquel as noted above, maintain Luvox at current dosage. MAN Dane RAGLAND MD DR: NABIL/sasha JOB#: [id number] / [id number]
[2017-12-04 15:52] VITALS: BP 115/79
[2017-12-04] MEDS: QUEtiapine 25 MG TABLET. PO SCH ×2 (16:44→17:18)
--- NOTE | 2017-12-04 20:51 | PDOC ---
Exam Note: [place] Note: Please also refer to the separate dictated note~for this date of service dictated separately.~Patient seen individually. Discussed the patient with Nursing staff reviewed the chart.~Reviewed interim history and current functioning. Reviewed vital signs,~Labs/ Radiology~and current medications noted below. Continue current treatment with the changes noted in the dictated addendum note Assessment: Vital Signs: Vital Signs Date Time Temp Pulse Resp B/P (MAP) Pulse Ox O2 Delivery O2 Flow Rate FiO2 12/04/17 15:52 98.3 76 18 115/79 (91) 95 12/04/17 09:22 Room Air I&O Intake and Output 12/04/17 07:00 Intake Total 1620 ml Balance 1620 ml Intake Oral 1620 ml Labs: Laboratory Tests Test 12/04/17 06:53 White Blood Count 6.6 x10^3/uL (4.0-11.0) Red Blood Count 4.37 x10^6/uL (3.50-5.40) Hemoglobin 14.0 g/dL (12.0-15.5) Hematocrit 41.1 % (36.0-47.0) Mean Corpuscular Volume 94 fL (79-100) Mean Corpuscular Hemoglobin 32 pg (25-35) Mean Corpuscular Hemoglobin Concent 34 g/dL (31-37) Red Cell Distribution Width 13.4 % (11.5-14.5) Platelet Count 200 x10^3/uL (140-400) Neutrophils (%) (Auto) 60 % (31-73) Lymphocytes (%) (Auto) 26 % (24-48) Monocytes (%) (Auto) 11 % (0-9) H Eosinophils (%) (Auto) 3 % (0-3) Basophils (%) (Auto) 1 % (0-3) Neutrophils # (Auto) 3.9 x10^3uL (1.8-7.7) Lymphocytes # (Auto) 1.7 x10^3/uL (1.0-4.8) Monocytes # (Auto) 0.7 x10^3/uL (0.0-1.1) Eosinophils # (Auto) 0.2 x10^3/uL (0.0-0.7) Basophils # (Auto) 0.1 x10^3/uL (0.0-0.2) Sodium Level 141 mmol/L (136-145) Potassium Level 4.2 mmol/L (3.5-5.1) Chloride Level 107 mmol/L (98-107) Carbon Dioxide Level 28 mmol/L (21-32) Anion Gap 6 (6-14) Blood Urea Nitrogen 18 mg/dL (7-20) Creatinine 1.2 mg/dL (0.6-1.0) H Estimated GFR (Cockcroft-Gault) 44.2 BUN/Creatinine Ratio 15 (6-20) Glucose Level 87 mg/dL (70-99) Calcium Level 9.7 mg/dL (8.5-10.1) Total Bilirubin 0.3 mg/dL (0.2-1.0) Aspartate Amino Transferase (AST) 24 U/L (15-37) Alanine Aminotransferase (ALT) 31 U/L (14-59) Alkaline Phosphatase 67 U/L (46-116) Total Protein 6.5 g/dL (6.4-8.2) Albumin 3.4 g/dL (3.4-5.0) Albumin/Globulin Ratio 1.1 (1.0-1.7) Current Medications: Meds: Current Medications Ciprofloxacin (Cipro) 500 mg 1X ONCE PO Last administered on 11/28/17at 13:11; Start 11/28/17 at 13:00; Stop 11/28/17 at 13:08; Status DC Acetaminophen (Tylenol) 650 mg PRN Q6HRS PRN PO PAIN / TEMP; Start 11/28/17 at 14:45 Multi-Ingredient Ointment (Analgesic [place]) 1 shawn PRN QID PRN TP MUSCLE PAIN; Start 11/28/17 at 14:45 Al Hydroxide/Mg Hydroxide (Mylanta Plus Xs) 15 ml PRN AFTMEALHC PRN PO DYSPEPSIA; Start 11/28/17 at 14:45 Magnesium Hydroxide (Milk Of Magnesia) 2,400 mg PRN QHS PRN PO CONSTIPATION; Start 11/28/17 at 14:45 Alprazolam (Xanax) 1 mg QID PO Last administered on 12/04/17at 17:18; Start 11/28 at 17:00 Buspirone HCl (Buspar) 20 mg BID PO Last administered on 12/04/17at 08:23; Start 11/28/17 at 21:00 Donepezil HCl (Aricept) 10 mg QHS PO Last administered on 12/03/17 19:39; Start 11/28/17 at 21:00 Fluvoxamine Maleate (Luvox) 150 mg BID PO Last administered on 12/04/17 08:23; Start 11/28/17 at 21:00 Mirtazapine (Remeron) 15 mg QHS PO Last administered on 12/03/17 19:40; Start 11/28/17 at 21:00 Albuterol Sulfate (Ventolin Hfa) 1 puff PRN Q4HRS PRN IH SHORTNESS OF BREATH; Start 11/28/17 at 15:00; Stop 11/28/17 at 15:47; Status DC Vitamin D (Vitamin D3) 2,000 unit DAILY PO Last administered on 12/04/17 08:23 ; Start 11/29/17 at 09:00 Cyanocobalamin (Vitamin B-12) 1,000 mcg DAILY PO Last administered on 12/04/17 08:22; Start 11/29/17 at 09:00 Multivitamins/ Calcium (Thera-M Plus) 1 tab DAILY PO Last administered on 08:23; Start 11/29/17 at 09:00 Aspirin (Children'S Aspirin) 81 mg DAILYWBKFT PO Last administered on 12/04/17 08:26; Start 11/29/17 at 08:00 Calcium/Vitamin D (Oscal D 500mg/ 200uts) 2 tab DAILY PO Last administered on 08:23; Start 11/29/17 at 09:00 Dicyclomine HCl (Bentyl) 20 mg QID PO Last administered on 12/04/17 17:18; Start 11/28/17 at 17:00 Folic Acid (Folic Acid) 1 mg DAILY PO Last administered on 12/04/17 08:23; Start 11/29/17 at 09:00 Non-Formulary Medication (Mometasone Furoate (Asmanex)) 110 mcg BID IH ; Start 11/28/17 at 21:00; Stop 11/28/17 at 21:00; Status DC Pyridoxine HCl (Vitamin B-6) 100 mg DAILY PO Last administered on 8/1/18at 08: 27; Start 11/29/17 at 09:00 Raloxifene HCl (Evista) 60 mg DAILY PO Last administered on 12/04/17at 08:23; Start 11/29/17 at 09:00 Albuterol Sulfate (Ventolin) 2.5 mg PRN Q4HRS PRN NEB SHORTNESS OF BREATH; Start 11/28/17 at 15:45 Budesonide (Pulmicort) 0.5 mg RTBID NEB Last administered on 12/04/17at 20:29; Start 11/28/17 at 20:00 Loperamide HCl (Imodium) 2 mg PRN Q2HR PRN PO DIARRHEA Last administered on at 09:58; Start 11/29/17 at 09:30 Trazodone HCl (Desyrel) 50 mg QHS PO Last administered on 12/03/17at 19:39; Start 11/29/17 at 21:00 Quetiapine Fumarate (SEROquel) 25 mg HS PO Last administered on 12/03/17at 19:40 ; Start 12/01/17 at 21:00; Stop 12/04/17 at 16:45; Status DC Quetiapine Fumarate (SEROquel) 25 mg DAILY16 PO Last administered on 12/03/17at 17:08; Start 12/03/17 at 16:00; Stop 12/04/17 at 16:45; Status DC Quetiapine Fumarate (SEROquel) 12.5 mg DAILY PO Last administered on 12/04/17at 08:27; Start 12/04/17 at 09:00; Stop 12/04/17 at 16:45; Status DC Quetiapine Fumarate (SEROquel) 25 mg TID@0900,1300,1700 PO Last administered on 12/04/17at 17:18; Start 12/04/17 at 17:00 Active Scripts Active Reported Ventolin Hfa Inhaler (Albuterol Sulfate) 18 Gm Hfa.aer.ad 1 Puff IH PRN Q4HRS PRN Asmanex (Mometasone Furoate) 110 Mcg Aer.pow.ba 110 Mcg IH BID Remeron (Mirtazapine) 15 Mg Tablet 1 Tab PO QHS Aricept (Donepezil Hcl) 10 Mg Tablet 1 Tab PO QHS Fluvoxamine Maleate 100 Mg Tablet 150 Mg PO BID Buspirone Hcl 10 Mg Tablet 20 Mg PO BID Thera-M Tablet (Multivits,Ca,Minerals/Iron/Fa) 1 Each Tablet 1 Tab PO DAILY Vitamin B-12 (Cyanocobalamin (Vitamin B-12)) 1,000 Mcg Tablet 1,000 Mcg PO DAILY Analgesic [place] (Methyl Salicylate/Menthol) 28 Gm Oint...g. 1 Shawn TP PRN QID Tylenol (Acetaminophen) 325 Mg Tablet 650 Mg PO PRN Q6HRS PRN Folic Acid 1 Mg Tablet 1 Mg PO DAILY Aspirin 81 Mg Tab.chew 81 Mg PO DAILY Vitamin D3 (Cholecalciferol (Vitamin D3)) 1,000 Unit Tablet 2,000 Unit PO DAILY Vitamin B-6 (Pyridoxine Hcl) 100 Mg Tablet 100 Mg PO DAILY Caltrate 600 + D Tablet (Calcium Carbonate/Vitamin D3) 1 Each Tablet 2 Tab PO DAILY Evista (Raloxifene Hcl) 60 Mg Tablet 60 Mg PO DAILY Alprazolam 1 Mg Tablet 1 Mg PO QID Dicyclomine Hcl 20 Mg Tablet 20 Mg PO QID I have reviewed the current psychotropics carefully including drug interactions. Risk benefit ratio favors no change other than as noted in my dictated progress note. Diagnosis: Problems: (1) Anxiety disorder (2) Obsessive compulsive disorder (3) Psychosis, atypical (4) Major depressive disorder, recurrent episode (5) Seizure KAYLAN RAGLAND MD Dec 04, 2017 20:51
[2017-12-04] MEDS: MIRTAZAPINE 15 MG TABLET PO SCH (20:54)
[2017-12-04] MEDS: traZODone 50 MG TABLET. PO SCH (20:54)
[2017-12-04] MEDS: DONEPEZIL HCL 10 MG TABLET PO SCH (20:54)
[2017-12-05] MEDS: LOPERAMIDE 2 MG CAPSULE PO PRN (01:11)
--- NOTE | 2017-12-05 04:37 | PN ---
DATE: 12/03/2017 PSYCHIATRIC PROGRESS NOTE This is a late entry, 12/03, covers elements not covered in my initial note. SUBJECTIVE: I met with the patient in the evening. The patient slept 6-1/4 hours previous evening, somewhat anxious, obsessed about what time the group is and what times snacks are to be served after staff had given her the schedule. They have removed the schedule to help reduce the obsessiveness. REVIEW OF SYSTEMS: Ambulation impaired with walker. No CV, , pulmonary, eye, ENT system symptoms on review. MENTAL STATUS EXAM: Oriented to herself, situation. Speech is coherent, somewhat pressured at times. Abstraction fair, computation impaired, language function intact. Mood and affect remains anxious, obsessive. She slept 6-1/4 hours. LABORATORY DATA: Reviewed. IMPRESSION: Major depressive disorder; anxiety disorder, unspecified; obsessive-compulsive disorder. PLAN: Start Seroquel 12.5 mg a.m., continue 25 mg at bedtime; Luvox 150 b.i.d.; Aricept 10 mg a day; Xanax 1 mg four times a day; BuSpar 20 mg b.i.d.; Remeron 15 mg at bedtime; trazodone 50 mg at bedtime, may repeat x 1. MAN Dane RAGLAND MD DR: NABIL/sasha JOB#: [id number] / [id number]
[2017-12-05 05:42] VITALS: BP 137/74
[2017-12-05] MEDS: RALOXIFENE 60 MG TABLET. PO SCH (08:42)
[2017-12-05] MEDS: MULTIVITAMIN with MINERAL TABLET. PO SCH (08:42)
[2017-12-05] MEDS: QUEtiapine 25 MG TABLET. PO SCH ×3 (08:42→16:53)
[2017-12-05] MEDS: busPIRone 10 MG TABLET. PO SCH ×2 (08:43→19:27)
[2017-12-05] MEDS: CHOLECALCIFEROL (VITAMIN D3) 1,000 UNIT TABLET PO SCH (08:43)
[2017-12-05] MEDS: CYANOCOBALAMIN (VITAMIN B-12) 1,000 MCG TABLET. PO SCH (08:43)
[2017-12-05] MEDS: FOLIC ACID 1 MG TABLET PO SCH (08:43)
[2017-12-05] MEDS: DICYCLOMINE HCL 20 MG TABLET PO SCH ×4 (08:44→19:27)
[2017-12-05] MEDS: ASPIRIN 81 MG TAB.CHEW PO SCH (08:44)
[2017-12-05] MEDS: CALCIUM CARB/VIT D3 500/200 TABLET PO SCH (08:44)
[2017-12-05] MEDS: PYRIDOXINE 50 MG TABLET. PO SCH (08:45)
[2017-12-05] MEDS: ALPRAZolam 0.5 MG TABLET PO SCH ×4 (08:46→19:28)
[2017-12-05] MEDS: BUDESONIDE 0.5 MG/2 ML NEBU NEB SCH ×2 (10:53→20:00)
[2017-12-05 15:54] VITALS: BP 95/62
[2017-12-05] MEDS: traZODone 50 MG TABLET. PO SCH (19:27)
[2017-12-05] MEDS: DONEPEZIL HCL 10 MG TABLET PO SCH (19:27)
[2017-12-05] MEDS: MIRTAZAPINE 15 MG TABLET PO SCH (19:27)
--- NOTE | 2017-12-05 20:51 | PDOC ---
Exam Note: Lencho Note: Please also refer to the separate dictated note~for this date of service dictated separately.~Patient seen individually. Discussed the patient with Nursing staff reviewed the chart.~Reviewed interim history and current functioning. Reviewed vital signs,~Labs/ Radiology~and current medications noted below. Continue current treatment with the changes noted in the dictated addendum note Assessment: Vital Signs: Vital Signs Date Time Temp Pulse Resp B/P (MAP) Pulse Ox O2 Delivery O2 Flow Rate FiO2 12/05/17 15:54 98.2 82 18 95/62 (73) 96 12/05/17 10:53 Room Air I&O Intake and Output 12/05/17 07:00 Intake Total 960 ml Balance 960 ml Intake Oral 960 ml Current Medications: Meds: Current Medications Ciprofloxacin (Cipro) 500 mg 1X ONCE PO Last administered on 11/28/17at 13:11; Start 11/28/17 at 13:00; Stop 11/28/17 at 13:08; Status DC Acetaminophen (Tylenol) 650 mg PRN Q6HRS PRN PO PAIN / TEMP; Start 11/28/17 at 14:45 Multi-Ingredient Ointment (Analgesic [place]) 1 shawn PRN QID PRN TP MUSCLE PAIN; Start 11/28/17 at 14:45 Al Hydroxide/Mg Hydroxide (Mylanta Plus Xs) 15 ml PRN AFTMEALHC PRN PO DYSPEPSIA; Start 11/28/17 at 14:45 Magnesium Hydroxide (Milk Of Magnesia) 2,400 mg PRN QHS PRN PO CONSTIPATION; Start 11/28/17 at 14:45 Alprazolam (Xanax) 1 mg QID PO Last administered on 12/05/17at 19:28; Start 11/28 at 17:00 Buspirone HCl (Buspar) 20 mg BID PO Last administered on 12/05/17 19:27; Start 11/28/17 at 21:00 Donepezil HCl (Aricept) 10 mg QHS PO Last administered on 12/05/17at 19:27; Start 11/28/17 at 21:00 Fluvoxamine Maleate (Luvox) 150 mg BID PO Last administered on 12/05/17at 19:27; Start 11/28/17 at 21:00 Mirtazapine (Remeron) 15 mg QHS PO Last administered on 12/05/17 19:27; Start 11/28/17 at 21:00 Albuterol Sulfate (Ventolin Hfa) 1 puff PRN Q4HRS PRN IH SHORTNESS OF BREATH; Start 11/28/17 at 15:00; Stop 11/28/17 at 15:47; Status DC Vitamin D (Vitamin D3) 2,000 unit DAILY PO Last administered on 12/05/17 08:43 ; Start 11/29/17 at 09:00 Cyanocobalamin (Vitamin B-12) 1,000 mcg DAILY PO Last administered on 12/05/17 08:43; Start 11/29/17 at 09:00 Multivitamins/ Calcium (Thera-M Plus) 1 tab DAILY PO Last administered on 08:42; Start 11/29/17 at 09:00 Aspirin (Children'S Aspirin) 81 mg DAILYWBKFT PO Last administered on 12/05/17 08:44; Start 11/29/17 at 08:00 Calcium/Vitamin D (Oscal D 500mg/ 200uts) 2 tab DAILY PO Last administered on 08:44; Start 11/29/17 at 09:00 Dicyclomine HCl (Bentyl) 20 mg QID PO Last administered on 12/05/17 19:27; Start 11/28/17 at 17:00 Folic Acid (Folic Acid) 1 mg DAILY PO Last administered on 12/05/17 08:43; Start 11/29/17 at 09:00 Non-Formulary Medication (Mometasone Furoate (Asmanex)) 110 mcg BID IH ; Start 11/28/17 at 21:00; Stop 11/28/17 at 21:00; Status DC Pyridoxine HCl (Vitamin B-6) 100 mg DAILY PO Last administered on 12/05/17 08: 45; Start 11/29/17 at 09:00 Raloxifene HCl (Evista) 60 mg DAILY PO Last administered on 12/05/17 08:42; Start 11/29/17 at 09:00 Albuterol Sulfate (Ventolin) 2.5 mg PRN Q4HRS PRN NEB SHORTNESS OF BREATH; Start 11/28/17 at 15:45 Budesonide (Pulmicort) 0.5 mg RTBID NEB Last administered on 12/05/17at 10:53; Start 11/28/17 at 20:00 Loperamide HCl (Imodium) 2 mg PRN Q2HR PRN PO DIARRHEA Last administered on 12/05at 01:11; Start 11/29/17 at 09:30 Trazodone HCl (Desyrel) 50 mg QHS PO Last administered on 12/05/17at 19:27; Start 11/29/17 at 21:00 Quetiapine Fumarate (SEROquel) 25 mg HS PO Last administered on 12/03/17at 19:40 ; Start 12/01/17 at 21:00; Stop 12/04/17 at 16:45; Status DC Quetiapine Fumarate (SEROquel) 25 mg DAILY16 PO Last administered on 12/03/17at 17:08; Start 12/03/17 at 16:00; Stop 12/04/17 at 16:45; Status DC Quetiapine Fumarate (SEROquel) 12.5 mg DAILY PO Last administered on 12/04/17at 08:27; Start 12/04/17 at 09:00; Stop 12/04/17 at 16:45; Status DC Quetiapine Fumarate (SEROquel) 25 mg TID@0900,1300,1700 PO Last administered on 12/05/17at 16:53; Start 12/04/17 at 17:00 Active Scripts Active Reported Ventolin Hfa Inhaler (Albuterol Sulfate) 18 Gm Hfa.aer.ad 1 Puff IH PRN Q4HRS PRN Asmanex (Mometasone Furoate) 110 Mcg Aer.pow.ba 110 Mcg IH BID Remeron (Mirtazapine) 15 Mg Tablet 1 Tab PO QHS Aricept (Donepezil Hcl) 10 Mg Tablet 1 Tab PO QHS Fluvoxamine Maleate 100 Mg Tablet 150 Mg PO BID Buspirone Hcl 10 Mg Tablet 20 Mg PO BID Thera-M Tablet (Multivits,Ca,Minerals/Iron/Fa) 1 Each Tablet 1 Tab PO DAILY Vitamin B-12 (Cyanocobalamin (Vitamin B-12)) 1,000 Mcg Tablet 1,000 Mcg PO DAILY Analgesic [place] (Methyl Salicylate/Menthol) 28 Gm Oint...g. 1 Shawn TP PRN QID Tylenol (Acetaminophen) 325 Mg Tablet 650 Mg PO PRN Q6HRS PRN Folic Acid 1 Mg Tablet 1 Mg PO DAILY Aspirin 81 Mg Tab.chew 81 Mg PO DAILY Vitamin D3 (Cholecalciferol (Vitamin D3)) 1,000 Unit Tablet 2,000 Unit PO DAILY Vitamin B-6 (Pyridoxine Hcl) 100 Mg Tablet 100 Mg PO DAILY Caltrate 600 + D Tablet (Calcium Carbonate/Vitamin D3) 1 Each Tablet 2 Tab PO DAILY Evista (Raloxifene Hcl) 60 Mg Tablet 60 Mg PO DAILY Alprazolam 1 Mg Tablet 1 Mg PO QID Dicyclomine Hcl 20 Mg Tablet 20 Mg PO QID I have reviewed the current psychotropics carefully including drug interactions. Risk benefit ratio favors no change other than as noted in my dictated progress note. Diagnosis: Problems: (1) Anxiety disorder (2) Obsessive compulsive disorder (3) Psychosis, atypical (4) Major depressive disorder, recurrent episode (5) Seizure KAYLAN RAGLAND MD Dec 05, 2017 20:50
[2017-12-06 05:55] VITALS: BP 117/75
[2017-12-06] MEDS: FOLIC ACID 1 MG TABLET PO SCH (08:23)
[2017-12-06] MEDS: PYRIDOXINE 50 MG TABLET. PO SCH (08:23)
[2017-12-06] MEDS: DICYCLOMINE HCL 20 MG TABLET PO SCH ×4 (08:23→19:43)
[2017-12-06] MEDS: ASPIRIN 81 MG TAB.CHEW PO SCH (08:24)
[2017-12-06] MEDS: CHOLECALCIFEROL (VITAMIN D3) 1,000 UNIT TABLET PO SCH (08:24)
[2017-12-06] MEDS: CALCIUM CARB/VIT D3 500/200 TABLET PO SCH (08:24)
[2017-12-06] MEDS: busPIRone 10 MG TABLET. PO SCH ×2 (08:24→19:44)
[2017-12-06] MEDS: RALOXIFENE 60 MG TABLET. PO SCH (08:24)
[2017-12-06] MEDS: CYANOCOBALAMIN (VITAMIN B-12) 1,000 MCG TABLET. PO SCH (08:24)
[2017-12-06] MEDS: QUEtiapine 25 MG TABLET. PO SCH ×3 (08:24→16:39)
[2017-12-06] MEDS: MULTIVITAMIN with MINERAL TABLET. PO SCH (08:25)
[2017-12-06] MEDS: ALPRAZolam 0.5 MG TABLET PO SCH ×4 (08:26→19:45)
[2017-12-06] MEDS: BUDESONIDE 0.5 MG/2 ML NEBU NEB SCH ×2 (10:56→20:20)
[2017-12-06 15:59] VITALS: BP 101/60
[2017-12-06] MEDS: DONEPEZIL HCL 10 MG TABLET PO SCH (19:43)
[2017-12-06] MEDS: traZODone 50 MG TABLET. PO SCH (19:45)
[2017-12-06] MEDS: MIRTAZAPINE 15 MG TABLET PO SCH (19:45)
--- NOTE | 2017-12-06 20:44 | PDOC ---
Exam Note: Lencho Note: Please also refer to the separate dictated note~for this date of service dictated separately.~Patient seen individually. Discussed the patient with Nursing staff reviewed the chart.~Reviewed interim history and current functioning. Reviewed vital signs,~Labs/ Radiology~and current medications noted below. Continue current treatment with the changes noted in the dictated addendum note Assessment: Vital Signs: Vital Signs Date Time Temp Pulse Resp B/P (MAP) Pulse Ox O2 Delivery O2 Flow Rate FiO2 12/06/17 20:20 97 Room Air 12/06/17 15:59 97.8 78 19 101/60 (74) I&O Intake and Output 12/06/17 07:00 Intake Total 1440 ml Balance 1440 ml Intake Oral 1440 ml # Voids 1 Current Medications: Meds: Current Medications Ciprofloxacin (Cipro) 500 mg 1X ONCE PO Last administered on 11/28/17at 13:11; Start 11/28/17 at 13:00; Stop 11/28/17 at 13:08; Status DC Acetaminophen (Tylenol) 650 mg PRN Q6HRS PRN PO PAIN / TEMP; Start 11/28/17 at 14:45 Multi-Ingredient Ointment (Analgesic [place]) 1 shawn PRN QID PRN TP MUSCLE PAIN; Start 11/28/17 at 14:45 Al Hydroxide/Mg Hydroxide (Mylanta Plus Xs) 15 ml PRN AFTMEALHC PRN PO DYSPEPSIA; Start 11/28/17 at 14:45 Magnesium Hydroxide (Milk Of Magnesia) 2,400 mg PRN QHS PRN PO CONSTIPATION; Start 11/28/17 at 14:45 Alprazolam (Xanax) 1 mg QID PO Last administered on 12/06/17at 19:45; Start 11/28 at 17:00 Buspirone HCl (Buspar) 20 mg BID PO Last administered on 12/06/17 19:44; Start 11/28/17 at 21:00 Donepezil HCl (Aricept) 10 mg QHS PO Last administered on 12/06/17at 19:43; Start 11/28/17 at 21:00 Fluvoxamine Maleate (Luvox) 150 mg BID PO Last administered on 12/06/17at 19:45; Start 11/28/17 at 21:00 Mirtazapine (Remeron) 15 mg QHS PO Last administered on 12/06/17 19:45; Start 11/28/17 at 21:00 Albuterol Sulfate (Ventolin Hfa) 1 puff PRN Q4HRS PRN IH SHORTNESS OF BREATH; Start 11/28/17 at 15:00; Stop 11/28/17 at 15:47; Status DC Vitamin D (Vitamin D3) 2,000 unit DAILY PO Last administered on 12/06/17 08:24 ; Start 11/29/17 at 09:00 Cyanocobalamin (Vitamin B-12) 1,000 mcg DAILY PO Last administered on 12/06/17 08:24; Start 11/29/17 at 09:00 Multivitamins/ Calcium (Thera-M Plus) 1 tab DAILY PO Last administered on 08:25; Start 11/29/17 at 09:00 Aspirin (Children'S Aspirin) 81 mg DAILYWBKFT PO Last administered on 12/06/17 08:24; Start 11/29/17 at 08:00 Calcium/Vitamin D (Oscal D 500mg/ 200uts) 2 tab DAILY PO Last administered on 08:24; Start 11/29/17 at 09:00 Dicyclomine HCl (Bentyl) 20 mg QID PO Last administered on 12/06/17 19:43; Start 11/28/17 at 17:00 Folic Acid (Folic Acid) 1 mg DAILY PO Last administered on 12/06/17 08:23; Start 11/29/17 at 09:00 Non-Formulary Medication (Mometasone Furoate (Asmanex)) 110 mcg BID IH ; Start 11/28/17 at 21:00; Stop 11/28/17 at 21:00; Status DC Pyridoxine HCl (Vitamin B-6) 100 mg DAILY PO Last administered on 12/06/17 08: 23; Start 11/29/17 at 09:00 Raloxifene HCl (Evista) 60 mg DAILY PO Last administered on 12/06/17 08:24; Start 11/29/17 at 09:00 Albuterol Sulfate (Ventolin) 2.5 mg PRN Q4HRS PRN NEB SHORTNESS OF BREATH; Start 7/26/18 at 15:45 Budesonide (Pulmicort) 0.5 mg RTBID NEB Last administered on 12/06/17at 20:20; Start 11/28/17 at 20:00 Loperamide HCl (Imodium) 2 mg PRN Q2HR PRN PO DIARRHEA Last administered on 12/05at 01:11; Start 11/29/17 at 09:30 Trazodone HCl (Desyrel) 50 mg QHS PO Last administered on 12/06/17at 19:45; Start 11/29/17 at 21:00 Quetiapine Fumarate (SEROquel) 25 mg HS PO Last administered on 12/03/17at 19:40 ; Start 12/01/17 at 21:00; Stop 12/04/17 at 16:45; Status DC Quetiapine Fumarate (SEROquel) 25 mg DAILY16 PO Last administered on 12/03/17at 17:08; Start 12/03/17 at 16:00; Stop 12/04/17 at 16:45; Status DC Quetiapine Fumarate (SEROquel) 12.5 mg DAILY PO Last administered on 12/04/17at 08:27; Start 12/04/17 at 09:00; Stop 12/04/17 at 16:45; Status DC Quetiapine Fumarate (SEROquel) 25 mg TID@0900,1300,1700 PO Last administered on 12/06/17at 16:39; Start 12/04/17 at 17:00 Active Scripts Active Reported Ventolin Hfa Inhaler (Albuterol Sulfate) 18 Gm Hfa.aer.ad 1 Puff IH PRN Q4HRS PRN Asmanex (Mometasone Furoate) 110 Mcg Aer.pow.ba 110 Mcg IH BID Remeron (Mirtazapine) 15 Mg Tablet 1 Tab PO QHS Aricept (Donepezil Hcl) 10 Mg Tablet 1 Tab PO QHS Fluvoxamine Maleate 100 Mg Tablet 150 Mg PO BID Buspirone Hcl 10 Mg Tablet 20 Mg PO BID Thera-M Tablet (Multivits,Ca,Minerals/Iron/Fa) 1 Each Tablet 1 Tab PO DAILY Vitamin B-12 (Cyanocobalamin (Vitamin B-12)) 1,000 Mcg Tablet 1,000 Mcg PO DAILY Analgesic [place] (Methyl Salicylate/Menthol) 28 Gm Oint...g. 1 Shawn TP PRN QID Tylenol (Acetaminophen) 325 Mg Tablet 650 Mg PO PRN Q6HRS PRN Folic Acid 1 Mg Tablet 1 Mg PO DAILY Aspirin 81 Mg Tab.chew 81 Mg PO DAILY Vitamin D3 (Cholecalciferol (Vitamin D3)) 1,000 Unit Tablet 2,000 Unit PO DAILY Vitamin B-6 (Pyridoxine Hcl) 100 Mg Tablet 100 Mg PO DAILY Caltrate 600 + D Tablet (Calcium Carbonate/Vitamin D3) 1 Each Tablet 2 Tab PO DAILY Evista (Raloxifene Hcl) 60 Mg Tablet 60 Mg PO DAILY Alprazolam 1 Mg Tablet 1 Mg PO QID Dicyclomine Hcl 20 Mg Tablet 20 Mg PO QID I have reviewed the current psychotropics carefully including drug interactions. Risk benefit ratio favors no change other than as noted in my dictated progress note. Diagnosis: Problems: (1) Anxiety disorder (2) Obsessive compulsive disorder (3) Psychosis, atypical (4) Major depressive disorder, recurrent episode (5) Seizure KAYLAN RAGLAND MD Dec 06, 2017 20:44
--- NOTE | 2017-12-07 00:59 | PN ---
DATE: 12/04/2017 PSYCHIATRIC PROGRESS NOTE This is a late entry 12/04/2017 covers elements not covered in my initial note. SUBJECTIVE: I met with the patient in the evening. The patient slept 6-1/2 hours previous evening, anxious in the morning. Short term memory is impaired, but anxiety better later in the day. REVIEW OF SYSTEMS: Ambulation impaired with walker. No CV, , pulmonary, eye system symptoms on review. MENTAL STATUS EXAM: Reasonably oriented. Speech is coherent, somewhat pressured at times. Abstraction fair, computation impaired, language function intact. Mood and affect remain somewhat anxious, labile. LABORATORY DATA: Reviewed. IMPRESSION: Unchanged from initial note. PLAN: Seroquel is 12.5 mg daily, 25 at 1600 and at bedtime and we will increase it to 25 mg 3 times a day. Continue Luvox 150 b.i.d. Rest unchanged from initial note. MAN Dane RAGLAND MD DR: NABIL/sasha JOB#: [id number] / [id number]
--- NOTE | 2017-12-07 01:27 | PN ---
DATE: 12/05/2017 PSYCHIATRIC PROGRESS NOTE This is a late entry, 12/05, covers elements not covered in my initial note. SUBJECTIVE: I met with the patient in the evening and staffed at Treatment Team meeting with the entire team in the morning. The patient slept 6-1/2 hours previous evening. Her , Clive, attended the Treatment Team meeting and we had a lengthy discussion about the patient's diagnosis, current treatment, and progress. She has had some loose stools. We will monitor this. REVIEW OF SYSTEMS: Ambulation impaired. No CV, , pulmonary, eye system symptoms on review. MENTAL STATUS EXAM: Oriented reasonably. Speech is coherent, abstraction fair, computation impaired, language function intact, attention span short. Mood and affect less obsessive, less anxious, less labile. LABORATORY DATA: Reviewed. IMPRESSION: Unchanged from initial note. The patient sleeping reasonably well. PLAN: Continue psychotropics from initial note. KAYLAN RAGLAND MD DR: NABIL/sasha JOB#: [id number] / [id number]
[2017-12-07 06:02] VITALS: BP 93/54
[2017-12-07] MEDS: RALOXIFENE 60 MG TABLET. PO SCH (07:46)
[2017-12-07] MEDS: PYRIDOXINE 50 MG TABLET. PO SCH (07:47)
[2017-12-07] MEDS: DICYCLOMINE HCL 20 MG TABLET PO SCH ×4 (07:47→19:58)
[2017-12-07] MEDS: CALCIUM CARB/VIT D3 500/200 TABLET PO SCH (07:47)
[2017-12-07] MEDS: QUEtiapine 25 MG TABLET. PO SCH ×3 (07:48→16:48)
[2017-12-07] MEDS: MULTIVITAMIN with MINERAL TABLET. PO SCH (07:48)
[2017-12-07] MEDS: FOLIC ACID 1 MG TABLET PO SCH (07:48)
[2017-12-07] MEDS: CHOLECALCIFEROL (VITAMIN D3) 1,000 UNIT TABLET PO SCH (07:48)
[2017-12-07] MEDS: CYANOCOBALAMIN (VITAMIN B-12) 1,000 MCG TABLET. PO SCH (07:48)
[2017-12-07] MEDS: busPIRone 10 MG TABLET. PO SCH ×2 (07:48→19:57)
[2017-12-07] MEDS: ASPIRIN 81 MG TAB.CHEW PO SCH (07:48)
[2017-12-07] MEDS: ALPRAZolam 0.5 MG TABLET PO SCH ×4 (07:49→19:59)
[2017-12-07] MEDS: BUDESONIDE 0.5 MG/2 ML NEBU NEB SCH ×2 (10:30→20:27)
[2017-12-07 16:13] VITALS: BP 109/65
[2017-12-07] MEDS: traZODone 50 MG TABLET. PO SCH (19:56)
[2017-12-07] MEDS: DONEPEZIL HCL 10 MG TABLET PO SCH (19:57)
[2017-12-07] MEDS: MIRTAZAPINE 15 MG TABLET PO SCH (19:57)
[2017-12-08 05:51] VITALS: BP 101/57
[2017-12-08] MEDS: busPIRone 10 MG TABLET. PO SCH ×2 (09:11→19:48)
[2017-12-08] MEDS: ASPIRIN 81 MG TAB.CHEW PO SCH (09:11)
[2017-12-08] MEDS: DICYCLOMINE HCL 20 MG TABLET PO SCH ×4 (09:11→19:48)
[2017-12-08] MEDS: RALOXIFENE 60 MG TABLET. PO SCH (09:12)
[2017-12-08] MEDS: FOLIC ACID 1 MG TABLET PO SCH (09:12)
[2017-12-08] MEDS: QUEtiapine 25 MG TABLET. PO SCH ×3 (09:13→16:55)
[2017-12-08] MEDS: CYANOCOBALAMIN (VITAMIN B-12) 1,000 MCG TABLET. PO SCH (09:13)
[2017-12-08] MEDS: CALCIUM CARB/VIT D3 500/200 TABLET PO SCH (09:13)
[2017-12-08] MEDS: MULTIVITAMIN with MINERAL TABLET. PO SCH (09:13)
[2017-12-08] MEDS: CHOLECALCIFEROL (VITAMIN D3) 1,000 UNIT TABLET PO SCH (09:14)
[2017-12-08] MEDS: PYRIDOXINE 50 MG TABLET. PO SCH (09:14)
[2017-12-08] MEDS: ALPRAZolam 0.5 MG TABLET PO SCH ×4 (09:15→19:48)
[2017-12-08] MEDS: BUDESONIDE 0.5 MG/2 ML NEBU NEB SCH ×2 (10:27→23:10)
[2017-12-08 16:24] VITALS: BP 107/69
[2017-12-08] MEDS: DONEPEZIL HCL 10 MG TABLET PO SCH (19:48)
[2017-12-08] MEDS: MIRTAZAPINE 15 MG TABLET PO SCH (19:48)
[2017-12-08] MEDS: traZODone 50 MG TABLET. PO SCH (19:48)
--- NOTE | 2017-12-08 19:55 | PDOC ---
Exam Note: Lencho Note: Late entry for date of service December. Please also refer to the separate dictated note~for this date of service dictated separately.~Patient seen individually. Discussed the patient with Nursing staff reviewed the chart.~ Reviewed interim history and current functioning. Reviewed vital signs,~Labs/ Radiology~and current medications noted below. Continue current treatment with the changes noted in the dictated addendum note Assessment: Vital Signs: VS - Last 72 Hours, by Label Date Time Temp Pulse Resp B/P (MAP) Pulse Ox O2 Delivery O2 Flow Rate FiO2 12/08/17 16:24 97.9 77 16 107/69 (82) 96 Room Air 12/08/17 10:28 94 Room Air 12/08/17 05:51 96.8 71 20 101/57 (72) 94 12/07/17 20:25 94 Room Air 12/07/17 16:13 97.5 87 16 109/65 (80) 95 12/07/17 10:31 97 Room Air 12/07/17 06:02 97.6 75 16 93/54 (67) 94 12/06/17 20:20 97 Room Air 12/06/17 15:59 97.8 78 19 101/60 (74) 97 12/06/17 10:56 97 Room Air 12/06/17 05:55 97.2 83 19 117/75 (89) 95 Vital Signs Date Time Temp Pulse Resp B/P (MAP) Pulse Ox O2 Delivery O2 Flow Rate FiO2 12/08/17 16:24 97.9 77 16 107/69 (82) 96 Room Air I&O Intake and Output 12/08/17 07:00 Intake Total 1800 ml Balance 1800 ml Intake Oral 1800 ml Current Medications: Meds: Current Medications Ciprofloxacin (Cipro) 500 mg 1X ONCE PO Last administered on 11/28/17at 13:11; Start 11/28/17 at 13:00; Stop 11/28/17 at 13:08; Status DC Acetaminophen (Tylenol) 650 mg PRN Q6HRS PRN PO PAIN / TEMP; Start 11/28/17 at 14:45 Multi-Ingredient Ointment (Analgesic [place]) 1 shawn PRN QID PRN TP MUSCLE PAIN; Start 11/28/17 at 14:45 Al Hydroxide/Mg Hydroxide (Mylanta Plus Xs) 15 ml PRN AFTMEALHC PRN PO DYSPEPSIA; Start 11/28/17 at 14:45 Magnesium Hydroxide (Milk Of Magnesia) 2,400 mg PRN QHS PRN PO CONSTIPATION; Start 11/28/17 at 14:45 Alprazolam (Xanax) 1 mg QID PO Last administered on 12/08/17 19:48; Start 11/28 at 17:00 Buspirone HCl (Buspar) 20 mg BID PO Last administered on 12/08/17 19:48; Start 11/28/17 at 21:00 Donepezil HCl (Aricept) 10 mg QHS PO Last administered on 12/08/17 19:48; Start 11/28/17 at 21:00 Fluvoxamine Maleate (Luvox) 150 mg BID PO Last administered on 12/08/17 19:48; Start 11/28/17 at 21:00 Mirtazapine (Remeron) 15 mg QHS PO Last administered on 12/08/17 19:48; Start 11/28/17 at 21:00 Albuterol Sulfate (Ventolin Hfa) 1 puff PRN Q4HRS PRN IH SHORTNESS OF BREATH; Start 11/28/17 at 15:00; Stop 11/28/17 at 15:47; Status DC Vitamin D (Vitamin D3) 2,000 unit DAILY PO Last administered on 12/08/17 09:14 ; Start 11/29/17 at 09:00 Cyanocobalamin (Vitamin B-12) 1,000 mcg DAILY PO Last administered on 12/08/17 09:13; Start 11/29/17 at 09:00 Multivitamins/ Calcium (Thera-M Plus) 1 tab DAILY PO Last administered on 09:13; Start 11/29/17 at 09:00 Aspirin (Children'S Aspirin) 81 mg DAILYWBKFT PO Last administered on 12/08/17 09:11; Start 11/29/17 at 08:00 Calcium/Vitamin D (Oscal D 500mg/ 200uts) 2 tab DAILY PO Last administered on 09:13; Start 11/29/17 at 09:00 Dicyclomine HCl (Bentyl) 20 mg QID PO Last administered on 8/5/18at 19:48; Start 11/28/17 at 17:00 Folic Acid (Folic Acid) 1 mg DAILY PO Last administered on 12/08/17at 09:12; Start 11/29/17 at 09:00 Non-Formulary Medication (Mometasone Furoate (Asmanex)) 110 mcg BID IH ; Start 11/28/17 at 21:00; Stop 11/28/17 at 21:00; Status DC Pyridoxine HCl (Vitamin B-6) 100 mg DAILY PO Last administered on 12/08/17at 09: 14; Start 11/29/17 at 09:00 Raloxifene HCl (Evista) 60 mg DAILY PO Last administered on 12/08/17at 09:12; Start 11/29/17 at 09:00 Albuterol Sulfate (Ventolin) 2.5 mg PRN Q4HRS PRN NEB SHORTNESS OF BREATH; Start 11/28/17 at 15:45 Budesonide (Pulmicort) 0.5 mg RTBID NEB Last administered on 12/08/17at 10:27; Start 11/28/17 at 20:00 Loperamide HCl (Imodium) 2 mg PRN Q2HR PRN PO DIARRHEA Last administered on 12/05at 01:11; Start 11/29/17 at 09:30 Trazodone HCl (Desyrel) 50 mg QHS PO Last administered on 12/08/17at 19:48; Start 11/29/17 at 21:00 Quetiapine Fumarate (SEROquel) 25 mg HS PO Last administered on 12/03/17at 19:40 ; Start 12/01/17 at 21:00; Stop 12/04/17 at 16:45; Status DC Quetiapine Fumarate (SEROquel) 25 mg DAILY16 PO Last administered on 12/03/17at 17:08; Start 12/03/17 at 16:00; Stop 12/04/17 at 16:45; Status DC Quetiapine Fumarate (SEROquel) 12.5 mg DAILY PO Last administered on 12/04/17at 08:27; Start 12/04/17 at 09:00; Stop 12/04/17 at 16:45; Status DC Quetiapine Fumarate (SEROquel) 25 mg TID@0900,1300,1700 PO Last administered on 12/08/17at 16:55; Start 12/04/17 at 17:00 Active Scripts Active Reported Ventolin Hfa Inhaler (Albuterol Sulfate) 18 Gm Hfa.aer.ad 1 Puff IH PRN Q4HRS PRN Asmanex (Mometasone Furoate) 110 Mcg Aer.pow.ba 110 Mcg IH BID Remeron (Mirtazapine) 15 Mg Tablet 1 Tab PO QHS Aricept (Donepezil Hcl) 10 Mg Tablet 1 Tab PO QHS Fluvoxamine Maleate 100 Mg Tablet 150 Mg PO BID Buspirone Hcl 10 Mg Tablet 20 Mg PO BID Thera-M Tablet (Multivits,Ca,Minerals/Iron/Fa) 1 Each Tablet 1 Tab PO DAILY Vitamin B-12 (Cyanocobalamin (Vitamin B-12)) 1,000 Mcg Tablet 1,000 Mcg PO DAILY Analgesic [place] (Methyl Salicylate/Menthol) 28 Gm Oint...g. 1 Shawn TP PRN QID Tylenol (Acetaminophen) 325 Mg Tablet 650 Mg PO PRN Q6HRS PRN Folic Acid 1 Mg Tablet 1 Mg PO DAILY Aspirin 81 Mg Tab.chew 81 Mg PO DAILY Vitamin D3 (Cholecalciferol (Vitamin D3)) 1,000 Unit Tablet 2,000 Unit PO DAILY Vitamin B-6 (Pyridoxine Hcl) 100 Mg Tablet 100 Mg PO DAILY Caltrate 600 + D Tablet (Calcium Carbonate/Vitamin D3) 1 Each Tablet 2 Tab PO DAILY Evista (Raloxifene Hcl) 60 Mg Tablet 60 Mg PO DAILY Alprazolam 1 Mg Tablet 1 Mg PO QID Dicyclomine Hcl 20 Mg Tablet 20 Mg PO QID I have reviewed the current psychotropics carefully including drug interactions. Risk benefit ratio favors no change other than as noted in my dictated progress note. Diagnosis: Problems: (1) Anxiety disorder (2) Obsessive compulsive disorder (3) Psychosis, atypical (4) Major depressive disorder, recurrent episode (5) Seizure KAYLAN RAGLADN MD Dec 08, 2017 19:55
--- NOTE | 2017-12-08 19:56 | PDOC ---
Exam Note: Lencho Note: Please also refer to the separate dictated note~for this date of service dictated separately.~Patient seen individually. Discussed the patient with Nursing staff reviewed the chart.~Reviewed interim history and current functioning. Reviewed vital signs,~Labs/ Radiology~and current medications noted below. Continue current treatment with the changes noted in the dictated addendum note Assessment: Vital Signs: Vital Signs Date Time Temp Pulse Resp B/P (MAP) Pulse Ox O2 Delivery O2 Flow Rate FiO2 12/08/17 16:24 97.9 77 16 107/69 (82) 96 Room Air I&O Intake and Output 12/08/17 07:00 Intake Total 1800 ml Balance 1800 ml Intake Oral 1800 ml Current Medications: Meds: Current Medications Ciprofloxacin (Cipro) 500 mg 1X ONCE PO Last administered on 11/28/17at 13:11; Start 11/28/17 at 13:00; Stop 11/28/17 at 13:08; Status DC Acetaminophen (Tylenol) 650 mg PRN Q6HRS PRN PO PAIN / TEMP; Start 11/28/17 at 14:45 Multi-Ingredient Ointment (Analgesic [place]) 1 shawn PRN QID PRN TP MUSCLE PAIN; Start 11/28/17 at 14:45 Al Hydroxide/Mg Hydroxide (Mylanta Plus Xs) 15 ml PRN AFTMEALHC PRN PO DYSPEPSIA; Start 11/28/17 at 14:45 Magnesium Hydroxide (Milk Of Magnesia) 2,400 mg PRN QHS PRN PO CONSTIPATION; Start 11/28/17 at 14:45 Alprazolam (Xanax) 1 mg QID PO Last administered on 12/08/17 19:48; Start 11/28 at 17:00 Buspirone HCl (Buspar) 20 mg BID PO Last administered on 12/08/17 19:48; Start 11/28/17 at 21:00 Donepezil HCl (Aricept) 10 mg QHS PO Last administered on 12/08/17 19:48; Start 11/28/17 at 21:00 Fluvoxamine Maleate (Luvox) 150 mg BID PO Last administered on 12/08/17 19:48; Start 11/28/17 at 21:00 Mirtazapine (Remeron) 15 mg QHS PO Last administered on 12/08/17 19:48; Start 11/28/17 at 21:00 Albuterol Sulfate (Ventolin Hfa) 1 puff PRN Q4HRS PRN IH SHORTNESS OF BREATH; Start 11/28/17 at 15:00; Stop 11/28/17 at 15:47; Status DC Vitamin D (Vitamin D3) 2,000 unit DAILY PO Last administered on 12/08/17 09:14 ; Start 11/29/17 at 09:00 Cyanocobalamin (Vitamin B-12) 1,000 mcg DAILY PO Last administered on 12/08/17 09:13; Start 11/29/17 at 09:00 Multivitamins/ Calcium (Thera-M Plus) 1 tab DAILY PO Last administered on 09:13; Start 11/29/17 at 09:00 Aspirin (Children'S Aspirin) 81 mg DAILYWBKFT PO Last administered on 12/08/17 09:11; Start 11/29/17 at 08:00 Calcium/Vitamin D (Oscal D 500mg/ 200uts) 2 tab DAILY PO Last administered on 09:13; Start 11/29/17 at 09:00 Dicyclomine HCl (Bentyl) 20 mg QID PO Last administered on 12/08/17 19:48; Start 11/28/17 at 17:00 Folic Acid (Folic Acid) 1 mg DAILY PO Last administered on 12/08/17 09:12; Start 11/29/17 at 09:00 Non-Formulary Medication (Mometasone Furoate (Asmanex)) 110 mcg BID IH ; Start 11/28/17 at 21:00; Stop 11/28/17 at 21:00; Status DC Pyridoxine HCl (Vitamin B-6) 100 mg DAILY PO Last administered on 12/08/17 09: 14; Start 11/29/17 at 09:00 Raloxifene HCl (Evista) 60 mg DAILY PO Last administered on 12/08/17 09:12; Start 11/29/17 at 09:00 Albuterol Sulfate (Ventolin) 2.5 mg PRN Q4HRS PRN NEB SHORTNESS OF BREATH; Start 11/28/17 at 15:45 Budesonide (Pulmicort) 0.5 mg RTBID NEB Last administered on 12/08/17at 10:27; Start 11/28/17 at 20:00 Loperamide HCl (Imodium) 2 mg PRN Q2HR PRN PO DIARRHEA Last administered on 12/05at 01:11; Start 11/29/17 at 09:30 Trazodone HCl (Desyrel) 50 mg QHS PO Last administered on 12/08/17at 19:48; Start 11/29/17 at 21:00 Quetiapine Fumarate (SEROquel) 25 mg HS PO Last administered on 12/03/17at 19:40 ; Start 12/01/17 at 21:00; Stop 12/04/17 at 16:45; Status DC Quetiapine Fumarate (SEROquel) 25 mg DAILY16 PO Last administered on 12/03/17at 17:08; Start 12/03/17 at 16:00; Stop 12/04/17 at 16:45; Status DC Quetiapine Fumarate (SEROquel) 12.5 mg DAILY PO Last administered on 12/04/17at 08:27; Start 12/04/17 at 09:00; Stop 12/04/17 at 16:45; Status DC Quetiapine Fumarate (SEROquel) 25 mg TID@0900,1300,1700 PO Last administered on 12/08/17at 16:55; Start 12/04/17 at 17:00 Active Scripts Active Reported Ventolin Hfa Inhaler (Albuterol Sulfate) 18 Gm Hfa.aer.ad 1 Puff IH PRN Q4HRS PRN Asmanex (Mometasone Furoate) 110 Mcg Aer.pow.ba 110 Mcg IH BID Remeron (Mirtazapine) 15 Mg Tablet 1 Tab PO QHS Aricept (Donepezil Hcl) 10 Mg Tablet 1 Tab PO QHS Fluvoxamine Maleate 100 Mg Tablet 150 Mg PO BID Buspirone Hcl 10 Mg Tablet 20 Mg PO BID Thera-M Tablet (Multivits,Ca,Minerals/Iron/Fa) 1 Each Tablet 1 Tab PO DAILY Vitamin B-12 (Cyanocobalamin (Vitamin B-12)) 1,000 Mcg Tablet 1,000 Mcg PO DAILY Analgesic [place] (Methyl Salicylate/Menthol) 28 Gm Oint...g. 1 Shawn TP PRN QID Tylenol (Acetaminophen) 325 Mg Tablet 650 Mg PO PRN Q6HRS PRN Folic Acid 1 Mg Tablet 1 Mg PO DAILY Aspirin 81 Mg Tab.chew 81 Mg PO DAILY Vitamin D3 (Cholecalciferol (Vitamin D3)) 1,000 Unit Tablet 2,000 Unit PO DAILY Vitamin B-6 (Pyridoxine Hcl) 100 Mg Tablet 100 Mg PO DAILY Caltrate 600 + D Tablet (Calcium Carbonate/Vitamin D3) 1 Each Tablet 2 Tab PO DAILY Evista (Raloxifene Hcl) 60 Mg Tablet 60 Mg PO DAILY Alprazolam 1 Mg Tablet 1 Mg PO QID Dicyclomine Hcl 20 Mg Tablet 20 Mg PO QID I have reviewed the current psychotropics carefully including drug interactions. Risk benefit ratio favors no change other than as noted in my dictated progress note. Diagnosis: Problems: (1) Anxiety disorder (2) Obsessive compulsive disorder (3) Psychosis, atypical (4) Major depressive disorder, recurrent episode (5) Seizure KAYLAN RAGLAND MD Dec 08, 2017 19:56
--- NOTE | 2017-12-08 23:32 | PN ---
DATE: 11/28/2017 PSYCHIATRIC PROGRESS NOTE This is a late entry 12/06/2017 covers elements not covered in my initial note. SUBJECTIVE: I met with the patient in the evening. The patient slept 7-1/2 hours previous evening, more compliant with her medications, less anxious. REVIEW OF SYSTEMS: No CV, , pulmonary, eye, ENT system symptoms on review. MENTAL STATUS EXAM: Reasonably oriented. Speech is coherent, abstraction fair, computation impaired, language function intact, attention span short. Mood and affect remain somewhat anxious, but improved. LABORATORY DATA: Reviewed. IMPRESSION: Unchanged from initial note. PLAN: No change from initial note. MAN Dane RAGLAND MD DR: NABIL/sasha JOB#: [id number] / [id number]
[2017-12-09 06:32] VITALS: BP 112/54
[2017-12-09 07:29] LABS: BASO # 0.1 x10^3/uL (0.0-0.2); BASO % 1 % (0-3); EOS # 0.2 x10^3/uL (0.0-0.7); EOS % 2 % (0-3); HEMATOCRIT 37.8 % (36.0-47.0); HEMOGLOBIN 13.1 g/dL (12.0-15.5); LYMPH # 1.9 x10^3/uL (1.0-4.8); LYMPH % 22 % (24-48); MEAN CORPUSCULAR HEMOGLOBIN 32 pg (25-35); MEAN CORPUSCULAR HGB CONC 35 g/dL (31-37); MEAN CORPUSCULAR VOLUME 93 fL (79-100); MONO # 0.9 x10^3/uL (0.0-1.1); MONO % 10 % (0-9); NEUT # 5.5 x10^3uL (1.8-7.7); NEUT % 64 % (31-73); PLATELET COUNT 197 x10^3/uL (140-400); RED BLOOD COUNT 4.08 x10^6/uL (3.50-5.40); RED CELL DISTRIBUTION WIDTH 13.2 % (11.5-14.5); WHITE BLOOD COUNT 8.6 x10^3/uL (4.0-11.0)
[2017-12-09 07:51] LABS: CALCIUM 9.4 mg/dL (8.5-10.1); CREATININE 1.3 mg/dL (0.6-1.0); GFR 40.2; POTASSIUM 4.5 mmol/L (3.5-5.1); TOTAL BILIRUBIN 0.2 mg/dL (0.2-1.0); TOTAL PROTEIN 5.9 g/dL (6.4-8.2)
[2017-12-09] MEDS: ASPIRIN 81 MG TAB.CHEW PO SCH (09:32)
[2017-12-09] MEDS: busPIRone 10 MG TABLET. PO SCH ×2 (09:33→19:58)
[2017-12-09] MEDS: DICYCLOMINE HCL 20 MG TABLET PO SCH ×4 (09:33→20:01)
[2017-12-09] MEDS: QUEtiapine 25 MG TABLET. PO SCH ×3 (09:34→17:14)
[2017-12-09] MEDS: FOLIC ACID 1 MG TABLET PO SCH (09:34)
[2017-12-09] MEDS: CALCIUM CARB/VIT D3 500/200 TABLET PO SCH (09:34)
[2017-12-09] MEDS: MULTIVITAMIN with MINERAL TABLET. PO SCH (09:34)
[2017-12-09] MEDS: RALOXIFENE 60 MG TABLET. PO SCH (09:34)
[2017-12-09] MEDS: CYANOCOBALAMIN (VITAMIN B-12) 1,000 MCG TABLET. PO SCH (09:35)
[2017-12-09] MEDS: CHOLECALCIFEROL (VITAMIN D3) 1,000 UNIT TABLET PO SCH (09:35)
[2017-12-09] MEDS: ALPRAZolam 0.5 MG TABLET PO SCH ×4 (09:35→20:01)
[2017-12-09] MEDS: PYRIDOXINE 50 MG TABLET. PO SCH (09:36)
[2017-12-09] MEDS: BUDESONIDE 0.5 MG/2 ML NEBU NEB SCH ×2 (10:41→20:32)
[2017-12-09 16:11] VITALS: BP 112/72
[2017-12-09] MEDS: traZODone 50 MG TABLET. PO SCH (19:58)
[2017-12-09] MEDS: MIRTAZAPINE 15 MG TABLET PO SCH (19:58)
[2017-12-09] MEDS: DONEPEZIL HCL 10 MG TABLET PO SCH (20:01)
--- NOTE | 2017-12-09 21:07 | PDOC ---
Exam Note: Lencho Note: Please also refer to the separate dictated note~for this date of service dictated separately.~Patient seen individually. Discussed the patient with Nursing staff reviewed the chart.~Reviewed interim history and current functioning. Reviewed vital signs,~Labs/ Radiology~and current medications noted below. Continue current treatment with the changes noted in the dictated addendum note Assessment: Vital Signs: Vital Signs Date Time Temp Pulse Resp B/P (MAP) Pulse Ox O2 Delivery O2 Flow Rate FiO2 12/09/17 20:32 95 Room Air 12/09/17 16:11 98.1 79 18 112/72 (85) I&O Intake and Output 12/09/17 07:00 Intake Total 1200 ml Balance 1200 ml Intake Oral 1200 ml Labs: Laboratory Tests Test 12/09/17 07:15 White Blood Count 8.6 x10^3/uL (4.0-11.0) Red Blood Count 4.08 x10^6/uL (3.50-5.40) Hemoglobin 13.1 g/dL (12.0-15.5) Hematocrit 37.8 % (36.0-47.0) Mean Corpuscular Volume 93 fL (79-100) Mean Corpuscular Hemoglobin 32 pg (25-35) Mean Corpuscular Hemoglobin Concent 35 g/dL (31-37) Red Cell Distribution Width 13.2 % (11.5-14.5) Platelet Count 197 x10^3/uL (140-400) Neutrophils (%) (Auto) 64 % (31-73) Lymphocytes (%) (Auto) 22 % (24-48) L Monocytes (%) (Auto) 10 % (0-9) H Eosinophils (%) (Auto) 2 % (0-3) Basophils (%) (Auto) 1 % (0-3) Neutrophils # (Auto) 5.5 x10^3uL (1.8-7.7) Lymphocytes # (Auto) 1.9 x10^3/uL (1.0-4.8) Monocytes # (Auto) 0.9 x10^3/uL (0.0-1.1) Eosinophils # (Auto) 0.2 x10^3/uL (0.0-0.7) Basophils # (Auto) 0.1 x10^3/uL (0.0-0.2) Sodium Level 142 mmol/L (136-145) Potassium Level 4.5 mmol/L (3.5-5.1) Chloride Level 107 mmol/L (98-107) Carbon Dioxide Level 29 mmol/L (21-32) Anion Gap 6 (6-14) Blood Urea Nitrogen 18 mg/dL (7-20) Creatinine 1.3 mg/dL (0.6-1.0) H Estimated GFR (Cockcroft-Gault) 40.2 BUN/Creatinine Ratio 14 (6-20) Glucose Level 88 mg/dL (70-99) Calcium Level 9.4 mg/dL (8.5-10.1) Total Bilirubin 0.2 mg/dL (0.2-1.0) Aspartate Amino Transferase (AST) 27 U/L (15-37) Alanine Aminotransferase (ALT) 27 U/L (14-59) Alkaline Phosphatase 59 U/L (46-116) Total Protein 5.9 g/dL (6.4-8.2) L Albumin 3.0 g/dL (3.4-5.0) L Albumin/Globulin Ratio 1.0 (1.0-1.7) Current Medications: Meds: Current Medications Ciprofloxacin (Cipro) 500 mg 1X ONCE PO Last administered on 11/28/17at 13:11; Start 11/28/17 at 13:00; Stop 11/28/17 at 13:08; Status DC Acetaminophen (Tylenol) 650 mg PRN Q6HRS PRN PO PAIN / TEMP; Start 11/28/17 at 14:45 Multi-Ingredient Ointment (Analgesic [place]) 1 shawn PRN QID PRN TP MUSCLE PAIN; Start 11/28/17 at 14:45 Al Hydroxide/Mg Hydroxide (Mylanta Plus Xs) 15 ml PRN AFTMEALHC PRN PO DYSPEPSIA; Start 11/28/17 at 14:45 Magnesium Hydroxide (Milk Of Magnesia) 2,400 mg PRN QHS PRN PO CONSTIPATION; Start 11/28/17 at 14:45 Alprazolam (Xanax) 1 mg QID PO Last administered on 12/09/17at 20:01; Start 11/28 at 17:00 Buspirone HCl (Buspar) 20 mg BID PO Last administered on 12/09/17at 19:58; Start 11/28/17 at 21:00 Donepezil HCl (Aricept) 10 mg QHS PO Last administered on 12/09/17 20:01; Start 11/28/17 at 21:00 Fluvoxamine Maleate (Luvox) 150 mg BID PO Last administered on 12/09/17 20:02; Start 11/28/17 at 21:00 Mirtazapine (Remeron) 15 mg QHS PO Last administered on 12/09/17 19:58; Start 11/28/17 at 21:00 Albuterol Sulfate (Ventolin Hfa) 1 puff PRN Q4HRS PRN IH SHORTNESS OF BREATH; Start 11/28/17 at 15:00; Stop 11/28/17 at 15:47; Status DC Vitamin D (Vitamin D3) 2,000 unit DAILY PO Last administered on 12/09/17 09:35 ; Start 11/29/17 at 09:00 Cyanocobalamin (Vitamin B-12) 1,000 mcg DAILY PO Last administered on 12/09/17 09:35; Start 11/29/17 at 09:00 Multivitamins/ Calcium (Thera-M Plus) 1 tab DAILY PO Last administered on 09:34; Start 11/29/17 at 09:00 Aspirin (Children'S Aspirin) 81 mg DAILYWBKFT PO Last administered on 12/09/17 09:32; Start 11/29/17 at 08:00 Calcium/Vitamin D (Oscal D 500mg/ 200uts) 2 tab DAILY PO Last administered on 09:34; Start 11/29/17 at 09:00 Dicyclomine HCl (Bentyl) 20 mg QID PO Last administered on 12/09/17 20:01; Start 11/28/17 at 17:00 Folic Acid (Folic Acid) 1 mg DAILY PO Last administered on 12/09/17 09:34; Start 11/29/17 at 09:00 Non-Formulary Medication (Mometasone Furoate (Asmanex)) 110 mcg BID IH ; Start 11/28/17 at 21:00; Stop 11/28/17 at 21:00; Status DC Pyridoxine HCl (Vitamin B-6) 100 mg DAILY PO Last administered on 8/6/18at 09: 36; Start 11/29/17 at 09:00 Raloxifene HCl (Evista) 60 mg DAILY PO Last administered on 12/09/17 09:34; Start 11/29/17 at 09:00 Albuterol Sulfate (Ventolin) 2.5 mg PRN Q4HRS PRN NEB SHORTNESS OF BREATH; Start 11/28/17 at 15:45 Budesonide (Pulmicort) 0.5 mg RTBID NEB Last administered on 12/09/17at 20:32; Start 11/28/17 at 20:00 Loperamide HCl (Imodium) 2 mg PRN Q2HR PRN PO DIARRHEA Last administered on 12/05 01:11; Start 11/29/17 at 09:30 Trazodone HCl (Desyrel) 50 mg QHS PO Last administered on 12/09/17 19:58; Start 11/29/17 at 21:00 Quetiapine Fumarate (SEROquel) 25 mg HS PO Last administered on 12/03/17at 19:40 ; Start 12/01/17 at 21:00; Stop 12/04/17 at 16:45; Status DC Quetiapine Fumarate (SEROquel) 25 mg DAILY16 PO Last administered on 12/03/17at 17:08; Start 12/03/17 at 16:00; Stop 12/04/17 at 16:45; Status DC Quetiapine Fumarate (SEROquel) 12.5 mg DAILY PO Last administered on 12/04/17at 08:27; Start 12/04/17 at 09:00; Stop 12/04/17 at 16:45; Status DC Quetiapine Fumarate (SEROquel) 25 mg TID@0900,1300,1700 PO Last administered on 12/09/17at 17:14; Start 12/04/17 at 17:00 Active Scripts Active Reported Ventolin Hfa Inhaler (Albuterol Sulfate) 18 Gm Hfa.aer.ad 1 Puff IH PRN Q4HRS PRN Asmanex (Mometasone Furoate) 110 Mcg Aer.pow.ba 110 Mcg IH BID Remeron (Mirtazapine) 15 Mg Tablet 1 Tab PO QHS Aricept (Donepezil Hcl) 10 Mg Tablet 1 Tab PO QHS Fluvoxamine Maleate 100 Mg Tablet 150 Mg PO BID Buspirone Hcl 10 Mg Tablet 20 Mg PO BID Thera-M Tablet (Multivits,Ca,Minerals/Iron/Fa) 1 Each Tablet 1 Tab PO DAILY Vitamin B-12 (Cyanocobalamin (Vitamin B-12)) 1,000 Mcg Tablet 1,000 Mcg PO DAILY Analgesic [place] (Methyl Salicylate/Menthol) 28 Gm Oint...g. 1 Shawn TP PRN QID Tylenol (Acetaminophen) 325 Mg Tablet 650 Mg PO PRN Q6HRS PRN Folic Acid 1 Mg Tablet 1 Mg PO DAILY Aspirin 81 Mg Tab.chew 81 Mg PO DAILY Vitamin D3 (Cholecalciferol (Vitamin D3)) 1,000 Unit Tablet 2,000 Unit PO DAILY Vitamin B-6 (Pyridoxine Hcl) 100 Mg Tablet 100 Mg PO DAILY Caltrate 600 + D Tablet (Calcium Carbonate/Vitamin D3) 1 Each Tablet 2 Tab PO DAILY Evista (Raloxifene Hcl) 60 Mg Tablet 60 Mg PO DAILY Alprazolam 1 Mg Tablet 1 Mg PO QID Dicyclomine Hcl 20 Mg Tablet 20 Mg PO QID I have reviewed the current psychotropics carefully including drug interactions. Risk benefit ratio favors no change other than as noted in my dictated progress note. Diagnosis: Problems: (1) Anxiety disorder (2) Obsessive compulsive disorder (3) Psychosis, atypical (4) Major depressive disorder, recurrent episode (5) Seizure KAYLAN RAGLAND MD Dec 09, 2017 21:07
--- NOTE | 2017-12-09 22:38 | PN ---
DATE: 12/07/2017 This is a late entry of 12/07/2017, covers elements not covered in my initial note. SUBJECTIVE: I met with the patient in the evening. The patient slept 7-3/4 hours previous evening, fixated and obsessing about dentures being cleaned, otherwise better. REVIEW OF SYSTEMS: Ambulation impaired, with walker. No CV, , pulmonary, eye, ENT system symptoms on review. MENTAL STATUS EXAM: Oriented to herself and situation. Speech coherent, abstraction fair, computation impaired, language function intact. Mood and affect improved, less obsessive, less anxious. LABORATORY DATA: Labs reviewed. IMPRESSION: Unchanged from initial note. PLAN: Continue psychotropics from initial note. KAYLAN RAGLAND MD DR: NABIL/sasha JOB#: [id number] / [id number]
[2017-12-10] MEDS ORDERED: TRAZ-85 PO (03:41)
[2017-12-10] MEDS ORDERED: QUET25TA5 PO (03:47)
[2017-12-10] MEDS ORDERED: BUDE0.5A3 NEB (03:51)
[2017-12-10] MEDS ORDERED: MAG30ORA2 PO (03:52)
[2017-12-10] MEDS ORDERED: LOPE2CAP88 PO (03:53)
[2017-12-10] MEDS ORDERED: MAGN400O7 PO (03:54)
[2017-12-10 06:49] VITALS: BP 114/53
[2017-12-10] MEDS: ASPIRIN 81 MG TAB.CHEW PO SCH (09:28)
[2017-12-10] MEDS: busPIRone 10 MG TABLET. PO SCH (09:28)
[2017-12-10] MEDS: CHOLECALCIFEROL (VITAMIN D3) 1,000 UNIT TABLET PO SCH (09:28)
[2017-12-10] MEDS: CYANOCOBALAMIN (VITAMIN B-12) 1,000 MCG TABLET. PO SCH (09:28)
[2017-12-10] MEDS: RALOXIFENE 60 MG TABLET. PO SCH (09:29)
[2017-12-10] MEDS: QUEtiapine 25 MG TABLET. PO SCH (09:29)
[2017-12-10] MEDS: DICYCLOMINE HCL 20 MG TABLET PO SCH (09:29)
[2017-12-10] MEDS: FOLIC ACID 1 MG TABLET PO SCH (09:29)
[2017-12-10] MEDS: MULTIVITAMIN with MINERAL TABLET. PO SCH (09:29)
[2017-12-10] MEDS: CALCIUM CARB/VIT D3 500/200 TABLET PO SCH (09:29)
[2017-12-10] MEDS: PYRIDOXINE 50 MG TABLET. PO SCH (09:30)
[2017-12-10] MEDS: ALPRAZolam 0.5 MG TABLET PO SCH (09:30)
--- NOTE | 2017-12-10 09:46 | PN ---
DATE: 12/08/2017 This late entry 12/08/2017 covers elements not covered in my initial note. SUBJECTIVE: I met with the patient in the evening. The patient slept 8-1/4 hours previous evening, has done well previous night and during the day on 12/08/2017. Much less anxious, obsessive, and less somatically preoccupied. REVIEW OF SYSTEMS: Ambulation impaired with walker. No CV, , pulmonary, eye, ENT system symptoms on review. MENTAL STATUS EXAM: Reasonably oriented. Speech is coherent, less pressured. Abstraction fair, computation impaired, language function intact, attention span short. Mood and affect has improved, less obsessive, less anxious. No suicidal or homicidal ideation. IMPRESSION: Unchanged from initial note. PLAN: No change from initial note. Luvox, Seroquel, Aricept, BuSpar, trazodone, Remeron will continue for now. MAN Dane RAGLAND MD DR: NABIL/sasha JOB#: [id number] / [id number]
[2017-12-10] MEDS: BUDESONIDE 0.5 MG/2 ML NEBU NEB SCH (10:04)
--- NOTE | 2017-12-10 22:31 | PN ---
DATE: 12/09/2017 PSYCHIATRIC PROGRESS NOTE This late entry 12/09/2017 covers elements not covered in my initial note. SUBJECTIVE: I met with the patient in the evening. The patient slept 7-3/4 hours previous evening, was quite anxious the previous night, believed someone has stolen her dentures, much better during the day 12/09/2017. REVIEW OF SYSTEMS: Ambulation impaired with walker. No CV, , pulmonary, eye, ENT system symptoms on review. MENTAL STATUS EXAM: Reasonably oriented. Speech is coherent, some pressure of speech, but less so than before. Abstraction fair, computation impaired, language function intact, attention span short. Mood and affect, less anxious, brighter overall. LABORATORY DATA: Reviewed. IMPRESSION: Unchanged from initial note. PLAN: No change from initial note. MAN Dane RAGLAND MD DR: NABIL/sasha JOB#: [id number] / [id number]
--- NOTE | 2017-12-11 19:53 | DS ---
DATE OF DISCHARGE: 12/10/2017 This is a late entry, 12/10/2017, covers the elements not covered in my initial note. REASON FOR ADMISSION: Please refer to the admission history for details. Briefly, the patient is a 71-year-old female referred back to us via the Emergency Room where she presented from home where she lives with her . She had been increasingly obsessive, anxious, having panic attacks, confused, difficulty ambulating, and unmanageable at the [facility] due to her marked anxiety. She had failed outpatient psychiatric interventions. SIGNIFICANT FINDINGS AND CLINICAL COURSE: Following admission, the patient was seen daily individually by myself, followed medically per Dr. Schwarz/Dr. Riggins. She is extremely obsessive, anxious, and labile in her mood. Adjustments were made in her psychotropics. She seemed to respond to a combination of Luvox 150 mg b.i.d., Xanax 1 mg four times a day, BuSpar 20 mg b.i.d., Aricept 10 mg a day, Remeron 15 mg at bedtime, trazodone 50 mg at bedtime, may repeat x 1 for insomnia, Seroquel 25 mg 3 times a day. CONDITION AT DISCHARGE: Improved prior to discharge. REVIEW OF SYSTEMS: Ambulation impaired with walker. No CV, , pulmonary, eye system symptoms on review. MENTAL STATUS EXAM: Reasonably oriented. Speech is coherent, had some pressure of speech. Abstraction fair, computation impaired, language function intact, attention span short. Mood and affect less obsessive, less anxious. Labs reviewed. No suicidal or homicidal ideation. FINAL DIAGNOSES: Major depressive disorder in partial remission, obsessive compulsive disorder, anxiety disorder, unspecified. Rest unchanged from admission. DISCHARGE MEDICATIONS: Please refer to the [facility]AD. DISCHARGE INSTRUCTIONS: Outpatient psychiatric and medical followup is arranged with the outpatient providers. KAYLAN RAGLAND MD DR: NABIL/sasha JOB#: [id number] / [id number]
== END 2017-12-10 11:00 | disposition home or self-care (01) | DRG 885 ==
LOC: ER 11:18 → GEROPSY 13:32
PROVIDERS: ADMIT Psychiatry & Neurology Psychiatry; ATTEND Psychiatry & Neurology Psychiatry
DX: F33.3 Major depressive disorder, recurrent, severe with psychotic symptoms (principal); N39.0 Urinary tract infection, site not specified; E87.6 Hypokalemia; F41.0 Panic disorder [episodic paroxysmal anxiety]; F42.9 Obsessive-compulsive disorder, unspecified; G40.909 Epilepsy, unspecified, not intractable, without status epilepticus; G47.00 Insomnia, unspecified; I34.1 Nonrheumatic mitral (valve) prolapse; R29.6 Repeated falls; K58.9 Irritable bowel syndrome, unspecified; M19.90 Unspecified osteoarthritis, unspecified site; Z79.899 Other long term (current) drug therapy; Z87.440 Personal history of urinary (tract) infections; Z91.81 History of falling; Z87.81 Personal history of (healed) traumatic fracture; Z88.8 Allergy status to other drugs, medicaments and biological substances; Z88.0 Allergy status to penicillin; Z88.2 Allergy status to sulfonamides
CPT/HCPCS: 36415; 80053; 80061; 81001; 82306; 82607; 83036; 83540; 83550; 83735; 84436; 84443; 84480; 85025; 87086; 93005; 94640; J7626; 97110; 97530; 97535; 99285-25

== ENCOUNTER 2018-03-22 15:37 | Emergency (ER) | payer MEDICARE ==
[~2018-03-22] VITALS: Ht 162.6 cm; Wt 54.9 kg
[~2018-03-22 15:37] MED LIST changes: +ALBU18HF IH; +BUDE0.5A3 NEB; +DONE10TA61 PO; +LOPE2CAP88 PO; +MAG30ORA2 PO; +MAGN400O7 PO; +MIRT15TA PO; -MIRT45TA3 PO; +MIRT45TA58 PO; +QUET25TA5 PO; +TRAZ-85 PO
[2018-03-22 15:49] VITALS: BP 132/63
[2018-03-22 16:30] LABS: BILIRUBIN,URINE NEG (NEG); CLARITY,URINE HAZY; COLOR,URINE YELLOW; GLUCOSE,URINE NEG (NEG); NITRITE,URINE POS (NEG); UROBILINOGEN,URINE 0.2 mg/dL (0.2 mg/dL)
[2018-03-22 16:31] LABS: BACTERIA,URINE FEW /HPF (0-FEW); SQUAMOUS EPITHELIAL CELL,UR MOD /LPF
[2018-03-22 16:38] LABS: BASO # 0.1 x10^3/uL (0.0-0.2); BASO % 1 % (0-3); EOS # 0.2 x10^3/uL (0.0-0.7); EOS % 2 % (0-3); LYMPH # 1.8 x10^3/uL (1.0-4.8); LYMPH % 24 % (24-48); MEAN CORPUSCULAR HEMOGLOBIN 31 pg (25-35); MEAN CORPUSCULAR HGB CONC 33 g/dL (31-37); MEAN CORPUSCULAR VOLUME 94 fL (79-100); MONO # 0.8 x10^3/uL (0.0-1.1); MONO % 10 % (0-9); NEUT # 4.8 x10^3uL (1.8-7.7); NEUT % 63 % (31-73); PLATELET COUNT 228 x10^3/uL (140-400); RED BLOOD COUNT 4.48 x10^6/uL (3.50-5.40); RED CELL DISTRIBUTION WIDTH 12.8 % (11.5-14.5); WHITE BLOOD COUNT 7.7 x10^3/uL (4.0-11.0)
[2018-03-22 16:40] LABS: AMPHETAMINE/METHAMPHETAMINE NEG (NEG); BARBITURATES NEG (NEG); BENZODIAZEPINES POS (NEG); CANNABINOIDS NEG (NEG); COCAINE NEG (NEG); METHADONE NEG (NEG); OPIATES NEG (NEG); PHENCYCLIDINE NEG (NEG)
[2018-03-22 16:44] LABS: ALBUMIN 3.6 g/dL (3.4-5.0); CALCIUM 9.1 mg/dL (8.5-10.1); CREATININE 1.3 mg/dL (0.6-1.0); GFR 40.2; MAGNESIUM 2.1 mg/dL (1.8-2.4); POTASSIUM 4.4 mmol/L (3.5-5.1); TOTAL BILIRUBIN 0.2 mg/dL (0.2-1.0); TOTAL PROTEIN 7.1 g/dL (6.4-8.2)
--- NOTE | 2018-03-22 17:04 | EKG ---
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
[2018-03-22] MEDS ORDERED: NITROFURANTOIN MONOHYD/M-CRYST 100 MG CAPSULE. PO ONE (17:15)
--- NOTE | 2018-03-22 17:19 | PHYS DOC ---
Past History Past Medical History: Anxiety, Dementia, IBS, Seizure, Other Past Surgical History: No Surgical History Alcohol Use: None Drug Use: None Adult General Chief Complaint Chief Complaint: ALTERED MENTAL STATUS HPI HPI Patient is a 72-year-old female who presents with to be evaluated for Jessica psych admission. Patient reportedly has been getting more and more confused at home and indicates that patient will stay in bed for hours, calling out for help. He states that he will been going to get her out of bed and the patient will say that she doesn't want to get up. He indicates that her confusion has been progressively getting worse. Patient denies any specific complaints. Specifically she denies any chest pain, shortness of breath, abdominal pain, nausea, vomiting, diarrhea. Review of Systems Review of Systems Constitutional: Denies fever or chills [] Respiratory: Denies cough or shortness of breath [] Cardiovascular: No additional information not addressed in HPI [] GI: Denies abdominal pain, nausea, vomiting or diarrhea [] Musculoskeletal: Denies back pain or joint pain [] Neurologic: Denies headache, focal weakness or sensory changes [] All other systems were reviewed and found to be within normal limits, except as documented in this note. Current Medications Current Medications Current Medications Medications (Trade) Dose Ordered Sig/Kristie Start Time Stop Time Status Last Admin Dose Admin Nitrofurantoin Macrocrystals (Macrobid) 100 mg 1X ONCE 03/22/18 17:15 03/22/18 17:16 Allergies Allergies Allergies Coded Allergies Type Severity Reaction Last Updated Verified Penicillins Allergy Intermediate Unknown 01/14/17 Yes Sulfa (Sulfonamide Antibiotics) Allergy Intermediate Unknown 01/14/17 Yes fexofenadine Allergy Intermediate Unknown 01/14/17 Yes minocycline Allergy Intermediate Unknown 01/14/17 Yes Physical Exam Physical Exam Constitutional: Well developed, well nourished, no acute distress, non-toxic appearance. [] HENT: Normocephalic, atraumatic, bilateral external ears normal, oropharynx moist, no oral exudates, nose normal. [] Eyes: PERRLA, EOMI, conjunctiva normal, no discharge. [] Neck: Normal range of motion, no tenderness, supple, no stridor. [] Cardiovascular:Heart rate regular rhythm [] Lungs & Thorax: Bilateral breath sounds clear to auscultation [] Abdomen: Bowel sounds normal, soft, no tenderness. [] Skin: Warm, dry, no erythema, no rash. [] Extremities: No tenderness, no cyanosis, no clubbing, ROM intact, no edema. [] Neurologic: Awake and alert, normal motor function, normal sensory function, no focal deficits noted. [] Current Patient Data Vital Signs Vital Signs Date Time Temp Pulse Resp B/P (MAP) Pulse Ox O2 Delivery O2 Flow Rate FiO2 03/22/18 15:49 84 20 94 03/22/18 15:49 Room Air Lab Results Laboratory Tests Test 03/22/18 15:52 03/22/18 16:09 Urine Collection Type Unknown Urine Color Yellow Urine Clarity Hazy Urine pH 6.5 Urine Specific Midnight 1.015 Urine Protein Neg (NEG-TRACE) Urine Glucose (UA) Neg mg/dL (NEG) Urine Ketones (Stick) Neg mg/dL (NEG) Urine Blood Neg (NEG) Urine Nitrite Pos (NEG) Urine Bilirubin Neg (NEG) Urine Urobilinogen Dipstick 0.2 mg/dL (0.2 mg/dL) Urine Leukocyte Esterase Small (NEG) Urine RBC 1-2 /HPF (0-2) Urine WBC 11-20 /HPF (0-4) Urine Squamous Epithelial Cells Mod /LPF Urine Bacteria Few /HPF (0-FEW) Urine Mucus Slight /LPF Urine Opiates Screen Neg (NEG) Urine Methadone Screen Neg (NEG) Urine Barbiturates Neg (NEG) Urine Phencyclidine Screen Neg (NEG) Urine Amphetamine/Methamphetamine Neg (NEG) Urine Benzodiazepines Screen Pos (NEG) Urine Cocaine Screen Neg (NEG) Urine Cannabinoids Screen Neg (NEG) Urine Ethyl Alcohol Neg (NEG) White Blood Count 7.7 x10^3/uL (4.0-11.0) Red Blood Count 4.48 x10^6/uL (3.50-5.40) Hemoglobin 14.0 g/dL (12.0-15.5) Hematocrit 42.0 % (36.0-47.0) Mean Corpuscular Volume 94 fL (79-100) Mean Corpuscular Hemoglobin 31 pg (25-35) Mean Corpuscular Hemoglobin Concent 33 g/dL (31-37) Red Cell Distribution Width 12.8 % (11.5-14.5) Platelet Count 228 x10^3/uL (140-400) Neutrophils (%) (Auto) 63 % (31-73) Lymphocytes (%) (Auto) 24 % (24-48) Monocytes (%) (Auto) 10 % (0-9) H Eosinophils (%) (Auto) 2 % (0-3) Basophils (%) (Auto) 1 % (0-3) Neutrophils # (Auto) 4.8 x10^3uL (1.8-7.7) Lymphocytes # (Auto) 1.8 x10^3/uL (1.0-4.8) Monocytes # (Auto) 0.8 x10^3/uL (0.0-1.1) Eosinophils # (Auto) 0.2 x10^3/uL (0.0-0.7) Basophils # (Auto) 0.1 x10^3/uL (0.0-0.2) Sodium Level 138 mmol/L (136-145) Potassium Level 4.4 mmol/L (3.5-5.1) Chloride Level 102 mmol/L (98-107) Carbon Dioxide Level 25 mmol/L (21-32) Anion Gap 11 (6-14) Blood Urea Nitrogen 17 mg/dL (7-20) Creatinine 1.3 mg/dL (0.6-1.0) H Estimated GFR (Cockcroft-Gault) 40.2 BUN/Creatinine Ratio 13 (6-20) Glucose Level 104 mg/dL (70-99) H Calcium Level 9.1 mg/dL (8.5-10.1) Magnesium Level 2.1 mg/dL (1.8-2.4) Total Bilirubin 0.2 mg/dL (0.2-1.0) Aspartate Amino Transferase (AST) 27 U/L (15-37) Alanine Aminotransferase (ALT) 30 U/L (14-59) Alkaline Phosphatase 71 U/L (46-116) Total Protein 7.1 g/dL (6.4-8.2) Albumin 3.6 g/dL (3.4-5.0) Albumin/Globulin Ratio 1.0 (1.0-1.7) Ethyl Alcohol Level < 10 mg/dL (0-10) EKG EKG [] Radiology/Procedures Radiology/Procedures [] Course & Med Decision Making Course & Med Decision Making Pertinent Labs and Imaging studies reviewed. (See chart for details) Patient has been cleared medically for mental health and after discussion with psychiatrist, patient's has decided that he would rather try and manage things at home instead of admission. Psychiatrist has recommended treatment with low-dose Seroquel and 25 mg every morning. Dragon Disclaimer Dragon Disclaimer This electronic medical record was generated, in whole or in part, using a voice recognition dictation system. Departure Departure: Impression: Primary Impression: Dementia Additional Impression: Urinary tract infection Disposition: HOME, SELF-CARE Condition: STABLE Referrals: KHADIJAH VIDALES I (PCP) Patient Instructions: Dementia, Urinary Tract Infection Scripts Quetiapine Fumarate (SEROQUEL) 25 Mg Tablet 1 TAB PO every morning for agitation, #15 TAB 2 Refills Prov: BRENDA VARGAS Jr. DO 03/22/18 Nitrofurantoin Monohyd/M-Cryst (MACROBID 100 MG CAPSULE) 100 Mg Capsule 1 CAP PO BID for infection, #14 CAP Prov: BRENDA VARGAS Jr. DO 03/22/18 Problem Qualifiers Primary Impression: Dementia Dementia type: unspecified type Dementia behavioral disturbance: without behavioral disturbance Qualified Codes: F03.90 - Unspecified dementia without behavioral disturbance Additional Impression: Urinary tract infection Urinary tract infection type: site unspecified Hematuria presence: without hematuria Qualified Codes: N39.0 - Urinary tract infection, site not specified BRENDA VARGAS Jr. DO Mar 22, 2018 17:19
[2018-03-22] MEDS ORDERED: NITR100C62 PO (18:27)
[2018-03-22] MEDS ORDERED: QUET25TA5 PO (18:27)
[2018-03-22] MEDS ORDERED: ALPRAZolam 0.25 MG TABLET PO ONE (18:30)
== END 2018-03-22 18:45 | disposition home or self-care (01) ==
LOC: ER 15:37
DX: F03.90 Unspecified dementia, unspecified severity, without behavioral disturbance, psychotic disturbance, mood disturbance, and anxiety (principal); N39.0 Urinary tract infection, site not specified; F41.9 Anxiety disorder, unspecified; K58.9 Irritable bowel syndrome, unspecified; Z88.0 Allergy status to penicillin; Z88.2 Allergy status to sulfonamides; Z88.1 Allergy status to other antibiotic agents; Z88.8 Allergy status to other drugs, medicaments and biological substances
CPT/HCPCS: 36415; 80053; 80307; 81001; 83735; 85025; 87086; 93005; 99285; G0480

== ENCOUNTER 2018-07-07 10:48 | Inpatient (IN) | payer MEDICARE ==
[~2018-07-07] VITALS: Ht 162.6 cm; Wt 53.6 kg
[~2018-07-07 10:48] MED LIST changes: -ALBU18HF IH; +ALBU2.5V8 IH; +ALBU2.5V8 INH; -ALBU8.5H8 INH; +NITR100C62 PO; +TRAZ-120 PO; -TRAZ-85 PO
--- NOTE | 2018-07-07 11:35 | RAD ---
EXAM: CT Head without IV contrast CLINICAL HISTORY: Altered mental status, confusion COMPARISON: 01/10/2017 TECHNIQUE: Routine CT of the head without contrast. Soft tissues and bone windows were reviewed. PQRS compliance statement - One or more of the following individualized dose reduction techniques were utilized for this study: 1. Automated exposure control 2. Adjustment of the mA and/or kV according to patient size 3. Use of iterative reconstruction technique FINDINGS: There is no evidence of hemorrhage, mass or extra-axial fluid collection. Betancourt-white differentiation is maintained with no evidence of edema. There are non-specific foci of hypodensity in the periventricular and subcortical white matter of the cerebral hemispheres. There is no mass effect or shift of the intracranial structures. The ventricles and cerebral sulci are prominent for the patients stated age consistent with generalized cerebral volume loss. The cerebellum and brainstem are unremarkable. The calvarium demonstrates no evidence of fracture or focal lesion. There is normal aeration of the visualized paranasal sinuses and mastoid air cells. The visualized portions of the orbits are normal. IMPRESSION: 1. No evidence for acute intracranial process 2. Subcortical and periventricular regions of hypoattenuation likely small vessel disease. Electronically signed by: Carlos Zhao MD (07/07/2018 11:32 AM) [facility]
[2018-07-07 11:50] LABS: BASO # 0.1 x10^3/uL (0.0-0.2); BASO % 1 % (0-3); EOS # 0.5 x10^3/uL (0.0-0.7); EOS % 7 % (0-3); LYMPH # 1.3 x10^3/uL (1.0-4.8); LYMPH % 20 % (24-48); MEAN CORPUSCULAR HEMOGLOBIN 31 pg (25-35); MEAN CORPUSCULAR HGB CONC 33 g/dL (31-37); MEAN CORPUSCULAR VOLUME 94 fL (79-100); MONO # 0.6 x10^3/uL (0.0-1.1); MONO % 10 % (0-9); NEUT # 4.2 x10^3uL (1.8-7.7); NEUT % 62 % (31-73); PLATELET COUNT 205 x10^3/uL (140-400); RED BLOOD COUNT 4.16 x10^6/uL (3.50-5.40); RED CELL DISTRIBUTION WIDTH 13.7 % (11.5-14.5); WHITE BLOOD COUNT 6.7 x10^3/uL (4.0-11.0)
[2018-07-07 12:07] LABS: ALBUMIN 3.3 g/dL (3.4-5.0); CALCIUM 9.7 mg/dL (8.5-10.1); CREATININE 1.3 mg/dL (0.6-1.0); GFR 40.2; POTASSIUM 4.3 mmol/L (3.5-5.1); TOTAL BILIRUBIN 0.3 mg/dL (0.2-1.0); TOTAL PROTEIN 6.7 g/dL (6.4-8.2)
--- NOTE | 2018-07-07 12:31 | PHYS DOC ---
Past History Past Medical History: Anxiety, Asthma, Dementia, IBS, Other Past Surgical History: Other Alcohol Use: None Drug Use: Benzodiazepine Adult General Chief Complaint Chief Complaint: PSYCH EVALUATION HPI HPI 72-year-old female presents with her for psych evaluation. The patient has been having fits of crying out at night for the last week and a half. She does this for about 2 hours. Patient also was having this morning. She is not always aware of this. She has dementia at baseline andshe has memory impairment. She lives with her in a skilled nursing home. At a follow-up appointment with her psychiatrist about a week ago, he mentioned that she may need to come in the hospital have her medications adjusted. The patient's brought her here today with the hopes of getting admitted to the behavioral health floor to adjust her medications. She has been admitted at least a couple of times previously. She denies any new issues. She did fall a few days ago, but does not believe she injured herself. She denies fever or chills. Review of Systems Review of Systems Constitutional: Denies fever or chills [] Eyes: Denies change in visual acuity, redness, or eye pain [] HENT: Denies nasal congestion or sore throat [] Respiratory: Denies cough or shortness of breath [] Cardiovascular: No additional information not addressed in HPI [] GI: Denies abdominal pain, nausea, vomiting, bloody stools or diarrhea [] : Denies dysuria or hematuria [] Musculoskeletal: Denies back pain or joint pain [] Integument: Denies rash or skin lesions [] Neurologic: Denies headache, focal weakness or sensory changes [] Endocrine: Denies polyuria or polydipsia Psych: Spells of crying out for help, repeating herself.[] All other systems were reviewed and found to be within normal limits, except as documented in this note. Allergies Allergies Allergies Coded Allergies Type Severity Reaction Last Updated Verified Penicillins Allergy Intermediate Unknown 07/07/18 Yes Sulfa (Sulfonamide Antibiotics) Allergy Intermediate Unknown 07/07/18 Yes fexofenadine Allergy Intermediate Unknown 07/07/18 Yes minocycline Allergy Intermediate Unknown 07/07/18 Yes Physical Exam Physical Exam Constitutional: Well developed, well nourished, no acute distress, non-toxic appearance. [] HENT: Normocephalic, atraumatic, bilateral external ears normal, oropharynx moist, no oral exudates, nose normal. [] Eyes: PERRLA, EOMI, conjunctiva normal, no discharge. [] Neck: Normal range of motion, no tenderness, supple, no stridor. [] Cardiovascular:Heart rate regular rhythm, no murmur [] Lungs & Thorax: Bilateral breath sounds clear to auscultation [] Abdomen: Bowel sounds normal, soft, no tenderness, no masses, no pulsatile masses. [] Skin: Warm, dry, no erythema, no rash. [] Back: No tenderness, no CVA tenderness. [] Extremities: No tenderness, no cyanosis, no clubbing, ROM intact, no edema. [] Neurologic: Alert and oriented X 3, normal motor function, normal sensory function, no focal deficits noted. [] Psychologic: Affect normal, judgement normal, mood normal. [] Current Patient Data Vital Signs Vital Signs Date Time Temp Pulse Resp B/P (MAP) Pulse Ox O2 Delivery O2 Flow Rate FiO2 07/07/18 11:22 98.6 60 22 97 Room Air Lab Results Laboratory Tests Test 07/07/18 11:33 White Blood Count 6.7 x10^3/uL (4.0-11.0) Red Blood Count 4.16 x10^6/uL (3.50-5.40) Hemoglobin 13.0 g/dL (12.0-15.5) Hematocrit 39.0 % (36.0-47.0) Mean Corpuscular Volume 94 fL (79-100) Mean Corpuscular Hemoglobin 31 pg (25-35) Mean Corpuscular Hemoglobin Concent 33 g/dL (31-37) Red Cell Distribution Width 13.7 % (11.5-14.5) Platelet Count 205 x10^3/uL (140-400) Neutrophils (%) (Auto) 62 % (31-73) Lymphocytes (%) (Auto) 20 % (24-48) L Monocytes (%) (Auto) 10 % (0-9) H Eosinophils (%) (Auto) 7 % (0-3) H Basophils (%) (Auto) 1 % (0-3) Neutrophils # (Auto) 4.2 x10^3uL (1.8-7.7) Lymphocytes # (Auto) 1.3 x10^3/uL (1.0-4.8) Monocytes # (Auto) 0.6 x10^3/uL (0.0-1.1) Eosinophils # (Auto) 0.5 x10^3/uL (0.0-0.7) Basophils # (Auto) 0.1 x10^3/uL (0.0-0.2) Sodium Level 143 mmol/L (136-145) Potassium Level 4.3 mmol/L (3.5-5.1) Chloride Level 106 mmol/L (98-107) Carbon Dioxide Level 29 mmol/L (21-32) Anion Gap 8 (6-14) Blood Urea Nitrogen 11 mg/dL (7-20) Creatinine 1.3 mg/dL (0.6-1.0) H Estimated GFR (Cockcroft-Gault) 40.2 BUN/Creatinine Ratio 8 (6-20) Glucose Level 93 mg/dL (70-99) Calcium Level 9.7 mg/dL (8.5-10.1) Magnesium Level 1.9 mg/dL (1.8-2.4) Total Bilirubin 0.3 mg/dL (0.2-1.0) Aspartate Amino Transferase (AST) 27 U/L (15-37) Alanine Aminotransferase (ALT) 19 U/L (14-59) Alkaline Phosphatase 80 U/L (46-116) Troponin I Quantitative < 0.017 ng/mL (0-0.055) Total Protein 6.7 g/dL (6.4-8.2) Albumin 3.3 g/dL (3.4-5.0) L Albumin/Globulin Ratio 1.0 (1.0-1.7) EKG EKG Sinus rhythm, rate 53, normal axis, no ST elevations or depressions.[] Radiology/Procedures Radiology/Procedures [] Impressions: EXAM: CT Head without IV contrast CLINICAL HISTORY: Altered mental status, confusion COMPARISON: 01/10/2017 TECHNIQUE: Routine CT of the head without contrast. Soft tissues and bone windows were reviewed. PQRS compliance statement - One or more of the following individualized dose reduction techniques were utilized for this study: 1. Automated exposure control 2. Adjustment of the mA and/or kV according to patient size 3. Use of iterative reconstruction technique FINDINGS: There is no evidence of hemorrhage, mass or extra-axial fluid collection. Betancourt-white differentiation is maintained with no evidence of edema. There are non-specific foci of hypodensity in the periventricular and subcortical white matter of the cerebral hemispheres. There is no mass effect or shift of the intracranial structures. The ventricles and cerebral sulci are prominent for the patients stated age consistent with generalized cerebral volume loss. The cerebellum and brainstem are unremarkable. The calvarium demonstrates no evidence of fracture or focal lesion. There is normal aeration of the visualized paranasal sinuses and mastoid air cells. The visualized portions of the orbits are normal. IMPRESSION: 1. No evidence for acute intracranial process 2. Subcortical and periventricular regions of hypoattenuation likely small vessel disease. Electronically signed by: Carlos Moreland MD (07/07/2018 11:32 AM) [facility] DICTATED AND SIGNED BY: CARLOS MORELAND MD DATE: 07/07/18 1130 CC: CONSTANZA RODNEY DO; KHADIJAH VIDALES I CHEST AP ONLY Clinical Indication: AMS, SOA Comparison: None. Findings: The cardiomediastinal silhouette is normal. Lungs are clear. There is no pneumothorax. No pleural effusion is appreciated. No acute bone abnormality. IMPRESSION: No acute cardiopulmonary process. Electronically signed by: Kendall Gastelum MD (07/07/2018 12:40 PM) [id number] DICTATED AND SIGNED BY: KENDALL GASTELUM MD DATE: 07/07/18 1131 CC: CONSTANZA RODNEY DO; KHADIJAH VIDALES I Course & Med Decision Making Course & Med Decision Making Pertinent Labs and Imaging studies reviewed. (See chart for details) Patient's labs are unremarkable. Her head CT and chest x-ray are negative for acute findings. The patient has had a psychiatric evaluation. The psychiatrist has advised the patient be admitted for medication changes and stabilization. She will be admitted to the behavioral health unit at this facility. Patient and her spouse are in agreement with this plan. [] Dragon Disclaimer Dragon Disclaimer This electronic medical record was generated, in whole or in part, using a voice recognition dictation system. Departure Departure: Impression: Primary Impression: Dementia Additional Impression: Disposition: ADMITTED INPATIENT Condition: STABLE Referrals: KHADIJAH VIDALES I (PCP) Problem Qualifiers Primary Impression: Dementia Dementia type: unspecified type Dementia behavioral disturbance: with behavioral disturbance Qualified Codes: F03.91 - Unspecified dementia with behavioral disturbance CONSTANZA RODNEY DO Jul 07, 2018 12:31
--- NOTE | 2018-07-07 12:43 | RAD ---
CHEST AP ONLY Clinical Indication: AMS, SOA Comparison: None. Findings: The cardiomediastinal silhouette is normal. Lungs are clear. There is no pneumothorax. No pleural effusion is appreciated. No acute bone abnormality. IMPRESSION: No acute cardiopulmonary process. Electronically signed by: Kendall Collado MD (07/07/2018 12:40 PM) [id number]
[2018-07-07] MEDS ORDERED: ALPRAZolam 0.25 MG TABLET PO ONE (13:15)
[2018-07-07 14:50] LABS: BACTERIA,URINE MOD /HPF (0-FEW); BILIRUBIN,URINE NEG (NEG); CLARITY,URINE CLEAR; COLOR,URINE YELLOW; GLUCOSE,URINE NEG (NEG); NITRITE,URINE NEG (NEG); SQUAMOUS EPITHELIAL CELL,UR FEW /LPF; UROBILINOGEN,URINE 0.2 mg/dL (0.2 mg/dL)
[2018-07-07 16:29] VITALS: BP 107/71
[2018-07-07] MEDS ORDERED: FLUV100T2 PO (19:36)
[2018-07-07] MEDS ORDERED: CALC1TAB PO (19:36)
[2018-07-07] MEDS ORDERED: QUET200T4 PO (19:36)
[2018-07-07] MEDS ORDERED: HYDR-2759 PO (19:36)
[2018-07-07] MEDS ORDERED: MAGNESIUM HYDROXIDE 2,400 MG/30 ML ORAL.SUSP. PO PRN (19:45)
[2018-07-07] MEDS ORDERED: MAG HYDROX/AL HYDROX/SIMETH 30 ML ORAL.SUSP PO PRN (19:45)
[2018-07-07] MEDS ORDERED: ACETAMINOPHEN 325 MG TABLET PO PRN (19:45)
[2018-07-07] MEDS: BUDESONIDE 0.5 MG/2 ML NEBU NEB SCH (20:00)
[2018-07-07] MEDS ORDERED: HYDROcodone/APAP 5/325MG 1 TAB TABLET PO PRN (20:00)
[2018-07-07] MEDS: DONEPEZIL HCL 10 MG TABLET PO SCH (20:44)
[2018-07-07] MEDS: DICYCLOMINE HCL 20 MG TABLET PO SCH (20:44)
[2018-07-07] MEDS: busPIRone 10 MG TABLET. PO SCH (20:45)
[2018-07-07] MEDS: QUEtiapine 100 MG TABLET. PO SCH (20:45)
[2018-07-07] MEDS: ALPRAZolam 0.5 MG TABLET PO SCH (20:45)
[2018-07-07] MEDS ORDERED: FLUVOXAMINE MALEATE PO SCH (21:00)
[2018-07-07] MEDS ORDERED: NON FORMULARY ITEM (Mometasone Furoate (Asmanex) 110 MCG) IH SCH (21:00)
--- NOTE | 2018-07-07 22:40 | PDOC ---
Exam Note: Lencho Note: Please also refer to the separate dictated note~for this date of service dictated separately. Discussed the patient with Nursing staff reviewed the chart.~Reviewed interim history and current functioning. Reviewed vital signs,~ Labs/ Radiology~and current medications noted below. Continue current treatment with the changes noted in the dictated addendum note Assessment: Vital Signs: Vital Signs Date Time Temp Pulse Resp B/P (MAP) Pulse Ox O2 Delivery O2 Flow Rate FiO2 07/07/18 16:29 98.1 63 21 107/71 (83) 96 07/07/18 11:22 Room Air Labs: Laboratory Tests Test 07/07/18 11:33 07/07/18 14:15 White Blood Count 6.7 x10^3/uL (4.0-11.0) Red Blood Count 4.16 x10^6/uL (3.50-5.40) Hemoglobin 13.0 g/dL (12.0-15.5) Hematocrit 39.0 % (36.0-47.0) Mean Corpuscular Volume 94 fL (79-100) Mean Corpuscular Hemoglobin 31 pg (25-35) Mean Corpuscular Hemoglobin Concent 33 g/dL (31-37) Red Cell Distribution Width 13.7 % (11.5-14.5) Platelet Count 205 x10^3/uL (140-400) Neutrophils (%) (Auto) 62 % (31-73) Lymphocytes (%) (Auto) 20 % (24-48) L Monocytes (%) (Auto) 10 % (0-9) H Eosinophils (%) (Auto) 7 % (0-3) H Basophils (%) (Auto) 1 % (0-3) Neutrophils # (Auto) 4.2 x10^3uL (1.8-7.7) Lymphocytes # (Auto) 1.3 x10^3/uL (1.0-4.8) Monocytes # (Auto) 0.6 x10^3/uL (0.0-1.1) Eosinophils # (Auto) 0.5 x10^3/uL (0.0-0.7) Basophils # (Auto) 0.1 x10^3/uL (0.0-0.2) Sodium Level 143 mmol/L (136-145) Potassium Level 4.3 mmol/L (3.5-5.1) Chloride Level 106 mmol/L (98-107) Carbon Dioxide Level 29 mmol/L (21-32) Anion Gap 8 (6-14) Blood Urea Nitrogen 11 mg/dL (7-20) Creatinine 1.3 mg/dL (0.6-1.0) H Estimated GFR (Cockcroft-Gault) 40.2 BUN/Creatinine Ratio 8 (6-20) Glucose Level 93 mg/dL (70-99) Calcium Level 9.7 mg/dL (8.5-10.1) Magnesium Level 1.9 mg/dL (1.8-2.4) Iron Level 100 ug/dL (50-170) Total Iron Binding Capacity 263 ug/dL (250-450) Iron Saturation 38 % (15-34) H Total Bilirubin 0.3 mg/dL (0.2-1.0) Aspartate Amino Transferase (AST) 27 U/L (15-37) Alanine Aminotransferase (ALT) 19 U/L (14-59) Alkaline Phosphatase 80 U/L (46-116) Troponin I Quantitative < 0.017 ng/mL (0-0.055) Total Protein 6.7 g/dL (6.4-8.2) Albumin 3.3 g/dL (3.4-5.0) L Albumin/Globulin Ratio 1.0 (1.0-1.7) Urine Collection Type U cath Urine Color Yellow Urine Clarity Clear Urine pH 7.5 Urine Specific Dailey 1.015 Urine Protein Neg (NEG-TRACE) Urine Glucose (UA) Neg mg/dL (NEG) Urine Ketones (Stick) Neg mg/dL (NEG) Urine Blood Neg (NEG) Urine Nitrite Neg (NEG) Urine Bilirubin Neg (NEG) Urine Urobilinogen Dipstick 0.2 mg/dL (0.2 mg/dL) Urine Leukocyte Esterase Small (NEG) Urine RBC 1-2 /HPF (0-2) Urine WBC 11-20 /HPF (0-4) Urine Squamous Epithelial Cells Few /LPF Urine Bacteria Mod /HPF (0-FEW) Current Medications: Meds: Current Medications Alprazolam (Xanax) 0.5 mg 1X ONCE PO Last administered on 07/07/18at 13:21; Start 07/07/18 at 13:15; Stop 07/07/18 at 13:18; Status DC Alprazolam (Xanax) 1 mg QID PO Last administered on 07/07/18 20:45; Start at 21:00 Buspirone HCl (Buspar) 20 mg BID PO Last administered on 07/07/18 20:45; Start 07/07/18 at 21:00 Donepezil HCl (Aricept) 10 mg QHS PO Last administered on 07/07/18 20:44; Start 07/07/18 at 21:00 Non-Formulary Medication (Fluvoxamine Maleate ) 450 mg BID PO ; Start 07/07/18 at 21:00; Stop 07/07/18 at 21:00; Status DC Quetiapine Fumarate (SEROquel) 25 mg DAILY PO ; Start 07/08/18 at 09:00 Quetiapine Fumarate (SEROquel) 200 mg QHS PO Last administered on 07/07/18 20: 45; Start 07/07/18 at 21:00 Acetaminophen (Tylenol) 650 mg PRN Q6HRS PRN PO PAIN; Start 07/07/18 at 19:45 Vitamin D (Vitamin D3) 2,000 unit DAILY PO ; Start 07/08/18 at 09:00 Cyanocobalamin (Vitamin B-12) 2,000 mcg DAILY PO ; Start 07/08/18 at 09:00 Al Hydroxide/Mg Hydroxide (Mylanta Plus Xs) 15 ml PRN AFTMEALHC PRN PO DYSPEPSIA; Start 07/07/18 at 19:45 Magnesium Hydroxide (Milk Of Magnesia) 2,400 mg PRN QHS PRN PO CONSTIPATION; Start 07/07/18 at 19:45 Multivitamins/ Calcium (Thera-M Plus) 1 tab DAILY PO ; Start 07/08/18 at 09:00 Aspirin (Children'S Aspirin) 81 mg DAILYWBKFT PO ; Start 07/08/18 at 08:00 Calcium/Vitamin D (Oscal D 500mg/ 200uts) 2 tab DAILYWBKFT PO ; Start 07/08/18 at 08:00 Dicyclomine HCl (Bentyl) 20 mg QID PO Last administered on 07/07/18 20:44; Start 07/07/18 at 21:00 Folic Acid (Folic Acid) 1 mg DAILY PO ; Start 07/08/18 at 09:00 Acetaminophen/ Hydrocodone Bitart (Lortab 5/325) 0.5 tab PRN BID PRN PO PAIN; Start 07/07/18 at 20:00 Loperamide HCl (Imodium) 2 mg DAILY PO ; Start 07/08/18 at 09:00 Non-Formulary Medication (Mometasone Furoate (Asmanex)) 110 mcg BID IH ; Start 07/07/18 at 21:00; Stop 07/07/18 at 21:00; Status DC Pyridoxine HCl (Vitamin B-6) 100 mg DAILY PO ; Start 07/08/18 at 09:00 Raloxifene HCl (Evista) 60 mg DAILY PO ; Start 07/08/18 at 09:00 Budesonide (Pulmicort) 0.5 mg RTBID NEB ; Start 07/07/18 at 20:00 Fluvoxamine Maleate (Luvox) 150 mg BID PO Last administered on 07/07/18at 20:44; Start 07/07/18 at 21:00 Active Scripts Active Reported Hydrocodone-Acetamin 5-325 mg (Hydrocodone/Acetaminophen) 1 Each Tablet 0.5 Tab PO BID PRN Seroquel (Quetiapine Fumarate) 200 Mg Tablet 200 Mg PO HS Fluvoxamine Maleate 100 Mg Tablet 150 Mg PO BID Caltrate 600 + D Tablet (Calcium Carbonate/Vitamin D3) 1 Each Tablet 2 Tab PO DAILY Milk Of Magnesia (Magnesium Hydroxide) 400 Mg/5 Ml Oral.susp 2,400 Mg PO PRN QHS PRN Imodium A-D (Loperamide HCl) 2 Mg Capsule 2 Mg PO DAILY Mag-Al Plus Xs Suspension (Mag Hydrox/Al Hydrox/Simeth) 30 Ml Oral.susp 15 Ml PO PRN AFTMEALHC PRN Seroquel (Quetiapine Fumarate) 25 Mg Tablet 25 Mg PO DAILY Ventolin Hfa Inhaler (Albuterol Sulfate) 18 Gm Hfa.aer.ad 1 Puff IH PRN Q4HRS PRN Asmanex (Mometasone Furoate) 110 Mcg Aer.pow.ba 110 Mcg IH BID Aricept (Donepezil Hcl) 10 Mg Tablet 1 Tab PO QHS Buspirone Hcl 10 Mg Tablet 20 Mg PO BID Thera-M Tablet (Multivits,Ca,Minerals/Iron/Fa) 1 Each Tablet 1 Tab PO DAILY Vitamin B-12 (Cyanocobalamin (Vitamin B-12)) 1,000 Mcg Tablet 2,000 Mcg PO DAILY Tylenol (Acetaminophen) 325 Mg Tablet 650 Mg PO PRN Q6HRS PRN Folic Acid 1 Mg Tablet 1 Mg PO DAILY Aspirin 81 Mg Tab.chew 81 Mg PO DAILY Vitamin D3 (Cholecalciferol (Vitamin D3)) 1,000 Unit Tablet 2,000 Unit PO DAILY Vitamin B-6 (Pyridoxine Hcl) 100 Mg Tablet 100 Mg PO DAILY Evista (Raloxifene Hcl) 60 Mg Tablet 60 Mg PO DAILY Alprazolam 1 Mg Tablet 1 Mg PO QID Dicyclomine Hcl 20 Mg Tablet 20 Mg PO QID I have reviewed the current psychotropics carefully including drug interactions. Risk benefit ratio favors no change other than as noted in my dictated progress note. Diagnosis: Problems: (1) Anxiety disorder (2) Obsessive compulsive disorder (3) Psychosis, atypical (4) Major depressive disorder, recurrent episode (5) Seizure (6) Dementia (7) KAYLAN Torrez MD Jul 07, 2018 22:40
[2018-07-08 05:55] VITALS: BP 156/82
[2018-07-08] MEDS: CYANOCOBALAMIN (VITAMIN B-12) 1,000 MCG TABLET. PO SCH (09:32)
[2018-07-08] MEDS: ASPIRIN 81 MG TAB.CHEW PO SCH (09:32)
[2018-07-08] MEDS: QUEtiapine 25 MG TABLET. PO SCH (09:33)
[2018-07-08] MEDS: CALCIUM CARB/VIT D3 500/200 TABLET PO SCH (09:33)
[2018-07-08] MEDS: RALOXIFENE 60 MG TABLET. PO SCH (09:34)
[2018-07-08] MEDS: busPIRone 10 MG TABLET. PO SCH ×2 (09:34→20:49)
[2018-07-08] MEDS: CHOLECALCIFEROL (VITAMIN D3) 1,000 UNIT TABLET PO SCH (09:34)
[2018-07-08] MEDS: LOPERAMIDE 2 MG CAPSULE PO SCH (09:35)
[2018-07-08] MEDS: ALPRAZolam 0.5 MG TABLET PO SCH ×4 (09:35→20:53)
[2018-07-08] MEDS: FOLIC ACID 1 MG TABLET PO SCH (09:36)
[2018-07-08] MEDS: MULTIVITAMIN with MINERAL TABLET. PO SCH (09:36)
[2018-07-08] MEDS: HYDROcodone/APAP 5/325MG 1 TAB TABLET PO SCH ×2 (09:36→20:54)
[2018-07-08] MEDS: DICYCLOMINE HCL 20 MG TABLET PO SCH ×4 (09:37→20:49)
[2018-07-08] MEDS: PYRIDOXINE 50 MG TABLET. PO SCH (09:38)
[2018-07-08] MEDS: BUDESONIDE 0.5 MG/2 ML NEBU NEB SCH ×2 (10:37→20:22)
--- NOTE | 2018-07-08 11:11 | HP ---
ADMIT DATE: 07/07/2018 PSYCHIATRIC ADMISSION HISTORY AND EVALUATION This is a late entry of date of service 07/07/2018, covers elements not covered in my initial note of 07/07/2018. SUMMARY OF PROGRESS: I met with the patient evening of 07/07/2018. Discussed with nursing staff and previously discussed with Barbie Bernal, social service staff in service coordinator after the patient presented to [facility] with her spouse, Clive Jerome, who is also her DPOA, having been referred by Dr. Lopez, her outpatient psychiatrist for inpatient psychiatric stabilization. While in the ER, the patient had a psychiatric consultation with a telepsychiatrist, who also recommended inpatient hospitalization for psychiatric stabilization. IDENTIFYING DATA: The patient is a 72-year-old female with a history of major depressive disorder, OCD, and anxiety disorder, who has been previously hospitalized with us and has been treated recently outpatient by Dr. Merritt Lopez, psychiatrist. She has had increased confusion, marked increased in her anxiety, agitation, hollering out for her spouse, wandering. This is despite taking Xanax 1 mg 4 times a day. She has been extremely obsessive, impulsive, has failed outpatient psychiatric interventions resulting in this referral. CHIEF COMPLAINT: "I keep getting forgetful. I have anxiety. I can't stop thinking sometimes." HISTORY OF PRESENT ILLNESS: The patient has a long history of major depressive disorder with marked OCD symptoms. 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 She has had sleep and appetite changes, marked increase in hollering and agitation, some paranoia and worsening memory deficits. No clear history of bipolar disorder, though she does have mood swings. No active suicidal or homicidal ideation. She does admit to short-term memory deficits. PAST PSYCHIATRIC HISTORY: As above. She was an inpatient on our unit in the past, and I have reviewed those records at length. PAST MEDICAL HISTORY: Positive for mitral valve prolapse, short term memory deficits, seizure disorder. CURRENT PSYCHOTROPICS: Luvox 150 mg b.i.d., Xanax 1 mg 4 times a day, BuSpar 20 mg b.i.d., Seroquel 25 mg in the morning and 200 mg at night, Aricept 10 mg a day, DIET: Regular. Takes medications whole. Ambulates ad jason with walker. UA on 07/07/2018 was positive. Culture is pending. ALLERGIES: PENICILLIN, SULFA, AMELIA, MINOCYCLINE. FAMILY HISTORY: Noncontributory. SOCIAL HISTORY: No alcohol, drug abuse, physical, sexual or elder abuse history is noted. She is not known to be a perpetrator. REACTION TO HOSPITALIZATION: The patient accepting of this. ASSETS: Supportive family, her is her DPOA, and financial independence. REVIEW OF SYSTEMS: Impaired ambulation. Short-term memory deficits. No CV, , pulmonary, eye, ENT system symptoms on review. MENTAL STATUS EXAMINATION: The patient is oriented to herself and situation. Speech is coherent, rapid. She is quite circumstantial at times. Abstraction fair, computation somewhat impaired, language function intact, attention span short. Mood and affect remains extremely anxious, labile, somewhat depressed. No active suicidal or homicidal ideation. LABORATORY DATA: Reviewed. IMPRESSION: Major depressive disorder, recurrent. OCD. Anxiety disorder, unspecified. Rule out bipolar 1 disorder, unspecified. Rest as above. PLAN: Admit to geropsychiatry unit at [facility]. I will see the patient daily individually from a psychiatric standpoint. Continue current psychotropics, and we may consider changing Seroquel to Risperdal given some of her ongoing psychotic symptoms. Depending on how she responds to psychotropics, may also consider adding a mood stabilizer, perhaps Lamictal if more symptoms of questionable bipolar disorder are evident. Depending on her response, other options for related treatment might include transcranial magnetic stimulation therapy or even ECT. The decision for some of that will have to be made at a much later date. Estimated length of stay is 10-12 days. DISPOSITION PLANS: Back home with her , outpatient treatment with Dr. Lopez. MAN Dane RAGLAND MD DR: NABIL/sasha JOB#: [id number] / [id number]
--- NOTE | 2018-07-08 12:26 | EKG ---
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
[2018-07-08 14:03] LABS: THYROID STIM HORMONE (TSH) 1.088 uIU/mL (0.358-3.740)
[2018-07-08 16:26] VITALS: BP 95/62
[2018-07-08 19:09] LABS: THYROXINE 5.1 ug/dL (4.5-12.0)
[2018-07-08] MEDS: DONEPEZIL HCL 10 MG TABLET PO SCH (20:49)
[2018-07-08] MEDS: QUEtiapine 100 MG TABLET. PO SCH (20:50)
--- NOTE | 2018-07-08 22:13 | PDOC ---
Exam Note: Lencho Note: Please also refer to the separate dictated note~for this date of service dictated separately.~Patient seen individually. Discussed the patient with Nursing staff reviewed the chart.~Reviewed interim history and current functioning. Reviewed vital signs,~Labs/ Radiology~and current medications noted below. Continue current treatment with the changes noted in the dictated addendum note Assessment: Vital Signs: Vital Signs Date Time Temp Pulse Resp B/P (MAP) Pulse Ox O2 Delivery O2 Flow Rate FiO2 07/08/18 20:54 20 Room Air 07/08/18 20:23 95 07/08/18 16:26 97.4 83 95/62 (73) I&O Intake and Output 07/08/18 06:59 Intake Total 480 ml Balance 480 ml Intake Oral 480 ml Current Medications: Meds: Current Medications Alprazolam (Xanax) 0.5 mg 1X ONCE PO Last administered on 07/07/18 13:21; Start 07/07/18 at 13:15; Stop 07/07/18 at 13:18; Status DC Alprazolam (Xanax) 1 mg QID PO Last administered on 07/08/18 16:47; Start at 21:00; Stop 07/08/18 at 19:32; Status DC Buspirone HCl (Buspar) 20 mg BID PO Last administered on 07/08/18 20:49; Start 07/07/18 at 21:00 Donepezil HCl (Aricept) 10 mg QHS PO Last administered on 07/08/18 20:49; Start 07/07/18 at 21:00 Non-Formulary Medication (Fluvoxamine Maleate ) 450 mg BID PO ; Start 07/07/18 at 21:00; Stop 07/07/18 at 21:00; Status DC Quetiapine Fumarate (SEROquel) 25 mg DAILY PO Last administered on 07/08/18 09: 33; Start 07/08/18 at 09:00 Quetiapine Fumarate (SEROquel) 200 mg QHS PO Last administered on 07/08/18at 20: 50; Start 07/07/18 at 21:00 Acetaminophen (Tylenol) 650 mg PRN Q6HRS PRN PO PAIN; Start 07/07/18 at 19:45 Vitamin D (Vitamin D3) 2,000 unit DAILY PO Last administered on 07/08/18 09:34 ; Start 07/08/18 at 09:00 Cyanocobalamin (Vitamin B-12) 2,000 mcg DAILY PO Last administered on 07/08/18 09:32; Start 07/08/18 at 09:00 Al Hydroxide/Mg Hydroxide (Mylanta Plus Xs) 15 ml PRN AFTMEALHC PRN PO DYSPEPSIA; Start 07/07/18 at 19:45 Magnesium Hydroxide (Milk Of Magnesia) 2,400 mg PRN QHS PRN PO CONSTIPATION; Start 07/07/18 at 19:45 Multivitamins/ Calcium (Thera-M Plus) 1 tab DAILY PO Last administered on 09:36; Start 07/08/18 at 09:00 Aspirin (Children'S Aspirin) 81 mg DAILYWBKFT PO Last administered on 07/08/18 09:32; Start 07/08/18 at 08:00 Calcium/Vitamin D (Oscal D 500mg/ 200uts) 2 tab DAILYWBKFT PO Last administered on 07/08/18 09:33; Start 07/08/18 at 08:00 Dicyclomine HCl (Bentyl) 20 mg QID PO Last administered on 07/08/18 20:49; Start 07/07/18 at 21:00 Folic Acid (Folic Acid) 1 mg DAILY PO Last administered on 07/08/18 09:36; Start 07/08/18 at 09:00 Acetaminophen/ Hydrocodone Bitart (Lortab 5/325) 0.5 tab PRN BID PRN PO PAIN; Start 07/07/18 at 20:00; Stop 07/07/18 at 23:33; Status DC Loperamide HCl (Imodium) 2 mg DAILY PO Last administered on 07/08/18 09:35; Start 07/08/18 at 09:00 Non-Formulary Medication (Mometasone Furoate (Asmanex)) 110 mcg BID IH ; Start 07/07/18 at 21:00; Stop 07/07/18 at 21:00; Status DC Pyridoxine HCl (Vitamin B-6) 100 mg DAILY PO Last administered on 07/08/18 09: 38; Start 07/08/18 at 09:00 Raloxifene HCl (Evista) 60 mg DAILY PO Last administered on 07/08/18at 09:34; Start 07/08/18 at 09:00 Budesonide (Pulmicort) 0.5 mg RTBID NEB Last administered on 07/08/18at 20:22; Start 07/07/18 at 20:00 Fluvoxamine Maleate (Luvox) 150 mg BID PO Last administered on 07/08/18at 20:49; Start 07/07/18 at 21:00 Acetaminophen/ Hydrocodone Bitart (Lortab 5/325) 0.5 tab BID PO Last administered on 07/08/18at 20:54; Start 07/08/18 at 09:00 Alprazolam (Xanax) 1 mg 0900,1300,1700 PO ; Start 07/09/18 at 09:00; Stop at 23:50 Alprazolam (Xanax) 0.5 mg QHS PO Last administered on 07/08/18at 20:53; Start 07/08/18 at 21:00; Stop 07/10/18 at 23:50 Alprazolam (Xanax) 0.5 mg BID PO ; Start 07/11/18 at 21:00 Alprazolam (Xanax) 0.5 mg 1300,1700 PO ; Start 07/11/18 at 13:00 Trazodone HCl (Desyrel) 50 mg PRN QHS PRN PO INSOMNIA, MAY REPEAT X1; Start 07/08/18 at 19:30 Active Scripts Active Reported Hydrocodone-Acetamin 5-325 mg (Hydrocodone/Acetaminophen) 1 Each Tablet 0.5 Tab PO BID PRN Seroquel (Quetiapine Fumarate) 200 Mg Tablet 200 Mg PO HS Fluvoxamine Maleate 100 Mg Tablet 150 Mg PO BID Caltrate 600 + D Tablet (Calcium Carbonate/Vitamin D3) 1 Each Tablet 2 Tab PO DAILY Milk Of Magnesia (Magnesium Hydroxide) 400 Mg/5 Ml Oral.susp 2,400 Mg PO PRN QHS PRN Imodium A-D (Loperamide HCl) 2 Mg Capsule 2 Mg PO DAILY Mag-Al Plus Xs Suspension (Mag Hydrox/Al Hydrox/Simeth) 30 Ml Oral.susp 15 Ml PO PRN AFTMEALHC PRN Seroquel (Quetiapine Fumarate) 25 Mg Tablet 25 Mg PO DAILY Ventolin Hfa Inhaler (Albuterol Sulfate) 18 Gm Hfa.aer.ad 1 Puff IH PRN Q4HRS PRN Asmanex (Mometasone Furoate) 110 Mcg Aer.pow.ba 110 Mcg IH BID Aricept (Donepezil Hcl) 10 Mg Tablet 1 Tab PO QHS Buspirone Hcl 10 Mg Tablet 20 Mg PO BID Thera-M Tablet (Multivits,Ca,Minerals/Iron/Fa) 1 Each Tablet 1 Tab PO DAILY Vitamin B-12 (Cyanocobalamin (Vitamin B-12)) 1,000 Mcg Tablet 2,000 Mcg PO DAILY Tylenol (Acetaminophen) 325 Mg Tablet 650 Mg PO PRN Q6HRS PRN Folic Acid 1 Mg Tablet 1 Mg PO DAILY Aspirin 81 Mg Tab.chew 81 Mg PO DAILY Vitamin D3 (Cholecalciferol (Vitamin D3)) 1,000 Unit Tablet 2,000 Unit PO DAILY Vitamin B-6 (Pyridoxine Hcl) 100 Mg Tablet 100 Mg PO DAILY Evista (Raloxifene Hcl) 60 Mg Tablet 60 Mg PO DAILY Alprazolam 1 Mg Tablet 1 Mg PO QID Dicyclomine Hcl 20 Mg Tablet 20 Mg PO QID I have reviewed the current psychotropics carefully including drug interactions. Risk benefit ratio favors no change other than as noted in my dictated progress note. Diagnosis: Problems: (1) Anxiety disorder (2) Obsessive compulsive disorder (3) Psychosis, atypical (4) Major depressive disorder, recurrent episode (5) Seizure (6) Dementia (7) KAYLAN Torrez MD Jul 08, 2018 22:13
--- NOTE | 2018-07-08 22:30 | CONS ---
DATE OF CONSULTATION: 07/08/2018 REASON FOR CONSULTATION: Consult for medical management. HISTORY OF PRESENT ILLNESS: The patient is a 72-year-old female patient, a resident at an independent living facility, who was seen initially at [facility] with her spouse, having been referred by Dr. Lopez, her outpatient psychiatrist for inpatient psychiatric stabilization. She was in the Emergency Room. She had a psychiatric consultation with the tele psychiatrist, who also recommended inpatient hospitalization on account of history of major depressive disorder, OCD, and anxiety disorder, has been previously hospitalized at this facility. She was also seen by her outpatient psychiatrist, apparently has had increased confusion, marked increase in her anxiety, agitation, hollering out for her spouse, wandering. Despite taking Xanax 1 mg 4 times a day, she has been extremely obsessive, impulsive, and has failed outpatient psychiatric intervention resulting in this admission. PAST PSYCHIATRIC HISTORY: Significant for major depressive disorder, marked OCD symptoms. 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 PAST MEDICAL HISTORY: Significant for mitral valve prolapse and seizure disorder. PAST SURGICAL HISTORY: Unremarkable. She has also irritable bowel syndrome and she apparently has left hip fracture, status post open reduction and internal fixation. ALLERGIES: SHE IS ALLERGIC TO PENICILLIN, SULFA, FEXOFENADINE, and MINOCYCLINE. CODE STATUS: Full. FAMILY HISTORY: Noncontributory. SOCIAL HISTORY: She lives at home with her . She apparently does not smoke, drink alcohol abuse or use recreational drugs. 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 MEDICATIONS: She is currently on following medications: She is on Aricept 10 mg once a day at bedtime, dicyclomine 20 mg 4 times a day, albuterol sulfate for Ventolin inhaler 1 puff every 4 hours, aspirin 81 mg once a day, hydrocodone/APAP 5/325 half a tablet twice a day, Tylenol 650 mg every 6 hours, fluvoxamine maleate 150 mg p.o. b.i.d., quetiapine fumarate 25 mg daily, quetiapine fumarate 200 mg at bedtime, alprazolam 1 mg 4 times a day, buspirone 20 mg twice a day, calcium carbonate with vitamin D3 two tablets daily. She is on mometasone furoate for Asmanex one inhalation twice a day. She is on Mylanta 15 mL after meals and as needed, loperamide 2 mg p.o. daily for diarrhea. She is on milk of magnesia 30 mL p.o. daily p.r.n. for constipation, raloxifene for Evista 60 mg once a day, cyanocobalamin 2000 mcg p.o. daily, folic acid 1 mg once a day, vitamin D 2000 international units once a day, multivitamin with mineral one tablet once a day. PHYSICAL EXAMINATION: GENERAL: On examining her, she looked well and was clearly in no apparent respiratory distress. No pallor, jaundice, cyanosis, or thyromegaly. No jugular venous distension. No lower limb edema. VITAL SIGNS: Her heart rate was 83, blood pressure was 95/62, temperature was 97.4, respiratory rate was 16 and oxygen saturation was 94%. HEAD, EYES, EARS, NOSE, and THROAT: Showed normocephalic, atraumatic. NECK: Supple. HEART: Showed normal first and second sounds. No gallop, rub or murmur. CHEST: Clear to auscultation. No crepitation or rhonchi. ABDOMEN: Distended, soft, nontender. NEUROLOGIC: She is awake, alert, responding appropriately. All cranial nerves intact. EXTREMITIES: She moves extremities without difficulty. She ambulates with a walker. LABORATORY DATA: Showed a white cell count of 6700, hemoglobin 13, hematocrit 39, MCV 94 and platelet count of 205,000 with normal manual differential. Her chemistry showed a serum sodium 143, potassium 4.3, chloride 106, bicarbonate 29, anion gap of 8, BUN 11, creatinine 1.3, estimated GFR was 40 mL per minute. Her glucose was 93, calcium was 9.7. Total bilirubin, AST, ALT, alkaline phosphatase were normal. Total protein was 6.7, albumin was 3.3. Her urinalysis essentially showed that her urine was yellow, clear with a pH of 7.5, specific gravity 1.015. The urine was negative for protein, glucose, ketones, blood, nitrite and leukocyte esterase. There was a small amount of leukocyte esterase, 1-2 rbc's, 11-20 wbc's, and moderate amount of bacteria. Her treponema pallidum antibody was nonreactive. Her magnesium was 1.9. Serum iron 100, TIBC was 263 and iron saturation was 38%. Her serum triglycerides were 126, total cholesterol was 173, LDL was 86, VLDL was 25, HDL cholesterol was 62 and the ratio was 2. Her 25-hydroxy vitamin D was 44.9 and TSH was 1.088. IMPRESSION: In summary, this is a 72-year-old female patient, who was admitted on account of increased confusion, marked increase in her anxiety, agitation, hollering out for her spouse, wandering. This is despite taking Xanax 1 mg 4 times a day. She has been extremely obsessive and impulsive, has failed outpatient psychiatric intervention resulting in this referral. Medically, she is known to have mitral valve prolapse, seizure disorder, chronic constipation, chronic obstructive pulmonary disease, irritable bowel syndrome and chronic kidney disease. All in all, the patient seems to be medically stable. Her vital signs are within normal range. Her labs are all within normal range. I will review all the lab work that are still pending at the time of this dictation and make any necessary recommendation. Thank you, Dr. Renteria for allowing me to participate in the care of this patient. BRANDI HARDIN MD DR: IMELDA/sasha JOB#: [id number] / [id number]
[2018-07-08 23:09] LABS: HEMOGLOBIN A1C 5.3 % (4.8-5.6)
[2018-07-09 05:52] VITALS: BP 104/67
[2018-07-09] MEDS: BUDESONIDE 0.5 MG/2 ML NEBU NEB SCH ×2 (08:00→20:44)
[2018-07-09] MEDS: CYANOCOBALAMIN (VITAMIN B-12) 1,000 MCG TABLET. PO SCH (08:48)
[2018-07-09] MEDS: FOLIC ACID 1 MG TABLET PO SCH (08:49)
[2018-07-09] MEDS: CALCIUM CARB/VIT D3 500/200 TABLET PO SCH (08:49)
[2018-07-09] MEDS: CHOLECALCIFEROL (VITAMIN D3) 1,000 UNIT TABLET PO SCH (08:49)
[2018-07-09] MEDS: busPIRone 10 MG TABLET. PO SCH ×2 (08:49→21:34)
[2018-07-09] MEDS: LOPERAMIDE 2 MG CAPSULE PO SCH (08:49)
[2018-07-09] MEDS: RALOXIFENE 60 MG TABLET. PO SCH (08:50)
[2018-07-09] MEDS: QUEtiapine 25 MG TABLET. PO SCH (08:50)
[2018-07-09] MEDS: MULTIVITAMIN with MINERAL TABLET. PO SCH (08:53)
[2018-07-09] MEDS: DICYCLOMINE HCL 20 MG TABLET PO SCH ×4 (08:54→21:34)
[2018-07-09] MEDS: PYRIDOXINE 50 MG TABLET. PO SCH (08:54)
[2018-07-09] MEDS: ASPIRIN 81 MG TAB.CHEW PO SCH (08:54)
[2018-07-09] MEDS: ALPRAZolam 0.5 MG TABLET PO SCH ×4 (08:57→21:33)
[2018-07-09] MEDS: HYDROcodone/APAP 5/325MG 1 TAB TABLET PO SCH ×2 (08:58→21:39)
[2018-07-09 16:22] VITALS: BP 98/63
--- NOTE | 2018-07-09 20:56 | PN ---
DATE: 07/08/2018 PSYCHIATRIC PROGRESS NOTE This late entry 07/08/2018 covers elements not covered in my initial note. SUBJECTIVE: I met with the patient in the evening. The patient slept 5-1/4 hours previous night. Previous night she was wandering, anxious, attention seeking, worried, repeatedly wanting a paper towel. Today, she was cooperative with Physical Therapy, recognized the male nursing staff, somewhat withdrawn after lunch. She remains on Luvox 150 b.i.d.; Xanax 1 mg 4 times a day and will drop this down to 1 mg 3 times a day, 0.5 mg at night, and then 3 days later 2.5 mg in the morning and 1 mg twice a day, 0.5 mg at night as a gradual taper. She is also on BuSpar 20 mg twice a day, Seroquel 25 mg a.m. and 200 at bedtime, Aricept 10 mg a day. REVIEW OF SYSTEMS: Ambulation impaired with walker. No CV, , pulmonary, eye system symptoms on review. MENTAL STATUS EXAM: Oriented to herself and situation. Speech is coherent, abstraction fair, computation impaired, language function intact, attention span short. Mood and affect remains somewhat obsessive, anxious, labile at times. No active suicidal or homicidal ideation. I discussed at length with her changing the Seroquel gradually to Risperdal. She stated she remembers Dr. Lopez, her outpatient psychiatrist had recommended this as well. IMPRESSION: Major depressive disorder, recurrent; obsessive-compulsive disorder; anxiety disorder, unspecified. PLAN: Start Risperdal 0.25 mg p.o. at bedtime. Continue rest of the psychotropics and taper the Xanax and gradually taper the Seroquel. We have increased the Risperdal to augment her Luvox. KAYLAN RAGLAND MD DR: NABIL/sasha JOB#: [id number] / [id number]
[2018-07-09] MEDS ORDERED: risperiDONE 0.25 MG TABLET. PO SCH (21:00)
[2018-07-09] MEDS: DONEPEZIL HCL 10 MG TABLET PO SCH (21:32)
[2018-07-09] MEDS: QUEtiapine 100 MG TABLET. PO SCH (21:34)
--- NOTE | 2018-07-09 22:29 | PDOC ---
Exam Note: Lencho Note: Please also refer to the separate dictated note~for this date of service dictated separately.~Patient seen individually. Discussed the patient with Nursing staff reviewed the chart.~Reviewed interim history and current functioning. Reviewed vital signs,~Labs/ Radiology~and current medications noted below. Continue current treatment with the changes noted in the dictated addendum note Assessment: Vital Signs: Vital Signs Date Time Temp Pulse Resp B/P (MAP) Pulse Ox O2 Delivery O2 Flow Rate FiO2 07/09/18 21:39 20 Room Air 07/09/18 20:45 95 07/09/18 16:22 98.7 86 98/63 (75) I&O Intake and Output 07/09/18 06:59 Intake Total 1200 ml Balance 1200 ml Intake Oral 1200 ml Current Medications: Meds: Current Medications Alprazolam (Xanax) 0.5 mg 1X ONCE PO Last administered on 07/07/18 13:21; Start 07/07/18 at 13:15; Stop 07/07/18 at 13:18; Status DC Alprazolam (Xanax) 1 mg QID PO Last administered on 07/08/18at 16:47; Start at 21:00; Stop 07/08/18 at 19:32; Status DC Buspirone HCl (Buspar) 20 mg BID PO Last administered on 07/09/18 21:34; Start 07/07/18 at 21:00 Donepezil HCl (Aricept) 10 mg QHS PO Last administered on 07/09/18at 21:32; Start 07/07/18 at 21:00 Non-Formulary Medication (Fluvoxamine Maleate ) 450 mg BID PO ; Start 07/07/18 at 21:00; Stop 07/07/18 at 21:00; Status DC Quetiapine Fumarate (SEROquel) 25 mg DAILY PO Last administered on 07/09/18at 08: 50; Start 07/08/18 at 09:00; Stop 07/09/18 at 09:42; Status DC Quetiapine Fumarate (SEROquel) 200 mg QHS PO Last administered on 07/09/18at 21: 34; Start 07/07/18 at 21:00 Acetaminophen (Tylenol) 650 mg PRN Q6HRS PRN PO PAIN; Start 07/07/18 at 19:45 Vitamin D (Vitamin D3) 2,000 unit DAILY PO Last administered on 07/09/18 08:49 ; Start 07/08/18 at 09:00 Cyanocobalamin (Vitamin B-12) 2,000 mcg DAILY PO Last administered on 07/09/18 08:48; Start 07/08/18 at 09:00 Al Hydroxide/Mg Hydroxide (Mylanta Plus Xs) 15 ml PRN AFTMEALHC PRN PO DYSPEPSIA; Start 07/07/18 at 19:45 Magnesium Hydroxide (Milk Of Magnesia) 2,400 mg PRN QHS PRN PO CONSTIPATION; Start 07/07/18 at 19:45 Multivitamins/ Calcium (Thera-M Plus) 1 tab DAILY PO Last administered on 08:53; Start 07/08/18 at 09:00 Aspirin (Children'S Aspirin) 81 mg DAILYWBKFT PO Last administered on 07/09/18 08:54; Start 07/08/18 at 08:00 Calcium/Vitamin D (Oscal D 500mg/ 200uts) 2 tab DAILYWBKFT PO Last administered on 07/09/18 08:49; Start 07/08/18 at 08:00 Dicyclomine HCl (Bentyl) 20 mg QID PO Last administered on 07/09/18 21:34; Start 07/07/18 at 21:00 Folic Acid (Folic Acid) 1 mg DAILY PO Last administered on 07/09/18 08:49; Start 07/08/18 at 09:00 Acetaminophen/ Hydrocodone Bitart (Lortab 5/325) 0.5 tab PRN BID PRN PO PAIN; Start 07/07/18 at 20:00; Stop 07/07/18 at 23:33; Status DC Loperamide HCl (Imodium) 2 mg DAILY PO Last administered on 07/09/18 08:49; Start 07/08/18 at 09:00 Non-Formulary Medication (Mometasone Furoate (Asmanex)) 110 mcg BID IH ; Start 07/07/18 at 21:00; Stop 07/07/18 at 21:00; Status DC Pyridoxine HCl (Vitamin B-6) 100 mg DAILY PO Last administered on 07/09/18 08: 54; Start 07/08/18 at 09:00 Raloxifene HCl (Evista) 60 mg DAILY PO Last administered on 07/09/18 08:50; Start 07/08/18 at 09:00 Budesonide (Pulmicort) 0.5 mg RTBID NEB Last administered on 07/09/18 20:44; Start 07/07/18 at 20:00 Fluvoxamine Maleate (Luvox) 150 mg BID PO Last administered on 07/09/18 21:33; Start 07/07/18 at 21:00 Acetaminophen/ Hydrocodone Bitart (Lortab 5/325) 0.5 tab BID PO Last administered on 07/09/18 21:39; Start 07/08/18 at 09:00 Alprazolam (Xanax) 1 mg 0900,1300,1700 PO Last administered on 07/09/18 16:36; Start 07/09/18 at 09:00; Stop 07/10/18 at 23:50 Alprazolam (Xanax) 0.5 mg QHS PO Last administered on 07/09/18 21:33; Start 07/08/18 at 21:00; Stop 07/10/18 at 23:50 Alprazolam (Xanax) 0.5 mg BID PO ; Start 07/11/18 at 21:00 Alprazolam (Xanax) 0.5 mg 1300,1700 PO ; Start 07/11/18 at 13:00 Trazodone HCl (Desyrel) 50 mg PRN QHS PRN PO INSOMNIA, MAY REPEAT X1; Start 07/08/18 at 19:30 Risperidone (RisperDAL) 0.25 mg DAILY PO ; Start 07/10/18 at 09:00; Stop 07/10/18 at 09:00; Status DC Risperidone (RisperDAL) 0.25 mg QHS PO Last administered on 07/09/18 21:41; Start 07/09/18 at 21:00 Active Scripts Active Reported Hydrocodone-Acetamin 5-325 mg (Hydrocodone/Acetaminophen) 1 Each Tablet 0.5 Tab PO BID PRN Seroquel (Quetiapine Fumarate) 200 Mg Tablet 200 Mg PO HS Fluvoxamine Maleate 100 Mg Tablet 150 Mg PO BID Caltrate 600 + D Tablet (Calcium Carbonate/Vitamin D3) 1 Each Tablet 2 Tab PO DAILY Milk Of Magnesia (Magnesium Hydroxide) 400 Mg/5 Ml Oral.susp 2,400 Mg PO PRN QHS PRN Imodium A-D (Loperamide HCl) 2 Mg Capsule 2 Mg PO DAILY Mag-Al Plus Xs Suspension (Mag Hydrox/Al Hydrox/Simeth) 30 Ml Oral.susp 15 Ml PO PRN AFTMEALHC PRN Seroquel (Quetiapine Fumarate) 25 Mg Tablet 25 Mg PO DAILY Ventolin Hfa Inhaler (Albuterol Sulfate) 18 Gm Hfa.aer.ad 1 Puff IH PRN Q4HRS PRN Asmanex (Mometasone Furoate) 110 Mcg Aer.pow.ba 110 Mcg IH BID Aricept (Donepezil Hcl) 10 Mg Tablet 1 Tab PO QHS Buspirone Hcl 10 Mg Tablet 20 Mg PO BID Thera-M Tablet (Multivits,Ca,Minerals/Iron/Fa) 1 Each Tablet 1 Tab PO DAILY Vitamin B-12 (Cyanocobalamin (Vitamin B-12)) 1,000 Mcg Tablet 2,000 Mcg PO DAILY Tylenol (Acetaminophen) 325 Mg Tablet 650 Mg PO PRN Q6HRS PRN Folic Acid 1 Mg Tablet 1 Mg PO DAILY Aspirin 81 Mg Tab.chew 81 Mg PO DAILY Vitamin D3 (Cholecalciferol (Vitamin D3)) 1,000 Unit Tablet 2,000 Unit PO DAILY Vitamin B-6 (Pyridoxine Hcl) 100 Mg Tablet 100 Mg PO DAILY Evista (Raloxifene Hcl) 60 Mg Tablet 60 Mg PO DAILY Alprazolam 1 Mg Tablet 1 Mg PO QID Dicyclomine Hcl 20 Mg Tablet 20 Mg PO QID I have reviewed the current psychotropics carefully including drug interactions. Risk benefit ratio favors no change other than as noted in my dictated progress note. Diagnosis: Problems: (1) Anxiety disorder (2) Obsessive compulsive disorder (3) Psychosis, atypical (4) Major depressive disorder, recurrent episode (5) Seizure (6) Dementia (7) KAYLAN Torrez MD Jul 09, 2018 22:29
[2018-07-10 06:15] VITALS: BP 95/61
[2018-07-10] MEDS: BUDESONIDE 0.5 MG/2 ML NEBU NEB SCH ×2 (08:00→21:11)
[2018-07-10] MEDS: LOPERAMIDE 2 MG CAPSULE PO SCH (08:03)
[2018-07-10] MEDS: MULTIVITAMIN with MINERAL TABLET. PO SCH (08:03)
[2018-07-10] MEDS: DICYCLOMINE HCL 20 MG TABLET PO SCH ×4 (08:03→20:43)
[2018-07-10] MEDS: CALCIUM CARB/VIT D3 500/200 TABLET PO SCH (08:03)
[2018-07-10] MEDS: CHOLECALCIFEROL (VITAMIN D3) 1,000 UNIT TABLET PO SCH (08:04)
[2018-07-10] MEDS: busPIRone 10 MG TABLET. PO SCH ×2 (08:05→20:43)
[2018-07-10] MEDS: ASPIRIN 81 MG TAB.CHEW PO SCH (08:05)
[2018-07-10] MEDS: FOLIC ACID 1 MG TABLET PO SCH (08:06)
[2018-07-10] MEDS: CYANOCOBALAMIN (VITAMIN B-12) 1,000 MCG TABLET. PO SCH (08:06)
[2018-07-10] MEDS: RALOXIFENE 60 MG TABLET. PO SCH (08:06)
[2018-07-10] MEDS: ALPRAZolam 0.5 MG TABLET PO SCH ×4 (08:10→20:43)
[2018-07-10] MEDS: HYDROcodone/APAP 5/325MG 1 TAB TABLET PO SCH ×2 (08:10→20:43)
[2018-07-10] MEDS: PYRIDOXINE 50 MG TABLET. PO SCH (08:13)
[2018-07-10] MEDS ORDERED: risperiDONE 0.25 MG TABLET. PO SCH (09:00)
[2018-07-10 13:23] LABS: BASO # 0.1 x10^3/uL (0.0-0.2); BASO % 1 % (0-3); EOS # 0.5 x10^3/uL (0.0-0.7); EOS % 8 % (0-3); HEMATOCRIT 40.9 % (36.0-47.0); HEMOGLOBIN 13.6 g/dL (12.0-15.5); LYMPH # 1.3 x10^3/uL (1.0-4.8); LYMPH % 19 % (24-48); MEAN CORPUSCULAR HEMOGLOBIN 31 pg (25-35); MEAN CORPUSCULAR HGB CONC 33 g/dL (31-37); MEAN CORPUSCULAR VOLUME 94 fL (79-100); MONO # 0.5 x10^3/uL (0.0-1.1); MONO % 7 % (0-9); NEUT # 4.4 x10^3uL (1.8-7.7); NEUT % 65 % (31-73); PLATELET COUNT 213 x10^3/uL (140-400); RED BLOOD COUNT 4.35 x10^6/uL (3.50-5.40); RED CELL DISTRIBUTION WIDTH 13.9 % (11.5-14.5); WHITE BLOOD COUNT 6.8 x10^3/uL (4.0-11.0)
[2018-07-10 13:38] LABS: ALBUMIN 3.6 g/dL (3.4-5.0); CALCIUM 9.8 mg/dL (8.5-10.1); CREATININE 1.4 mg/dL (0.6-1.0); GFR 36.9; TOTAL BILIRUBIN 0.3 mg/dL (0.2-1.0); TOTAL PROTEIN 7.1 g/dL (6.4-8.2)
[2018-07-10 16:31] VITALS: BP 110/65
[2018-07-10] MEDS: DONEPEZIL HCL 10 MG TABLET PO SCH (20:44)
[2018-07-10] MEDS: QUEtiapine 100 MG TABLET. PO SCH (20:47)
[2018-07-10] MEDS: risperiDONE 0.5 MG TABLET. PO SCH (20:47)
--- NOTE | 2018-07-10 22:25 | PDOC ---
Exam Note: Lencho Note: Please also refer to the separate dictated note~for this date of service dictated separately.~Patient seen individually. Discussed the patient with Nursing staff reviewed the chart.~Reviewed interim history and current functioning. Reviewed vital signs,~Labs/ Radiology~and current medications noted below. Continue current treatment with the changes noted in the dictated addendum note Assessment: Vital Signs: Vital Signs Date Time Temp Pulse Resp B/P (MAP) Pulse Ox O2 Delivery O2 Flow Rate FiO2 07/10/18 21:11 97 Room Air 07/10/18 20:43 20 07/10/18 16:31 97.9 86 110/65 (80) I&O Intake and Output 07/10/18 06:59 Intake Total 1080 ml Balance 1080 ml Intake Oral 1080 ml # Voids 1 Labs: Laboratory Tests Test 07/10/18 13:10 White Blood Count 6.8 x10^3/uL (4.0-11.0) Red Blood Count 4.35 x10^6/uL (3.50-5.40) Hemoglobin 13.6 g/dL (12.0-15.5) Hematocrit 40.9 % (36.0-47.0) Mean Corpuscular Volume 94 fL (79-100) Mean Corpuscular Hemoglobin 31 pg (25-35) Mean Corpuscular Hemoglobin Concent 33 g/dL (31-37) Red Cell Distribution Width 13.9 % (11.5-14.5) Platelet Count 213 x10^3/uL (140-400) Neutrophils (%) (Auto) 65 % (31-73) Lymphocytes (%) (Auto) 19 % (24-48) L Monocytes (%) (Auto) 7 % (0-9) Eosinophils (%) (Auto) 8 % (0-3) H Basophils (%) (Auto) 1 % (0-3) Neutrophils # (Auto) 4.4 x10^3uL (1.8-7.7) Lymphocytes # (Auto) 1.3 x10^3/uL (1.0-4.8) Monocytes # (Auto) 0.5 x10^3/uL (0.0-1.1) Eosinophils # (Auto) 0.5 x10^3/uL (0.0-0.7) Basophils # (Auto) 0.1 x10^3/uL (0.0-0.2) Sodium Level 143 mmol/L (136-145) Potassium Level 4.0 mmol/L (3.5-5.1) Chloride Level 105 mmol/L (98-107) Carbon Dioxide Level 28 mmol/L (21-32) Anion Gap 10 (6-14) Blood Urea Nitrogen 15 mg/dL (7-20) Creatinine 1.4 mg/dL (0.6-1.0) H Estimated GFR (Cockcroft-Gault) 36.9 BUN/Creatinine Ratio 11 (6-20) Glucose Level 114 mg/dL (70-99) H Calcium Level 9.8 mg/dL (8.5-10.1) Total Bilirubin 0.3 mg/dL (0.2-1.0) Aspartate Amino Transferase (AST) 25 U/L (15-37) Alanine Aminotransferase (ALT) 17 U/L (14-59) Alkaline Phosphatase 78 U/L (46-116) Total Protein 7.1 g/dL (6.4-8.2) Albumin 3.6 g/dL (3.4-5.0) Albumin/Globulin Ratio 1.0 (1.0-1.7) Current Medications: Meds: Current Medications Alprazolam (Xanax) 0.5 mg 1X ONCE PO Last administered on 07/07/18at 13:21; Start 07/07/18 at 13:15; Stop 07/07/18 at 13:18; Status DC Alprazolam (Xanax) 1 mg QID PO Last administered on 07/08/18at 16:47; Start at 21:00; Stop 07/08/18 at 19:32; Status DC Buspirone HCl (Buspar) 20 mg BID PO Last administered on 07/10/18 20:43; Start 07/07/18 at 21:00 Donepezil HCl (Aricept) 10 mg QHS PO Last administered on 07/10/18at 20:44; Start 07/07/18 at 21:00 Non-Formulary Medication (Fluvoxamine Maleate ) 450 mg BID PO ; Start 07/07/18 at 21:00; Stop 07/07/18 at 21:00; Status DC Quetiapine Fumarate (SEROquel) 25 mg DAILY PO Last administered on 07/09/18 08: 50; Start 07/08/18 at 09:00; Stop 07/09/18 at 09:42; Status DC Quetiapine Fumarate (SEROquel) 200 mg QHS PO Last administered on 07/09/18 21: 34; Start 07/07/18 at 21:00; Stop 07/10/18 at 11:41; Status DC Acetaminophen (Tylenol) 650 mg PRN Q6HRS PRN PO PAIN; Start 07/07/18 at 19:45 Vitamin D (Vitamin D3) 2,000 unit DAILY PO Last administered on 07/10/18 08:04 ; Start 07/08/18 at 09:00 Cyanocobalamin (Vitamin B-12) 2,000 mcg DAILY PO Last administered on 07/10/18 08:06; Start 07/08/18 at 09:00 Al Hydroxide/Mg Hydroxide (Mylanta Plus Xs) 15 ml PRN AFTMEALHC PRN PO DYSPEPSIA; Start 07/07/18 at 19:45 Magnesium Hydroxide (Milk Of Magnesia) 2,400 mg PRN QHS PRN PO CONSTIPATION; Start 07/07/18 at 19:45 Multivitamins/ Calcium (Thera-M Plus) 1 tab DAILY PO Last administered on 08:03; Start 07/08/18 at 09:00 Aspirin (Children'S Aspirin) 81 mg DAILYWBKFT PO Last administered on 07/10/18 08:05; Start 07/08/18 at 08:00 Calcium/Vitamin D (Oscal D 500mg/ 200uts) 2 tab DAILYWBKFT PO Last administered on 07/10/18 08:03; Start 07/08/18 at 08:00 Dicyclomine HCl (Bentyl) 20 mg QID PO Last administered on 07/10/18 20:43; Start 07/07/18 at 21:00 Folic Acid (Folic Acid) 1 mg DAILY PO Last administered on 07/10/18 08:06; Start 07/08/18 at 09:00 Acetaminophen/ Hydrocodone Bitart (Lortab 5/325) 0.5 tab PRN BID PRN PO PAIN; Start 07/07/18 at 20:00; Stop 07/07/18 at 23:33; Status DC Loperamide HCl (Imodium) 2 mg DAILY PO Last administered on 07/10/18 08:03; Start 07/08/18 at 09:00 Non-Formulary Medication (Mometasone Furoate (Asmanex)) 110 mcg BID IH ; Start 07/07/18 at 21:00; Stop 07/07/18 at 21:00; Status DC Pyridoxine HCl (Vitamin B-6) 100 mg DAILY PO Last administered on 07/10/18 08: 13; Start 07/08/18 at 09:00 Raloxifene HCl (Evista) 60 mg DAILY PO Last administered on 07/10/18 08:06; Start 07/08/18 at 09:00 Budesonide (Pulmicort) 0.5 mg RTBID NEB Last administered on 07/10/18 21:11; Start 07/07/18 at 20:00 Fluvoxamine Maleate (Luvox) 150 mg BID PO Last administered on 07/10/18 20:43; Start 07/07/18 at 21:00 Acetaminophen/ Hydrocodone Bitart (Lortab 5/325) 0.5 tab BID PO Last administered on 07/10/18 20:43; Start 07/08/18 at 09:00 Alprazolam (Xanax) 1 mg 0900,1300,1700 PO Last administered on 07/10/18at 17:15; Start 07/09/18 at 09:00; Stop 07/10/18 at 23:50 Alprazolam (Xanax) 0.5 mg QHS PO Last administered on 07/10/18 20:43; Start 07/08/18 at 21:00; Stop 07/10/18 at 23:50 Alprazolam (Xanax) 0.5 mg BID PO ; Start 07/11/18 at 21:00 Alprazolam (Xanax) 0.5 mg 1300,1700 PO ; Start 07/11/18 at 13:00 Trazodone HCl (Desyrel) 50 mg PRN QHS PRN PO INSOMNIA, MAY REPEAT X1; Start 07/08/18 at 19:30 Risperidone (RisperDAL) 0.25 mg DAILY PO ; Start 07/10/18 at 09:00; Stop 07/10/18 at 09:00; Status DC Risperidone (RisperDAL) 0.25 mg QHS PO Last administered on 07/09/18at 21:41; Start 07/09/18 at 21:00; Stop 07/10/18 at 11:43; Status DC Quetiapine Fumarate (SEROquel) 150 mg QHS PO Last administered on 07/10/18at 20: 47; Start 07/10/18 at 21:00 Risperidone (RisperDAL) 0.5 mg QHS PO Last administered on 07/10/18at 20:47; Start 07/10/18 at 21:00 Active Scripts Active Reported Hydrocodone-Acetamin 5-325 mg (Hydrocodone/Acetaminophen) 1 Each Tablet 0.5 Tab PO BID PRN Seroquel (Quetiapine Fumarate) 200 Mg Tablet 200 Mg PO HS Fluvoxamine Maleate 100 Mg Tablet 150 Mg PO BID Caltrate 600 + D Tablet (Calcium Carbonate/Vitamin D3) 1 Each Tablet 2 Tab PO DAILY Milk Of Magnesia (Magnesium Hydroxide) 400 Mg/5 Ml Oral.susp 2,400 Mg PO PRN QHS PRN Imodium A-D (Loperamide HCl) 2 Mg Capsule 2 Mg PO DAILY Mag-Al Plus Xs Suspension (Mag Hydrox/Al Hydrox/Simeth) 30 Ml Oral.susp 15 Ml PO PRN AFTMEALHC PRN Seroquel (Quetiapine Fumarate) 25 Mg Tablet 25 Mg PO DAILY Ventolin Hfa Inhaler (Albuterol Sulfate) 18 Gm Hfa.aer.ad 1 Puff IH PRN Q4HRS PRN Asmanex (Mometasone Furoate) 110 Mcg Aer.pow.ba 110 Mcg IH BID Aricept (Donepezil Hcl) 10 Mg Tablet 1 Tab PO QHS Buspirone Hcl 10 Mg Tablet 20 Mg PO BID Thera-M Tablet (Multivits,Ca,Minerals/Iron/Fa) 1 Each Tablet 1 Tab PO DAILY Vitamin B-12 (Cyanocobalamin (Vitamin B-12)) 1,000 Mcg Tablet 2,000 Mcg PO DAILY Tylenol (Acetaminophen) 325 Mg Tablet 650 Mg PO PRN Q6HRS PRN Folic Acid 1 Mg Tablet 1 Mg PO DAILY Aspirin 81 Mg Tab.chew 81 Mg PO DAILY Vitamin D3 (Cholecalciferol (Vitamin D3)) 1,000 Unit Tablet 2,000 Unit PO DAILY Vitamin B-6 (Pyridoxine Hcl) 100 Mg Tablet 100 Mg PO DAILY Evista (Raloxifene Hcl) 60 Mg Tablet 60 Mg PO DAILY Alprazolam 1 Mg Tablet 1 Mg PO QID Dicyclomine Hcl 20 Mg Tablet 20 Mg PO QID I have reviewed the current psychotropics carefully including drug interactions. Risk benefit ratio favors no change other than as noted in my dictated progress note. Diagnosis: Problems: (1) Anxiety disorder (2) Obsessive compulsive disorder (3) Psychosis, atypical (4) Major depressive disorder, recurrent episode (5) Seizure (6) Dementia (7) KAYLAN Torrez MD Jul 10, 2018 22:25
[2018-07-11 06:58] VITALS: BP 109/50
[2018-07-11] MEDS: CHOLECALCIFEROL (VITAMIN D3) 1,000 UNIT TABLET PO SCH (08:21)
[2018-07-11] MEDS: CYANOCOBALAMIN (VITAMIN B-12) 1,000 MCG TABLET. PO SCH (08:21)
[2018-07-11] MEDS: PYRIDOXINE 50 MG TABLET. PO SCH (08:21)
[2018-07-11] MEDS: LOPERAMIDE 2 MG CAPSULE PO SCH ×3 (08:21→20:04)
[2018-07-11] MEDS: MULTIVITAMIN with MINERAL TABLET. PO SCH (08:21)
[2018-07-11] MEDS: busPIRone 10 MG TABLET. PO SCH ×2 (08:21→20:00)
[2018-07-11] MEDS: CALCIUM CARB/VIT D3 500/200 TABLET PO SCH (08:22)
[2018-07-11] MEDS: DICYCLOMINE HCL 20 MG TABLET PO SCH ×4 (08:22→20:01)
[2018-07-11] MEDS: ASPIRIN 81 MG TAB.CHEW PO SCH (08:22)
[2018-07-11] MEDS: FOLIC ACID 1 MG TABLET PO SCH (08:22)
[2018-07-11] MEDS: RALOXIFENE 60 MG TABLET. PO SCH (08:22)
[2018-07-11] MEDS: HYDROcodone/APAP 5/325MG 1 TAB TABLET PO SCH ×2 (08:25→20:04)
[2018-07-11] MEDS: BUDESONIDE 0.5 MG/2 ML NEBU NEB SCH ×2 (10:19→20:39)
[2018-07-11] MEDS: ALPRAZolam 0.5 MG TABLET PO SCH ×3 (12:24→20:04)
[2018-07-11 15:46] VITALS: BP 130/76
[2018-07-11] MEDS: QUEtiapine 100 MG TABLET. PO SCH (20:00)
[2018-07-11] MEDS: DONEPEZIL HCL 10 MG TABLET PO SCH (20:01)
[2018-07-11] MEDS: risperiDONE 0.5 MG TABLET. PO SCH (20:01)
[2018-07-11] MEDS ORDERED: LOPERAMIDE 2 MG CAPSULE PO SCH (21:00)
--- NOTE | 2018-07-11 21:30 | PN ---
DATE: 07/09/2018 PSYCHIATRIC PROGRESS NOTE This late entry 07/09/2018 covers elements not covered in my initial note. SUBJECTIVE: I met with the patient in the evening. The patient was quite anxious, obsessive, previous night, wanting to get to bed, less obsessed during the day. On 07/09/2018, questioning about swallow study, defer to Dr. Schwarz. She complains of difficulty swallowing her medications. Has had some diarrhea as well, rushes to the toilet, part of her OCD, but will also defer to Dr. Schwarz. REVIEW OF SYSTEMS: Ambulation impaired with walker. No CV, , pulmonary, eye system symptoms on review. MENTAL STATUS EXAM: Reasonably oriented. Speech coherent, rapid at times. Abstraction fair, computation impaired, language function intact. Mood and affect somewhat anxious, labile. LABORATORY DATA: Reviewed. IMPRESSION: Unchanged from initial note. PLAN: Start Risperdal 0.25 mg p.o. at bedtime, stop the morning Seroquel and then we will gradually reduce the bedtime Seroquel as we increase the Risperdal. MAN Dane RAGLAND MD DR: NABIL/sasha JOB#: [id number] / [id number]
--- NOTE | 2018-07-11 21:33 | PN ---
DATE: 07/10/2018 PSYCHIATRIC PROGRESS NOTE This late entry 07/10/2018 covers elements not covered in my initial note. SUBJECTIVE: I met with the patient in the evening and staffed at a treatment team meeting with the entire team. The patient slept 5-3/4 hours. Appetite 75%. Anxious about a swallow test defer to Dr. Schwarz. REVIEW OF SYSTEMS: Ambulation impaired with walker, some diarrhea. No CV, , pulmonary, eye system symptoms on review. MENTAL STATUS EXAM: Reasonably oriented. Speech coherent, rapid at times. Abstraction fair, computation impaired, language function intact, attention span short. Mood and affect somewhat anxious, labile. LABORATORY DATA: Reviewed. IMPRESSION: Unchanged from initial note. PLAN: Reduce bedtime Seroquel from 200 down to 150 at bedtime and increase Risperdal up to 0.5 mg at bedtime. Rest unchanged from initial note. MAN Dane RAGLAND MD DR: NABIL/sasha JOB#: [id number] / [id number]
--- NOTE | 2018-07-11 22:38 | PDOC ---
Exam Note: [place] Note: Please also refer to the separate dictated note~for this date of service dictated separately.~Patient seen individually. Discussed the patient with Nursing staff reviewed the chart.~Reviewed interim history and current functioning. Reviewed vital signs,~Labs/ Radiology~and current medications noted below. Continue current treatment with the changes noted in the dictated addendum note Assessment: Vital Signs: Vital Signs Date Time Temp Pulse Resp B/P (MAP) Pulse Ox O2 Delivery O2 Flow Rate FiO2 07/11/18 21:24 94 07/11/18 20:40 Room Air 07/11/18 15:46 97.8 81 20 130/76 (94) I&O Intake and Output 07/11/18 06:59 Intake Total 840 ml Balance 840 ml Intake Oral 840 ml Current Medications: Meds: Current Medications Alprazolam (Xanax) 0.5 mg 1X ONCE PO Last administered on 07/07/18 13:21; Start 07/07/18 at 13:15; Stop 07/07/18 at 13:18; Status DC Alprazolam (Xanax) 1 mg QID PO Last administered on 07/08/18at 16:47; Start at 21:00; Stop 07/08/18 at 19:32; Status DC Buspirone HCl (Buspar) 20 mg BID PO Last administered on 07/11/18 20:00; Start 07/07/18 at 21:00 Donepezil HCl (Aricept) 10 mg QHS PO Last administered on 07/11/18 20:01; Start 07/07/18 at 21:00 Non-Formulary Medication (Fluvoxamine Maleate ) 450 mg BID PO ; Start 07/07/18 at 21:00; Stop 07/07/18 at 21:00; Status DC Quetiapine Fumarate (SEROquel) 25 mg DAILY PO Last administered on 07/09/18at 08: 50; Start 07/08/18 at 09:00; Stop 07/09/18 at 09:42; Status DC Quetiapine Fumarate (SEROquel) 200 mg QHS PO Last administered on 07/09/18at 21: 34; Start 07/07/18 at 21:00; Stop 07/10/18 at 11:41; Status DC Acetaminophen (Tylenol) 650 mg PRN Q6HRS PRN PO PAIN; Start 07/07/18 at 19:45 Vitamin D (Vitamin D3) 2,000 unit DAILY PO Last administered on 07/11/18 08:21 ; Start 07/08/18 at 09:00 Cyanocobalamin (Vitamin B-12) 2,000 mcg DAILY PO Last administered on 07/11/18 08:21; Start 07/08/18 at 09:00 Al Hydroxide/Mg Hydroxide (Mylanta Plus Xs) 15 ml PRN AFTMEALHC PRN PO DYSPEPSIA; Start 07/07/18 at 19:45 Magnesium Hydroxide (Milk Of Magnesia) 2,400 mg PRN QHS PRN PO CONSTIPATION; Start 07/07/18 at 19:45 Multivitamins/ Calcium (Thera-M Plus) 1 tab DAILY PO Last administered on 08:21; Start 07/08/18 at 09:00 Aspirin (Children'S Aspirin) 81 mg DAILYWBKFT PO Last administered on 07/11/18 08:22; Start 07/08/18 at 08:00 Calcium/Vitamin D (Oscal D 500mg/ 200uts) 2 tab DAILYWBKFT PO Last administered on 07/11/18 08:22; Start 07/08/18 at 08:00 Dicyclomine HCl (Bentyl) 20 mg QID PO Last administered on 07/11/18 20:01; Start 07/07/18 at 21:00 Folic Acid (Folic Acid) 1 mg DAILY PO Last administered on 07/11/18 08:22; Start 07/08/18 at 09:00 Acetaminophen/ Hydrocodone Bitart (Lortab 5/325) 0.5 tab PRN BID PRN PO PAIN; Start 07/07/18 at 20:00; Stop 07/07/18 at 23:33; Status DC Loperamide HCl (Imodium) 2 mg DAILY PO Last administered on 07/11/18 08:21; Start 07/08/18 at 09:00; Stop 07/11/18 at 12:05; Status DC Non-Formulary Medication (Mometasone Furoate (Asmanex)) 110 mcg BID IH ; Start 07/07/18 at 21:00; Stop 07/07/18 at 21:00; Status DC Pyridoxine HCl (Vitamin B-6) 100 mg DAILY PO Last administered on 07/11/18 08: 21; Start 07/08/18 at 09:00 Raloxifene HCl (Evista) 60 mg DAILY PO Last administered on 07/11/18 08:22; Start 07/08/18 at 09:00 Budesonide (Pulmicort) 0.5 mg RTBID NEB Last administered on 07/11/18 20:39; Start 07/07/18 at 20:00 Fluvoxamine Maleate (Luvox) 150 mg BID PO Last administered on 07/11/18 20:01; Start 07/07/18 at 21:00 Acetaminophen/ Hydrocodone Bitart (Lortab 5/325) 0.5 tab BID PO Last administered on 07/11/18 20:04; Start 07/08/18 at 09:00 Alprazolam (Xanax) 1 mg 0900,1300,1700 PO Last administered on 07/10/18 17:15; Start 07/09/18 at 09:00; Stop 07/10/18 at 23:50; Status DC Alprazolam (Xanax) 0.5 mg QHS PO Last administered on 07/10/18 20:43; Start 07/08/18 at 21:00; Stop 07/10/18 at 23:50; Status DC Alprazolam (Xanax) 0.5 mg BID PO Last administered on 07/11/18 20:04; Start 07/11/18 at 21:00 Alprazolam (Xanax) 0.5 mg 1300,1700 PO Last administered on 07/11/18 17:31; Start 07/11/18 at 13:00 Trazodone HCl (Desyrel) 50 mg PRN QHS PRN PO INSOMNIA, MAY REPEAT X1; Start 07/08/18 at 19:30 Risperidone (RisperDAL) 0.25 mg DAILY PO ; Start 07/10/18 at 09:00; Stop 07/10/18 at 09:00; Status DC Risperidone (RisperDAL) 0.25 mg QHS PO Last administered on 07/09/18 21:41; Start 07/09/18 at 21:00; Stop 07/10/18 at 11:43; Status DC Quetiapine Fumarate (SEROquel) 150 mg QHS PO Last administered on 07/11/18at 20: 00; Start 07/10/18 at 21:00 Risperidone (RisperDAL) 0.5 mg QHS PO Last administered on 07/11/18at 20:01; Start 07/10/18 at 21:00 Loperamide HCl (Imodium) 2 mg BID PO ; Start 07/11/18 at 21:00; Stop 07/11/18 at 21:00; Status DC Loperamide HCl (Imodium) 2 mg TID PO Last administered on 07/11/18at 20:04; Start 07/11/18 at 16:15 Active Scripts Active Reported Hydrocodone-Acetamin 5-325 mg (Hydrocodone/Acetaminophen) 1 Each Tablet 0.5 Tab PO BID PRN Seroquel (Quetiapine Fumarate) 200 Mg Tablet 200 Mg PO HS Fluvoxamine Maleate 100 Mg Tablet 150 Mg PO BID Caltrate 600 + D Tablet (Calcium Carbonate/Vitamin D3) 1 Each Tablet 2 Tab PO DAILY Milk Of Magnesia (Magnesium Hydroxide) 400 Mg/5 Ml Oral.susp 2,400 Mg PO PRN QHS PRN Imodium A-D (Loperamide HCl) 2 Mg Capsule 2 Mg PO DAILY Mag-Al Plus Xs Suspension (Mag Hydrox/Al Hydrox/Simeth) 30 Ml Oral.susp 15 Ml PO PRN AFTMEALHC PRN Seroquel (Quetiapine Fumarate) 25 Mg Tablet 25 Mg PO DAILY Ventolin Hfa Inhaler (Albuterol Sulfate) 18 Gm Hfa.aer.ad 1 Puff IH PRN Q4HRS PRN Asmanex (Mometasone Furoate) 110 Mcg Aer.pow.ba 110 Mcg IH BID Aricept (Donepezil Hcl) 10 Mg Tablet 1 Tab PO QHS Buspirone Hcl 10 Mg Tablet 20 Mg PO BID Thera-M Tablet (Multivits,Ca,Minerals/Iron/Fa) 1 Each Tablet 1 Tab PO DAILY Vitamin B-12 (Cyanocobalamin (Vitamin B-12)) 1,000 Mcg Tablet 2,000 Mcg PO DAILY Tylenol (Acetaminophen) 325 Mg Tablet 650 Mg PO PRN Q6HRS PRN Folic Acid 1 Mg Tablet 1 Mg PO DAILY Aspirin 81 Mg Tab.chew 81 Mg PO DAILY Vitamin D3 (Cholecalciferol (Vitamin D3)) 1,000 Unit Tablet 2,000 Unit PO DAILY Vitamin B-6 (Pyridoxine Hcl) 100 Mg Tablet 100 Mg PO DAILY Evista (Raloxifene Hcl) 60 Mg Tablet 60 Mg PO DAILY Alprazolam 1 Mg Tablet 1 Mg PO QID Dicyclomine Hcl 20 Mg Tablet 20 Mg PO QID I have reviewed the current psychotropics carefully including drug interactions. Risk benefit ratio favors no change other than as noted in my dictated progress note. Diagnosis: Problems: (1) Anxiety disorder (2) Obsessive compulsive disorder (3) Psychosis, atypical (4) Major depressive disorder, recurrent episode (5) Seizure (6) Dementia (7) KAYLAN Torrez MD Jul 11, 2018 22:38
[2018-07-12 05:21] VITALS: BP 118/63
[2018-07-12] MEDS: ASPIRIN 81 MG TAB.CHEW PO SCH (08:44)
[2018-07-12] MEDS: CALCIUM CARB/VIT D3 500/200 TABLET PO SCH (08:44)
[2018-07-12] MEDS: busPIRone 10 MG TABLET. PO SCH ×2 (08:44→20:20)
[2018-07-12] MEDS: FOLIC ACID 1 MG TABLET PO SCH (08:44)
[2018-07-12] MEDS: RALOXIFENE 60 MG TABLET. PO SCH (08:44)
[2018-07-12] MEDS: LOPERAMIDE 2 MG CAPSULE PO SCH ×3 (08:44→20:20)
[2018-07-12] MEDS: DICYCLOMINE HCL 20 MG TABLET PO SCH ×2 (08:44→13:10)
[2018-07-12] MEDS: HYDROcodone/APAP 5/325MG 1 TAB TABLET PO SCH ×2 (08:46→20:23)
[2018-07-12] MEDS: CHOLECALCIFEROL (VITAMIN D3) 1,000 UNIT TABLET PO SCH (08:47)
[2018-07-12] MEDS: CYANOCOBALAMIN (VITAMIN B-12) 1,000 MCG TABLET. PO SCH (08:47)
[2018-07-12] MEDS: PYRIDOXINE 50 MG TABLET. PO SCH (08:47)
[2018-07-12] MEDS: MULTIVITAMIN with MINERAL TABLET. PO SCH (08:47)
[2018-07-12] MEDS: ALPRAZolam 0.5 MG TABLET PO SCH ×4 (08:49→20:19)
[2018-07-12] MEDS: BUDESONIDE 0.5 MG/2 ML NEBU NEB SCH ×2 (11:01→20:00)
[2018-07-12 15:41] VITALS: BP 116/76
[2018-07-12] MEDS: risperiDONE 0.5 MG TABLET. PO SCH (20:21)
[2018-07-12] MEDS: DONEPEZIL HCL 10 MG TABLET PO SCH (20:21)
[2018-07-12] MEDS: QUEtiapine 100 MG TABLET. PO SCH (20:21)
--- NOTE | 2018-07-12 23:48 | PN ---
DATE: 07/12/2018 SUBJECTIVE: The patient was seen today, met with the staff, chart reviewed. The patient continues to exhibit increased anxiety, obsessive compulsive behaviors. She is able to hold a reasonable conversation. The patient is not sleeping well. The patient also complains of having diarrhea. The patient is able to walk with a walker. OBSERVATION: VITAL SIGNS: Temperature 98, blood pressure 118/63, pulse 84, respirations 20, O2 sat 95%. Slept about 5 hours last night. CURRENT MEDICATIONS: The patient's current medications include Xanax 0.5 mg b.i.d., Risperdal 0.5 mg at night, Seroquel 150 mg at night, trazodone 50 mg at night p.r.n. The patient is also on Luvox 150 mg b.i.d., Aricept 10 mg at night, BuSpar 20 mg b.i.d. The patient is not having any side effects. The patient's lab reviewed. ASSESSMENT: 1. Major depressive disorder, recurrent. 2. Obsessive compulsive disorder. 3. Anxiety disorder, unspecified. PLAN: To continue with the treatment. FRANC BUNCH MD DR: ARABELLA/sasha JOB#: [id number] / [id number]
[2018-07-13 06:40] VITALS: BP 119/75
[2018-07-13] MEDS: CALCIUM CARB/VIT D3 500/200 TABLET PO SCH (08:25)
[2018-07-13] MEDS: busPIRone 10 MG TABLET. PO SCH ×2 (08:25→19:43)
[2018-07-13] MEDS: ASPIRIN 81 MG TAB.CHEW PO SCH (08:25)
[2018-07-13] MEDS: RALOXIFENE 60 MG TABLET. PO SCH (08:26)
[2018-07-13] MEDS: LOPERAMIDE 2 MG CAPSULE PO SCH ×3 (08:26→19:44)
[2018-07-13] MEDS: HYDROcodone/APAP 5/325MG 1 TAB TABLET PO SCH ×2 (08:27→19:46)
[2018-07-13] MEDS: CYANOCOBALAMIN (VITAMIN B-12) 1,000 MCG TABLET. PO SCH (08:28)
[2018-07-13] MEDS: MULTIVITAMIN with MINERAL TABLET. PO SCH (08:28)
[2018-07-13] MEDS: CHOLECALCIFEROL (VITAMIN D3) 1,000 UNIT TABLET PO SCH (08:28)
[2018-07-13] MEDS: ALPRAZolam 0.5 MG TABLET PO SCH ×4 (08:29→19:43)
[2018-07-13] MEDS: BUDESONIDE 0.5 MG/2 ML NEBU NEB SCH ×2 (11:48→19:40)
[2018-07-13 16:35] VITALS: BP 132/78
[2018-07-13] MEDS: DONEPEZIL HCL 10 MG TABLET PO SCH (19:43)
[2018-07-13] MEDS: risperiDONE 0.5 MG TABLET. PO SCH (19:44)
[2018-07-13] MEDS: QUEtiapine 100 MG TABLET. PO SCH (19:44)
--- NOTE | 2018-07-14 00:52 | PN ---
DATE: 07/11/2018 PSYCHIATRIC PROGRESS NOTE This late entry 07/11/2018 covers elements not covered in my initial note. SUBJECTIVE: I met with the patient in the evening. Repeatedly, she had further questions after the first visit. mentioned to the nursing staff that she seemed less alert during the day on 07/11/2018. We have addressed that we are changing her psychotropics and we will see how she does over the next 2-3 days. REVIEW OF SYSTEMS: Ambulation impaired with walker. No CV, , pulmonary, eye system symptoms on review. MENTAL STATUS EXAM: Reasonably oriented. Speech is coherent, abstraction fair, computation impaired, language function intact. She remains quite obsessive, anxious, dysphoric in her mood, labile. LABORATORY DATA: Reviewed. IMPRESSION: Unchanged from initial note. PLAN: We have increased the Risperdal to 0.5 mg at bedtime, reducing the Seroquel from 200 mg at bedtime to 150 at bedtime. Rest unchanged for now. KAYLAN RAGLAND MD DR: NABIL/sasha JOB#: [id number] / [id number]
--- NOTE | 2018-07-14 02:46 | PN ---
DATE: 07/13/2018 SUBJECTIVE: The patient was seen today, met with the staff, chart reviewed. She continues to be anxious and dependent on the staff for her needs, constantly complaining of diarrhea. The patient also has episodes of confusion and agitation, tends to wander. OBSERVATION: Vital signs are stable. The patient's sleep and appetite have improved. MEDICATIONS: The patient's current medications include Xanax 0.5 mg b.i.d., Risperdal 0.5 mg at night, Seroquel 150 mg at night, trazodone 50 mg at night p.r.n. The patient is also on Luvox 150 mg b.i.d., Aricept 10 mg at night, and BuSpar ____ mg b.i.d. ASSESSMENT: 1. Major depressive disorder, recurrent. 2. Obsessive compulsive disorder. 3. Anxiety disorder, unspecified. PLAN: To continue with the treatment. FRANC BUNCH MD DR: ARABELLA/sasha JOB#: [id number] / [id number]
[2018-07-14 06:13] VITALS: BP 99/63
[2018-07-14 07:31] LABS: BASO % 1 % (0-3); EOS # 0.6 x10^3/uL (0.0-0.7); EOS % 10 % (0-3); HEMATOCRIT 36.1 % (36.0-47.0); HEMOGLOBIN 12.1 g/dL (12.0-15.5); LYMPH # 1.8 x10^3/uL (1.0-4.8); LYMPH % 32 % (24-48); MEAN CORPUSCULAR HEMOGLOBIN 31 pg (25-35); MEAN CORPUSCULAR HGB CONC 34 g/dL (31-37); MEAN CORPUSCULAR VOLUME 94 fL (79-100); MONO # 0.8 x10^3/uL (0.0-1.1); MONO % 14 % (0-9); NEUT # 2.4 x10^3uL (1.8-7.7); NEUT % 43 % (31-73); PLATELET COUNT 203 x10^3/uL (140-400); RED BLOOD COUNT 3.86 x10^6/uL (3.50-5.40); RED CELL DISTRIBUTION WIDTH 13.9 % (11.5-14.5); WHITE BLOOD COUNT 5.6 x10^3/uL (4.0-11.0)
[2018-07-14 07:38] LABS: CALCIUM 9.3 mg/dL (8.5-10.1); CREATININE 1.1 mg/dL (0.6-1.0); GFR 48.7; POTASSIUM 4.1 mmol/L (3.5-5.1); TOTAL BILIRUBIN 0.3 mg/dL (0.2-1.0)
[2018-07-14] MEDS: ASPIRIN 81 MG TAB.CHEW PO SCH (08:20)
[2018-07-14] MEDS: CALCIUM CARB/VIT D3 500/200 TABLET PO SCH (08:20)
[2018-07-14] MEDS: busPIRone 10 MG TABLET. PO SCH ×2 (08:20→20:26)
[2018-07-14] MEDS: HYDROcodone/APAP 5/325MG 1 TAB TABLET PO SCH ×3 (08:21→20:29)
[2018-07-14] MEDS: RALOXIFENE 60 MG TABLET. PO SCH (08:21)
[2018-07-14] MEDS: LOPERAMIDE 2 MG CAPSULE PO SCH ×3 (08:21→20:27)
[2018-07-14] MEDS: CHOLECALCIFEROL (VITAMIN D3) 1,000 UNIT TABLET PO SCH (08:23)
[2018-07-14] MEDS: CYANOCOBALAMIN (VITAMIN B-12) 1,000 MCG TABLET. PO SCH (08:23)
[2018-07-14] MEDS: MULTIVITAMIN with MINERAL TABLET. PO SCH (08:23)
[2018-07-14] MEDS: ALPRAZolam 0.5 MG TABLET PO SCH ×5 (08:23→20:27)
[2018-07-14] MEDS: BUDESONIDE 0.5 MG/2 ML NEBU NEB SCH ×2 (10:18→20:34)
[2018-07-14 13:23] VITALS: BP 103/68
[2018-07-14 16:32] VITALS: BP 112/60
[2018-07-14] MEDS: QUEtiapine 100 MG TABLET. PO SCH (20:26)
[2018-07-14] MEDS: risperiDONE 0.5 MG TABLET. PO SCH ×2 (20:26→20:29)
[2018-07-14] MEDS: DONEPEZIL HCL 10 MG TABLET PO SCH (20:31)
--- NOTE | 2018-07-15 04:09 | PN ---
DATE: 07/14/2018 SUBJECTIVE: The patient was seen today, met with the staff, chart reviewed. Staff reports periods of increased anxiety, but improved, not presented with any major behavioral problems. The patient also episodes of agitation, yelling out her and she is also difficult to redirect. OBSERVATION: VITAL SIGNS: Temperature 97.3, blood pressure 99/63, pulse 72, respirations 16, O2 sat 92%. Slept about 7 hours last night. The patient is not having any side effects to the medications. No major medical issues. MEDICATIONS: Her current medications include Xanax 0.5 mg b.i.d., Risperdal 0.5 mg at night, Seroquel 150 mg at night, trazodone 50 mg at night p.r.n. The patient is also on Luvox 150 mg b.i.d., Aricept 10 mg at night, and BuSpar 20 mg b.i.d. ASSESSMENT: 1. Major depressive disorder, recurrent. 2. Obsessive compulsive disorder. 3. Anxiety disorder, unspecified. PLAN: The patient's Risperdal to be increased to 0.5 mg b.i.d. and Luvox to be decreased to 100 mg b.i.d. p.o. FRANC BUNCH MD DR: ARABELLA/sasha JOB#: [id number] / [id number]
[2018-07-15 06:45] VITALS: BP 106/68
[2018-07-15] MEDS: CALCIUM CARB/VIT D3 500/200 TABLET PO SCH (08:43)
[2018-07-15] MEDS: busPIRone 10 MG TABLET. PO SCH ×2 (08:43→20:55)
[2018-07-15] MEDS: ASPIRIN 81 MG TAB.CHEW PO SCH (08:43)
[2018-07-15] MEDS: CYANOCOBALAMIN (VITAMIN B-12) 1,000 MCG TABLET. PO SCH (08:44)
[2018-07-15] MEDS: RALOXIFENE 60 MG TABLET. PO SCH (08:44)
[2018-07-15] MEDS: risperiDONE 0.5 MG TABLET. PO SCH ×2 (08:44→20:56)
[2018-07-15] MEDS: CHOLECALCIFEROL (VITAMIN D3) 1,000 UNIT TABLET PO SCH (08:44)
[2018-07-15] MEDS: MULTIVITAMIN with MINERAL TABLET. PO SCH (08:44)
[2018-07-15] MEDS: LOPERAMIDE 2 MG CAPSULE PO SCH ×3 (08:44→20:55)
[2018-07-15] MEDS: HYDROcodone/APAP 5/325MG 1 TAB TABLET PO SCH ×2 (08:47→20:56)
[2018-07-15] MEDS: ALPRAZolam 0.5 MG TABLET PO SCH ×4 (08:47→20:55)
[2018-07-15] MEDS: BUDESONIDE 0.5 MG/2 ML NEBU NEB SCH ×2 (10:00→20:50)
[2018-07-15 16:30] VITALS: BP 128/92
[2018-07-15] MEDS: QUEtiapine 100 MG TABLET. PO SCH (20:55)
[2018-07-15] MEDS: DONEPEZIL HCL 10 MG TABLET PO SCH (20:56)
--- NOTE | 2018-07-16 03:08 | PN ---
DATE: 07/15/2018 SUBJECTIVE: The patient was seen today, met with the staff, chart reviewed. The patient continues to show fluctuating symptoms. Overall, her behavior has improved. The patient is also confused, difficult to redirect. OBSERVATION: VITAL SIGNS: Temperature 97.3, blood pressure 128/92, pulse 80, respirations 18, O2 sat 94%. MEDICATIONS: The patient's current medications include Xanax, Risperdal, Seroquel, trazodone and Luvox and also on Aricept and BuSpar and not having any major side effects. ASSESSMENT: 1. Major depressive disorder, recurrent. 2. Obsessive compulsive disorder. 3. Anxiety disorder, unspecified. PLAN: The patient's Risperdal was increased to 0.5 mg b.i.d. and Luvox was decreased to 100 mg b.i.d. recently. FRANC BUNCH MD DR: ARABELLA/sasha JOB#: [id number] / [id number]
[2018-07-16 06:31] VITALS: BP 101/67
[2018-07-16] MEDS: ASPIRIN 81 MG TAB.CHEW PO SCH (08:55)
[2018-07-16] MEDS: CYANOCOBALAMIN (VITAMIN B-12) 1,000 MCG TABLET. PO SCH (08:55)
[2018-07-16] MEDS: RALOXIFENE 60 MG TABLET. PO SCH (08:55)
[2018-07-16] MEDS: MULTIVITAMIN with MINERAL TABLET. PO SCH (08:55)
[2018-07-16] MEDS: busPIRone 10 MG TABLET. PO SCH ×2 (08:55→20:59)
[2018-07-16] MEDS: CHOLECALCIFEROL (VITAMIN D3) 1,000 UNIT TABLET PO SCH (08:55)
[2018-07-16] MEDS: CALCIUM CARB/VIT D3 500/200 TABLET PO SCH (08:56)
[2018-07-16] MEDS: LOPERAMIDE 2 MG CAPSULE PO SCH ×3 (08:56→20:59)
[2018-07-16] MEDS: risperiDONE 0.5 MG TABLET. PO SCH ×2 (08:56→20:59)
[2018-07-16] MEDS: HYDROcodone/APAP 5/325MG 1 TAB TABLET PO SCH ×2 (08:58→21:03)
[2018-07-16] MEDS: ALPRAZolam 0.5 MG TABLET PO SCH ×4 (08:59→21:03)
[2018-07-16] MEDS: BUDESONIDE 0.5 MG/2 ML NEBU NEB SCH ×2 (11:42→21:34)
[2018-07-16 17:34] VITALS: BP 124/78
[2018-07-16] MEDS: QUEtiapine 100 MG TABLET. PO SCH (20:59)
[2018-07-16] MEDS: DONEPEZIL HCL 10 MG TABLET PO SCH (21:03)
[2018-07-17] MEDS: BUDESONIDE 0.5 MG/2 ML NEBU NEB SCH ×2 (08:00→20:55)
[2018-07-17] MEDS: CALCIUM CARB/VIT D3 500/200 TABLET PO SCH (08:30)
[2018-07-17] MEDS: ASPIRIN 81 MG TAB.CHEW PO SCH (08:31)
[2018-07-17] MEDS: LOPERAMIDE 2 MG CAPSULE PO SCH ×3 (08:31→20:12)
[2018-07-17] MEDS: risperiDONE 0.5 MG TABLET. PO SCH ×2 (08:31→20:12)
[2018-07-17] MEDS: MULTIVITAMIN with MINERAL TABLET. PO SCH (08:31)
[2018-07-17] MEDS: CHOLECALCIFEROL (VITAMIN D3) 1,000 UNIT TABLET PO SCH (08:31)
[2018-07-17] MEDS: CYANOCOBALAMIN (VITAMIN B-12) 1,000 MCG TABLET. PO SCH (08:31)
[2018-07-17] MEDS: busPIRone 10 MG TABLET. PO SCH ×2 (08:31→20:13)
[2018-07-17] MEDS: RALOXIFENE 60 MG TABLET. PO SCH (08:31)
[2018-07-17] MEDS: HYDROcodone/APAP 5/325MG 1 TAB TABLET PO SCH ×2 (08:34→20:09)
[2018-07-17] MEDS: ALPRAZolam 0.5 MG TABLET PO SCH ×4 (08:36→20:09)
[2018-07-17 11:21] VITALS: BP 116/75
[2018-07-17 16:36] VITALS: BP 113/79
[2018-07-17] MEDS: DONEPEZIL HCL 10 MG TABLET PO SCH (20:12)
[2018-07-17] MEDS: QUEtiapine 100 MG TABLET. PO SCH (20:13)
--- NOTE | 2018-07-18 00:16 | PN ---
DATE: 07/17/2018 SUBJECTIVE: The patient was seen today, met with the staff, chart reviewed. The patient continues to withdraw, isolative, confused, fluctuating mood. OBSERVATION: VITAL SIGNS: Temperature 97.7, blood pressure 113/79, pulse 80, respiration 18, O2 sat 94%. MEDICATIONS: The patient's current medications include Xanax, Risperdal, Seroquel, trazodone and Luvox, Aricept and BuSpar. The patient is not having any side effects. The patient did not have any falls. ASSESSMENT: 1. Major depressive disorder, recurrent. 2. Obsessive compulsive disorder. 3. Anxiety disorder, unspecified. PLAN: To continue with the treatment. The patient is currently on increased dose of Risperdal 0.5 mg b.i.d. FRANC BUNCH MD DR: ARABELLA/sasha JOB#: [id number] / [id number]
[2018-07-18 06:12] VITALS: BP 110/70
[2018-07-18] MEDS: CALCIUM CARB/VIT D3 500/200 TABLET PO SCH (07:44)
[2018-07-18] MEDS: busPIRone 10 MG TABLET. PO SCH ×2 (07:44→20:21)
[2018-07-18] MEDS: CHOLECALCIFEROL (VITAMIN D3) 1,000 UNIT TABLET PO SCH (07:44)
[2018-07-18] MEDS: RALOXIFENE 60 MG TABLET. PO SCH (07:45)
[2018-07-18] MEDS: CYANOCOBALAMIN (VITAMIN B-12) 1,000 MCG TABLET. PO SCH (07:45)
[2018-07-18] MEDS: ASPIRIN 81 MG TAB.CHEW PO SCH (07:45)
[2018-07-18] MEDS: LOPERAMIDE 2 MG CAPSULE PO SCH ×3 (07:45→20:21)
[2018-07-18] MEDS: MULTIVITAMIN with MINERAL TABLET. PO SCH (07:45)
[2018-07-18] MEDS: risperiDONE 0.5 MG TABLET. PO SCH ×2 (07:45→20:21)
[2018-07-18] MEDS: HYDROcodone/APAP 5/325MG 1 TAB TABLET PO SCH ×2 (07:48→20:25)
[2018-07-18] MEDS: ALPRAZolam 0.5 MG TABLET PO SCH ×4 (07:48→20:24)
[2018-07-18] MEDS: BUDESONIDE 0.5 MG/2 ML NEBU NEB SCH ×2 (10:06→20:11)
[2018-07-18 16:21] VITALS: BP 122/72
[2018-07-18] MEDS: DONEPEZIL HCL 10 MG TABLET PO SCH (20:21)
[2018-07-18] MEDS: QUEtiapine 100 MG TABLET. PO SCH (20:21)
--- NOTE | 2018-07-18 23:36 | PN ---
DATE: 07/18/2018 SUBJECTIVE: The patient was seen today, met with the staff, chart reviewed. The patient has been compliant, still anxious, but no major medical issues. OBSERVATION: VITAL SIGNS: Temperature 98, blood pressure 110/70, pulse 81, respirations 18, O2 sat 99%. GENERAL: Slept about 7 hours last night. The patient's appetite improved. No side effects. CURRENT MEDICATIONS: The patient currently on Xanax, Risperdal, Seroquel, trazodone, Luvox, Aricept, and BuSpar. ASSESSMENT: 1. Major depressive disorder, recurrent. 2. Obsessive compulsive disorder. 3. Anxiety disorder, unspecified. PLAN: To continue with the treatment. FRANC BUNCH MD DR: ARBAELLA/sasha JOB#: [id number] / [id number]
[2018-07-19 06:05] VITALS: BP 119/58
[2018-07-19] MEDS: ASPIRIN 81 MG TAB.CHEW PO SCH (08:20)
[2018-07-19] MEDS: busPIRone 10 MG TABLET. PO SCH ×2 (08:21→19:18)
[2018-07-19] MEDS: CALCIUM CARB/VIT D3 500/200 TABLET PO SCH (08:21)
[2018-07-19] MEDS: RALOXIFENE 60 MG TABLET. PO SCH (08:21)
[2018-07-19] MEDS: LOPERAMIDE 2 MG CAPSULE PO SCH ×3 (08:21→19:19)
[2018-07-19] MEDS: HYDROcodone/APAP 5/325MG 1 TAB TABLET PO SCH ×2 (08:23→19:24)
[2018-07-19] MEDS: MULTIVITAMIN with MINERAL TABLET. PO SCH (08:24)
[2018-07-19] MEDS: risperiDONE 0.5 MG TABLET. PO SCH ×2 (08:24→19:18)
[2018-07-19] MEDS: CHOLECALCIFEROL (VITAMIN D3) 1,000 UNIT TABLET PO SCH (08:26)
[2018-07-19] MEDS: CYANOCOBALAMIN (VITAMIN B-12) 1,000 MCG TABLET. PO SCH (08:26)
[2018-07-19] MEDS: ALPRAZolam 0.5 MG TABLET PO SCH ×4 (08:26→19:19)
[2018-07-19] MEDS: BUDESONIDE 0.5 MG/2 ML NEBU NEB SCH ×2 (10:02→20:09)
[2018-07-19 14:24] LABS: BASO # 0.1 x10^3/uL (0.0-0.2); BASO % 1 % (0-3); EOS # 0.6 x10^3/uL (0.0-0.7); EOS % 5 % (0-3); HEMATOCRIT 36.2 % (36.0-47.0); HEMOGLOBIN 12.1 g/dL (12.0-15.5); LYMPH # 1.6 x10^3/uL (1.0-4.8); LYMPH % 14 % (24-48); MEAN CORPUSCULAR HEMOGLOBIN 31 pg (25-35); MEAN CORPUSCULAR HGB CONC 34 g/dL (31-37); MEAN CORPUSCULAR VOLUME 94 fL (79-100); MONO # 1.4 x10^3/uL (0.0-1.1); MONO % 12 % (0-9); NEUT # 8.2 x10^3uL (1.8-7.7); NEUT % 69 % (31-73); PLATELET COUNT 218 x10^3/uL (140-400); RED BLOOD COUNT 3.86 x10^6/uL (3.50-5.40); RED CELL DISTRIBUTION WIDTH 13.8 % (11.5-14.5); WHITE BLOOD COUNT 11.9 x10^3/uL (4.0-11.0)
[2018-07-19 14:39] LABS: ALBUMIN 3.1 g/dL (3.4-5.0); ALBUMIN/GLOBULIN RATIO 1.1 (1.0-1.7); GFR 54.3; POTASSIUM 3.8 mmol/L (3.5-5.1); TOTAL BILIRUBIN 0.3 mg/dL (0.2-1.0)
[2018-07-19 16:59] VITALS: BP 134/67
--- NOTE | 2018-07-19 18:41 | PN ---
DATE: 07/19/2018 SUBJECTIVE: The patient was seen today, met with the staff, chart reviewed. The patient has been compliant with the treatment, less anxious, not presenting with any major medical problems. The patient tends to withdraw to herself, decreased psychomotor activity. OBSERVATION: VITAL SIGNS: Temperature 97.4, blood pressure 119/58, pulse 84, respirations 18, O2 sat 94%. Slept about 4 hours last night. MEDICATIONS: The patient's current medications include Xanax, Risperdal, Seroquel, trazodone, Levoxyl, Aricept, and BuSpar. The patient is not having any major medical issues at this time. ASSESSMENT: 1. Major depressive disorder, recurrent. 2. Obsessive compulsive disorder. 3. Anxiety disorder, unspecified. PLAN: To continue with the treatment. FRANC BUNCH MD DR: ARABELLA/sasha JOB#: [id number] / [id number]
[2018-07-19] MEDS: DONEPEZIL HCL 10 MG TABLET PO SCH (19:18)
[2018-07-19] MEDS: QUEtiapine 100 MG TABLET. PO SCH (19:19)
[2018-07-20 05:43] VITALS: BP 106/70
[2018-07-20 08:15] LABS: BASO # 0.1 x10^3/uL (0.0-0.2); BASO % 1 % (0-3); EOS # 0.5 x10^3/uL (0.0-0.7); EOS % 6 % (0-3); HEMATOCRIT 38.2 % (36.0-47.0); HEMOGLOBIN 12.9 g/dL (12.0-15.5); LYMPH # 1.6 x10^3/uL (1.0-4.8); LYMPH % 19 % (24-48); MEAN CORPUSCULAR HEMOGLOBIN 32 pg (25-35); MEAN CORPUSCULAR HGB CONC 34 g/dL (31-37); MEAN CORPUSCULAR VOLUME 93 fL (79-100); MONO # 1.1 x10^3/uL (0.0-1.1); MONO % 13 % (0-9); NEUT # 5.4 x10^3uL (1.8-7.7); NEUT % 62 % (31-73); PLATELET COUNT 224 x10^3/uL (140-400); RED BLOOD COUNT 4.08 x10^6/uL (3.50-5.40); WHITE BLOOD COUNT 8.6 x10^3/uL (4.0-11.0)
[2018-07-20] MEDS: ASPIRIN 81 MG TAB.CHEW PO SCH (08:29)
[2018-07-20] MEDS: RALOXIFENE 60 MG TABLET. PO SCH (08:29)
[2018-07-20] MEDS: busPIRone 10 MG TABLET. PO SCH ×2 (08:29→20:15)
[2018-07-20] MEDS: CALCIUM CARB/VIT D3 500/200 TABLET PO SCH (08:29)
[2018-07-20] MEDS: LOPERAMIDE 2 MG CAPSULE PO SCH ×3 (08:29→20:15)
[2018-07-20] MEDS: HYDROcodone/APAP 5/325MG 1 TAB TABLET PO SCH ×2 (08:30→20:16)
[2018-07-20] MEDS: CHOLECALCIFEROL (VITAMIN D3) 1,000 UNIT TABLET PO SCH (08:33)
[2018-07-20] MEDS: CYANOCOBALAMIN (VITAMIN B-12) 1,000 MCG TABLET. PO SCH (08:33)
[2018-07-20] MEDS: MULTIVITAMIN with MINERAL TABLET. PO SCH (08:33)
[2018-07-20] MEDS: risperiDONE 0.5 MG TABLET. PO SCH ×2 (08:33→20:14)
[2018-07-20] MEDS: ALPRAZolam 0.5 MG TABLET PO SCH ×4 (08:34→20:15)
[2018-07-20] MEDS: BUDESONIDE 0.5 MG/2 ML NEBU NEB SCH ×2 (10:46→20:00)
[2018-07-20 15:40] VITALS: BP 102/66
[2018-07-20] MEDS: DONEPEZIL HCL 10 MG TABLET PO SCH (20:15)
[2018-07-20] MEDS: QUEtiapine 100 MG TABLET. PO SCH (20:15)
--- NOTE | 2018-07-20 22:50 | PDOC ---
Exam Note: Lencho Note: Please also refer to the separate dictated note~for this date of service dictated separately.~Patient seen individually. Discussed the patient with Nursing staff reviewed the chart.~Reviewed interim history and current functioning. Reviewed vital signs,~Labs/ Radiology~and current medications noted below. Continue current treatment with the changes noted in the dictated addendum note Assessment: Vital Signs: Vital Signs Date Time Temp Pulse Resp B/P (MAP) Pulse Ox O2 Delivery O2 Flow Rate FiO2 07/20/18 20:16 18 Room Air 07/20/18 20:00 96 07/20/18 15:40 98.4 86 102/66 (78) I&O Intake and Output 07/20/18 07:00 Intake Total 1020 ml Balance 1020 ml Intake Oral 1020 ml # Bowel Movements 3 Labs: Laboratory Tests Test 07/20/18 07:55 White Blood Count 8.6 x10^3/uL (4.0-11.0) Red Blood Count 4.08 x10^6/uL (3.50-5.40) Hemoglobin 12.9 g/dL (12.0-15.5) Hematocrit 38.2 % (36.0-47.0) Mean Corpuscular Volume 93 fL (79-100) Mean Corpuscular Hemoglobin 32 pg (25-35) Mean Corpuscular Hemoglobin Concent 34 g/dL (31-37) Red Cell Distribution Width 14.0 % (11.5-14.5) Platelet Count 224 x10^3/uL (140-400) Neutrophils (%) (Auto) 62 % (31-73) Lymphocytes (%) (Auto) 19 % (24-48) L Monocytes (%) (Auto) 13 % (0-9) H Eosinophils (%) (Auto) 6 % (0-3) H Basophils (%) (Auto) 1 % (0-3) Neutrophils # (Auto) 5.4 x10^3uL (1.8-7.7) Lymphocytes # (Auto) 1.6 x10^3/uL (1.0-4.8) Monocytes # (Auto) 1.1 x10^3/uL (0.0-1.1) Eosinophils # (Auto) 0.5 x10^3/uL (0.0-0.7) Basophils # (Auto) 0.1 x10^3/uL (0.0-0.2) Current Medications: Meds: Current Medications Alprazolam (Xanax) 0.5 mg 1X ONCE PO Last administered on 07/07/18 13:21; Start 07/07/18 at 13:15; Stop 07/07/18 at 13:18; Status DC Alprazolam (Xanax) 1 mg QID PO Last administered on 07/08/18 16:47; Start at 21:00; Stop 07/08/18 at 19:32; Status DC Buspirone HCl (Buspar) 20 mg BID PO Last administered on 07/20/18 20:15; Start 07/07/18 at 21:00 Donepezil HCl (Aricept) 10 mg QHS PO Last administered on 07/20/18 20:15; Start 07/07/18 at 21:00 Non-Formulary Medication (Fluvoxamine Maleate ) 450 mg BID PO ; Start 07/07/18 at 21:00; Stop 07/07/18 at 21:00; Status DC Quetiapine Fumarate (SEROquel) 25 mg DAILY PO Last administered on 07/09/18 08: 50; Start 07/08/18 at 09:00; Stop 07/09/18 at 09:42; Status DC Quetiapine Fumarate (SEROquel) 200 mg QHS PO Last administered on 07/09/18 21: 34; Start 07/07/18 at 21:00; Stop 07/10/18 at 11:41; Status DC Acetaminophen (Tylenol) 650 mg PRN Q6HRS PRN PO PAIN; Start 07/07/18 at 19:45 Vitamin D (Vitamin D3) 2,000 unit DAILY PO Last administered on 07/20/18 08:33 ; Start 07/08/18 at 09:00 Cyanocobalamin (Vitamin B-12) 2,000 mcg DAILY PO Last administered on at 08:33; Start 07/08/18 at 09:00 Al Hydroxide/Mg Hydroxide (Mylanta Plus Xs) 15 ml PRN AFTMEALHC PRN PO DYSPEPSIA; Start 07/07/18 at 19:45 Magnesium Hydroxide (Milk Of Magnesia) 2,400 mg PRN QHS PRN PO CONSTIPATION; Start 07/07/18 at 19:45 Multivitamins/ Calcium (Thera-M Plus) 1 tab DAILY PO Last administered on 08:33; Start 07/08/18 at 09:00 Aspirin (Children'S Aspirin) 81 mg DAILYWBKFT PO Last administered on 08:29; Start 07/08/18 at 08:00 Calcium/Vitamin D (Oscal D 500mg/ 200uts) 2 tab DAILYWBKFT PO Last administered on 07/20/18 08:29; Start 07/08/18 at 08:00 Dicyclomine HCl (Bentyl) 20 mg QID PO Last administered on 07/12/18 13:10; Start 07/07/18 at 21:00; Stop 07/12/18 at 16:39; Status DC Folic Acid (Folic Acid) 1 mg DAILY PO Last administered on 07/12/18 08:44; Start 07/08/18 at 09:00; Stop 07/12/18 at 16:39; Status DC Acetaminophen/ Hydrocodone Bitart (Lortab 5/325) 0.5 tab PRN BID PRN PO PAIN; Start 07/07/18 at 20:00; Stop 07/07/18 at 23:33; Status DC Loperamide HCl (Imodium) 2 mg DAILY PO Last administered on 07/11/18 08:21; Start 07/08/18 at 09:00; Stop 07/11/18 at 12:05; Status DC Non-Formulary Medication (Mometasone Furoate (Asmanex)) 110 mcg BID IH ; Start 07/07/18 at 21:00; Stop 07/07/18 at 21:00; Status DC Pyridoxine HCl (Vitamin B-6) 100 mg DAILY PO Last administered on 07/12/18 08: 47; Start 07/08/18 at 09:00; Stop 07/12/18 at 16:40; Status DC Raloxifene HCl (Evista) 60 mg DAILY PO Last administered on 07/20/18 08:29; Start 07/08/18 at 09:00 Budesonide (Pulmicort) 0.5 mg RTBID NEB Last administered on 07/20/18at 20:00; Start 07/07/18 at 20:00 Fluvoxamine Maleate (Luvox) 150 mg BID PO Last administered on 07/14/18at 08:22 ; Start 07/07/18 at 21:00; Stop 07/14/18 at 18:15; Status DC Acetaminophen/ Hydrocodone Bitart (Lortab 5/325) 0.5 tab BID PO Last administered on 07/20/18at 20:16; Start 07/08/18 at 09:00 Alprazolam (Xanax) 1 mg 0900,1300,1700 PO Last administered on 07/10/18at 17:15; Start 07/09/18 at 09:00; Stop 07/10/18 at 23:50; Status DC Alprazolam (Xanax) 0.5 mg QHS PO Last administered on 07/10/18at 20:43; Start 07/08/18 at 21:00; Stop 07/10/18 at 23:50; Status DC Alprazolam (Xanax) 0.5 mg BID PO Last administered on 07/20/18at 20:15; Start at 21:00 Alprazolam (Xanax) 0.5 mg 1300,1700 PO Last administered on 07/20/18at 16:09; Start 07/11/18 at 13:00 Trazodone HCl (Desyrel) 50 mg PRN QHS PRN PO INSOMNIA, SEPTEMBER REPEAT X1; Start 07/08/18 at 19:30 Risperidone (RisperDAL) 0.25 mg DAILY PO ; Start 07/10/18 at 09:00; Stop 07/10/18 at 09:00; Status DC Risperidone (RisperDAL) 0.25 mg QHS PO Last administered on 07/09/18at 21:41; Start 07/09/18 at 21:00; Stop 07/10/18 at 11:43; Status DC Quetiapine Fumarate (SEROquel) 150 mg QHS PO Last administered on 07/20/18 20: 15; Start 07/10/18 at 21:00 Risperidone (RisperDAL) 0.5 mg QHS PO Last administered on 07/14/18at 20:26; Start 07/10/18 at 21:00; Stop 07/15/18 at 06:00; Status DC Loperamide HCl (Imodium) 2 mg BID PO ; Start 07/11/18 at 21:00; Stop 07/11/18 at 21:00; Status DC Loperamide HCl (Imodium) 2 mg TID PO Last administered on 07/20/18at 20:15; Start 07/11/18 at 16:15 Fluvoxamine Maleate (Luvox) 100 mg BID PO Last administered on 07/20/18at 20:15 ; Start 07/14/18 at 21:00 Risperidone (RisperDAL) 0.5 mg BID PO Last administered on 07/20/18at 20:14; Start 07/14/18 at 21:00 Active Scripts Active Reported Hydrocodone-Acetamin 5-325 mg (Hydrocodone/Acetaminophen) 1 Each Tablet 0.5 Tab PO BID PRN Seroquel (Quetiapine Fumarate) 200 Mg Tablet 200 Mg PO HS Fluvoxamine Maleate 100 Mg Tablet 150 Mg PO BID Caltrate 600 + D Tablet (Calcium Carbonate/Vitamin D3) 1 Each Tablet 2 Tab PO DAILY Milk Of Magnesia (Magnesium Hydroxide) 400 Mg/5 Ml Oral.susp 2,400 Mg PO PRN QHS PRN Imodium A-D (Loperamide HCl) 2 Mg Capsule 2 Mg PO DAILY Mag-Al Plus Xs Suspension (Mag Hydrox/Al Hydrox/Simeth) 30 Ml Oral.susp 15 Ml PO PRN AFTMEALHC PRN Seroquel (Quetiapine Fumarate) 25 Mg Tablet 25 Mg PO DAILY Ventolin Hfa Inhaler (Albuterol Sulfate) 18 Gm Hfa.aer.ad 1 Puff IH PRN Q4HRS PRN Asmanex (Mometasone Furoate) 110 Mcg Aer.pow.ba 110 Mcg IH BID Aricept (Donepezil Hcl) 10 Mg Tablet 1 Tab PO QHS Buspirone Hcl 10 Mg Tablet 20 Mg PO BID Thera-M Tablet (Multivits,Ca,Minerals/Iron/Fa) 1 Each Tablet 1 Tab PO DAILY Vitamin B-12 (Cyanocobalamin (Vitamin B-12)) 1,000 Mcg Tablet 2,000 Mcg PO DAILY Tylenol (Acetaminophen) 325 Mg Tablet 650 Mg PO PRN Q6HRS PRN Folic Acid 1 Mg Tablet 1 Mg PO DAILY Aspirin 81 Mg Tab.chew 81 Mg PO DAILY Vitamin D3 (Cholecalciferol (Vitamin D3)) 1,000 Unit Tablet 2,000 Unit PO DAILY Vitamin B-6 (Pyridoxine Hcl) 100 Mg Tablet 100 Mg PO DAILY Evista (Raloxifene Hcl) 60 Mg Tablet 60 Mg PO DAILY Alprazolam 1 Mg Tablet 1 Mg PO QID Dicyclomine Hcl 20 Mg Tablet 20 Mg PO QID I have reviewed the current psychotropics carefully including drug interactions. Risk benefit ratio favors no change other than as noted in my dictated progress note. Diagnosis: Problems: (1) Anxiety disorder (2) Obsessive compulsive disorder (3) Psychosis, atypical (4) Major depressive disorder, recurrent episode (5) Seizure (6) Dementia (7) KAYLAN Torrez MD Jul 20, 2018 22:50
--- NOTE | 2018-07-20 23:48 | PN ---
DATE: 07/20/2018 SUBJECTIVE: The patient was seen today, met with the staff, chart reviewed. Staff reports no major problems. She continues to withdraw herself and has some decreased psychomotor activity. OBSERVATION: VITAL SIGNS: Temperature 98.3, blood pressure 106/70, pulse 68, respirations 14, O2 sat 98%. Slept about 4 hours last night. The patient is not having any major physical problems. No side effects to the medications. MEDICATIONS: Her current medications include Xanax, Risperdal, Seroquel, trazodone, Levoxyl, Aricept and BuSpar. ASSESSMENT: Major depressive disorder, recurrent; obsessive compulsive disorder; anxiety disorder, unspecified. PLAN: To continue with the treatment. FRANC BUNCH MD DR: ARABELLA/sasha JOB#: [id number] / [id number]
[2018-07-21 06:36] VITALS: BP 122/68
[2018-07-21] MEDS: CALCIUM CARB/VIT D3 500/200 TABLET PO SCH (08:29)
[2018-07-21] MEDS: ASPIRIN 81 MG TAB.CHEW PO SCH (08:29)
[2018-07-21] MEDS: HYDROcodone/APAP 5/325MG 1 TAB TABLET PO SCH ×2 (08:30→20:11)
[2018-07-21] MEDS: busPIRone 10 MG TABLET. PO SCH ×2 (08:30→20:10)
[2018-07-21] MEDS: LOPERAMIDE 2 MG CAPSULE PO SCH ×3 (08:30→20:10)
[2018-07-21] MEDS: RALOXIFENE 60 MG TABLET. PO SCH (08:30)
[2018-07-21] MEDS: risperiDONE 0.5 MG TABLET. PO SCH ×2 (08:31→20:10)
[2018-07-21] MEDS: CHOLECALCIFEROL (VITAMIN D3) 1,000 UNIT TABLET PO SCH (08:32)
[2018-07-21] MEDS: MULTIVITAMIN with MINERAL TABLET. PO SCH (08:32)
[2018-07-21] MEDS: ALPRAZolam 0.5 MG TABLET PO SCH ×4 (08:32→20:10)
[2018-07-21] MEDS: CYANOCOBALAMIN (VITAMIN B-12) 1,000 MCG TABLET. PO SCH (08:32)
[2018-07-21] MEDS: BUDESONIDE 0.5 MG/2 ML NEBU NEB SCH ×2 (10:05→20:59)
[2018-07-21 17:44] VITALS: BP 100/60
[2018-07-21] MEDS: DONEPEZIL HCL 10 MG TABLET PO SCH (20:10)
[2018-07-21] MEDS: QUEtiapine 100 MG TABLET. PO SCH (20:11)
--- NOTE | 2018-07-21 22:23 | PDOC ---
Exam Note: Lencho Note: "This is a late entry for 07/20/18. The template note for 07/20/18 was completed in error and should be disregarded." Please also refer to the separate dictated note~for this date of service dictated separately.~Patient seen individually. Discussed the patient with Nursing staff reviewed the chart.~ Reviewed interim history and current functioning. Reviewed vital signs,~Labs/ Radiology~and current medications noted below. Continue current treatment with the changes noted in the dictated addendum note Assessment: Vital Signs: Vital Signs Date Time Temp Pulse Resp B/P (MAP) Pulse Ox O2 Delivery O2 Flow Rate FiO2 07/21/18 21:00 95 Room Air 07/21/18 20:11 18 07/21/18 17:44 98.7 94 100/60 (73) I&O Intake and Output 07/21/18 06:59 Intake Total 960 ml Balance 960 ml Intake Oral 960 ml Current Medications: Meds: Current Medications Alprazolam (Xanax) 0.5 mg 1X ONCE PO Last administered on 07/07/18at 13:21; Start 07/07/18 at 13:15; Stop 07/07/18 at 13:18; Status DC Alprazolam (Xanax) 1 mg QID PO Last administered on 07/08/18at 16:47; Start at 21:00; Stop 07/08/18 at 19:32; Status DC Buspirone HCl (Buspar) 20 mg BID PO Last administered on 07/21/18at 20:10; Start 07/07/18 at 21:00 Donepezil HCl (Aricept) 10 mg QHS PO Last administered on 07/21/18at 20:10; Start 07/07/18 at 21:00 Non-Formulary Medication (Fluvoxamine Maleate ) 450 mg BID PO ; Start 07/07/18 at 21:00; Stop 07/07/18 at 21:00; Status DC Quetiapine Fumarate (SEROquel) 25 mg DAILY PO Last administered on 07/09/18at 08: 50; Start 07/08/18 at 09:00; Stop 07/09/18 at 09:42; Status DC Quetiapine Fumarate (SEROquel) 200 mg QHS PO Last administered on 3/6/19at 21: 34; Start 07/07/18 at 21:00; Stop 07/10/18 at 11:41; Status DC Acetaminophen (Tylenol) 650 mg PRN Q6HRS PRN PO PAIN; Start 07/07/18 at 19:45 Vitamin D (Vitamin D3) 2,000 unit DAILY PO Last administered on 07/21/18 08:32 ; Start 07/08/18 at 09:00 Cyanocobalamin (Vitamin B-12) 2,000 mcg DAILY PO Last administered on 08:32; Start 07/08/18 at 09:00 Al Hydroxide/Mg Hydroxide (Mylanta Plus Xs) 15 ml PRN AFTMEALHC PRN PO DYSPEPSIA; Start 07/07/18 at 19:45 Magnesium Hydroxide (Milk Of Magnesia) 2,400 mg PRN QHS PRN PO CONSTIPATION; Start 07/07/18 at 19:45 Multivitamins/ Calcium (Thera-M Plus) 1 tab DAILY PO Last administered on 08:32; Start 07/08/18 at 09:00 Aspirin (Children'S Aspirin) 81 mg DAILYWBKFT PO Last administered on 08:29; Start 07/08/18 at 08:00 Calcium/Vitamin D (Oscal D 500mg/ 200uts) 2 tab DAILYWBKFT PO Last administered on 07/21/18 08:29; Start 07/08/18 at 08:00 Dicyclomine HCl (Bentyl) 20 mg QID PO Last administered on 07/12/18 13:10; Start 07/07/18 at 21:00; Stop 07/12/18 at 16:39; Status DC Folic Acid (Folic Acid) 1 mg DAILY PO Last administered on 07/12/18 08:44; Start 07/08/18 at 09:00; Stop 07/12/18 at 16:39; Status DC Acetaminophen/ Hydrocodone Bitart (Lortab 5/325) 0.5 tab PRN BID PRN PO PAIN; Start 07/07/18 at 20:00; Stop 07/07/18 at 23:33; Status DC Loperamide HCl (Imodium) 2 mg DAILY PO Last administered on 07/11/18 08:21; Start 07/08/18 at 09:00; Stop 07/11/18 at 12:05; Status DC Non-Formulary Medication (Mometasone Furoate (Asmanex)) 110 mcg BID IH ; Start 07/07/18 at 21:00; Stop 07/07/18 at 21:00; Status DC Pyridoxine HCl (Vitamin B-6) 100 mg DAILY PO Last administered on 07/12/18at 08: 47; Start 07/08/18 at 09:00; Stop 07/12/18 at 16:40; Status DC Raloxifene HCl (Evista) 60 mg DAILY PO Last administered on 07/21/18at 08:30; Start 07/08/18 at 09:00 Budesonide (Pulmicort) 0.5 mg RTBID NEB Last administered on 07/21/18at 20:59; Start 07/07/18 at 20:00 Fluvoxamine Maleate (Luvox) 150 mg BID PO Last administered on 07/14/18at 08:22 ; Start 07/07/18 at 21:00; Stop 07/14/18 at 18:15; Status DC Acetaminophen/ Hydrocodone Bitart (Lortab 5/325) 0.5 tab BID PO Last administered on 07/21/18at 20:11; Start 07/08/18 at 09:00 Alprazolam (Xanax) 1 mg 0900,1300,1700 PO Last administered on 07/10/18at 17:15; Start 07/09/18 at 09:00; Stop 07/10/18 at 23:50; Status DC Alprazolam (Xanax) 0.5 mg QHS PO Last administered on 07/10/18 20:43; Start 07/08/18 at 21:00; Stop 07/10/18 at 23:50; Status DC Alprazolam (Xanax) 0.5 mg BID PO Last administered on 07/21/18at 20:10; Start at 21:00 Alprazolam (Xanax) 0.5 mg 1300,1700 PO Last administered on 07/21/18 17:06; Start 07/11/18 at 13:00 Trazodone HCl (Desyrel) 50 mg PRN QHS PRN PO INSOMNIA, MAY REPEAT X1; Start 07/08/18 at 19:30 Risperidone (RisperDAL) 0.25 mg DAILY PO ; Start 07/10/18 at 09:00; Stop 07/10/18 at 09:00; Status DC Risperidone (RisperDAL) 0.25 mg QHS PO Last administered on 07/09/18at 21:41; Start 07/09/18 at 21:00; Stop 07/10/18 at 11:43; Status DC Quetiapine Fumarate (SEROquel) 150 mg QHS PO Last administered on 07/21/18at 20: 11; Start 07/10/18 at 21:00 Risperidone (RisperDAL) 0.5 mg QHS PO Last administered on 07/14/18at 20:26; Start 07/10/18 at 21:00; Stop 07/15/18 at 06:00; Status DC Loperamide HCl (Imodium) 2 mg BID PO ; Start 07/11/18 at 21:00; Stop 07/11/18 at 21:00; Status DC Loperamide HCl (Imodium) 2 mg TID PO Last administered on 07/21/18at 20:10; Start 07/11/18 at 16:15 Fluvoxamine Maleate (Luvox) 100 mg BID PO Last administered on 07/21/18 20:10 ; Start 07/14/18 at 21:00 Risperidone (RisperDAL) 0.5 mg BID PO Last administered on 07/21/18at 20:10; Start 07/14/18 at 21:00 Active Scripts Active Reported Hydrocodone-Acetamin 5-325 mg (Hydrocodone/Acetaminophen) 1 Each Tablet 0.5 Tab PO BID PRN Seroquel (Quetiapine Fumarate) 200 Mg Tablet 200 Mg PO HS Fluvoxamine Maleate 100 Mg Tablet 150 Mg PO BID Caltrate 600 + D Tablet (Calcium Carbonate/Vitamin D3) 1 Each Tablet 2 Tab PO DAILY Milk Of Magnesia (Magnesium Hydroxide) 400 Mg/5 Ml Oral.susp 2,400 Mg PO PRN QHS PRN Imodium A-D (Loperamide HCl) 2 Mg Capsule 2 Mg PO DAILY Mag-Al Plus Xs Suspension (Mag Hydrox/Al Hydrox/Simeth) 30 Ml Oral.susp 15 Ml PO PRN AFTMEALHC PRN Seroquel (Quetiapine Fumarate) 25 Mg Tablet 25 Mg PO DAILY Ventolin Hfa Inhaler (Albuterol Sulfate) 18 Gm Hfa.aer.ad 1 Puff IH PRN Q4HRS PRN Asmanex (Mometasone Furoate) 110 Mcg Aer.pow.ba 110 Mcg IH BID Aricept (Donepezil Hcl) 10 Mg Tablet 1 Tab PO QHS Buspirone Hcl 10 Mg Tablet 20 Mg PO BID Thera-M Tablet (Multivits,Ca,Minerals/Iron/Fa) 1 Each Tablet 1 Tab PO DAILY Vitamin B-12 (Cyanocobalamin (Vitamin B-12)) 1,000 Mcg Tablet 2,000 Mcg PO DAILY Tylenol (Acetaminophen) 325 Mg Tablet 650 Mg PO PRN Q6HRS PRN Folic Acid 1 Mg Tablet 1 Mg PO DAILY Aspirin 81 Mg Tab.chew 81 Mg PO DAILY Vitamin D3 (Cholecalciferol (Vitamin D3)) 1,000 Unit Tablet 2,000 Unit PO DAILY Vitamin B-6 (Pyridoxine Hcl) 100 Mg Tablet 100 Mg PO DAILY Evista (Raloxifene Hcl) 60 Mg Tablet 60 Mg PO DAILY Alprazolam 1 Mg Tablet 1 Mg PO QID Dicyclomine Hcl 20 Mg Tablet 20 Mg PO QID I have reviewed the current psychotropics carefully including drug interactions. Risk benefit ratio favors no change other than as noted in my dictated progress note. Diagnosis: Problems: (1) Anxiety disorder (2) Obsessive compulsive disorder (3) Psychosis, atypical (4) Major depressive disorder, recurrent episode (5) Seizure (6) Dementia (7) KAYLAN Torrez MD Jul 21, 2018 22:23
--- NOTE | 2018-07-21 23:11 | PDOC ---
Exam Note: Lencho Note: Please also refer to the separate dictated note~for this date of service dictated separately.~Patient seen individually. Discussed the patient with Nursing staff reviewed the chart.~Reviewed interim history and current functioning. Reviewed vital signs,~Labs/ Radiology~and current medications noted below. Continue current treatment with the changes noted in the dictated addendum note Assessment: Vital Signs: Vital Signs Date Time Temp Pulse Resp B/P (MAP) Pulse Ox O2 Delivery O2 Flow Rate FiO2 07/21/18 21:00 95 Room Air 07/21/18 20:11 18 07/21/18 17:44 98.7 94 100/60 (73) I&O Intake and Output 07/21/18 07:00 Intake Total 960 ml Balance 960 ml Intake Oral 960 ml Current Medications: Meds: Current Medications Alprazolam (Xanax) 0.5 mg 1X ONCE PO Last administered on 07/07/18 13:21; Start 07/07/18 at 13:15; Stop 07/07/18 at 13:18; Status DC Alprazolam (Xanax) 1 mg QID PO Last administered on 07/08/18at 16:47; Start at 21:00; Stop 07/08/18 at 19:32; Status DC Buspirone HCl (Buspar) 20 mg BID PO Last administered on 07/21/18at 20:10; Start 07/07/18 at 21:00 Donepezil HCl (Aricept) 10 mg QHS PO Last administered on 07/21/18at 20:10; Start 07/07/18 at 21:00 Non-Formulary Medication (Fluvoxamine Maleate ) 450 mg BID PO ; Start 07/07/18 at 21:00; Stop 07/07/18 at 21:00; Status DC Quetiapine Fumarate (SEROquel) 25 mg DAILY PO Last administered on 07/09/18at 08: 50; Start 07/08/18 at 09:00; Stop 07/09/18 at 09:42; Status DC Quetiapine Fumarate (SEROquel) 200 mg QHS PO Last administered on 07/09/18at 21: 34; Start 07/07/18 at 21:00; Stop 07/10/18 at 11:41; Status DC Acetaminophen (Tylenol) 650 mg PRN Q6HRS PRN PO PAIN; Start 07/07/18 at 19:45 Vitamin D (Vitamin D3) 2,000 unit DAILY PO Last administered on 07/21/18 08:32 ; Start 07/08/18 at 09:00 Cyanocobalamin (Vitamin B-12) 2,000 mcg DAILY PO Last administered on 08:32; Start 07/08/18 at 09:00 Al Hydroxide/Mg Hydroxide (Mylanta Plus Xs) 15 ml PRN AFTMEALHC PRN PO DYSPEPSIA; Start 07/07/18 at 19:45 Magnesium Hydroxide (Milk Of Magnesia) 2,400 mg PRN QHS PRN PO CONSTIPATION; Start 07/07/18 at 19:45 Multivitamins/ Calcium (Thera-M Plus) 1 tab DAILY PO Last administered on 08:32; Start 07/08/18 at 09:00 Aspirin (Children'S Aspirin) 81 mg DAILYWBKFT PO Last administered on 08:29; Start 07/08/18 at 08:00 Calcium/Vitamin D (Oscal D 500mg/ 200uts) 2 tab DAILYWBKFT PO Last administered on 07/21/18 08:29; Start 07/08/18 at 08:00 Dicyclomine HCl (Bentyl) 20 mg QID PO Last administered on 07/12/18 13:10; Start 07/07/18 at 21:00; Stop 07/12/18 at 16:39; Status DC Folic Acid (Folic Acid) 1 mg DAILY PO Last administered on 07/12/18 08:44; Start 07/08/18 at 09:00; Stop 07/12/18 at 16:39; Status DC Acetaminophen/ Hydrocodone Bitart (Lortab 5/325) 0.5 tab PRN BID PRN PO PAIN; Start 07/07/18 at 20:00; Stop 07/07/18 at 23:33; Status DC Loperamide HCl (Imodium) 2 mg DAILY PO Last administered on 07/11/18 08:21; Start 07/08/18 at 09:00; Stop 07/11/18 at 12:05; Status DC Non-Formulary Medication (Mometasone Furoate (Asmanex)) 110 mcg BID IH ; Start 07/07/18 at 21:00; Stop 07/07/18 at 21:00; Status DC Pyridoxine HCl (Vitamin B-6) 100 mg DAILY PO Last administered on 07/12/18 08: 47; Start 07/08/18 at 09:00; Stop 07/12/18 at 16:40; Status DC Raloxifene HCl (Evista) 60 mg DAILY PO Last administered on 07/21/18at 08:30; Start 07/08/18 at 09:00 Budesonide (Pulmicort) 0.5 mg RTBID NEB Last administered on 07/21/18at 20:59; Start 07/07/18 at 20:00 Fluvoxamine Maleate (Luvox) 150 mg BID PO Last administered on 07/14/18at 08:22 ; Start 07/07/18 at 21:00; Stop 07/14/18 at 18:15; Status DC Acetaminophen/ Hydrocodone Bitart (Lortab 5/325) 0.5 tab BID PO Last administered on 07/21/18at 20:11; Start 07/08/18 at 09:00 Alprazolam (Xanax) 1 mg 0900,1300,1700 PO Last administered on 07/10/18 17:15; Start 07/09/18 at 09:00; Stop 07/10/18 at 23:50; Status DC Alprazolam (Xanax) 0.5 mg QHS PO Last administered on 07/10/18 20:43; Start 07/08/18 at 21:00; Stop 07/10/18 at 23:50; Status DC Alprazolam (Xanax) 0.5 mg BID PO Last administered on 07/21/18at 20:10; Start at 21:00 Alprazolam (Xanax) 0.5 mg 1300,1700 PO Last administered on 07/21/18 17:06; Start 07/11/18 at 13:00 Trazodone HCl (Desyrel) 50 mg PRN QHS PRN PO INSOMNIA, MAY REPEAT X1; Start 07/08/18 at 19:30 Risperidone (RisperDAL) 0.25 mg DAILY PO ; Start 07/10/18 at 09:00; Stop 07/10/18 at 09:00; Status DC Risperidone (RisperDAL) 0.25 mg QHS PO Last administered on 07/09/18at 21:41; Start 07/09/18 at 21:00; Stop 07/10/18 at 11:43; Status DC Quetiapine Fumarate (SEROquel) 150 mg QHS PO Last administered on 07/21/18at 20: 11; Start 07/10/18 at 21:00 Risperidone (RisperDAL) 0.5 mg QHS PO Last administered on 07/14/18at 20:26; Start 07/10/18 at 21:00; Stop 07/15/18 at 06:00; Status DC Loperamide HCl (Imodium) 2 mg BID PO ; Start 07/11/18 at 21:00; Stop 07/11/18 at 21:00; Status DC Loperamide HCl (Imodium) 2 mg TID PO Last administered on 07/21/18at 20:10; Start 07/11/18 at 16:15 Fluvoxamine Maleate (Luvox) 100 mg BID PO Last administered on 07/21/18at 20:10 ; Start 07/14/18 at 21:00 Risperidone (RisperDAL) 0.5 mg BID PO Last administered on 07/21/18 20:10; Start 07/14/18 at 21:00 Active Scripts Active Reported Hydrocodone-Acetamin 5-325 mg (Hydrocodone/Acetaminophen) 1 Each Tablet 0.5 Tab PO BID PRN Seroquel (Quetiapine Fumarate) 200 Mg Tablet 200 Mg PO HS Fluvoxamine Maleate 100 Mg Tablet 150 Mg PO BID Caltrate 600 + D Tablet (Calcium Carbonate/Vitamin D3) 1 Each Tablet 2 Tab PO DAILY Milk Of Magnesia (Magnesium Hydroxide) 400 Mg/5 Ml Oral.susp 2,400 Mg PO PRN QHS PRN Imodium A-D (Loperamide HCl) 2 Mg Capsule 2 Mg PO DAILY Mag-Al Plus Xs Suspension (Mag Hydrox/Al Hydrox/Simeth) 30 Ml Oral.susp 15 Ml PO PRN AFTMEALHC PRN Seroquel (Quetiapine Fumarate) 25 Mg Tablet 25 Mg PO DAILY Ventolin Hfa Inhaler (Albuterol Sulfate) 18 Gm Hfa.aer.ad 1 Puff IH PRN Q4HRS PRN Asmanex (Mometasone Furoate) 110 Mcg Aer.pow.ba 110 Mcg IH BID Aricept (Donepezil Hcl) 10 Mg Tablet 1 Tab PO QHS Buspirone Hcl 10 Mg Tablet 20 Mg PO BID Thera-M Tablet (Multivits,Ca,Minerals/Iron/Fa) 1 Each Tablet 1 Tab PO DAILY Vitamin B-12 (Cyanocobalamin (Vitamin B-12)) 1,000 Mcg Tablet 2,000 Mcg PO DAILY Tylenol (Acetaminophen) 325 Mg Tablet 650 Mg PO PRN Q6HRS PRN Folic Acid 1 Mg Tablet 1 Mg PO DAILY Aspirin 81 Mg Tab.chew 81 Mg PO DAILY Vitamin D3 (Cholecalciferol (Vitamin D3)) 1,000 Unit Tablet 2,000 Unit PO DAILY Vitamin B-6 (Pyridoxine Hcl) 100 Mg Tablet 100 Mg PO DAILY Evista (Raloxifene Hcl) 60 Mg Tablet 60 Mg PO DAILY Alprazolam 1 Mg Tablet 1 Mg PO QID Dicyclomine Hcl 20 Mg Tablet 20 Mg PO QID I have reviewed the current psychotropics carefully including drug interactions. Risk benefit ratio favors no change other than as noted in my dictated progress note. Diagnosis: Problems: (1) Anxiety disorder (2) Obsessive compulsive disorder (3) Psychosis, atypical (4) Major depressive disorder, recurrent episode (5) Seizure (6) Dementia (7) KAYLAN Torrez MD Jul 21, 2018 23:11
[2018-07-22 06:42] VITALS: BP 114/64
[2018-07-22] MEDS: CYANOCOBALAMIN (VITAMIN B-12) 1,000 MCG TABLET. PO SCH (08:18)
[2018-07-22] MEDS: CHOLECALCIFEROL (VITAMIN D3) 1,000 UNIT TABLET PO SCH (08:19)
[2018-07-22] MEDS: MULTIVITAMIN with MINERAL TABLET. PO SCH (08:19)
[2018-07-22] MEDS: RALOXIFENE 60 MG TABLET. PO SCH (08:19)
[2018-07-22] MEDS: ASPIRIN 81 MG TAB.CHEW PO SCH (08:19)
[2018-07-22] MEDS: risperiDONE 0.5 MG TABLET. PO SCH ×2 (08:19→19:48)
[2018-07-22] MEDS: busPIRone 10 MG TABLET. PO SCH ×2 (08:19→19:48)
[2018-07-22] MEDS: LOPERAMIDE 2 MG CAPSULE PO SCH ×3 (08:19→19:48)
[2018-07-22] MEDS: CALCIUM CARB/VIT D3 500/200 TABLET PO SCH (08:19)
[2018-07-22] MEDS: ALPRAZolam 0.5 MG TABLET PO SCH ×3 (08:25→17:04)
[2018-07-22] MEDS: HYDROcodone/APAP 5/325MG 1 TAB TABLET PO SCH ×2 (08:25→19:48)
[2018-07-22] MEDS: BUDESONIDE 0.5 MG/2 ML NEBU NEB SCH ×2 (10:08→20:12)
[2018-07-22 16:35] VITALS: BP 107/70
[2018-07-22] MEDS ORDERED: BENZOCAINE/MENTHOL LOZNGE 18'S BOX. PO PRN (18:30)
[2018-07-22] MEDS: DONEPEZIL HCL 10 MG TABLET PO SCH (19:47)
[2018-07-22] MEDS: ALPRAZolam 0.25 MG TABLET PO SCH (20:26)
[2018-07-22] MEDS: QUEtiapine 100 MG TABLET. PO SCH (20:27)
--- NOTE | 2018-07-22 22:55 | PN ---
DATE: 07/21/2018 PSYCHIATRIC PROGRESS NOTE This late entry 07/21/2018 covers elements not covered in my initial note. SUBJECTIVE: I met with the patient at length in her room. The patient slept 7-1/2 hours previous night. Reviewed information from Dr. Solsi, who covered for me for the past few days. She has been having some diarrhea. Luvox was reduced and Risperdal increased to help with this and she may need a colonoscopy. REVIEW OF SYSTEMS: Ambulation impaired with walker. No CV, , pulmonary, eye system symptoms on review. MENTAL STATUS EXAM: Reasonably oriented. Speech has some latency, coherent. Abstraction fair, computation impaired, language function intact. Mood and affect somewhat withdrawn. She is still somewhat obsessive. LABORATORY DATA: Reviewed. IMPRESSION: Major depressive disorder, obsessive-compulsive disorder, anxiety disorder, unspecified. PLAN: Continue psychotropics mentioned in my initial note with changes noted above. MAN Dane RAGLAND MD DR: NABIL/sasha JOB#: [id number] / [id number]
--- NOTE | 2018-07-22 23:07 | PDOC ---
Exam Note: Lencho Note: Please also refer to the separate dictated note~for this date of service dictated separately.~Patient seen individually. Discussed the patient with Nursing staff reviewed the chart.~Reviewed interim history and current functioning. Reviewed vital signs,~Labs/ Radiology~and current medications noted below. Continue current treatment with the changes noted in the dictated addendum note Assessment: Vital Signs: Vital Signs Date Time Temp Pulse Resp B/P (MAP) Pulse Ox O2 Delivery O2 Flow Rate FiO2 07/22/18 20:48 18 Room Air 07/22/18 20:12 96 07/22/18 16:35 97.6 87 107/70 (82) I&O Intake and Output 07/22/18 07:00 Intake Total 840 ml Balance 840 ml Intake Oral 840 ml # Bowel Movements 1 Current Medications: Meds: Current Medications Alprazolam (Xanax) 0.5 mg 1X ONCE PO Last administered on 07/07/18 13:21; Start 07/07/18 at 13:15; Stop 07/07/18 at 13:18; Status DC Alprazolam (Xanax) 1 mg QID PO Last administered on 07/08/18 16:47; Start at 21:00; Stop 07/08/18 at 19:32; Status DC Buspirone HCl (Buspar) 20 mg BID PO Last administered on 07/22/18 19:48; Start 07/07/18 at 21:00 Donepezil HCl (Aricept) 10 mg QHS PO Last administered on 07/22/18 19:47; Start 07/07/18 at 21:00 Non-Formulary Medication (Fluvoxamine Maleate ) 450 mg BID PO ; Start 07/07/18 at 21:00; Stop 07/07/18 at 21:00; Status DC Quetiapine Fumarate (SEROquel) 25 mg DAILY PO Last administered on 07/09/18 08: 50; Start 07/08/18 at 09:00; Stop 07/09/18 at 09:42; Status DC Quetiapine Fumarate (SEROquel) 200 mg QHS PO Last administered on 07/09/18 21: 34; Start 07/07/18 at 21:00; Stop 07/10/18 at 11:41; Status DC Acetaminophen (Tylenol) 650 mg PRN Q6HRS PRN PO PAIN; Start 07/07/18 at 19:45 Vitamin D (Vitamin D3) 2,000 unit DAILY PO Last administered on 07/22/18 08:19 ; Start 07/08/18 at 09:00 Cyanocobalamin (Vitamin B-12) 2,000 mcg DAILY PO Last administered on at 08:18; Start 07/08/18 at 09:00 Al Hydroxide/Mg Hydroxide (Mylanta Plus Xs) 15 ml PRN AFTMEALHC PRN PO DYSPEPSIA; Start 07/07/18 at 19:45 Magnesium Hydroxide (Milk Of Magnesia) 2,400 mg PRN QHS PRN PO CONSTIPATION; Start 07/07/18 at 19:45 Multivitamins/ Calcium (Thera-M Plus) 1 tab DAILY PO Last administered on 08:19; Start 07/08/18 at 09:00 Aspirin (Children'S Aspirin) 81 mg DAILYWBKFT PO Last administered on 08:19; Start 07/08/18 at 08:00 Calcium/Vitamin D (Oscal D 500mg/ 200uts) 2 tab DAILYWBKFT PO Last administered on 07/22/18 08:19; Start 07/08/18 at 08:00 Dicyclomine HCl (Bentyl) 20 mg QID PO Last administered on 07/12/18at 13:10; Start 07/07/18 at 21:00; Stop 07/12/18 at 16:39; Status DC Folic Acid (Folic Acid) 1 mg DAILY PO Last administered on 07/12/18at 08:44; Start 07/08/18 at 09:00; Stop 07/12/18 at 16:39; Status DC Acetaminophen/ Hydrocodone Bitart (Lortab 5/325) 0.5 tab PRN BID PRN PO PAIN; Start 07/07/18 at 20:00; Stop 07/07/18 at 23:33; Status DC Loperamide HCl (Imodium) 2 mg DAILY PO Last administered on 07/11/18at 08:21; Start 07/08/18 at 09:00; Stop 07/11/18 at 12:05; Status DC Non-Formulary Medication (Mometasone Furoate (Asmanex)) 110 mcg BID IH ; Start 07/07/18 at 21:00; Stop 07/07/18 at 21:00; Status DC Pyridoxine HCl (Vitamin B-6) 100 mg DAILY PO Last administered on 07/12/18at 08: 47; Start 07/08/18 at 09:00; Stop 07/12/18 at 16:40; Status DC Raloxifene HCl (Evista) 60 mg DAILY PO Last administered on 07/22/18at 08:19; Start 07/08/18 at 09:00 Budesonide (Pulmicort) 0.5 mg RTBID NEB Last administered on 07/22/18at 20:12; Start 07/07/18 at 20:00 Fluvoxamine Maleate (Luvox) 150 mg BID PO Last administered on 07/14/18at 08:22 ; Start 07/07/18 at 21:00; Stop 07/14/18 at 18:15; Status DC Acetaminophen/ Hydrocodone Bitart (Lortab 5/325) 0.5 tab BID PO Last administered on 07/22/18at 19:48; Start 07/08/18 at 09:00 Alprazolam (Xanax) 1 mg 0900,1300,1700 PO Last administered on 07/10/18at 17:15; Start 07/09/18 at 09:00; Stop 07/10/18 at 23:50; Status DC Alprazolam (Xanax) 0.5 mg QHS PO Last administered on 07/10/18at 20:43; Start 07/08/18 at 21:00; Stop 07/10/18 at 23:50; Status DC Alprazolam (Xanax) 0.5 mg BID PO Last administered on 07/22/18at 08:25; Start at 21:00; Stop 07/22/18 at 19:40; Status DC Alprazolam (Xanax) 0.5 mg 1300,1700 PO Last administered on 07/22/18at 17:04; Start 07/11/18 at 13:00; Stop 07/24/18 at 12:59 Trazodone HCl (Desyrel) 50 mg PRN QHS PRN PO INSOMNIA, MAY REPEAT X1; Start 07/08/18 at 19:30 Risperidone (RisperDAL) 0.25 mg DAILY PO ; Start 07/10/18 at 09:00; Stop 07/10/18 at 09:00; Status DC Risperidone (RisperDAL) 0.25 mg QHS PO Last administered on 07/09/18at 21:41; Start 07/09/18 at 21:00; Stop 07/10/18 at 11:43; Status DC Quetiapine Fumarate (SEROquel) 150 mg QHS PO Last administered on 07/21/18at 20: 11; Start 07/10/18 at 21:00; Stop 07/22/18 at 19:40; Status DC Risperidone (RisperDAL) 0.5 mg QHS PO Last administered on 07/14/18at 20:26; Start 07/10/18 at 21:00; Stop 07/15/18 at 06:00; Status DC Loperamide HCl (Imodium) 2 mg BID PO ; Start 07/11/18 at 21:00; Stop 07/11/18 at 21:00; Status DC Loperamide HCl (Imodium) 2 mg TID PO Last administered on 07/22/18at 19:48; Start 07/11/18 at 16:15 Fluvoxamine Maleate (Luvox) 100 mg BID PO Last administered on 07/22/18at 20:29 ; Start 07/14/18 at 21:00 Risperidone (RisperDAL) 0.5 mg BID PO Last administered on 07/22/18 19:48; Start 07/14/18 at 21:00 Throat Lozenges (Cepacol Sore Throat Lozenge) 1 alexandra PRN Q2HR PRN PO SORE THROAT ; Start 07/22/18 at 18:30 Alprazolam (Xanax) 0.5 mg DAILY PO ; Start 07/23/18 at 09:00 Quetiapine Fumarate (SEROquel) 100 mg QHS PO Last administered on 07/22/18at 20: 27; Start 07/22/18 at 21:00; Stop 07/24/18 at 23:50 Quetiapine Fumarate (SEROquel) 50 mg QHS PO ; Start 07/25/18 at 21:00; Stop at 23:50 Alprazolam (Xanax) 0.25 mg QHS PO Last administered on 07/22/18at 20:26; Start 07/22/18 at 21:00 Alprazolam (Xanax) 0.25 mg 1700 PO ; Start 07/25/18 at 17:00 Alprazolam (Xanax) 0.5 mg 1300 PO ; Start 07/25/18 at 13:00 Active Scripts Active Reported Hydrocodone-Acetamin 5-325 mg (Hydrocodone/Acetaminophen) 1 Each Tablet 0.5 Tab PO BID PRN Seroquel (Quetiapine Fumarate) 200 Mg Tablet 200 Mg PO HS Fluvoxamine Maleate 100 Mg Tablet 150 Mg PO BID Caltrate 600 + D Tablet (Calcium Carbonate/Vitamin D3) 1 Each Tablet 2 Tab PO DAILY Milk Of Magnesia (Magnesium Hydroxide) 400 Mg/5 Ml Oral.susp 2,400 Mg PO PRN QHS PRN Imodium A-D (Loperamide HCl) 2 Mg Capsule 2 Mg PO DAILY Mag-Al Plus Xs Suspension (Mag Hydrox/Al Hydrox/Simeth) 30 Ml Oral.susp 15 Ml PO PRN AFTMEALHC PRN Seroquel (Quetiapine Fumarate) 25 Mg Tablet 25 Mg PO DAILY Ventolin Hfa Inhaler (Albuterol Sulfate) 18 Gm Hfa.aer.ad 1 Puff IH PRN Q4HRS PRN Asmanex (Mometasone Furoate) 110 Mcg Aer.pow.ba 110 Mcg IH BID Aricept (Donepezil Hcl) 10 Mg Tablet 1 Tab PO QHS Buspirone Hcl 10 Mg Tablet 20 Mg PO BID Thera-M Tablet (Multivits,Ca,Minerals/Iron/Fa) 1 Each Tablet 1 Tab PO DAILY Vitamin B-12 (Cyanocobalamin (Vitamin B-12)) 1,000 Mcg Tablet 2,000 Mcg PO DAILY Tylenol (Acetaminophen) 325 Mg Tablet 650 Mg PO PRN Q6HRS PRN Folic Acid 1 Mg Tablet 1 Mg PO DAILY Aspirin 81 Mg Tab.chew 81 Mg PO DAILY Vitamin D3 (Cholecalciferol (Vitamin D3)) 1,000 Unit Tablet 2,000 Unit PO DAILY Vitamin B-6 (Pyridoxine Hcl) 100 Mg Tablet 100 Mg PO DAILY Evista (Raloxifene Hcl) 60 Mg Tablet 60 Mg PO DAILY Alprazolam 1 Mg Tablet 1 Mg PO QID Dicyclomine Hcl 20 Mg Tablet 20 Mg PO QID I have reviewed the current psychotropics carefully including drug interactions. Risk benefit ratio favors no change other than as noted in my dictated progress note. Diagnosis: Problems: (1) Anxiety disorder (2) Obsessive compulsive disorder (3) Psychosis, atypical (4) Major depressive disorder, recurrent episode (5) Seizure (6) Dementia (7) KAYLAN Torrez MD Jul 22, 2018 23:07
[2018-07-23 06:28] VITALS: BP 113/70
[2018-07-23] MEDS: ASPIRIN 81 MG TAB.CHEW PO SCH (06:53)
[2018-07-23] MEDS: CALCIUM CARB/VIT D3 500/200 TABLET PO SCH (06:53)
[2018-07-23] MEDS: CYANOCOBALAMIN (VITAMIN B-12) 1,000 MCG TABLET. PO SCH (07:33)
[2018-07-23] MEDS: LOPERAMIDE 2 MG CAPSULE PO SCH ×3 (07:33→19:45)
[2018-07-23] MEDS: busPIRone 10 MG TABLET. PO SCH ×2 (07:33→19:45)
[2018-07-23] MEDS: CHOLECALCIFEROL (VITAMIN D3) 1,000 UNIT TABLET PO SCH (07:33)
[2018-07-23] MEDS: risperiDONE 0.5 MG TABLET. PO SCH ×2 (07:33→19:46)
[2018-07-23] MEDS: MULTIVITAMIN with MINERAL TABLET. PO SCH (07:34)
[2018-07-23] MEDS: RALOXIFENE 60 MG TABLET. PO SCH (07:34)
[2018-07-23] MEDS: HYDROcodone/APAP 5/325MG 1 TAB TABLET PO SCH ×2 (07:36→19:46)
[2018-07-23] MEDS: ALPRAZolam 0.5 MG TABLET PO SCH ×3 (07:36→16:46)
[2018-07-23] MEDS: BUDESONIDE 0.5 MG/2 ML NEBU NEB SCH ×2 (09:59→20:42)
[2018-07-23 14:37] LABS: BACTERIA,URINE MANY /HPF (0-FEW); BILIRUBIN,URINE NEG (NEG); CLARITY,URINE HAZY; COLOR,URINE YELLOW; GLUCOSE,URINE NEG (NEG); NITRITE,URINE NEG (NEG); RBC,URINE 0 /HPF (0-2); SQUAMOUS EPITHELIAL CELL,UR MANY /LPF; UROBILINOGEN,URINE 0.2 mg/dL (0.2 mg/dL); WBC,URINE 20-40 /HPF (0-4)
[2018-07-23 16:49] VITALS: BP 109/70
[2018-07-23] MEDS: DONEPEZIL HCL 10 MG TABLET PO SCH (19:45)
[2018-07-23] MEDS: ALPRAZolam 0.25 MG TABLET PO SCH (19:45)
[2018-07-23] MEDS: QUEtiapine 100 MG TABLET. PO SCH (19:46)
--- NOTE | 2018-07-23 22:58 | PDOC ---
Exam Note: Lencho Note: Please also refer to the separate dictated note~for this date of service dictated separately.~Patient seen individually. Discussed the patient with Nursing staff reviewed the chart.~Reviewed interim history and current functioning. Reviewed vital signs,~Labs/ Radiology~and current medications noted below. Continue current treatment with the changes noted in the dictated addendum note Assessment: Vital Signs: Vital Signs Date Time Temp Pulse Resp B/P (MAP) Pulse Ox O2 Delivery O2 Flow Rate FiO2 07/23/18 20:42 95 Room Air 07/23/18 19:46 18 07/23/18 16:49 100.4 84 109/70 (83) I&O Intake and Output 07/23/18 07:00 Intake Total 1280 ml Balance 1280 ml Intake Oral 1280 ml Labs: Laboratory Tests Test 07/23/18 14:15 Urine Collection Type Clean catch Urine Color Yellow Urine Clarity Hazy Urine pH 5.5 Urine Specific [place] 1.010 Urine Protein Neg (NEG-TRACE) Urine Glucose (UA) Neg mg/dL (NEG) Urine Ketones (Stick) Neg mg/dL (NEG) Urine Blood Neg (NEG) Urine Nitrite Neg (NEG) Urine Bilirubin Neg (NEG) Urine Urobilinogen Dipstick 0.2 mg/dL (0.2 mg/dL) Urine Leukocyte Esterase Small (NEG) Urine RBC 0 /HPF (0-2) Urine WBC 20-40 /HPF (0-4) Urine Squamous Epithelial Cells Many /LPF Urine Transitional Epithelial Cells Few /LPF Urine Bacteria Many /HPF (0-FEW) Urine Mucus Slight /LPF Current Medications: Meds: Current Medications Alprazolam (Xanax) 0.5 mg 1X ONCE PO Last administered on 07/07/18at 13:21; Start 07/07/18 at 13:15; Stop 07/07/18 at 13:18; Status DC Alprazolam (Xanax) 1 mg QID PO Last administered on 07/08/18at 16:47; Start at 21:00; Stop 07/08/18 at 19:32; Status DC Buspirone HCl (Buspar) 20 mg BID PO Last administered on 07/23/18at 19:45; Start 07/07/18 at 21:00 Donepezil HCl (Aricept) 10 mg QHS PO Last administered on 07/23/18 19:45; Start 07/07/18 at 21:00 Non-Formulary Medication (Fluvoxamine Maleate ) 450 mg BID PO ; Start 07/07/18 at 21:00; Stop 07/07/18 at 21:00; Status DC Quetiapine Fumarate (SEROquel) 25 mg DAILY PO Last administered on 07/09/18 08: 50; Start 07/08/18 at 09:00; Stop 07/09/18 at 09:42; Status DC Quetiapine Fumarate (SEROquel) 200 mg QHS PO Last administered on 07/09/18 21: 34; Start 07/07/18 at 21:00; Stop 07/10/18 at 11:41; Status DC Acetaminophen (Tylenol) 650 mg PRN Q6HRS PRN PO PAIN; Start 07/07/18 at 19:45 Vitamin D (Vitamin D3) 2,000 unit DAILY PO Last administered on 07/23/18 07:33 ; Start 07/08/18 at 09:00 Cyanocobalamin (Vitamin B-12) 2,000 mcg DAILY PO Last administered on 07:33; Start 07/08/18 at 09:00 Al Hydroxide/Mg Hydroxide (Mylanta Plus Xs) 15 ml PRN AFTMEALHC PRN PO DYSPEPSIA; Start 07/07/18 at 19:45 Magnesium Hydroxide (Milk Of Magnesia) 2,400 mg PRN QHS PRN PO CONSTIPATION; Start 07/07/18 at 19:45 Multivitamins/ Calcium (Thera-M Plus) 1 tab DAILY PO Last administered on at 07:34; Start 07/08/18 at 09:00 Aspirin (Children'S Aspirin) 81 mg DAILYWBKFT PO Last administered on 06:53; Start 07/08/18 at 08:00 Calcium/Vitamin D (Oscal D 500mg/ 200uts) 2 tab DAILYWBKFT PO Last administered on 07/23/18 06:53; Start 07/08/18 at 08:00 Dicyclomine HCl (Bentyl) 20 mg QID PO Last administered on 07/12/18 13:10; Start 07/07/18 at 21:00; Stop 07/12/18 at 16:39; Status DC Folic Acid (Folic Acid) 1 mg DAILY PO Last administered on 07/12/18 08:44; Start 07/08/18 at 09:00; Stop 07/12/18 at 16:39; Status DC Acetaminophen/ Hydrocodone Bitart (Lortab 5/325) 0.5 tab PRN BID PRN PO PAIN; Start 07/07/18 at 20:00; Stop 07/07/18 at 23:33; Status DC Loperamide HCl (Imodium) 2 mg DAILY PO Last administered on 07/11/18 08:21; Start 07/08/18 at 09:00; Stop 07/11/18 at 12:05; Status DC Non-Formulary Medication (Mometasone Furoate (Asmanex)) 110 mcg BID IH ; Start 07/07/18 at 21:00; Stop 07/07/18 at 21:00; Status DC Pyridoxine HCl (Vitamin B-6) 100 mg DAILY PO Last administered on 07/12/18 08: 47; Start 07/08/18 at 09:00; Stop 07/12/18 at 16:40; Status DC Raloxifene HCl (Evista) 60 mg DAILY PO Last administered on 07/23/18 07:34; Start 07/08/18 at 09:00 Budesonide (Pulmicort) 0.5 mg RTBID NEB Last administered on 07/23/18 20:42; Start 07/07/18 at 20:00 Fluvoxamine Maleate (Luvox) 150 mg BID PO Last administered on 07/14/18 08:22 ; Start 07/07/18 at 21:00; Stop 07/14/18 at 18:15; Status DC Acetaminophen/ Hydrocodone Bitart (Lortab 5/325) 0.5 tab BID PO Last administered on 07/23/18 19:46; Start 07/08/18 at 09:00 Alprazolam (Xanax) 1 mg 0900,1300,1700 PO Last administered on 07/10/18 17:15; Start 07/09/18 at 09:00; Stop 07/10/18 at 23:50; Status DC Alprazolam (Xanax) 0.5 mg QHS PO Last administered on 3/7/19at 20:43; Start 07/08/18 at 21:00; Stop 07/10/18 at 23:50; Status DC Alprazolam (Xanax) 0.5 mg BID PO Last administered on 07/22/18at 08:25; Start at 21:00; Stop 07/22/18 at 19:40; Status DC Alprazolam (Xanax) 0.5 mg 1300,1700 PO Last administered on 07/23/18at 16:46; Start 07/11/18 at 13:00; Stop 07/24/18 at 12:59 Trazodone HCl (Desyrel) 50 mg PRN QHS PRN PO INSOMNIA, September X1; Start 07/08/18 at 19:30 Risperidone (RisperDAL) 0.25 mg DAILY PO ; Start 07/10/18 at 09:00; Stop 07/10/18 at 09:00; Status DC Risperidone (RisperDAL) 0.25 mg QHS PO Last administered on 07/09/18at 21:41; Start 07/09/18 at 21:00; Stop 07/10/18 at 11:43; Status DC Quetiapine Fumarate (SEROquel) 150 mg QHS PO Last administered on 07/21/18at 20: 11; Start 07/10/18 at 21:00; Stop 07/22/18 at 19:40; Status DC Risperidone (RisperDAL) 0.5 mg QHS PO Last administered on 07/14/18at 20:26; Start 07/10/18 at 21:00; Stop 07/15/18 at 06:00; Status DC Loperamide HCl (Imodium) 2 mg BID PO ; Start 07/11/18 at 21:00; Stop 07/11/18 at 21:00; Status DC Loperamide HCl (Imodium) 2 mg TID PO Last administered on 07/23/18at 19:45; Start 07/11/18 at 16:15 Fluvoxamine Maleate (Luvox) 100 mg BID PO Last administered on 07/23/18 19:46 ; Start 07/14/18 at 21:00 Risperidone (RisperDAL) 0.5 mg BID PO Last administered on 07/23/18at 19:46; Start 07/14/18 at 21:00 Throat Lozenges (Cepacol Sore Throat Lozenge) 1 alexandra PRN Q2HR PRN PO SORE THROAT ; Start 07/22/18 at 18:30 Alprazolam (Xanax) 0.5 mg DAILY PO Last administered on 07/23/18at 07:36; Start 07/23/18 at 09:00 Quetiapine Fumarate (SEROquel) 100 mg QHS PO Last administered on 07/23/18at 19: 46; Start 07/22/18 at 21:00; Stop 07/24/18 at 23:50 Quetiapine Fumarate (SEROquel) 50 mg QHS PO ; Start 07/25/18 at 21:00; Stop at 23:50 Alprazolam (Xanax) 0.25 mg QHS PO Last administered on 07/23/18at 19:45; Start 07/22/18 at 21:00 Alprazolam (Xanax) 0.25 mg 1700 PO ; Start 07/25/18 at 17:00 Alprazolam (Xanax) 0.5 mg 1300 PO ; Start 07/25/18 at 13:00 Active Scripts Active Reported Hydrocodone-Acetamin 5-325 mg (Hydrocodone/Acetaminophen) 1 Each Tablet 0.5 Tab PO BID PRN Seroquel (Quetiapine Fumarate) 200 Mg Tablet 200 Mg PO HS Fluvoxamine Maleate 100 Mg Tablet 150 Mg PO BID Caltrate 600 + D Tablet (Calcium Carbonate/Vitamin D3) 1 Each Tablet 2 Tab PO DAILY Milk Of Magnesia (Magnesium Hydroxide) 400 Mg/5 Ml Oral.susp 2,400 Mg PO PRN QHS PRN Imodium A-D (Loperamide HCl) 2 Mg Capsule 2 Mg PO DAILY Mag-Al Plus Xs Suspension (Mag Hydrox/Al Hydrox/Simeth) 30 Ml Oral.susp 15 Ml PO PRN AFTMEALHC PRN Seroquel (Quetiapine Fumarate) 25 Mg Tablet 25 Mg PO DAILY Ventolin Hfa Inhaler (Albuterol Sulfate) 18 Gm Hfa.aer.ad 1 Puff IH PRN Q4HRS PRN Asmanex (Mometasone Furoate) 110 Mcg Aer.pow.ba 110 Mcg IH BID Aricept (Donepezil Hcl) 10 Mg Tablet 1 Tab PO QHS Buspirone Hcl 10 Mg Tablet 20 Mg PO BID Thera-M Tablet (Multivits,Ca,Minerals/Iron/Fa) 1 Each Tablet 1 Tab PO DAILY Vitamin B-12 (Cyanocobalamin (Vitamin B-12)) 1,000 Mcg Tablet 2,000 Mcg PO DAILY Tylenol (Acetaminophen) 325 Mg Tablet 650 Mg PO PRN Q6HRS PRN Folic Acid 1 Mg Tablet 1 Mg PO DAILY Aspirin 81 Mg Tab.chew 81 Mg PO DAILY Vitamin D3 (Cholecalciferol (Vitamin D3)) 1,000 Unit Tablet 2,000 Unit PO DAILY Vitamin B-6 (Pyridoxine Hcl) 100 Mg Tablet 100 Mg PO DAILY Evista (Raloxifene Hcl) 60 Mg Tablet 60 Mg PO DAILY Alprazolam 1 Mg Tablet 1 Mg PO QID Dicyclomine Hcl 20 Mg Tablet 20 Mg PO QID I have reviewed the current psychotropics carefully including drug interactions. Risk benefit ratio favors no change other than as noted in my dictated progress note. Diagnosis: Problems: (1) Anxiety disorder (2) Obsessive compulsive disorder (3) Psychosis, atypical (4) Major depressive disorder, recurrent episode (5) Seizure (6) Dementia (7) KAYLAN Torrez MD Jul 23, 2018 22:58
--- NOTE | 2018-07-23 23:38 | PN ---
DATE: 07/22/2018 This late entry for 07/22/2018 covers elements not covered in my initial note. SUBJECTIVE: I met with the patient in the evening at some length in her room. She had a solid bowel movement in the morning, slept 7-1/2 hours. REVIEW OF SYSTEMS: Positive for impaired ambulation with walker. No CV, , pulmonary, eye system symptoms on review. MENTAL STATUS EXAM: Reasonably oriented. Speech is coherent, abstraction fair, computation impaired, language function intact. She seems less anxious, still somewhat obsessive. No suicidal or homicidal ideation. LABORATORY DATA: Reviewed. IMPRESSION: Unchanged from initial note. PLAN: We will go ahead and taper the Xanax by 0.25 mg, reduction every 3 days. She is also on Risperdal 0.5 b.i.d., Seroquel 150 at bedtime and we will reduce the Seroquel to 100 mg a day and 3 days later to 50 mg a day and 3 days later stop it to avoid duplication of two atypical antipsychotics. We will adjust further as clinically indicated and check UA for UTI. KAYLAN RAGLAND MD DR: NABIL/sasha JOB#: [id number] / [id number]
[2018-07-24 06:25] VITALS: BP 109/71
[2018-07-24] MEDS: CALCIUM CARB/VIT D3 500/200 TABLET PO SCH (08:12)
[2018-07-24] MEDS: risperiDONE 0.5 MG TABLET. PO SCH ×2 (08:12→19:49)
[2018-07-24] MEDS: RALOXIFENE 60 MG TABLET. PO SCH (08:12)
[2018-07-24] MEDS: CYANOCOBALAMIN (VITAMIN B-12) 1,000 MCG TABLET. PO SCH (08:12)
[2018-07-24] MEDS: CHOLECALCIFEROL (VITAMIN D3) 1,000 UNIT TABLET PO SCH (08:12)
[2018-07-24] MEDS: ASPIRIN 81 MG TAB.CHEW PO SCH (08:13)
[2018-07-24] MEDS: LOPERAMIDE 2 MG CAPSULE PO SCH ×3 (08:13→19:49)
[2018-07-24] MEDS: busPIRone 10 MG TABLET. PO SCH ×2 (08:13→19:49)
[2018-07-24] MEDS: MULTIVITAMIN with MINERAL TABLET. PO SCH (08:13)
[2018-07-24] MEDS: HYDROcodone/APAP 5/325MG 1 TAB TABLET PO SCH ×2 (08:14→19:51)
[2018-07-24] MEDS: ALPRAZolam 0.5 MG TABLET PO SCH ×3 (08:14→17:25)
[2018-07-24] MEDS: BUDESONIDE 0.5 MG/2 ML NEBU NEB SCH ×2 (11:47→21:04)
[2018-07-24 16:13] VITALS: BP 95/62
[2018-07-24] MEDS: DONEPEZIL HCL 10 MG TABLET PO SCH (19:49)
[2018-07-24] MEDS: QUEtiapine 100 MG TABLET. PO SCH (19:49)
[2018-07-24] MEDS: ALPRAZolam 0.25 MG TABLET PO SCH (19:50)
--- NOTE | 2018-07-24 22:43 | PDOC ---
Exam Note: Lencho Note: Please also refer to the separate dictated note~for this date of service dictated separately.~Patient seen individually. Discussed the patient with Nursing staff reviewed the chart.~Reviewed interim history and current functioning. Reviewed vital signs,~Labs/ Radiology~and current medications noted below. Continue current treatment with the changes noted in the dictated addendum note Assessment: Vital Signs: Vital Signs Date Time Temp Pulse Resp B/P (MAP) Pulse Ox O2 Delivery O2 Flow Rate FiO2 07/24/18 22:21 93 07/24/18 21:04 Room Air 07/24/18 16:13 98.6 79 20 95/62 (73) I&O Intake and Output 07/24/18 07:00 Intake Total 1920 ml Balance 1920 ml Intake Oral 1920 ml # Bowel Movements 1 Current Medications: Meds: Current Medications Alprazolam (Xanax) 0.5 mg 1X ONCE PO Last administered on 07/07/18 13:21; Start 07/07/18 at 13:15; Stop 07/07/18 at 13:18; Status DC Alprazolam (Xanax) 1 mg QID PO Last administered on 07/08/18at 16:47; Start at 21:00; Stop 07/08/18 at 19:32; Status DC Buspirone HCl (Buspar) 20 mg BID PO Last administered on 07/24/18at 19:49; Start 07/07/18 at 21:00 Donepezil HCl (Aricept) 10 mg QHS PO Last administered on 07/24/18at 19:49; Start 07/07/18 at 21:00 Non-Formulary Medication (Fluvoxamine Maleate ) 450 mg BID PO ; Start 07/07/18 at 21:00; Stop 07/07/18 at 21:00; Status DC Quetiapine Fumarate (SEROquel) 25 mg DAILY PO Last administered on 07/09/18at 08: 50; Start 07/08/18 at 09:00; Stop 07/09/18 at 09:42; Status DC Quetiapine Fumarate (SEROquel) 200 mg QHS PO Last administered on 07/09/18at 21: 34; Start 07/07/18 at 21:00; Stop 07/10/18 at 11:41; Status DC Acetaminophen (Tylenol) 650 mg PRN Q6HRS PRN PO PAIN; Start 07/07/18 at 19:45 Vitamin D (Vitamin D3) 2,000 unit DAILY PO Last administered on 07/24/18at 08:12 ; Start 07/08/18 at 09:00 Cyanocobalamin (Vitamin B-12) 2,000 mcg DAILY PO Last administered on at 08:12; Start 07/08/18 at 09:00 Al Hydroxide/Mg Hydroxide (Mylanta Plus Xs) 15 ml PRN AFTMEALHC PRN PO DYSPEPSIA; Start 07/07/18 at 19:45 Magnesium Hydroxide (Milk Of Magnesia) 2,400 mg PRN QHS PRN PO CONSTIPATION; Start 07/07/18 at 19:45 Multivitamins/ Calcium (Thera-M Plus) 1 tab DAILY PO Last administered on 08:13; Start 07/08/18 at 09:00 Aspirin (Children'S Aspirin) 81 mg DAILYWBKFT PO Last administered on 08:13; Start 07/08/18 at 08:00 Calcium/Vitamin D (Oscal D 500mg/ 200uts) 2 tab DAILYWBKFT PO Last administered on 07/24/18 08:12; Start 07/08/18 at 08:00 Dicyclomine HCl (Bentyl) 20 mg QID PO Last administered on 07/12/18 13:10; Start 07/07/18 at 21:00; Stop 07/12/18 at 16:39; Status DC Folic Acid (Folic Acid) 1 mg DAILY PO Last administered on 07/12/18 08:44; Start 07/08/18 at 09:00; Stop 07/12/18 at 16:39; Status DC Acetaminophen/ Hydrocodone Bitart (Lortab 5/325) 0.5 tab PRN BID PRN PO PAIN; Start 07/07/18 at 20:00; Stop 07/07/18 at 23:33; Status DC Loperamide HCl (Imodium) 2 mg DAILY PO Last administered on 07/11/18 08:21; Start 07/08/18 at 09:00; Stop 07/11/18 at 12:05; Status DC Non-Formulary Medication (Mometasone Furoate (Asmanex)) 110 mcg BID IH ; Start 07/07/18 at 21:00; Stop 07/07/18 at 21:00; Status DC Pyridoxine HCl (Vitamin B-6) 100 mg DAILY PO Last administered on 07/12/18at 08: 47; Start 07/08/18 at 09:00; Stop 07/12/18 at 16:40; Status DC Raloxifene HCl (Evista) 60 mg DAILY PO Last administered on 07/24/18at 08:12; Start 07/08/18 at 09:00 Budesonide (Pulmicort) 0.5 mg RTBID NEB Last administered on 07/24/18at 21:04; Start 07/07/18 at 20:00 Fluvoxamine Maleate (Luvox) 150 mg BID PO Last administered on 07/14/18at 08:22 ; Start 07/07/18 at 21:00; Stop 07/14/18 at 18:15; Status DC Acetaminophen/ Hydrocodone Bitart (Lortab 5/325) 0.5 tab BID PO Last administered on 07/24/18at 19:51; Start 07/08/18 at 09:00 Alprazolam (Xanax) 1 mg 0900,1300,1700 PO Last administered on 07/10/18at 17:15; Start 07/09/18 at 09:00; Stop 07/10/18 at 23:50; Status DC Alprazolam (Xanax) 0.5 mg QHS PO Last administered on 07/10/18at 20:43; Start 07/08/18 at 21:00; Stop 07/10/18 at 23:50; Status DC Alprazolam (Xanax) 0.5 mg BID PO Last administered on 07/22/18at 08:25; Start at 21:00; Stop 07/22/18 at 19:40; Status DC Alprazolam (Xanax) 0.5 mg 1300,1700 PO Last administered on 07/24/18at 17:25; Start 07/11/18 at 13:00; Stop 07/24/18 at 19:00; Status DC Trazodone HCl (Desyrel) 50 mg PRN QHS PRN PO INSOMNIA, MAY REPEAT X1; Start 07/08/18 at 19:30 Risperidone (RisperDAL) 0.25 mg DAILY PO ; Start 07/10/18 at 09:00; Stop 07/10/18 at 09:00; Status DC Risperidone (RisperDAL) 0.25 mg QHS PO Last administered on 07/09/18at 21:41; Start 07/09/18 at 21:00; Stop 07/10/18 at 11:43; Status DC Quetiapine Fumarate (SEROquel) 150 mg QHS PO Last administered on 07/21/18at 20: 11; Start 07/10/18 at 21:00; Stop 07/22/18 at 19:40; Status DC Risperidone (RisperDAL) 0.5 mg QHS PO Last administered on 07/14/18 20:26; Start 07/10/18 at 21:00; Stop 07/15/18 at 06:00; Status DC Loperamide HCl (Imodium) 2 mg BID PO ; Start 07/11/18 at 21:00; Stop 07/11/18 at 21:00; Status DC Loperamide HCl (Imodium) 2 mg TID PO Last administered on 07/24/18 19:49; Start 07/11/18 at 16:15 Fluvoxamine Maleate (Luvox) 100 mg BID PO Last administered on 07/24/18at 19:49 ; Start 07/14/18 at 21:00 Risperidone (RisperDAL) 0.5 mg BID PO Last administered on 07/24/18 19:49; Start 07/14/18 at 21:00 Throat Lozenges (Cepacol Sore Throat Lozenge) 1 alexandra PRN Q2HR PRN PO SORE THROAT ; Start 07/22/18 at 18:30 Alprazolam (Xanax) 0.5 mg DAILY PO Last administered on 07/24/18at 08:14; Start 07/23/18 at 09:00 Quetiapine Fumarate (SEROquel) 100 mg QHS PO Last administered on 07/24/18 19: 49; Start 07/22/18 at 21:00; Stop 07/24/18 at 23:50 Quetiapine Fumarate (SEROquel) 50 mg QHS PO ; Start 07/25/18 at 21:00; Stop at 23:50 Alprazolam (Xanax) 0.25 mg QHS PO Last administered on 07/24/18at 19:50; Start 07/22/18 at 21:00 Alprazolam (Xanax) 0.25 mg 1700 PO ; Start 07/25/18 at 17:00 Alprazolam (Xanax) 0.5 mg 1300 PO ; Start 07/25/18 at 13:00 Active Scripts Active Reported Hydrocodone-Acetamin 5-325 mg (Hydrocodone/Acetaminophen) 1 Each Tablet 0.5 Tab PO BID PRN Seroquel (Quetiapine Fumarate) 200 Mg Tablet 200 Mg PO HS Fluvoxamine Maleate 100 Mg Tablet 150 Mg PO BID Caltrate 600 + D Tablet (Calcium Carbonate/Vitamin D3) 1 Each Tablet 2 Tab PO DAILY Milk Of Magnesia (Magnesium Hydroxide) 400 Mg/5 Ml Oral.susp 2,400 Mg PO PRN QHS PRN Imodium A-D (Loperamide HCl) 2 Mg Capsule 2 Mg PO DAILY Mag-Al Plus Xs Suspension (Mag Hydrox/Al Hydrox/Simeth) 30 Ml Oral.susp 15 Ml PO PRN AFTMEALHC PRN Seroquel (Quetiapine Fumarate) 25 Mg Tablet 25 Mg PO DAILY Ventolin Hfa Inhaler (Albuterol Sulfate) 18 Gm Hfa.aer.ad 1 Puff IH PRN Q4HRS PRN Asmanex (Mometasone Furoate) 110 Mcg Aer.pow.ba 110 Mcg IH BID Aricept (Donepezil Hcl) 10 Mg Tablet 1 Tab PO QHS Buspirone Hcl 10 Mg Tablet 20 Mg PO BID Thera-M Tablet (Multivits,Ca,Minerals/Iron/Fa) 1 Each Tablet 1 Tab PO DAILY Vitamin B-12 (Cyanocobalamin (Vitamin B-12)) 1,000 Mcg Tablet 2,000 Mcg PO DAILY Tylenol (Acetaminophen) 325 Mg Tablet 650 Mg PO PRN Q6HRS PRN Folic Acid 1 Mg Tablet 1 Mg PO DAILY Aspirin 81 Mg Tab.chew 81 Mg PO DAILY Vitamin D3 (Cholecalciferol (Vitamin D3)) 1,000 Unit Tablet 2,000 Unit PO DAILY Vitamin B-6 (Pyridoxine Hcl) 100 Mg Tablet 100 Mg PO DAILY Evista (Raloxifene Hcl) 60 Mg Tablet 60 Mg PO DAILY Alprazolam 1 Mg Tablet 1 Mg PO QID Dicyclomine Hcl 20 Mg Tablet 20 Mg PO QID I have reviewed the current psychotropics carefully including drug interactions. Risk benefit ratio favors no change other than as noted in my dictated progress note. Diagnosis: Problems: (1) Anxiety disorder (2) Obsessive compulsive disorder (3) Psychosis, atypical (4) Major depressive disorder, recurrent episode (5) Seizure (6) Dementia (7) KAYLAN Torrez MD Jul 24, 2018 22:42
[2018-07-25] MEDS: BUDESONIDE 0.5 MG/2 ML NEBU NEB SCH ×2 (05:27→21:14)
[2018-07-25 06:29] VITALS: BP 125/76
[2018-07-25 08:12] LABS: HEMATOCRIT 35.7 % (36.0-47.0); HEMOGLOBIN 12.2 g/dL (12.0-15.5); RED BLOOD COUNT 3.85 x10^6/uL (3.50-5.40); RED CELL DISTRIBUTION WIDTH 13.4 % (11.5-14.5); WHITE BLOOD COUNT 6.9 x10^3/uL (4.0-11.0)
[2018-07-25] MEDS: RALOXIFENE 60 MG TABLET. PO SCH (08:14)
[2018-07-25] MEDS: risperiDONE 0.5 MG TABLET. PO SCH ×2 (08:14→19:37)
[2018-07-25] MEDS: CHOLECALCIFEROL (VITAMIN D3) 1,000 UNIT TABLET PO SCH (08:14)
[2018-07-25] MEDS: MULTIVITAMIN with MINERAL TABLET. PO SCH (08:15)
[2018-07-25] MEDS: ASPIRIN 81 MG TAB.CHEW PO SCH (08:15)
[2018-07-25] MEDS: LOPERAMIDE 2 MG CAPSULE PO SCH ×3 (08:15→19:38)
[2018-07-25] MEDS: CALCIUM CARB/VIT D3 500/200 TABLET PO SCH (08:15)
[2018-07-25] MEDS: busPIRone 10 MG TABLET. PO SCH ×2 (08:15→19:38)
[2018-07-25] MEDS: CYANOCOBALAMIN (VITAMIN B-12) 1,000 MCG TABLET. PO SCH (08:15)
[2018-07-25] MEDS: ALPRAZolam 0.5 MG TABLET PO SCH ×2 (08:18→13:27)
[2018-07-25] MEDS: HYDROcodone/APAP 5/325MG 1 TAB TABLET PO SCH ×2 (08:22→19:48)
[2018-07-25 08:30] LABS: ALBUMIN 3.2 g/dL (3.4-5.0); CALCIUM 9.6 mg/dL (8.5-10.1); CREATININE 0.9 mg/dL (0.6-1.0); GFR 61.4; POTASSIUM 3.8 mmol/L (3.5-5.1); TOTAL BILIRUBIN 0.2 mg/dL (0.2-1.0); TOTAL PROTEIN 6.4 g/dL (6.4-8.2)
[2018-07-25 16:16] VITALS: BP 118/74
[2018-07-25] MEDS: ALPRAZolam 0.25 MG TABLET PO SCH ×2 (16:45→19:47)
--- NOTE | 2018-07-25 19:31 | PN ---
DATE: 07/23/2018 PSYCHIATRIC PROGRESS NOTE This late entry 07/23/2018 covers elements not covered in my initial note. SUBJECTIVE: I met with the patient in the evening. Overall, the patient appeared little more disorganized in the morning, confused. UA is positive, has reflex to culture and this may account for this change. She was mildly febrile. I will defer medical management to Dr. Schwarz. She slept 7-3/4 hours previous night. REVIEW OF SYSTEMS: Ambulation impaired with walker, some intermittent diarrhea. No CV, eye, ENT, integumentary system symptoms on review. MENTAL STATUS EXAM: Reasonably oriented. Speech is coherent, very pleasant, abstraction fair, computation impaired. She is somewhat obsessive, processed ways cognitively to improve this. No active suicidal or homicidal ideation. LABORATORY DATA: Reviewed. IMPRESSION: Unchanged from initial note. PLAN: No change from initial note. Treat UTI once culture returns. This will hopefully help with the confusion and sedation as well. MAN Dane RAGLAND MD DR: NABIL/sasha JOB#: [id number] / [id number]
[2018-07-25] MEDS: DONEPEZIL HCL 10 MG TABLET PO SCH (19:38)
--- NOTE | 2018-07-25 19:38 | PN ---
DATE: 07/24/2018 PSYCHIATRIC PROGRESS NOTE This late entry 07/24/2018 covers elements not covered in my initial note. SUBJECTIVE: I met with the patient in the evening, staffed at a treatment team meeting with the entire team in the morning. Reviewed her history and outpatient treatment with Dr. Lopez, Psychiatry. Activity therapy indicated she was somewhat sedated. We are probably going to be treating her for UTI once culture returns and this should help. She slept 6 hours. Appetite 80%. She is somewhat needy, anxious. REVIEW OF SYSTEMS: Ambulation impaired with walker. No CV, , pulmonary, eye, ENT system symptoms on review. Does have some intermittent diarrhea. MENTAL STATUS EXAM: Reasonably oriented. Speech is coherent, abstraction fair, computation impaired, language function intact, attention span short. Mood and affect remain somewhat anxious, dysphoric, obsessive at times. LABORATORY DATA: Reviewed. IMPRESSION: Unchanged from initial note. PLAN: No change from initial note other than above. KAYLAN RAGLAND MD DR: NABIL/sasha JOB#: [id number] / [id number]
[2018-07-25] MEDS: QUEtiapine 50 MG TABLET. PO SCH (19:47)
[2018-07-25] MEDS: traZODone 50 MG TABLET. PO PRN (22:44)
--- NOTE | 2018-07-25 22:54 | PDOC ---
Exam Note: Lencho Note: Please also refer to the separate dictated note~for this date of service dictated separately.~Patient seen individually. Discussed the patient with Nursing staff reviewed the chart.~Reviewed interim history and current functioning. Reviewed vital signs,~Labs/ Radiology~and current medications noted below. Continue current treatment with the changes noted in the dictated addendum note Assessment: Vital Signs: Vital Signs Date Time Temp Pulse Resp B/P (MAP) Pulse Ox O2 Delivery O2 Flow Rate FiO2 07/25/18 22:20 96 07/25/18 20:50 Room Air 07/25/18 16:16 97.8 83 18 118/74 (89) I&O Intake and Output 07/25/18 07:00 Intake Total 960 ml Balance 960 ml Intake Oral 960 ml # Bowel Movements 1 Labs: Laboratory Tests Test 07/25/18 07:03 White Blood Count 6.9 x10^3/uL (4.0-11.0) Red Blood Count 3.85 x10^6/uL (3.50-5.40) Hemoglobin 12.2 g/dL (12.0-15.5) Hematocrit 35.7 % (36.0-47.0) L Mean Corpuscular Volume 93 fL (79-100) Mean Corpuscular Hemoglobin 32 pg (25-35) Mean Corpuscular Hemoglobin Concent 34 g/dL (31-37) Red Cell Distribution Width 13.4 % (11.5-14.5) Platelet Count 245 x10^3/uL (140-400) Sodium Level 141 mmol/L (136-145) Potassium Level 3.8 mmol/L (3.5-5.1) Chloride Level 105 mmol/L (98-107) Carbon Dioxide Level 27 mmol/L (21-32) Anion Gap 9 (6-14) Blood Urea Nitrogen 11 mg/dL (7-20) Creatinine 0.9 mg/dL (0.6-1.0) Estimated GFR (Cockcroft-Gault) 61.4 BUN/Creatinine Ratio 12 (6-20) Glucose Level 82 mg/dL (70-99) Calcium Level 9.6 mg/dL (8.5-10.1) Total Bilirubin 0.2 mg/dL (0.2-1.0) Aspartate Amino Transferase (AST) 19 U/L (15-37) Alanine Aminotransferase (ALT) 18 U/L (14-59) Alkaline Phosphatase 63 U/L (46-116) Total Protein 6.4 g/dL (6.4-8.2) Albumin 3.2 g/dL (3.4-5.0) L Albumin/Globulin Ratio 1.0 (1.0-1.7) Current Medications: Meds: Current Medications Alprazolam (Xanax) 0.5 mg 1X ONCE PO Last administered on 07/07/18 13:21; Start 07/07/18 at 13:15; Stop 07/07/18 at 13:18; Status DC Alprazolam (Xanax) 1 mg QID PO Last administered on 07/08/18 16:47; Start at 21:00; Stop 07/08/18 at 19:32; Status DC Buspirone HCl (Buspar) 20 mg BID PO Last administered on 07/25/18 19:38; Start 07/07/18 at 21:00 Donepezil HCl (Aricept) 10 mg QHS PO Last administered on 07/25/18 19:38; Start 07/07/18 at 21:00 Non-Formulary Medication (Fluvoxamine Maleate ) 450 mg BID PO ; Start 07/07/18 at 21:00; Stop 07/07/18 at 21:00; Status DC Quetiapine Fumarate (SEROquel) 25 mg DAILY PO Last administered on 07/09/18 08: 50; Start 07/08/18 at 09:00; Stop 07/09/18 at 09:42; Status DC Quetiapine Fumarate (SEROquel) 200 mg QHS PO Last administered on 07/09/18 21: 34; Start 07/07/18 at 21:00; Stop 07/10/18 at 11:41; Status DC Acetaminophen (Tylenol) 650 mg PRN Q6HRS PRN PO PAIN; Start 07/07/18 at 19:45 Vitamin D (Vitamin D3) 2,000 unit DAILY PO Last administered on 07/25/18 08:14 ; Start 07/08/18 at 09:00 Cyanocobalamin (Vitamin B-12) 2,000 mcg DAILY PO Last administered on at 08:15; Start 07/08/18 at 09:00 Al Hydroxide/Mg Hydroxide (Mylanta Plus Xs) 15 ml PRN AFTMEALHC PRN PO DYSPEPSIA; Start 07/07/18 at 19:45 Magnesium Hydroxide (Milk Of Magnesia) 2,400 mg PRN QHS PRN PO CONSTIPATION; Start 07/07/18 at 19:45 Multivitamins/ Calcium (Thera-M Plus) 1 tab DAILY PO Last administered on at 08:15; Start 07/08/18 at 09:00 Aspirin (Children'S Aspirin) 81 mg DAILYWBKFT PO Last administered on at 08:15; Start 07/08/18 at 08:00 Calcium/Vitamin D (Oscal D 500mg/ 200uts) 2 tab DAILYWBKFT PO Last administered on 07/25/18at 08:15; Start 07/08/18 at 08:00 Dicyclomine HCl (Bentyl) 20 mg QID PO Last administered on 07/12/18at 13:10; Start 07/07/18 at 21:00; Stop 07/12/18 at 16:39; Status DC Folic Acid (Folic Acid) 1 mg DAILY PO Last administered on 07/12/18at 08:44; Start 07/08/18 at 09:00; Stop 07/12/18 at 16:39; Status DC Acetaminophen/ Hydrocodone Bitart (Lortab 5/325) 0.5 tab PRN BID PRN PO PAIN; Start 07/07/18 at 20:00; Stop 07/07/18 at 23:33; Status DC Loperamide HCl (Imodium) 2 mg DAILY PO Last administered on 07/11/18at 08:21; Start 07/08/18 at 09:00; Stop 07/11/18 at 12:05; Status DC Non-Formulary Medication (Mometasone Furoate (Asmanex)) 110 mcg BID IH ; Start 07/07/18 at 21:00; Stop 07/07/18 at 21:00; Status DC Pyridoxine HCl (Vitamin B-6) 100 mg DAILY PO Last administered on 07/12/18at 08: 47; Start 07/08/18 at 09:00; Stop 07/12/18 at 16:40; Status DC Raloxifene HCl (Evista) 60 mg DAILY PO Last administered on 07/25/18 08:14; Start 07/08/18 at 09:00 Budesonide (Pulmicort) 0.5 mg RTBID NEB Last administered on 07/25/18 21:14; Start 07/07/18 at 20:00 Fluvoxamine Maleate (Luvox) 150 mg BID PO Last administered on 07/14/18 08:22 ; Start 07/07/18 at 21:00; Stop 07/14/18 at 18:15; Status DC Acetaminophen/ Hydrocodone Bitart (Lortab 5/325) 0.5 tab BID PO Last administered on 07/25/18 19:48; Start 07/08/18 at 09:00 Alprazolam (Xanax) 1 mg 0900,1300,1700 PO Last administered on 07/10/18 17:15; Start 07/09/18 at 09:00; Stop 07/10/18 at 23:50; Status DC Alprazolam (Xanax) 0.5 mg QHS PO Last administered on 07/10/18 20:43; Start 07/08/18 at 21:00; Stop 07/10/18 at 23:50; Status DC Alprazolam (Xanax) 0.5 mg BID PO Last administered on 07/22/18 08:25; Start at 21:00; Stop 07/22/18 at 19:40; Status DC Alprazolam (Xanax) 0.5 mg 1300,1700 PO Last administered on 07/24/18at 17:25; Start 07/11/18 at 13:00; Stop 07/24/18 at 19:00; Status DC Trazodone HCl (Desyrel) 50 mg PRN QHS PRN PO INSOMNIA, MAY REPEAT X1 Last administered on 07/25/18 22:44; Start 07/08/18 at 19:30 Risperidone (RisperDAL) 0.25 mg DAILY PO ; Start 07/10/18 at 09:00; Stop 07/10/18 at 09:00; Status DC Risperidone (RisperDAL) 0.25 mg QHS PO Last administered on 07/09/18at 21:41; Start 07/09/18 at 21:00; Stop 07/10/18 at 11:43; Status DC Quetiapine Fumarate (SEROquel) 150 mg QHS PO Last administered on 07/21/18 20: 11; Start 07/10/18 at 21:00; Stop 07/22/18 at 19:40; Status DC Risperidone (RisperDAL) 0.5 mg QHS PO Last administered on 07/14/18 20:26; Start 07/10/18 at 21:00; Stop 07/15/18 at 06:00; Status DC Loperamide HCl (Imodium) 2 mg BID PO ; Start 07/11/18 at 21:00; Stop 07/11/18 at 21:00; Status DC Loperamide HCl (Imodium) 2 mg TID PO Last administered on 07/25/18 19:38; Start 07/11/18 at 16:15 Fluvoxamine Maleate (Luvox) 100 mg BID PO Last administered on 07/25/18 19:37 ; Start 07/14/18 at 21:00 Risperidone (RisperDAL) 0.5 mg BID PO Last administered on 07/25/18 19:37; Start 07/14/18 at 21:00 Throat Lozenges (Cepacol Sore Throat Lozenge) 1 alexandra PRN Q2HR PRN PO SORE THROAT ; Start 07/22/18 at 18:30 Alprazolam (Xanax) 0.5 mg DAILY PO Last administered on 07/25/18 08:18; Start 07/23/18 at 09:00 Quetiapine Fumarate (SEROquel) 100 mg QHS PO Last administered on 07/24/18 19: 49; Start 07/22/18 at 21:00; Stop 07/24/18 at 23:51; Status DC Quetiapine Fumarate (SEROquel) 50 mg QHS PO Last administered on 07/25/18 19: 47; Start 07/25/18 at 21:00; Stop 07/27/18 at 23:50 Alprazolam (Xanax) 0.25 mg QHS PO Last administered on 07/25/18 19:47; Start 07/22/18 at 21:00 Alprazolam (Xanax) 0.25 mg 1700 PO Last administered on 3/22/19at 16:45; Start 07/25/18 at 17:00 Alprazolam (Xanax) 0.5 mg 1300 PO Last administered on 07/25/18at 13:27; Start 07/25/18 at 13:00 Active Scripts Active Reported Hydrocodone-Acetamin 5-325 mg (Hydrocodone/Acetaminophen) 1 Each Tablet 0.5 Tab PO BID PRN Seroquel (Quetiapine Fumarate) 200 Mg Tablet 200 Mg PO HS Fluvoxamine Maleate 100 Mg Tablet 150 Mg PO BID Caltrate 600 + D Tablet (Calcium Carbonate/Vitamin D3) 1 Each Tablet 2 Tab PO DAILY Milk Of Magnesia (Magnesium Hydroxide) 400 Mg/5 Ml Oral.susp 2,400 Mg PO PRN QHS PRN Imodium A-D (Loperamide HCl) 2 Mg Capsule 2 Mg PO DAILY Mag-Al Plus Xs Suspension (Mag Hydrox/Al Hydrox/Simeth) 30 Ml Oral.susp 15 Ml PO PRN AFTMEALHC PRN Seroquel (Quetiapine Fumarate) 25 Mg Tablet 25 Mg PO DAILY Ventolin Hfa Inhaler (Albuterol Sulfate) 18 Gm Hfa.aer.ad 1 Puff IH PRN Q4HRS PRN Asmanex (Mometasone Furoate) 110 Mcg Aer.pow.ba 110 Mcg IH BID Aricept (Donepezil Hcl) 10 Mg Tablet 1 Tab PO QHS Buspirone Hcl 10 Mg Tablet 20 Mg PO BID Thera-M Tablet (Multivits,Ca,Minerals/Iron/Fa) 1 Each Tablet 1 Tab PO DAILY Vitamin B-12 (Cyanocobalamin (Vitamin B-12)) 1,000 Mcg Tablet 2,000 Mcg PO DAILY Tylenol (Acetaminophen) 325 Mg Tablet 650 Mg PO PRN Q6HRS PRN Folic Acid 1 Mg Tablet 1 Mg PO DAILY Aspirin 81 Mg Tab.chew 81 Mg PO DAILY Vitamin D3 (Cholecalciferol (Vitamin D3)) 1,000 Unit Tablet 2,000 Unit PO DAILY Vitamin B-6 (Pyridoxine Hcl) 100 Mg Tablet 100 Mg PO DAILY Evista (Raloxifene Hcl) 60 Mg Tablet 60 Mg PO DAILY Alprazolam 1 Mg Tablet 1 Mg PO QID Dicyclomine Hcl 20 Mg Tablet 20 Mg PO QID I have reviewed the current psychotropics carefully including drug interactions. Risk benefit ratio favors no change other than as noted in my dictated progress note. Diagnosis: Problems: (1) Anxiety disorder (2) Obsessive compulsive disorder (3) Psychosis, atypical (4) Major depressive disorder, recurrent episode (5) Seizure (6) Dementia (7) KAYLAN Torrez MD Jul 25, 2018 22:54
[2018-07-26 05:59] VITALS: BP 127/94
[2018-07-26] MEDS: risperiDONE 0.5 MG TABLET. PO SCH ×2 (07:47→19:27)
[2018-07-26] MEDS: MULTIVITAMIN with MINERAL TABLET. PO SCH (07:47)
[2018-07-26] MEDS: busPIRone 10 MG TABLET. PO SCH ×2 (07:47→19:27)
[2018-07-26] MEDS: ASPIRIN 81 MG TAB.CHEW PO SCH (07:47)
[2018-07-26] MEDS: RALOXIFENE 60 MG TABLET. PO SCH (07:47)
[2018-07-26] MEDS: CYANOCOBALAMIN (VITAMIN B-12) 1,000 MCG TABLET. PO SCH (07:47)
[2018-07-26] MEDS: CHOLECALCIFEROL (VITAMIN D3) 1,000 UNIT TABLET PO SCH (07:47)
[2018-07-26] MEDS: LOPERAMIDE 2 MG CAPSULE PO SCH ×3 (07:47→19:27)
[2018-07-26] MEDS: CALCIUM CARB/VIT D3 500/200 TABLET PO SCH (07:47)
[2018-07-26] MEDS: ALPRAZolam 0.5 MG TABLET PO SCH ×2 (07:49→13:42)
[2018-07-26] MEDS: HYDROcodone/APAP 5/325MG 1 TAB TABLET PO SCH ×2 (07:50→19:29)
[2018-07-26] MEDS: BUDESONIDE 0.5 MG/2 ML NEBU NEB SCH ×2 (11:13→20:42)
[2018-07-26 16:44] VITALS: BP 113/71
[2018-07-26] MEDS: ALPRAZolam 0.25 MG TABLET PO SCH ×2 (16:49→19:28)
[2018-07-26] MEDS: QUEtiapine 50 MG TABLET. PO SCH (19:27)
[2018-07-26] MEDS: DONEPEZIL HCL 10 MG TABLET PO SCH (19:27)
--- NOTE | 2018-07-26 19:51 | PN ---
DATE: 07/25/2018 PSYCHIATRIC PROGRESS NOTE This late entry 07/25/2018 covers elements not covered in my initial note. SUBJECTIVE: I met with the patient in the evening. The patient slept 5-1/4 hours previous night. She was up at night, less anxious during the day on 07/25/2018. Stool for culture and sensitivity has been sent per Dr. Schwarz and urine culture result is awaited as well. REVIEW OF SYSTEMS: Ambulation impaired with walker. No CV, , pulmonary, eye system symptoms on review. Does have occasional diarrhea. MENTAL STATUS EXAM: Oriented reasonably. Speech is coherent, abstraction fair, computation impaired, language function intact. Mood and affect appear improved, less anxious, less obsessive. LABORATORY DATA: Reviewed. IMPRESSION: Unchanged from initial note. PLAN: No change from initial note. Followup and treat the UTI once culture result returns. MAN Dane RAGLAND MD DR: NABIL/sasha JOB#: [id number] / [id number]
--- NOTE | 2018-07-26 23:19 | PDOC ---
Exam Note: Lencho Note: Please also refer to the separate dictated note~for this date of service dictated separately.~Patient seen individually. Discussed the patient with Nursing staff reviewed the chart.~Reviewed interim history and current functioning. Reviewed vital signs,~Labs/ Radiology~and current medications noted below. Continue current treatment with the changes noted in the dictated addendum note Assessment: Vital Signs: Vital Signs Date Time Temp Pulse Resp B/P (MAP) Pulse Ox O2 Delivery O2 Flow Rate FiO2 07/26/18 20:44 96 Room Air 07/26/18 16:44 98.6 82 20 113/71 (85) I&O Intake and Output 07/26/18 07:00 Intake Total 720 ml Balance 720 ml Intake Oral 720 ml # Bowel Movements 4 Current Medications: Meds: Current Medications Alprazolam (Xanax) 0.5 mg 1X ONCE PO Last administered on 07/07/18 13:21; Start 07/07/18 at 13:15; Stop 07/07/18 at 13:18; Status DC Alprazolam (Xanax) 1 mg QID PO Last administered on 07/08/18 16:47; Start at 21:00; Stop 07/08/18 at 19:32; Status DC Buspirone HCl (Buspar) 20 mg BID PO Last administered on 07/26/18 19:27; Start 07/07/18 at 21:00 Donepezil HCl (Aricept) 10 mg QHS PO Last administered on 07/26/18at 19:27; Start 07/07/18 at 21:00 Non-Formulary Medication (Fluvoxamine Maleate ) 450 mg BID PO ; Start 07/07/18 at 21:00; Stop 07/07/18 at 21:00; Status DC Quetiapine Fumarate (SEROquel) 25 mg DAILY PO Last administered on 07/09/18 08: 50; Start 07/08/18 at 09:00; Stop 07/09/18 at 09:42; Status DC Quetiapine Fumarate (SEROquel) 200 mg QHS PO Last administered on 07/09/18 21: 34; Start 07/07/18 at 21:00; Stop 07/10/18 at 11:41; Status DC Acetaminophen (Tylenol) 650 mg PRN Q6HRS PRN PO PAIN; Start 07/07/18 at 19:45 Vitamin D (Vitamin D3) 2,000 unit DAILY PO Last administered on 07/26/18 07:47 ; Start 07/08/18 at 09:00 Cyanocobalamin (Vitamin B-12) 2,000 mcg DAILY PO Last administered on 07:47; Start 07/08/18 at 09:00 Al Hydroxide/Mg Hydroxide (Mylanta Plus Xs) 15 ml PRN AFTMEALHC PRN PO DYSPEPSIA; Start 07/07/18 at 19:45 Magnesium Hydroxide (Milk Of Magnesia) 2,400 mg PRN QHS PRN PO CONSTIPATION; Start 07/07/18 at 19:45 Multivitamins/ Calcium (Thera-M Plus) 1 tab DAILY PO Last administered on 07:47; Start 07/08/18 at 09:00 Aspirin (Children'S Aspirin) 81 mg DAILYWBKFT PO Last administered on 07:47; Start 07/08/18 at 08:00 Calcium/Vitamin D (Oscal D 500mg/ 200uts) 2 tab DAILYWBKFT PO Last administered on 07/26/18 07:47; Start 07/08/18 at 08:00 Dicyclomine HCl (Bentyl) 20 mg QID PO Last administered on 07/12/18 13:10; Start 07/07/18 at 21:00; Stop 07/12/18 at 16:39; Status DC Folic Acid (Folic Acid) 1 mg DAILY PO Last administered on 07/12/18at 08:44; Start 07/08/18 at 09:00; Stop 07/12/18 at 16:39; Status DC Acetaminophen/ Hydrocodone Bitart (Lortab 5/325) 0.5 tab PRN BID PRN PO PAIN; Start 07/07/18 at 20:00; Stop 07/07/18 at 23:33; Status DC Loperamide HCl (Imodium) 2 mg DAILY PO Last administered on 07/11/18at 08:21; Start 07/08/18 at 09:00; Stop 07/11/18 at 12:05; Status DC Non-Formulary Medication (Mometasone Furoate (Asmanex)) 110 mcg BID IH ; Start 07/07/18 at 21:00; Stop 07/07/18 at 21:00; Status DC Pyridoxine HCl (Vitamin B-6) 100 mg DAILY PO Last administered on 07/12/18 08: 47; Start 07/08/18 at 09:00; Stop 07/12/18 at 16:40; Status DC Raloxifene HCl (Evista) 60 mg DAILY PO Last administered on 07/26/18 07:47; Start 07/08/18 at 09:00 Budesonide (Pulmicort) 0.5 mg RTBID NEB Last administered on 07/26/18 20:42; Start 07/07/18 at 20:00 Fluvoxamine Maleate (Luvox) 150 mg BID PO Last administered on 07/14/18 08:22 ; Start 07/07/18 at 21:00; Stop 07/14/18 at 18:15; Status DC Acetaminophen/ Hydrocodone Bitart (Lortab 5/325) 0.5 tab BID PO Last administered on 07/26/18 19:29; Start 07/08/18 at 09:00 Alprazolam (Xanax) 1 mg 0900,1300,1700 PO Last administered on 07/10/18 17:15; Start 07/09/18 at 09:00; Stop 07/10/18 at 23:50; Status DC Alprazolam (Xanax) 0.5 mg QHS PO Last administered on 07/10/18 20:43; Start 07/08/18 at 21:00; Stop 07/10/18 at 23:50; Status DC Alprazolam (Xanax) 0.5 mg BID PO Last administered on 07/22/18at 08:25; Start at 21:00; Stop 07/22/18 at 19:40; Status DC Alprazolam (Xanax) 0.5 mg 1300,1700 PO Last administered on 07/24/18 17:25; Start 07/11/18 at 13:00; Stop 07/24/18 at 19:00; Status DC Trazodone HCl (Desyrel) 50 mg PRN QHS PRN PO INSOMNIA, MAY REPEAT X1 Last administered on 07/25/18at 22:44; Start 07/08/18 at 19:30 Risperidone (RisperDAL) 0.25 mg DAILY PO ; Start 07/10/18 at 09:00; Stop 07/10/18 at 09:00; Status DC Risperidone (RisperDAL) 0.25 mg QHS PO Last administered on 07/09/18 21:41; Start 07/09/18 at 21:00; Stop 07/10/18 at 11:43; Status DC Quetiapine Fumarate (SEROquel) 150 mg QHS PO Last administered on 07/21/18 20: 11; Start 07/10/18 at 21:00; Stop 07/22/18 at 19:40; Status DC Risperidone (RisperDAL) 0.5 mg QHS PO Last administered on 07/14/18 20:26; Start 07/10/18 at 21:00; Stop 07/15/18 at 06:00; Status DC Loperamide HCl (Imodium) 2 mg BID PO ; Start 07/11/18 at 21:00; Stop 07/11/18 at 21:00; Status DC Loperamide HCl (Imodium) 2 mg TID PO Last administered on 07/26/18 19:27; Start 07/11/18 at 16:15 Fluvoxamine Maleate (Luvox) 100 mg BID PO Last administered on 07/26/18 19:27 ; Start 07/14/18 at 21:00 Risperidone (RisperDAL) 0.5 mg BID PO Last administered on 07/26/18 19:27; Start 07/14/18 at 21:00 Throat Lozenges (Cepacol Sore Throat Lozenge) 1 alexandra PRN Q2HR PRN PO SORE THROAT ; Start 07/22/18 at 18:30 Alprazolam (Xanax) 0.5 mg DAILY PO Last administered on 07/26/18 07:49; Start 07/23/18 at 09:00 Quetiapine Fumarate (SEROquel) 100 mg QHS PO Last administered on 07/24/18 19: 49; Start 07/22/18 at 21:00; Stop 07/24/18 at 23:51; Status DC Quetiapine Fumarate (SEROquel) 50 mg QHS PO Last administered on 3/23/19at 19: 27; Start 07/25/18 at 21:00; Stop 07/27/18 at 23:50 Alprazolam (Xanax) 0.25 mg QHS PO Last administered on 07/26/18at 19:28; Start 07/22/18 at 21:00 Alprazolam (Xanax) 0.25 mg 1700 PO Last administered on 07/26/18at 16:49; Start 07/25/18 at 17:00 Alprazolam (Xanax) 0.5 mg 1300 PO Last administered on 07/26/18at 13:42; Start 07/25/18 at 13:00 Active Scripts Active Reported Hydrocodone-Acetamin 5-325 mg (Hydrocodone/Acetaminophen) 1 Each Tablet 0.5 Tab PO BID PRN Seroquel (Quetiapine Fumarate) 200 Mg Tablet 200 Mg PO HS Fluvoxamine Maleate 100 Mg Tablet 150 Mg PO BID Caltrate 600 + D Tablet (Calcium Carbonate/Vitamin D3) 1 Each Tablet 2 Tab PO DAILY Milk Of Magnesia (Magnesium Hydroxide) 400 Mg/5 Ml Oral.susp 2,400 Mg PO PRN QHS PRN Imodium A-D (Loperamide HCl) 2 Mg Capsule 2 Mg PO DAILY Mag-Al Plus Xs Suspension (Mag Hydrox/Al Hydrox/Simeth) 30 Ml Oral.susp 15 Ml PO PRN AFTMEALHC PRN Seroquel (Quetiapine Fumarate) 25 Mg Tablet 25 Mg PO DAILY Ventolin Hfa Inhaler (Albuterol Sulfate) 18 Gm Hfa.aer.ad 1 Puff IH PRN Q4HRS PRN Asmanex (Mometasone Furoate) 110 Mcg Aer.pow.ba 110 Mcg IH BID Aricept (Donepezil Hcl) 10 Mg Tablet 1 Tab PO QHS Buspirone Hcl 10 Mg Tablet 20 Mg PO BID Thera-M Tablet (Multivits,Ca,Minerals/Iron/Fa) 1 Each Tablet 1 Tab PO DAILY Vitamin B-12 (Cyanocobalamin (Vitamin B-12)) 1,000 Mcg Tablet 2,000 Mcg PO DAILY Tylenol (Acetaminophen) 325 Mg Tablet 650 Mg PO PRN Q6HRS PRN Folic Acid 1 Mg Tablet 1 Mg PO DAILY Aspirin 81 Mg Tab.chew 81 Mg PO DAILY Vitamin D3 (Cholecalciferol (Vitamin D3)) 1,000 Unit Tablet 2,000 Unit PO DAILY Vitamin B-6 (Pyridoxine Hcl) 100 Mg Tablet 100 Mg PO DAILY Evista (Raloxifene Hcl) 60 Mg Tablet 60 Mg PO DAILY Alprazolam 1 Mg Tablet 1 Mg PO QID Dicyclomine Hcl 20 Mg Tablet 20 Mg PO QID I have reviewed the current psychotropics carefully including drug interactions. Risk benefit ratio favors no change other than as noted in my dictated progress note. Diagnosis: Problems: (1) Anxiety disorder (2) Obsessive compulsive disorder (3) Psychosis, atypical (4) Major depressive disorder, recurrent episode (5) Seizure (6) Dementia (7) KAYLAN Torrez MD Jul 26, 2018 23:19
[2018-07-27 06:12] VITALS: BP 101/64
[2018-07-27] MEDS: RALOXIFENE 60 MG TABLET. PO SCH (07:44)
[2018-07-27] MEDS: risperiDONE 0.5 MG TABLET. PO SCH ×2 (07:44→19:21)
[2018-07-27] MEDS: ASPIRIN 81 MG TAB.CHEW PO SCH (07:44)
[2018-07-27] MEDS: LOPERAMIDE 2 MG CAPSULE PO SCH ×3 (07:44→19:21)
[2018-07-27] MEDS: CHOLECALCIFEROL (VITAMIN D3) 1,000 UNIT TABLET PO SCH (07:44)
[2018-07-27] MEDS: CALCIUM CARB/VIT D3 500/200 TABLET PO SCH (07:44)
[2018-07-27] MEDS: MULTIVITAMIN with MINERAL TABLET. PO SCH (07:45)
[2018-07-27] MEDS: busPIRone 10 MG TABLET. PO SCH ×2 (07:45→19:21)
[2018-07-27] MEDS: CYANOCOBALAMIN (VITAMIN B-12) 1,000 MCG TABLET. PO SCH (07:45)
[2018-07-27] MEDS: ALPRAZolam 0.5 MG TABLET PO SCH ×2 (07:47→12:25)
[2018-07-27] MEDS: HYDROcodone/APAP 5/325MG 1 TAB TABLET PO SCH ×2 (07:47→19:25)
[2018-07-27] MEDS: BUDESONIDE 0.5 MG/2 ML NEBU NEB SCH ×2 (10:15→21:29)
[2018-07-27] MEDS: ALPRAZolam 0.25 MG TABLET PO SCH ×2 (16:51→19:22)
[2018-07-27 16:56] VITALS: BP 102/71
[2018-07-27] MEDS: QUEtiapine 50 MG TABLET. PO SCH (19:21)
[2018-07-27] MEDS: DONEPEZIL HCL 10 MG TABLET PO SCH (19:21)
[2018-07-27] MEDS: traZODone 50 MG TABLET. PO PRN (22:56)
--- NOTE | 2018-07-27 23:44 | PDOC ---
Exam Note: Lencho Note: Please also refer to the separate dictated note~for this date of service dictated separately.~Patient seen individually. Discussed the patient with Nursing staff reviewed the chart.~Reviewed interim history and current functioning. Reviewed vital signs,~Labs/ Radiology~and current medications noted below. Continue current treatment with the changes noted in the dictated addendum note Assessment: Vital Signs: Vital Signs Date Time Temp Pulse Resp B/P (MAP) Pulse Ox O2 Delivery O2 Flow Rate FiO2 07/27/18 21:30 96 Room Air 07/27/18 16:56 97.2 96 20 102/71 (81) I&O Intake and Output 07/27/18 07:00 Intake Total 1320 ml Balance 1320 ml Intake Oral 1320 ml # Voids 1 Current Medications: Meds: Current Medications Alprazolam (Xanax) 0.5 mg 1X ONCE PO Last administered on 07/07/18 13:21; Start 07/07/18 at 13:15; Stop 07/07/18 at 13:18; Status DC Alprazolam (Xanax) 1 mg QID PO Last administered on 07/08/18at 16:47; Start at 21:00; Stop 07/08/18 at 19:32; Status DC Buspirone HCl (Buspar) 20 mg BID PO Last administered on 07/27/18 19:21; Start 07/07/18 at 21:00 Donepezil HCl (Aricept) 10 mg QHS PO Last administered on 07/27/18 19:21; Start 07/07/18 at 21:00 Non-Formulary Medication (Fluvoxamine Maleate ) 450 mg BID PO ; Start 07/07/18 at 21:00; Stop 07/07/18 at 21:00; Status DC Quetiapine Fumarate (SEROquel) 25 mg DAILY PO Last administered on 07/09/18 08: 50; Start 07/08/18 at 09:00; Stop 07/09/18 at 09:42; Status DC Quetiapine Fumarate (SEROquel) 200 mg QHS PO Last administered on 07/09/18at 21: 34; Start 07/07/18 at 21:00; Stop 07/10/18 at 11:41; Status DC Acetaminophen (Tylenol) 650 mg PRN Q6HRS PRN PO PAIN; Start 07/07/18 at 19:45 Vitamin D (Vitamin D3) 2,000 unit DAILY PO Last administered on 07/27/18 07:44 ; Start 07/08/18 at 09:00 Cyanocobalamin (Vitamin B-12) 2,000 mcg DAILY PO Last administered on 07:45; Start 07/08/18 at 09:00 Al Hydroxide/Mg Hydroxide (Mylanta Plus Xs) 15 ml PRN AFTMEALHC PRN PO DYSPEPSIA; Start 07/07/18 at 19:45 Magnesium Hydroxide (Milk Of Magnesia) 2,400 mg PRN QHS PRN PO CONSTIPATION; Start 07/07/18 at 19:45 Multivitamins/ Calcium (Thera-M Plus) 1 tab DAILY PO Last administered on 07:45; Start 07/08/18 at 09:00 Aspirin (Children'S Aspirin) 81 mg DAILYWBKFT PO Last administered on 07:44; Start 07/08/18 at 08:00 Calcium/Vitamin D (Oscal D 500mg/ 200uts) 2 tab DAILYWBKFT PO Last administered on 07/27/18 07:44; Start 07/08/18 at 08:00 Dicyclomine HCl (Bentyl) 20 mg QID PO Last administered on 07/12/18 13:10; Start 07/07/18 at 21:00; Stop 07/12/18 at 16:39; Status DC Folic Acid (Folic Acid) 1 mg DAILY PO Last administered on 07/12/18 08:44; Start 07/08/18 at 09:00; Stop 07/12/18 at 16:39; Status DC Acetaminophen/ Hydrocodone Bitart (Lortab 5/325) 0.5 tab PRN BID PRN PO PAIN; Start 07/07/18 at 20:00; Stop 07/07/18 at 23:33; Status DC Loperamide HCl (Imodium) 2 mg DAILY PO Last administered on 07/11/18 08:21; Start 07/08/18 at 09:00; Stop 07/11/18 at 12:05; Status DC Non-Formulary Medication (Mometasone Furoate (Asmanex)) 110 mcg BID IH ; Start 07/07/18 at 21:00; Stop 07/07/18 at 21:00; Status DC Pyridoxine HCl (Vitamin B-6) 100 mg DAILY PO Last administered on 07/12/18 08: 47; Start 07/08/18 at 09:00; Stop 07/12/18 at 16:40; Status DC Raloxifene HCl (Evista) 60 mg DAILY PO Last administered on 07/27/18 07:44; Start 07/08/18 at 09:00 Budesonide (Pulmicort) 0.5 mg RTBID NEB Last administered on 07/27/18 21:29; Start 07/07/18 at 20:00 Fluvoxamine Maleate (Luvox) 150 mg BID PO Last administered on 07/14/18 08:22 ; Start 07/07/18 at 21:00; Stop 07/14/18 at 18:15; Status DC Acetaminophen/ Hydrocodone Bitart (Lortab 5/325) 0.5 tab BID PO Last administered on 07/27/18 19:25; Start 07/08/18 at 09:00 Alprazolam (Xanax) 1 mg 0900,1300,1700 PO Last administered on 07/10/18 17:15; Start 07/09/18 at 09:00; Stop 07/10/18 at 23:50; Status DC Alprazolam (Xanax) 0.5 mg QHS PO Last administered on 07/10/18 20:43; Start 07/08/18 at 21:00; Stop 07/10/18 at 23:50; Status DC Alprazolam (Xanax) 0.5 mg BID PO Last administered on 07/22/18 08:25; Start at 21:00; Stop 07/22/18 at 19:40; Status DC Alprazolam (Xanax) 0.5 mg 1300,1700 PO Last administered on 07/24/18 17:25; Start 07/11/18 at 13:00; Stop 07/24/18 at 19:00; Status DC Trazodone HCl (Desyrel) 50 mg PRN QHS PRN PO INSOMNIA, MAY REPEAT X1 Last administered on 07/27/18 22:56; Start 07/08/18 at 19:30 Risperidone (RisperDAL) 0.25 mg DAILY PO ; Start 07/10/18 at 09:00; Stop 07/10/18 at 09:00; Status DC Risperidone (RisperDAL) 0.25 mg QHS PO Last administered on 07/09/18at 21:41; Start 07/09/18 at 21:00; Stop 07/10/18 at 11:43; Status DC Quetiapine Fumarate (SEROquel) 150 mg QHS PO Last administered on 07/21/18at 20: 11; Start 07/10/18 at 21:00; Stop 07/22/18 at 19:40; Status DC Risperidone (RisperDAL) 0.5 mg QHS PO Last administered on 07/14/18at 20:26; Start 07/10/18 at 21:00; Stop 07/15/18 at 06:00; Status DC Loperamide HCl (Imodium) 2 mg BID PO ; Start 07/11/18 at 21:00; Stop 07/11/18 at 21:00; Status DC Loperamide HCl (Imodium) 2 mg TID PO Last administered on 07/27/18 19:21; Start 07/11/18 at 16:15 Fluvoxamine Maleate (Luvox) 100 mg BID PO Last administered on 07/27/18 19:21 ; Start 07/14/18 at 21:00 Risperidone (RisperDAL) 0.5 mg BID PO Last administered on 07/27/18 19:21; Start 07/14/18 at 21:00 Throat Lozenges (Cepacol Sore Throat Lozenge) 1 alexandra PRN Q2HR PRN PO SORE THROAT ; Start 07/22/18 at 18:30 Alprazolam (Xanax) 0.5 mg DAILY PO Last administered on 07/27/18at 07:47; Start 07/23/18 at 09:00; Stop 07/27/18 at 17:09; Status DC Quetiapine Fumarate (SEROquel) 100 mg QHS PO Last administered on 07/24/18at 19: 49; Start 07/22/18 at 21:00; Stop 07/24/18 at 23:51; Status DC Quetiapine Fumarate (SEROquel) 50 mg QHS PO Last administered on 07/27/18at 19: 21; Start 07/25/18 at 21:00; Stop 07/27/18 at 23:50 Alprazolam (Xanax) 0.25 mg QHS PO Last administered on 07/27/18at 19:22; Start 07/22/18 at 21:00 Alprazolam (Xanax) 0.25 mg 1700 PO Last administered on 07/27/18at 16:51; Start 07/25/18 at 17:00 Alprazolam (Xanax) 0.5 mg 1300 PO Last administered on 07/27/18at 12:25; Start 07/25/18 at 13:00 Alprazolam (Xanax) 0.25 mg DAILY PO ; Start 07/28/18 at 09:00 Active Scripts Active Reported Hydrocodone-Acetamin 5-325 mg (Hydrocodone/Acetaminophen) 1 Each Tablet 0.5 Tab PO BID PRN Seroquel (Quetiapine Fumarate) 200 Mg Tablet 200 Mg PO HS Fluvoxamine Maleate 100 Mg Tablet 150 Mg PO BID Caltrate 600 + D Tablet (Calcium Carbonate/Vitamin D3) 1 Each Tablet 2 Tab PO DAILY Milk Of Magnesia (Magnesium Hydroxide) 400 Mg/5 Ml Oral.susp 2,400 Mg PO PRN QHS PRN Imodium A-D (Loperamide HCl) 2 Mg Capsule 2 Mg PO DAILY Mag-Al Plus Xs Suspension (Mag Hydrox/Al Hydrox/Simeth) 30 Ml Oral.susp 15 Ml PO PRN AFTMEALHC PRN Seroquel (Quetiapine Fumarate) 25 Mg Tablet 25 Mg PO DAILY Ventolin Hfa Inhaler (Albuterol Sulfate) 18 Gm Hfa.aer.ad 1 Puff IH PRN Q4HRS PRN Asmanex (Mometasone Furoate) 110 Mcg Aer.pow.ba 110 Mcg IH BID Aricept (Donepezil Hcl) 10 Mg Tablet 1 Tab PO QHS Buspirone Hcl 10 Mg Tablet 20 Mg PO BID Thera-M Tablet (Multivits,Ca,Minerals/Iron/Fa) 1 Each Tablet 1 Tab PO DAILY Vitamin B-12 (Cyanocobalamin (Vitamin B-12)) 1,000 Mcg Tablet 2,000 Mcg PO DAILY Tylenol (Acetaminophen) 325 Mg Tablet 650 Mg PO PRN Q6HRS PRN Folic Acid 1 Mg Tablet 1 Mg PO DAILY Aspirin 81 Mg Tab.chew 81 Mg PO DAILY Vitamin D3 (Cholecalciferol (Vitamin D3)) 1,000 Unit Tablet 2,000 Unit PO DAILY Vitamin B-6 (Pyridoxine Hcl) 100 Mg Tablet 100 Mg PO DAILY Evista (Raloxifene Hcl) 60 Mg Tablet 60 Mg PO DAILY Alprazolam 1 Mg Tablet 1 Mg PO QID Dicyclomine Hcl 20 Mg Tablet 20 Mg PO QID I have reviewed the current psychotropics carefully including drug interactions. Risk benefit ratio favors no change other than as noted in my dictated progress note. Diagnosis: Problems: (1) Anxiety disorder (2) Obsessive compulsive disorder (3) Psychosis, atypical (4) Major depressive disorder, recurrent episode (5) Seizure (6) Dementia (7) KAYLAN Torrez MD Jul 27, 2018 23:44
[2018-07-28] MEDS: CYANOCOBALAMIN (VITAMIN B-12) 1,000 MCG TABLET. PO SCH (07:58)
[2018-07-28] MEDS: LOPERAMIDE 2 MG CAPSULE PO SCH ×3 (07:58→20:01)
[2018-07-28] MEDS: busPIRone 10 MG TABLET. PO SCH ×2 (07:58→19:59)
[2018-07-28] MEDS: ASPIRIN 81 MG TAB.CHEW PO SCH (07:58)
[2018-07-28] MEDS: CHOLECALCIFEROL (VITAMIN D3) 1,000 UNIT TABLET PO SCH (07:58)
[2018-07-28] MEDS: MULTIVITAMIN with MINERAL TABLET. PO SCH (07:59)
[2018-07-28] MEDS: risperiDONE 0.5 MG TABLET. PO SCH ×2 (07:59→20:01)
[2018-07-28] MEDS: CALCIUM CARB/VIT D3 500/200 TABLET PO SCH (07:59)
[2018-07-28] MEDS: RALOXIFENE 60 MG TABLET. PO SCH (07:59)
[2018-07-28] MEDS: HYDROcodone/APAP 5/325MG 1 TAB TABLET PO SCH ×2 (08:02→20:01)
[2018-07-28] MEDS: ALPRAZolam 0.5 MG TABLET PO SCH ×2 (08:03→14:25)
[2018-07-28 09:00] VITALS: BP 122/76
[2018-07-28] MEDS: BUDESONIDE 0.5 MG/2 ML NEBU NEB SCH ×2 (10:11→19:55)
[2018-07-28 17:18] VITALS: BP 109/71
[2018-07-28] MEDS: ALPRAZolam 0.25 MG TABLET PO SCH ×2 (17:47→19:59)
[2018-07-28] MEDS: DONEPEZIL HCL 10 MG TABLET PO SCH (20:01)
--- NOTE | 2018-07-28 21:04 | PN ---
DATE: 07/26/2018 PSYCHIATRIC PROGRESS NOTE This late entry 07/26/2018 covers elements not covered in my initial note. SUBJECTIVE: I met with the patient in the evening of 07/26/2018 at length in her room. The patient slept 7-1/4 hours previous night. She remains somewhat anxious, continues to have some diarrhea. Impaired ambulation with walker. REVIEW OF SYSTEMS: No CV, , pulmonary, eye system symptoms on review. We will defer the medical management to Dr. Schwarz. MENTAL STATUS EXAM: Reasonably oriented. Speech coherent, abstraction fair, computation impaired, language function intact. Mood and affect still somewhat anxious, obsessive. LABORATORY DATA: Reviewed. IMPRESSION: Unchanged from initial note. PLAN: No change from initial note. MAN Dane RAGLAND MD DR: NABIL/sasha JOB#: [id number] / [id number]
--- NOTE | 2018-07-28 21:06 | PN ---
DATE: 07/27/2018 PSYCHIATRIC PROGRESS NOTE This late entry 07/27/2018 covers elements not covered in my initial note. SUBJECTIVE: I met with the patient in the evening. The patient slept 6-3/4 hours previous night. I met with her in her room. She remains somewhat anxious with intermittent diarrhea. REVIEW OF SYSTEMS: Impaired ambulation with walker. No CV, , pulmonary, eye system symptoms on review. is concerned about her daytime sedation. MENTAL STATUS EXAM: The patient is reasonably oriented. Speech is coherent, has some latency. Abstraction fair, computation impaired, language function intact, attention span short. Mood and affect showing improvement, still anxious, obsessive at times, but improved. LABORATORY DATA: Reviewed. IMPRESSION: Unchanged from initial note. PLAN: Reduce the 0900 Xanax from 0.5 mg down to 0.25 mg due to sedation. Rest unchanged from initial note. MAN Dane RAGLAND MD DR: NABIL/sasha JOB#: [id number] / [id number]
--- NOTE | 2018-07-28 22:52 | PDOC ---
Exam Note: Lencho Note: Please also refer to the separate dictated note~for this date of service dictated separately.~Patient seen individually. Discussed the patient with Nursing staff reviewed the chart.~Reviewed interim history and current functioning. Reviewed vital signs,~Labs/ Radiology~and current medications noted below. Continue current treatment with the changes noted in the dictated addendum note Assessment: Vital Signs: Vital Signs Date Time Temp Pulse Resp B/P (MAP) Pulse Ox O2 Delivery O2 Flow Rate FiO2 07/28/18 20:01 18 Room Air 07/28/18 19:55 94 07/28/18 17:18 97.4 85 109/71 (84) I&O Intake and Output 07/28/18 07:00 Intake Total 1200 ml Balance 1200 ml Intake Oral 1200 ml Current Medications: Meds: Current Medications Alprazolam (Xanax) 0.5 mg 1X ONCE PO Last administered on 07/07/18 13:21; Start 07/07/18 at 13:15; Stop 07/07/18 at 13:18; Status DC Alprazolam (Xanax) 1 mg QID PO Last administered on 07/08/18at 16:47; Start at 21:00; Stop 07/08/18 at 19:32; Status DC Buspirone HCl (Buspar) 20 mg BID PO Last administered on 07/28/18at 19:59; Start 07/07/18 at 21:00 Donepezil HCl (Aricept) 10 mg QHS PO Last administered on 07/28/18at 20:01; Start 07/07/18 at 21:00 Non-Formulary Medication (Fluvoxamine Maleate ) 450 mg BID PO ; Start 07/07/18 at 21:00; Stop 07/07/18 at 21:00; Status DC Quetiapine Fumarate (SEROquel) 25 mg DAILY PO Last administered on 07/09/18at 08: 50; Start 07/08/18 at 09:00; Stop 07/09/18 at 09:42; Status DC Quetiapine Fumarate (SEROquel) 200 mg QHS PO Last administered on 07/09/18at 21: 34; Start 07/07/18 at 21:00; Stop 07/10/18 at 11:41; Status DC Acetaminophen (Tylenol) 650 mg PRN Q6HRS PRN PO PAIN; Start 07/07/18 at 19:45 Vitamin D (Vitamin D3) 2,000 unit DAILY PO Last administered on 07/28/18 07:58 ; Start 07/08/18 at 09:00 Cyanocobalamin (Vitamin B-12) 2,000 mcg DAILY PO Last administered on 07:58; Start 07/08/18 at 09:00 Al Hydroxide/Mg Hydroxide (Mylanta Plus Xs) 15 ml PRN AFTMEALHC PRN PO DYSPEPSIA; Start 07/07/18 at 19:45 Magnesium Hydroxide (Milk Of Magnesia) 2,400 mg PRN QHS PRN PO CONSTIPATION; Start 07/07/18 at 19:45 Multivitamins/ Calcium (Thera-M Plus) 1 tab DAILY PO Last administered on at 07:59; Start 07/08/18 at 09:00 Aspirin (Children'S Aspirin) 81 mg DAILYWBKFT PO Last administered on 07:58; Start 07/08/18 at 08:00 Calcium/Vitamin D (Oscal D 500mg/ 200uts) 2 tab DAILYWBKFT PO Last administered on 07/28/18 07:59; Start 07/08/18 at 08:00 Dicyclomine HCl (Bentyl) 20 mg QID PO Last administered on 07/12/18 13:10; Start 07/07/18 at 21:00; Stop 07/12/18 at 16:39; Status DC Folic Acid (Folic Acid) 1 mg DAILY PO Last administered on 07/12/18at 08:44; Start 07/08/18 at 09:00; Stop 07/12/18 at 16:39; Status DC Acetaminophen/ Hydrocodone Bitart (Lortab 5/325) 0.5 tab PRN BID PRN PO PAIN; Start 07/07/18 at 20:00; Stop 07/07/18 at 23:33; Status DC Loperamide HCl (Imodium) 2 mg DAILY PO Last administered on 07/11/18 08:21; Start 07/08/18 at 09:00; Stop 07/11/18 at 12:05; Status DC Non-Formulary Medication (Mometasone Furoate (Asmanex)) 110 mcg BID IH ; Start 07/07/18 at 21:00; Stop 07/07/18 at 21:00; Status DC Pyridoxine HCl (Vitamin B-6) 100 mg DAILY PO Last administered on 07/12/18 08: 47; Start 07/08/18 at 09:00; Stop 07/12/18 at 16:40; Status DC Raloxifene HCl (Evista) 60 mg DAILY PO Last administered on 07/28/18 07:59; Start 07/08/18 at 09:00 Budesonide (Pulmicort) 0.5 mg RTBID NEB Last administered on 07/28/18 19:55; Start 07/07/18 at 20:00 Fluvoxamine Maleate (Luvox) 150 mg BID PO Last administered on 07/14/18 08:22 ; Start 07/07/18 at 21:00; Stop 07/14/18 at 18:15; Status DC Acetaminophen/ Hydrocodone Bitart (Lortab 5/325) 0.5 tab BID PO Last administered on 07/28/18 20:01; Start 07/08/18 at 09:00 Alprazolam (Xanax) 1 mg 0900,1300,1700 PO Last administered on 07/10/18 17:15; Start 07/09/18 at 09:00; Stop 07/10/18 at 23:50; Status DC Alprazolam (Xanax) 0.5 mg QHS PO Last administered on 07/10/18 20:43; Start 07/08/18 at 21:00; Stop 07/10/18 at 23:50; Status DC Alprazolam (Xanax) 0.5 mg BID PO Last administered on 07/22/18 08:25; Start at 21:00; Stop 07/22/18 at 19:40; Status DC Alprazolam (Xanax) 0.5 mg 1300,1700 PO Last administered on 07/24/18 17:25; Start 07/11/18 at 13:00; Stop 07/24/18 at 19:00; Status DC Trazodone HCl (Desyrel) 50 mg PRN QHS PRN PO INSOMNIA, MAY REPEAT X1 Last administered on 3/24/19at 22:56; Start 07/08/18 at 19:30 Risperidone (RisperDAL) 0.25 mg DAILY PO ; Start 07/10/18 at 09:00; Stop 07/10/18 at 09:00; Status DC Risperidone (RisperDAL) 0.25 mg QHS PO Last administered on 07/09/18at 21:41; Start 07/09/18 at 21:00; Stop 07/10/18 at 11:43; Status DC Quetiapine Fumarate (SEROquel) 150 mg QHS PO Last administered on 07/21/18at 20: 11; Start 07/10/18 at 21:00; Stop 07/22/18 at 19:40; Status DC Risperidone (RisperDAL) 0.5 mg QHS PO Last administered on 07/14/18at 20:26; Start 07/10/18 at 21:00; Stop 07/15/18 at 06:00; Status DC Loperamide HCl (Imodium) 2 mg BID PO ; Start 07/11/18 at 21:00; Stop 07/11/18 at 21:00; Status DC Loperamide HCl (Imodium) 2 mg TID PO Last administered on 07/28/18 20:01; Start 07/11/18 at 16:15 Fluvoxamine Maleate (Luvox) 100 mg BID PO Last administered on 07/28/18 20:01 ; Start 07/14/18 at 21:00 Risperidone (RisperDAL) 0.5 mg BID PO Last administered on 07/28/18 20:01; Start 07/14/18 at 21:00 Throat Lozenges (Cepacol Sore Throat Lozenge) 1 alexandra PRN Q2HR PRN PO SORE THROAT ; Start 07/22/18 at 18:30 Alprazolam (Xanax) 0.5 mg DAILY PO Last administered on 07/27/18at 07:47; Start 07/23/18 at 09:00; Stop 07/27/18 at 17:09; Status DC Quetiapine Fumarate (SEROquel) 100 mg QHS PO Last administered on 07/24/18at 19: 49; Start 07/22/18 at 21:00; Stop 07/24/18 at 23:51; Status DC Quetiapine Fumarate (SEROquel) 50 mg QHS PO Last administered on 07/27/18at 19: 21; Start 07/25/18 at 21:00; Stop 07/27/18 at 23:50; Status DC Alprazolam (Xanax) 0.25 mg QHS PO Last administered on 07/28/18at 19:59; Start 07/22/18 at 21:00 Alprazolam (Xanax) 0.25 mg 1700 PO Last administered on 07/28/18at 17:47; Start 07/25/18 at 17:00 Alprazolam (Xanax) 0.5 mg 1300 PO Last administered on 07/28/18at 14:25; Start 07/25/18 at 13:00 Alprazolam (Xanax) 0.25 mg DAILY PO Last administered on 07/28/18at 08:03; Start 07/28/18 at 09:00 Active Scripts Active Reported Hydrocodone-Acetamin 5-325 mg (Hydrocodone/Acetaminophen) 1 Each Tablet 0.5 Tab PO BID PRN Seroquel (Quetiapine Fumarate) 200 Mg Tablet 200 Mg PO HS Fluvoxamine Maleate 100 Mg Tablet 150 Mg PO BID Caltrate 600 + D Tablet (Calcium Carbonate/Vitamin D3) 1 Each Tablet 2 Tab PO DAILY Milk Of Magnesia (Magnesium Hydroxide) 400 Mg/5 Ml Oral.susp 2,400 Mg PO PRN QHS PRN Imodium A-D (Loperamide HCl) 2 Mg Capsule 2 Mg PO DAILY Mag-Al Plus Xs Suspension (Mag Hydrox/Al Hydrox/Simeth) 30 Ml Oral.susp 15 Ml PO PRN AFTMEALHC PRN Seroquel (Quetiapine Fumarate) 25 Mg Tablet 25 Mg PO DAILY Ventolin Hfa Inhaler (Albuterol Sulfate) 18 Gm Hfa.aer.ad 1 Puff IH PRN Q4HRS PRN Asmanex (Mometasone Furoate) 110 Mcg Aer.pow.ba 110 Mcg IH BID Aricept (Donepezil Hcl) 10 Mg Tablet 1 Tab PO QHS Buspirone Hcl 10 Mg Tablet 20 Mg PO BID Thera-M Tablet (Multivits,Ca,Minerals/Iron/Fa) 1 Each Tablet 1 Tab PO DAILY Vitamin B-12 (Cyanocobalamin (Vitamin B-12)) 1,000 Mcg Tablet 2,000 Mcg PO DAILY Tylenol (Acetaminophen) 325 Mg Tablet 650 Mg PO PRN Q6HRS PRN Folic Acid 1 Mg Tablet 1 Mg PO DAILY Aspirin 81 Mg Tab.chew 81 Mg PO DAILY Vitamin D3 (Cholecalciferol (Vitamin D3)) 1,000 Unit Tablet 2,000 Unit PO DAILY Vitamin B-6 (Pyridoxine Hcl) 100 Mg Tablet 100 Mg PO DAILY Evista (Raloxifene Hcl) 60 Mg Tablet 60 Mg PO DAILY Alprazolam 1 Mg Tablet 1 Mg PO QID Dicyclomine Hcl 20 Mg Tablet 20 Mg PO QID I have reviewed the current psychotropics carefully including drug interactions. Risk benefit ratio favors no change other than as noted in my dictated progress note. Diagnosis: Problems: (1) Anxiety disorder (2) Obsessive compulsive disorder (3) Psychosis, atypical (4) Major depressive disorder, recurrent episode (5) Seizure (6) Dementia (7) KAYLAN Torrez MD Jul 28, 2018 22:52
[2018-07-29 06:03] VITALS: BP 123/79
[2018-07-29] MEDS: busPIRone 10 MG TABLET. PO SCH ×2 (07:53→19:58)
[2018-07-29] MEDS: CHOLECALCIFEROL (VITAMIN D3) 1,000 UNIT TABLET PO SCH (07:53)
[2018-07-29] MEDS: RALOXIFENE 60 MG TABLET. PO SCH (07:53)
[2018-07-29] MEDS: CYANOCOBALAMIN (VITAMIN B-12) 1,000 MCG TABLET. PO SCH (07:53)
[2018-07-29] MEDS: LOPERAMIDE 2 MG CAPSULE PO SCH ×3 (07:53→19:58)
[2018-07-29] MEDS: risperiDONE 0.5 MG TABLET. PO SCH ×2 (07:54→19:58)
[2018-07-29] MEDS: ASPIRIN 81 MG TAB.CHEW PO SCH (07:54)
[2018-07-29] MEDS: CALCIUM CARB/VIT D3 500/200 TABLET PO SCH (07:54)
[2018-07-29] MEDS: MULTIVITAMIN with MINERAL TABLET. PO SCH (07:54)
[2018-07-29] MEDS: HYDROcodone/APAP 5/325MG 1 TAB TABLET PO SCH ×2 (07:56→20:07)
[2018-07-29] MEDS: ALPRAZolam 0.5 MG TABLET PO SCH ×2 (07:57→13:12)
[2018-07-29] MEDS: BUDESONIDE 0.5 MG/2 ML NEBU NEB SCH ×2 (08:00→19:52)
[2018-07-29 16:26] VITALS: BP 121/77
[2018-07-29] MEDS: ALPRAZolam 0.25 MG TABLET PO SCH ×2 (16:59→20:08)
[2018-07-29] MEDS ORDERED: AZITHROMYCIN 250 MG TABLET. PO ONE (17:00)
[2018-07-29] MEDS: DONEPEZIL HCL 10 MG TABLET PO SCH (19:58)
[2018-07-29] MEDS: traZODone 50 MG TABLET. PO PRN (20:07)
[2018-07-29] MEDS: CEFDINIR 300 MG CAPSULE PO SCH (20:07)
--- NOTE | 2018-07-29 22:34 | PN ---
DATE: 07/28/2018 PSYCHIATRIC PROGRESS NOTE This late entry 07/28/2018 covers elements not covered in my initial note. SUBJECTIVE: I met with the patient in the evening. The patient slept 5-1/4 hours previous evening. I met with her in her room at some length. She remains somewhat anxious, still having some diarrhea. Stool culture is negative. REVIEW OF SYSTEMS: Ambulation impaired with walker. No CV, , pulmonary, eye system symptoms on review other than the diarrhea, which has improved. MENTAL STATUS EXAM: Reasonably oriented. Speech is coherent, abstraction fair, computation impaired, language function intact, attention span short. Mood and affect showing improvement, less anxious, less labile. LABORATORY DATA: Reviewed. IMPRESSION: Unchanged from initial note. PLAN: No change from initial note. MAN Dane RAGLAND MD DR: NABIL/sasha JOB#: [id number] / [id number]
--- NOTE | 2018-07-29 23:07 | PDOC ---
Exam Note: Lencho Note: Please also refer to the separate dictated note~for this date of service dictated separately.~Patient seen individually. Discussed the patient with Nursing staff reviewed the chart.~Reviewed interim history and current functioning. Reviewed vital signs,~Labs/ Radiology~and current medications noted below. Continue current treatment with the changes noted in the dictated addendum note Assessment: Vital Signs: Vital Signs Date Time Temp Pulse Resp B/P (MAP) Pulse Ox O2 Delivery O2 Flow Rate FiO2 07/29/18 21:20 18 Room Air 07/29/18 19:52 95 07/29/18 16:26 98.7 80 121/77 (92) I&O Intake and Output 07/29/18 07:00 Intake Total 1080 ml Balance 1080 ml Intake Oral 1080 ml Current Medications: Meds: Current Medications Alprazolam (Xanax) 0.5 mg 1X ONCE PO Last administered on 07/07/18 13:21; Start 07/07/18 at 13:15; Stop 07/07/18 at 13:18; Status DC Alprazolam (Xanax) 1 mg QID PO Last administered on 07/08/18at 16:47; Start at 21:00; Stop 07/08/18 at 19:32; Status DC Buspirone HCl (Buspar) 20 mg BID PO Last administered on 07/29/18at 19:58; Start 07/07/18 at 21:00 Donepezil HCl (Aricept) 10 mg QHS PO Last administered on 07/29/18at 19:58; Start 07/07/18 at 21:00 Non-Formulary Medication (Fluvoxamine Maleate ) 450 mg BID PO ; Start 07/07/18 at 21:00; Stop 07/07/18 at 21:00; Status DC Quetiapine Fumarate (SEROquel) 25 mg DAILY PO Last administered on 07/09/18at 08: 50; Start 07/08/18 at 09:00; Stop 07/09/18 at 09:42; Status DC Quetiapine Fumarate (SEROquel) 200 mg QHS PO Last administered on 07/09/18at 21: 34; Start 07/07/18 at 21:00; Stop 07/10/18 at 11:41; Status DC Acetaminophen (Tylenol) 650 mg PRN Q6HRS PRN PO PAIN; Start 07/07/18 at 19:45 Vitamin D (Vitamin D3) 2,000 unit DAILY PO Last administered on 07/29/18 07:53 ; Start 07/08/18 at 09:00 Cyanocobalamin (Vitamin B-12) 2,000 mcg DAILY PO Last administered on at 07:53; Start 07/08/18 at 09:00 Al Hydroxide/Mg Hydroxide (Mylanta Plus Xs) 15 ml PRN AFTMEALHC PRN PO DYSPEPSIA; Start 07/07/18 at 19:45 Magnesium Hydroxide (Milk Of Magnesia) 2,400 mg PRN QHS PRN PO CONSTIPATION; Start 07/07/18 at 19:45 Multivitamins/ Calcium (Thera-M Plus) 1 tab DAILY PO Last administered on at 07:54; Start 07/08/18 at 09:00 Aspirin (Children'S Aspirin) 81 mg DAILYWBKFT PO Last administered on at 07:54; Start 07/08/18 at 08:00 Calcium/Vitamin D (Oscal D 500mg/ 200uts) 2 tab DAILYWBKFT PO Last administered on 07/29/18 07:54; Start 07/08/18 at 08:00 Dicyclomine HCl (Bentyl) 20 mg QID PO Last administered on 07/12/18 13:10; Start 07/07/18 at 21:00; Stop 07/12/18 at 16:39; Status DC Folic Acid (Folic Acid) 1 mg DAILY PO Last administered on 07/12/18at 08:44; Start 07/08/18 at 09:00; Stop 07/12/18 at 16:39; Status DC Acetaminophen/ Hydrocodone Bitart (Lortab 5/325) 0.5 tab PRN BID PRN PO PAIN; Start 07/07/18 at 20:00; Stop 07/07/18 at 23:33; Status DC Loperamide HCl (Imodium) 2 mg DAILY PO Last administered on 07/11/18 08:21; Start 07/08/18 at 09:00; Stop 07/11/18 at 12:05; Status DC Non-Formulary Medication (Mometasone Furoate (Asmanex)) 110 mcg BID IH ; Start 07/07/18 at 21:00; Stop 07/07/18 at 21:00; Status DC Pyridoxine HCl (Vitamin B-6) 100 mg DAILY PO Last administered on 07/12/18 08: 47; Start 07/08/18 at 09:00; Stop 07/12/18 at 16:40; Status DC Raloxifene HCl (Evista) 60 mg DAILY PO Last administered on 07/29/18 07:53; Start 07/08/18 at 09:00 Budesonide (Pulmicort) 0.5 mg RTBID NEB Last administered on 07/29/18 19:52; Start 07/07/18 at 20:00 Fluvoxamine Maleate (Luvox) 150 mg BID PO Last administered on 07/14/18 08:22 ; Start 07/07/18 at 21:00; Stop 07/14/18 at 18:15; Status DC Acetaminophen/ Hydrocodone Bitart (Lortab 5/325) 0.5 tab BID PO Last administered on 07/29/18at 20:07; Start 07/08/18 at 09:00 Alprazolam (Xanax) 1 mg 0900,1300,1700 PO Last administered on 07/10/18 17:15; Start 07/09/18 at 09:00; Stop 07/10/18 at 23:50; Status DC Alprazolam (Xanax) 0.5 mg QHS PO Last administered on 07/10/18 20:43; Start 07/08/18 at 21:00; Stop 07/10/18 at 23:50; Status DC Alprazolam (Xanax) 0.5 mg BID PO Last administered on 07/22/18 08:25; Start at 21:00; Stop 07/22/18 at 19:40; Status DC Alprazolam (Xanax) 0.5 mg 1300,1700 PO Last administered on 07/24/18 17:25; Start 07/11/18 at 13:00; Stop 07/24/18 at 19:00; Status DC Trazodone HCl (Desyrel) 50 mg PRN QHS PRN PO INSOMNIA, MAY REPEAT X1 Last administered on 3/26/19at 20:07; Start 07/08/18 at 19:30 Risperidone (RisperDAL) 0.25 mg DAILY PO ; Start 07/10/18 at 09:00; Stop 07/10/18 at 09:00; Status DC Risperidone (RisperDAL) 0.25 mg QHS PO Last administered on 07/09/18at 21:41; Start 07/09/18 at 21:00; Stop 07/10/18 at 11:43; Status DC Quetiapine Fumarate (SEROquel) 150 mg QHS PO Last administered on 07/21/18at 20: 11; Start 07/10/18 at 21:00; Stop 07/22/18 at 19:40; Status DC Risperidone (RisperDAL) 0.5 mg QHS PO Last administered on 07/14/18at 20:26; Start 07/10/18 at 21:00; Stop 07/15/18 at 06:00; Status DC Loperamide HCl (Imodium) 2 mg BID PO ; Start 07/11/18 at 21:00; Stop 07/11/18 at 21:00; Status DC Loperamide HCl (Imodium) 2 mg TID PO Last administered on 07/29/18at 19:58; Start 07/11/18 at 16:15 Fluvoxamine Maleate (Luvox) 100 mg BID PO Last administered on 07/29/18at 19:58 ; Start 07/14/18 at 21:00 Risperidone (RisperDAL) 0.5 mg BID PO Last administered on 07/29/18at 19:58; Start 07/14/18 at 21:00 Throat Lozenges (Cepacol Sore Throat Lozenge) 1 alexandra PRN Q2HR PRN PO SORE THROAT ; Start 07/22/18 at 18:30 Alprazolam (Xanax) 0.5 mg DAILY PO Last administered on 07/27/18at 07:47; Start 07/23/18 at 09:00; Stop 07/27/18 at 17:09; Status DC Quetiapine Fumarate (SEROquel) 100 mg QHS PO Last administered on 07/24/18at 19: 49; Start 07/22/18 at 21:00; Stop 07/24/18 at 23:51; Status DC Quetiapine Fumarate (SEROquel) 50 mg QHS PO Last administered on 07/27/18at 19: 21; Start 07/25/18 at 21:00; Stop 07/27/18 at 23:50; Status DC Alprazolam (Xanax) 0.25 mg QHS PO Last administered on 07/29/18at 20:08; Start 07/22/18 at 21:00 Alprazolam (Xanax) 0.25 mg 1700 PO Last administered on 07/29/18at 16:59; Start 07/25/18 at 17:00 Alprazolam (Xanax) 0.5 mg 1300 PO Last administered on 07/29/18at 13:12; Start 07/25/18 at 13:00 Alprazolam (Xanax) 0.25 mg DAILY PO Last administered on 07/29/18at 07:57; Start 07/28/18 at 09:00 Azithromycin (Zithromax) 500 mg 1X ONCE PO ; Start 07/29/18 at 17:00; Stop at 17:01; Status DC Cefdinir (Omnicef) 300 mg BID PO Last administered on 07/29/18at 20:07; Start at 21:00 Active Scripts Active Reported Hydrocodone-Acetamin 5-325 mg (Hydrocodone/Acetaminophen) 1 Each Tablet 0.5 Tab PO BID PRN Seroquel (Quetiapine Fumarate) 200 Mg Tablet 200 Mg PO HS Fluvoxamine Maleate 100 Mg Tablet 150 Mg PO BID Caltrate 600 + D Tablet (Calcium Carbonate/Vitamin D3) 1 Each Tablet 2 Tab PO DAILY Milk Of Magnesia (Magnesium Hydroxide) 400 Mg/5 Ml Oral.susp 2,400 Mg PO PRN QHS PRN Imodium A-D (Loperamide HCl) 2 Mg Capsule 2 Mg PO DAILY Mag-Al Plus Xs Suspension (Mag Hydrox/Al Hydrox/Simeth) 30 Ml Oral.susp 15 Ml PO PRN AFTMEALHC PRN Seroquel (Quetiapine Fumarate) 25 Mg Tablet 25 Mg PO DAILY Ventolin Hfa Inhaler (Albuterol Sulfate) 18 Gm Hfa.aer.ad 1 Puff IH PRN Q4HRS PRN Asmanex (Mometasone Furoate) 110 Mcg Aer.pow.ba 110 Mcg IH BID Aricept (Donepezil Hcl) 10 Mg Tablet 1 Tab PO QHS Buspirone Hcl 10 Mg Tablet 20 Mg PO BID Thera-M Tablet (Multivits,Ca,Minerals/Iron/Fa) 1 Each Tablet 1 Tab PO DAILY Vitamin B-12 (Cyanocobalamin (Vitamin B-12)) 1,000 Mcg Tablet 2,000 Mcg PO DAILY Tylenol (Acetaminophen) 325 Mg Tablet 650 Mg PO PRN Q6HRS PRN Folic Acid 1 Mg Tablet 1 Mg PO DAILY Aspirin 81 Mg Tab.chew 81 Mg PO DAILY Vitamin D3 (Cholecalciferol (Vitamin D3)) 1,000 Unit Tablet 2,000 Unit PO DAILY Vitamin B-6 (Pyridoxine Hcl) 100 Mg Tablet 100 Mg PO DAILY Evista (Raloxifene Hcl) 60 Mg Tablet 60 Mg PO DAILY Alprazolam 1 Mg Tablet 1 Mg PO QID Dicyclomine Hcl 20 Mg Tablet 20 Mg PO QID I have reviewed the current psychotropics carefully including drug interactions. Risk benefit ratio favors no change other than as noted in my dictated progress note. Diagnosis: Problems: (1) Anxiety disorder (2) Obsessive compulsive disorder (3) Psychosis, atypical (4) Major depressive disorder, recurrent episode (5) Seizure (6) Dementia (7) KAYLAN Torrez MD Jul 29, 2018 23:07
[2018-07-30 06:12] VITALS: BP 112/70
[2018-07-30] MEDS: CHOLECALCIFEROL (VITAMIN D3) 1,000 UNIT TABLET PO SCH (08:04)
[2018-07-30] MEDS: CALCIUM CARB/VIT D3 500/200 TABLET PO SCH (08:04)
[2018-07-30] MEDS: ASPIRIN 81 MG TAB.CHEW PO SCH (08:05)
[2018-07-30] MEDS: CYANOCOBALAMIN (VITAMIN B-12) 1,000 MCG TABLET. PO SCH (08:05)
[2018-07-30] MEDS: LOPERAMIDE 2 MG CAPSULE PO SCH ×3 (08:05→19:34)
[2018-07-30] MEDS: CEFDINIR 300 MG CAPSULE PO SCH ×2 (08:05→19:34)
[2018-07-30] MEDS: risperiDONE 0.5 MG TABLET. PO SCH ×2 (08:05→19:33)
[2018-07-30] MEDS: busPIRone 10 MG TABLET. PO SCH ×2 (08:05→19:33)
[2018-07-30] MEDS: MULTIVITAMIN with MINERAL TABLET. PO SCH ×2 (08:05→19:33)
[2018-07-30] MEDS: RALOXIFENE 60 MG TABLET. PO SCH ×2 (08:05→19:33)
[2018-07-30] MEDS: ALPRAZolam 0.5 MG TABLET PO SCH ×2 (08:08→13:30)
[2018-07-30] MEDS: HYDROcodone/APAP 5/325MG 1 TAB TABLET PO SCH ×2 (08:09→19:39)
[2018-07-30] MEDS: BUDESONIDE 0.5 MG/2 ML NEBU NEB SCH ×2 (09:53→22:21)
[2018-07-30 16:13] VITALS: BP 119/73
[2018-07-30] MEDS: ALPRAZolam 0.25 MG TABLET PO SCH ×2 (17:08→19:40)
[2018-07-30] MEDS: DONEPEZIL HCL 10 MG TABLET PO SCH (19:33)
[2018-07-30] MEDS: LACTOBACILLUS RHAMNOSUS GG 1 CAPSULE. PO SCH (19:39)
--- NOTE | 2018-07-30 21:17 | PN ---
DATE: 07/29/2018 This is a late entry 07/29/2018 covers elements not covered in my initial note. SUBJECTIVE: I met with the patient in the evening. The patient slept 6 hours previous night and I met with her at length in her room. She is obsessed regarding her food, addressed this with her. She believes she is lactose intolerant and does have a UTI, which needs to be treated. We will defer to Dr. Schwarz. REVIEW OF SYSTEMS: Ambulation impaired with walker. No CV, , pulmonary, eye system symptoms on review. MENTAL STATUS EXAM: Reasonably oriented. Speech is coherent, abstraction fair, computation impaired. Mood and affect still anxious, but improved. LABORATORY DATA: Reviewed. IMPRESSION: Unchanged from my initial note. PLAN: No change from initial note. Treat the UTI per Dr. Schwarz once C and S sensitivity received. MAN Dane RAGLAND MD DR: NABIL/sasha JOB#: [id number] / [id number]
[2018-07-30] MEDS ORDERED: TRAZ-120 PO (22:27)
[2018-07-30] MEDS ORDERED: RISP0.5T24 PO (22:28)
[2018-07-30] MEDS ORDERED: LACT1CAP21 PO (22:31)
[2018-07-30] MEDS ORDERED: BENZ1LOZ48 MM (22:34)
[2018-07-30] MEDS ORDERED: ALPR0.25 PO ×2 (23:01→23:04)
[2018-07-30] MEDS ORDERED: ALPR0.5T PO (23:02)
[2018-07-30] MEDS ORDERED: CEFD300C PO (23:08)
--- NOTE | 2018-07-30 23:09 | PDOC ---
Exam Note: Lencho Note: Please also refer to the separate dictated note~for this date of service dictated separately.~Patient seen individually. Discussed the patient with Nursing staff reviewed the chart.~Reviewed interim history and current functioning. Reviewed vital signs,~Labs/ Radiology~and current medications noted below. Continue current treatment with the changes noted in the dictated addendum note Assessment: Vital Signs: Vital Signs Date Time Temp Pulse Resp B/P (MAP) Pulse Ox O2 Delivery O2 Flow Rate FiO2 07/30/18 22:22 97 Room Air 07/30/18 21:16 18 07/30/18 16:13 97.4 75 119/73 (88) I&O Intake and Output 07/30/18 06:59 Intake Total 1200 ml Balance 1200 ml Intake Oral 1200 ml Current Medications: Meds: Current Medications Alprazolam (Xanax) 0.5 mg 1X ONCE PO Last administered on 07/07/18 13:21; Start 07/07/18 at 13:15; Stop 07/07/18 at 13:18; Status DC Alprazolam (Xanax) 1 mg QID PO Last administered on 07/08/18at 16:47; Start at 21:00; Stop 07/08/18 at 19:32; Status DC Buspirone HCl (Buspar) 20 mg BID PO Last administered on 07/30/18at 19:33; Start 07/07/18 at 21:00 Donepezil HCl (Aricept) 10 mg QHS PO Last administered on 07/30/18at 19:33; Start 07/07/18 at 21:00 Non-Formulary Medication (Fluvoxamine Maleate ) 450 mg BID PO ; Start 07/07/18 at 21:00; Stop 07/07/18 at 21:00; Status DC Quetiapine Fumarate (SEROquel) 25 mg DAILY PO Last administered on 07/09/18at 08: 50; Start 07/08/18 at 09:00; Stop 07/09/18 at 09:42; Status DC Quetiapine Fumarate (SEROquel) 200 mg QHS PO Last administered on 07/09/18at 21: 34; Start 07/07/18 at 21:00; Stop 07/10/18 at 11:41; Status DC Acetaminophen (Tylenol) 650 mg PRN Q6HRS PRN PO PAIN; Start 07/07/18 at 19:45 Vitamin D (Vitamin D3) 2,000 unit DAILY PO Last administered on 07/30/18 08:04 ; Start 07/08/18 at 09:00 Cyanocobalamin (Vitamin B-12) 2,000 mcg DAILY PO Last administered on 08:05; Start 07/08/18 at 09:00 Al Hydroxide/Mg Hydroxide (Mylanta Plus Xs) 15 ml PRN AFTMEALHC PRN PO DYSPEPSIA; Start 07/07/18 at 19:45 Magnesium Hydroxide (Milk Of Magnesia) 2,400 mg PRN QHS PRN PO CONSTIPATION; Start 07/07/18 at 19:45 Multivitamins/ Calcium (Thera-M Plus) 1 tab DAILY PO Last administered on 08:05; Start 07/08/18 at 09:00 Aspirin (Children'S Aspirin) 81 mg DAILYWBKFT PO Last administered on 08:05; Start 07/08/18 at 08:00 Calcium/Vitamin D (Oscal D 500mg/ 200uts) 2 tab DAILYWBKFT PO Last administered on 07/30/18 08:04; Start 07/08/18 at 08:00 Dicyclomine HCl (Bentyl) 20 mg QID PO Last administered on 07/12/18 13:10; Start 07/07/18 at 21:00; Stop 07/12/18 at 16:39; Status DC Folic Acid (Folic Acid) 1 mg DAILY PO Last administered on 07/12/18at 08:44; Start 07/08/18 at 09:00; Stop 07/12/18 at 16:39; Status DC Acetaminophen/ Hydrocodone Bitart (Lortab 5/325) 0.5 tab PRN BID PRN PO PAIN; Start 07/07/18 at 20:00; Stop 07/07/18 at 23:33; Status DC Loperamide HCl (Imodium) 2 mg DAILY PO Last administered on 07/11/18 08:21; Start 07/08/18 at 09:00; Stop 07/11/18 at 12:05; Status DC Non-Formulary Medication (Mometasone Furoate (Asmanex)) 110 mcg BID IH ; Start 07/07/18 at 21:00; Stop 07/07/18 at 21:00; Status DC Pyridoxine HCl (Vitamin B-6) 100 mg DAILY PO Last administered on 07/12/18 08: 47; Start 07/08/18 at 09:00; Stop 07/12/18 at 16:40; Status DC Raloxifene HCl (Evista) 60 mg DAILY PO Last administered on 07/30/18 19:33; Start 07/08/18 at 09:00 Budesonide (Pulmicort) 0.5 mg RTBID NEB Last administered on 07/30/18 22:21; Start 07/07/18 at 20:00 Fluvoxamine Maleate (Luvox) 150 mg BID PO Last administered on 07/14/18 08:22 ; Start 07/07/18 at 21:00; Stop 07/14/18 at 18:15; Status DC Acetaminophen/ Hydrocodone Bitart (Lortab 5/325) 0.5 tab BID PO Last administered on 07/30/18 19:39; Start 07/08/18 at 09:00 Alprazolam (Xanax) 1 mg 0900,1300,1700 PO Last administered on 07/10/18 17:15; Start 07/09/18 at 09:00; Stop 07/10/18 at 23:50; Status DC Alprazolam (Xanax) 0.5 mg QHS PO Last administered on 07/10/18 20:43; Start 07/08/18 at 21:00; Stop 07/10/18 at 23:50; Status DC Alprazolam (Xanax) 0.5 mg BID PO Last administered on 07/22/18 08:25; Start at 21:00; Stop 07/22/18 at 19:40; Status DC Alprazolam (Xanax) 0.5 mg 1300,1700 PO Last administered on 07/24/18 17:25; Start 07/11/18 at 13:00; Stop 07/24/18 at 19:00; Status DC Trazodone HCl (Desyrel) 50 mg PRN QHS PRN PO INSOMNIA, MAY REPEAT X1 Last administered on 3/26/19at 20:07; Start 07/08/18 at 19:30 Risperidone (RisperDAL) 0.25 mg DAILY PO ; Start 07/10/18 at 09:00; Stop 07/10/18 at 09:00; Status DC Risperidone (RisperDAL) 0.25 mg QHS PO Last administered on 07/09/18at 21:41; Start 07/09/18 at 21:00; Stop 07/10/18 at 11:43; Status DC Quetiapine Fumarate (SEROquel) 150 mg QHS PO Last administered on 07/21/18at 20: 11; Start 07/10/18 at 21:00; Stop 07/22/18 at 19:40; Status DC Risperidone (RisperDAL) 0.5 mg QHS PO Last administered on 07/14/18at 20:26; Start 07/10/18 at 21:00; Stop 07/15/18 at 06:00; Status DC Loperamide HCl (Imodium) 2 mg BID PO ; Start 07/11/18 at 21:00; Stop 07/11/18 at 21:00; Status DC Loperamide HCl (Imodium) 2 mg TID PO Last administered on 07/30/18at 19:34; Start 07/11/18 at 16:15 Fluvoxamine Maleate (Luvox) 100 mg BID PO Last administered on 07/30/18 19:33 ; Start 07/14/18 at 21:00 Risperidone (RisperDAL) 0.5 mg BID PO Last administered on 07/30/18at 19:33; Start 07/14/18 at 21:00 Throat Lozenges (Cepacol Sore Throat Lozenge) 1 alexandra PRN Q2HR PRN PO SORE THROAT ; Start 07/22/18 at 18:30 Alprazolam (Xanax) 0.5 mg DAILY PO Last administered on 07/27/18at 07:47; Start 07/23/18 at 09:00; Stop 07/27/18 at 17:09; Status DC Quetiapine Fumarate (SEROquel) 100 mg QHS PO Last administered on 07/24/18at 19: 49; Start 07/22/18 at 21:00; Stop 07/24/18 at 23:51; Status DC Quetiapine Fumarate (SEROquel) 50 mg QHS PO Last administered on 07/27/18 19: 21; Start 07/25/18 at 21:00; Stop 07/27/18 at 23:50; Status DC Alprazolam (Xanax) 0.25 mg QHS PO Last administered on 07/30/18at 19:40; Start 07/22/18 at 21:00 Alprazolam (Xanax) 0.25 mg 1700 PO Last administered on 07/30/18at 17:08; Start 07/25/18 at 17:00 Alprazolam (Xanax) 0.5 mg 1300 PO Last administered on 07/30/18at 13:30; Start 07/25/18 at 13:00 Alprazolam (Xanax) 0.25 mg DAILY PO Last administered on 07/30/18 08:08; Start 07/28/18 at 09:00 Azithromycin (Zithromax) 500 mg 1X ONCE PO ; Start 07/29/18 at 17:00; Stop at 17:01; Status DC Cefdinir (Omnicef) 300 mg BID PO Last administered on 07/30/18at 19:34; Start at 21:00 Lactobacillus Rhamnosus (Culturelle) 1 cap BID PO Last administered on 19:39; Start 07/30/18 at 21:00 Active Scripts Active Reported Cefdinir 300 Mg Capsule 300 Mg PO BID 7 Days Xanax (Alprazolam) 0.25 Mg Tablet 0.25 Mg PO HS Xanax (Alprazolam) 0.5 Mg Tablet 0.5 Mg PO DAILY@1300 Xanax (Alprazolam) 0.25 Mg Tablet 0.25 Mg PO DAILYWSUP Cepacol Sore Throat Lozenge (Benzocaine/Menthol) 1 Each Lozenge 1 Each MM PRN QID PRN Culturelle (Lactobacillus Rhamnosus Gg) 1 Each Capsule 1 Each PO BID Risperdal (Risperidone) 0.5 Mg Tablet 0.5 Mg PO BID Trazodone Hcl 50 Mg Tablet 50 Mg PO PRN QHS PRN Hydrocodone-Acetamin 5-325 mg (Hydrocodone/Acetaminophen) 1 Each Tablet 0.5 Tab PO BID PRN Seroquel (Quetiapine Fumarate) 200 Mg Tablet 200 Mg PO HS Fluvoxamine Maleate 100 Mg Tablet 150 Mg PO BID Caltrate 600 + D Tablet (Calcium Carbonate/Vitamin D3) 1 Each Tablet 2 Tab PO DAILY Milk Of Magnesia (Magnesium Hydroxide) 400 Mg/5 Ml Oral.susp 2,400 Mg PO PRN QHS PRN Imodium A-D (Loperamide HCl) 2 Mg Capsule 2 Mg PO DAILY Mag-Al Plus Xs Suspension (Mag Hydrox/Al Hydrox/Simeth) 30 Ml Oral.susp 15 Ml PO PRN AFTMEALHC PRN Seroquel (Quetiapine Fumarate) 25 Mg Tablet 25 Mg PO DAILY Ventolin Hfa Inhaler (Albuterol Sulfate) 18 Gm Hfa.aer.ad 1 Puff IH PRN Q4HRS PRN Asmanex (Mometasone Furoate) 110 Mcg Aer.pow.ba 110 Mcg IH BID Aricept (Donepezil Hcl) 10 Mg Tablet 1 Tab PO QHS Buspirone Hcl 10 Mg Tablet 20 Mg PO BID Thera-M Tablet (Multivits,Ca,Minerals/Iron/Fa) 1 Each Tablet 1 Tab PO DAILY Vitamin B-12 (Cyanocobalamin (Vitamin B-12)) 1,000 Mcg Tablet 2,000 Mcg PO DAILY Tylenol (Acetaminophen) 325 Mg Tablet 650 Mg PO PRN Q6HRS PRN Folic Acid 1 Mg Tablet 1 Mg PO DAILY Aspirin 81 Mg Tab.chew 81 Mg PO DAILY Vitamin D3 (Cholecalciferol (Vitamin D3)) 1,000 Unit Tablet 2,000 Unit PO DAILY Vitamin B-6 (Pyridoxine Hcl) 100 Mg Tablet 100 Mg PO DAILY Evista (Raloxifene Hcl) 60 Mg Tablet 60 Mg PO DAILY Alprazolam 1 Mg Tablet 1 Mg PO QID Dicyclomine Hcl 20 Mg Tablet 20 Mg PO QID I have reviewed the current psychotropics carefully including drug interactions. Risk benefit ratio favors no change other than as noted in my dictated progress note. Diagnosis: Problems: (1) Anxiety disorder (2) Obsessive compulsive disorder (3) Psychosis, atypical (4) Major depressive disorder, recurrent episode (5) Seizure (6) Dementia (7) KAYLAN Torrez MD Jul 30, 2018 23:09
[2018-07-31 05:57] VITALS: BP 125/77
[2018-07-31] MEDS: BUDESONIDE 0.5 MG/2 ML NEBU NEB SCH (06:35)
[2018-07-31] MEDS: ASPIRIN 81 MG TAB.CHEW PO SCH (07:22)
[2018-07-31] MEDS: risperiDONE 0.5 MG TABLET. PO SCH (07:22)
[2018-07-31] MEDS: CHOLECALCIFEROL (VITAMIN D3) 1,000 UNIT TABLET PO SCH (07:22)
[2018-07-31] MEDS: CALCIUM CARB/VIT D3 500/200 TABLET PO SCH (07:22)
[2018-07-31] MEDS: RALOXIFENE 60 MG TABLET. PO SCH (07:22)
[2018-07-31] MEDS: CEFDINIR 300 MG CAPSULE PO SCH (07:23)
[2018-07-31] MEDS: CYANOCOBALAMIN (VITAMIN B-12) 1,000 MCG TABLET. PO SCH (07:23)
[2018-07-31] MEDS: busPIRone 10 MG TABLET. PO SCH (07:23)
[2018-07-31] MEDS: LOPERAMIDE 2 MG CAPSULE PO SCH (07:23)
[2018-07-31] MEDS: LACTOBACILLUS RHAMNOSUS GG 1 CAPSULE. PO SCH (07:23)
[2018-07-31] MEDS: MULTIVITAMIN with MINERAL TABLET. PO SCH (07:23)
[2018-07-31] MEDS: ALPRAZolam 0.5 MG TABLET PO SCH (07:25)
[2018-07-31] MEDS: HYDROcodone/APAP 5/325MG 1 TAB TABLET PO SCH (07:26)
--- NOTE | 2018-07-31 22:47 | PDOC ---
Exam Note: Lencho Note: Please also refer to the separate dictated note~for this date of service dictated separately.~Patient seen individually. Discussed the patient with Nursing staff reviewed the chart.~Reviewed interim history and current functioning. Reviewed vital signs,~Labs/ Radiology~and current medications noted below. Continue current treatment with the changes noted in the dictated addendum note Assessment: Vital Signs: Vital Signs Date Time Temp Pulse Resp B/P (MAP) Pulse Ox O2 Delivery O2 Flow Rate FiO2 07/31/18 08:26 18 98 07/31/18 06:35 Room Air 07/31/18 05:57 98.3 82 125/77 (93) I&O Intake and Output 07/31/18 06:59 Intake Total 600 ml Balance 600 ml Intake Oral 600 ml # Voids 1 # Bowel Movements 1 Current Medications: Meds: Current Medications Alprazolam (Xanax) 0.5 mg 1X ONCE PO Last administered on 07/07/18 13:21; Start 07/07/18 at 13:15; Stop 07/07/18 at 13:18; Status DC Alprazolam (Xanax) 1 mg QID PO Last administered on 07/08/18at 16:47; Start at 21:00; Stop 07/08/18 at 19:32; Status DC Buspirone HCl (Buspar) 20 mg BID PO Last administered on 07/31/18at 07:23; Start 07/07/18 at 21:00; Stop 07/31/18 at 10:08; Status DC Donepezil HCl (Aricept) 10 mg QHS PO Last administered on 07/30/18at 19:33; Start 07/07/18 at 21:00; Stop 07/31/18 at 10:08; Status DC Non-Formulary Medication (Fluvoxamine Maleate ) 450 mg BID PO ; Start 07/07/18 at 21:00; Stop 07/07/18 at 21:00; Status DC Quetiapine Fumarate (SEROquel) 25 mg DAILY PO Last administered on 07/09/18at 08: 50; Start 07/08/18 at 09:00; Stop 07/09/18 at 09:42; Status DC Quetiapine Fumarate (SEROquel) 200 mg QHS PO Last administered on 07/09/18at 21: 34; Start 07/07/18 at 21:00; Stop 07/10/18 at 11:41; Status DC Acetaminophen (Tylenol) 650 mg PRN Q6HRS PRN PO PAIN; Start 07/07/18 at 19:45; Stop 07/31/18 at 10:08; Status DC Vitamin D (Vitamin D3) 2,000 unit DAILY PO Last administered on 07/31/18 07:22 ; Start 07/08/18 at 09:00; Stop 07/31/18 at 10:08; Status DC Cyanocobalamin (Vitamin B-12) 2,000 mcg DAILY PO Last administered on 07:23; Start 07/08/18 at 09:00; Stop 07/31/18 at 10:08; Status DC Al Hydroxide/Mg Hydroxide (Mylanta Plus Xs) 15 ml PRN AFTMEALHC PRN PO DYSPEPSIA; Start 07/07/18 at 19:45; Stop 07/31/18 at 10:08; Status DC Magnesium Hydroxide (Milk Of Magnesia) 2,400 mg PRN QHS PRN PO CONSTIPATION; Start 07/07/18 at 19:45; Stop 07/31/18 at 10:08; Status DC Multivitamins/ Calcium (Thera-M Plus) 1 tab DAILY PO Last administered on at 07:23; Start 07/08/18 at 09:00; Stop 07/31/18 at 10:08; Status DC Aspirin (Children'S Aspirin) 81 mg DAILYWBKFT PO Last administered on at 07:22; Start 07/08/18 at 08:00; Stop 07/31/18 at 10:08; Status DC Calcium/Vitamin D (Oscal D 500mg/ 200uts) 2 tab DAILYWBKFT PO Last administered on 07/31/18at 07:22; Start 07/08/18 at 08:00; Stop 07/31/18 at 10:08 ; Status DC Dicyclomine HCl (Bentyl) 20 mg QID PO Last administered on 07/12/18at 13:10; Start 07/07/18 at 21:00; Stop 07/12/18 at 16:39; Status DC Folic Acid (Folic Acid) 1 mg DAILY PO Last administered on 07/12/18at 08:44; Start 07/08/18 at 09:00; Stop 07/12/18 at 16:39; Status DC Acetaminophen/ Hydrocodone Bitart (Lortab 5/325) 0.5 tab PRN BID PRN PO PAIN; Start 07/07/18 at 20:00; Stop 07/07/18 at 23:33; Status DC Loperamide HCl (Imodium) 2 mg DAILY PO Last administered on 07/11/18at 08:21; Start 07/08/18 at 09:00; Stop 07/11/18 at 12:05; Status DC Non-Formulary Medication (Mometasone Furoate (Asmanex)) 110 mcg BID IH ; Start 07/07/18 at 21:00; Stop 07/07/18 at 21:00; Status DC Pyridoxine HCl (Vitamin B-6) 100 mg DAILY PO Last administered on 07/12/18at 08: 47; Start 07/08/18 at 09:00; Stop 07/12/18 at 16:40; Status DC Raloxifene HCl (Evista) 60 mg DAILY PO Last administered on 07/31/18at 07:22; Start 07/08/18 at 09:00; Stop 07/31/18 at 10:08; Status DC Budesonide (Pulmicort) 0.5 mg RTBID NEB Last administered on 07/31/18at 06:35; Start 07/07/18 at 20:00; Stop 07/31/18 at 10:08; Status DC Fluvoxamine Maleate (Luvox) 150 mg BID PO Last administered on 07/14/18at 08:22 ; Start 07/07/18 at 21:00; Stop 07/14/18 at 18:15; Status DC Acetaminophen/ Hydrocodone Bitart (Lortab 5/325) 0.5 tab BID PO Last administered on 07/31/18at 07:26; Start 07/08/18 at 09:00; Stop 07/31/18 at 10:08 ; Status DC Alprazolam (Xanax) 1 mg 0900,1300,1700 PO Last administered on 07/10/18at 17:15; Start 07/09/18 at 09:00; Stop 07/10/18 at 23:50; Status DC Alprazolam (Xanax) 0.5 mg QHS PO Last administered on 07/10/18at 20:43; Start 07/08/18 at 21:00; Stop 07/10/18 at 23:50; Status DC Alprazolam (Xanax) 0.5 mg BID PO Last administered on 07/22/18at 08:25; Start at 21:00; Stop 07/22/18 at 19:40; Status DC Alprazolam (Xanax) 0.5 mg 1300,1700 PO Last administered on 07/24/18at 17:25; Start 07/11/18 at 13:00; Stop 07/24/18 at 19:00; Status DC Trazodone HCl (Desyrel) 50 mg PRN QHS PRN PO INSOMNIA, MAY REPEAT X1 Last administered on 07/29/18at 20:07; Start 07/08/18 at 19:30; Stop 07/31/18 at 10:08 ; Status DC Risperidone (RisperDAL) 0.25 mg DAILY PO ; Start 07/10/18 at 09:00; Stop 07/10/18 at 09:00; Status DC Risperidone (RisperDAL) 0.25 mg QHS PO Last administered on 07/09/18at 21:41; Start 07/09/18 at 21:00; Stop 07/10/18 at 11:43; Status DC Quetiapine Fumarate (SEROquel) 150 mg QHS PO Last administered on 07/21/18at 20: 11; Start 07/10/18 at 21:00; Stop 07/22/18 at 19:40; Status DC Risperidone (RisperDAL) 0.5 mg QHS PO Last administered on 07/14/18at 20:26; Start 07/10/18 at 21:00; Stop 07/15/18 at 06:00; Status DC Loperamide HCl (Imodium) 2 mg BID PO ; Start 07/11/18 at 21:00; Stop 07/11/18 at 21:00; Status DC Loperamide HCl (Imodium) 2 mg TID PO Last administered on 07/31/18at 07:23; Start 07/11/18 at 16:15; Stop 07/31/18 at 10:08; Status DC Fluvoxamine Maleate (Luvox) 100 mg BID PO Last administered on 07/31/18 07:23 ; Start 07/14/18 at 21:00; Stop 07/31/18 at 10:08; Status DC Risperidone (RisperDAL) 0.5 mg BID PO Last administered on 07/31/18 07:22; Start 07/14/18 at 21:00; Stop 07/31/18 at 10:08; Status DC Throat Lozenges (Cepacol Sore Throat Lozenge) 1 alexandra PRN Q2HR PRN PO SORE THROAT ; Start 07/22/18 at 18:30; Stop 07/31/18 at 10:08; Status DC Alprazolam (Xanax) 0.5 mg DAILY PO Last administered on 07/27/18at 07:47; Start 07/23/18 at 09:00; Stop 07/27/18 at 17:09; Status DC Quetiapine Fumarate (SEROquel) 100 mg QHS PO Last administered on 07/24/18at 19: 49; Start 07/22/18 at 21:00; Stop 07/24/18 at 23:51; Status DC Quetiapine Fumarate (SEROquel) 50 mg QHS PO Last administered on 07/27/18 19: 21; Start 07/25/18 at 21:00; Stop 07/27/18 at 23:50; Status DC Alprazolam (Xanax) 0.25 mg QHS PO Last administered on 07/30/18at 19:40; Start 07/22/18 at 21:00; Stop 07/31/18 at 10:08; Status DC Alprazolam (Xanax) 0.25 mg 1700 PO Last administered on 07/30/18 17:08; Start 07/25/18 at 17:00; Stop 07/31/18 at 10:08; Status DC Alprazolam (Xanax) 0.5 mg 1300 PO Last administered on 07/30/18 13:30; Start 07/25/18 at 13:00; Stop 07/31/18 at 10:08; Status DC Alprazolam (Xanax) 0.25 mg DAILY PO Last administered on 07/31/18 07:25; Start 07/28/18 at 09:00; Stop 07/31/18 at 10:08; Status DC Azithromycin (Zithromax) 500 mg 1X ONCE PO ; Start 07/29/18 at 17:00; Stop at 17:01; Status DC Cefdinir (Omnicef) 300 mg BID PO Last administered on 07/31/18at 07:23; Start at 21:00; Stop 07/31/18 at 10:08; Status DC Lactobacillus Rhamnosus (Culturelle) 1 cap BID PO Last administered on at 07:23; Start 07/30/18 at 21:00; Stop 07/31/18 at 10:08; Status DC Active Scripts Active Reported Cefdinir 300 Mg Capsule 300 Mg PO BID 7 Days Xanax (Alprazolam) 0.25 Mg Tablet 0.25 Mg PO HS Xanax (Alprazolam) 0.5 Mg Tablet 0.5 Mg PO DAILY@1300 Xanax (Alprazolam) 0.25 Mg Tablet 0.25 Mg PO DAILYWSUP Cepacol Sore Throat Lozenge (Benzocaine/Menthol) 1 Each Lozenge 1 Each MM PRN QID PRN Culturelle (Lactobacillus Rhamnosus Gg) 1 Each Capsule 1 Each PO BID Risperdal (Risperidone) 0.5 Mg Tablet 0.5 Mg PO BID Trazodone Hcl 50 Mg Tablet 50 Mg PO PRN QHS PRN Hydrocodone-Acetamin 5-325 mg (Hydrocodone/Acetaminophen) 1 Each Tablet 0.5 Tab PO BID PRN Fluvoxamine Maleate 100 Mg Tablet 100 Mg PO BID Caltrate 600 + D Tablet (Calcium Carbonate/Vitamin D3) 1 Each Tablet 2 Tab PO DAILY Milk Of Magnesia (Magnesium Hydroxide) 400 Mg/5 Ml Oral.susp 2,400 Mg PO PRN QHS PRN Imodium A-D (Loperamide HCl) 2 Mg Capsule 2 Mg PO TID Mag-Al Plus Xs Suspension (Mag Hydrox/Al Hydrox/Simeth) 30 Ml Oral.susp 15 Ml PO PRN AFTMEALHC PRN Ventolin Hfa Inhaler (Albuterol Sulfate) 18 Gm Hfa.aer.ad 1 Puff IH PRN Q4HRS PRN Asmanex (Mometasone Furoate) 110 Mcg Aer.pow.ba 110 Mcg IH BID Aricept (Donepezil Hcl) 10 Mg Tablet 1 Tab PO QHS Buspirone Hcl 10 Mg Tablet 20 Mg PO BID Thera-M Tablet (Multivits,Ca,Minerals/Iron/Fa) 1 Each Tablet 1 Tab PO DAILY Vitamin B-12 (Cyanocobalamin (Vitamin B-12)) 1,000 Mcg Tablet 2,000 Mcg PO DAILY Tylenol (Acetaminophen) 325 Mg Tablet 650 Mg PO PRN Q6HRS PRN Folic Acid 1 Mg Tablet 1 Mg PO DAILY Aspirin 81 Mg Tab.chew 81 Mg PO DAILY Vitamin D3 (Cholecalciferol (Vitamin D3)) 1,000 Unit Tablet 2,000 Unit PO DAILY Vitamin B-6 (Pyridoxine Hcl) 100 Mg Tablet 100 Mg PO DAILY Evista (Raloxifene Hcl) 60 Mg Tablet 60 Mg PO DAILY Alprazolam 1 Mg Tablet 0.25 Mg PO DAILY I have reviewed the current psychotropics carefully including drug interactions. Risk benefit ratio favors no change other than as noted in my dictated progress note. Diagnosis: Problems: (1) Anxiety disorder (2) Obsessive compulsive disorder (3) Psychosis, atypical (4) Major depressive disorder, recurrent episode (5) Seizure KAYLAN RAGLAND MD Jul 31, 2018 22:47
--- NOTE | 2018-08-01 13:30 | DS ---
DATE OF DISCHARGE: 07/31/2018 DISCHARGE SUMMARY/PSYCHIATRIC PROGRESS REASON FOR ADMISSION: Please refer to the admission history for details. Briefly, the patient is a 72-year-old female referred back to us by Dr. Merritt Lopez, her outpatient psychiatrist on account of increased anxiety, confusion, agitation, yelling out at her when he is out of her sight. She is quite obsessive, anxious, wandering. She had failed outpatient psychiatric interventions. SIGNIFICANT FINDINGS AND CLINICAL COURSE: Following admission, the patient was seen daily individually by myself from a psychiatric standpoint, medical followup with Dr. Schwarz. She did have UTI, which was finally diagnosed prior to discharge and she was started on antibiotics for this. She was also extremely obsessive, anxious, repetitive with mood lability. Adjustments were made in her psychotropics. She responded to a combination of Luvox 100 mg b.i.d., and Xanax was being tapered gradually due to daytime sedation. The patient is also on trazodone 50 mg at bedtime p.r.n., september repeat x 1; BuSpar 20 mg b.i.d., Seroquel 50 mg at bedtime, had been discontinued on 07/28/2018. She is on Aricept 10 mg a day, Risperdal 0.[address] of the Seroquel to augment the Luvox and for her psychotic symptoms. Prior to discharge on 07/31/2018, ambulation impaired with walker. No CV, , pulmonary, eye system symptoms on review, still having some diarrhea. Stool culture was negative per Dr. Schwarz. MENTAL STATUS EXAM: Oriented to herself and situation. Speech is coherent, has some latency. Abstraction fair, computation impaired, language function intact, attention span short. Mood and affect showing improvement, less obsessive, less depressed, still anxious. LABORATORY DATA: Labs reviewed. FINAL DIAGNOSES: Major depressive disorder, recurrent, in partial remission; OCD; anxiety disorder, unspecified; urinary tract infection; diarrhea, which was improving. Rest unchanged from admission. DISCHARGE MEDICATIONS: Please refer to the MRAD. DISCHARGE INSTRUCTIONS: Outpatient psychiatric followup with Dr. Merritt Lopez. Medical followup with her primary care physician. Time for discharge day management greater than 30 minutes. MAN Dane RAGLAND MD DR: NABIL/sasha JOB#: [id number] / [id number]
--- NOTE | 2018-08-01 20:12 | PN ---
DATE: 07/30/2018 PSYCHIATRIC PROGRESS NOTE This late entry 07/30/2018 covers elements not covered in my initial note. SUBJECTIVE: I met with the patient in the evening. The patient slept 7-1/2 hours previous night. She is still somewhat obsessive having some diarrhea and does have a UTI, started on antibiotics per Dr. Schwarz. REVIEW OF SYSTEMS: Ambulation impaired with walker. No CV, , pulmonary, eye system symptoms on review. MENTAL STATUS EXAM: Reasonably oriented. Speech coherent, at times somewhat pressured. Abstraction fair, computation impaired, language function intact, attention span short. Mood and affect remain somewhat anxious, obsessive, but improved. LABORATORY DATA: Reviewed. IMPRESSION: Unchanged from initial note. PLAN: No change from initial note. MAN Dane RAGLAND MD DR: NABIL/sasha JOB#: [id number] / [id number]
== END 2018-07-31 10:00 | disposition home or self-care (01) | DRG 885 ==
LOC: ER 10:48 → GEROPSY 16:09
PROVIDERS: ADMIT Psychiatry & Neurology Psychiatry; ATTEND Psychiatry & Neurology Psychiatry
DX: F33.41 Major depressive disorder, recurrent, in partial remission (principal); F05 Delirium due to known physiological condition; N39.0 Urinary tract infection, site not specified; F03.90 Unspecified dementia, unspecified severity, without behavioral disturbance, psychotic disturbance, mood disturbance, and anxiety; G40.909 Epilepsy, unspecified, not intractable, without status epilepticus; J44.9 Chronic obstructive pulmonary disease, unspecified; R13.10 Dysphagia, unspecified; F41.9 Anxiety disorder, unspecified; F42.9 Obsessive-compulsive disorder, unspecified; R45.87 Impulsiveness; N18.9 Chronic kidney disease, unspecified; K58.1 Irritable bowel syndrome with constipation; I34.1 Nonrheumatic mitral (valve) prolapse; I73.9 Peripheral vascular disease, unspecified; Z88.0 Allergy status to penicillin; Z88.2 Allergy status to sulfonamides; Z88.8 Allergy status to other drugs, medicaments and biological substances; Z79.899 Other long term (current) drug therapy
CPT/HCPCS: 36415; 70450; 71045; 80053; 80061; 81001; 82306; 83036; 83540; 83550; 83735; 84436; 84443; 84480; 84484; 85025; 85027; 86592; 87045; 87086; 87493; 92526; 93005; 94640; J7626; 92610; 97110; 97535; 99285-25